=== PATIENT | female | born 1965 | race Caucasian/White ===

== ENCOUNTER → 2020-12-01 09:30 | Outpatient (BNVA) | payer MEDICARE, SELFPAY | PROVIDERS: PCP Internal Medicine; Visit Provider Hospitalist | DX: J45.50 Severe persistent asthma, uncomplicated (principal); R91.8 Other nonspecific abnormal finding of lung field; G47.33 Obstructive sleep apnea (adult) (pediatric); Z99.89 Dependence on other enabling machines and devices | CPT/HCPCS: 99212 ==

== ENCOUNTER → 2021-01-19 09:16 | Outpatient (BNVA) | payer MEDICARE, SELFPAY | PROVIDERS: PCP Internal Medicine; Visit Provider Hospitalist | DX: J30.9 Allergic rhinitis, unspecified (principal); R91.8 Other nonspecific abnormal finding of lung field; G47.33 Obstructive sleep apnea (adult) (pediatric); Z99.89 Dependence on other enabling machines and devices; J45.51 Severe persistent asthma with (acute) exacerbation | CPT/HCPCS: 99212 ==

== ENCOUNTER 2021-01-26 10:49 | Outpatient (REF) | payer MEDICARE, SELFPAY ==
--- NOTE | ~2021-01-26 | CT_ITS ---
EXAMINATION: CT CHEST WITHOUT CONTRAST CLINICAL INFORMATION: Follow-up pulmonary nodules COMPARISON: Previous chest CT scans most recent June 2020 TECHNIQUE: Multidetector volumetric CT imaging of the chest was done. Axial MIP volume rendering provided. Sagittal and coronal reformatted images were obtained. This CT examination was performed using dose optimization techniques as appropriate, variously including the following: *Automated exposure control *Adjustment of mA and/or kV according to patient size (this includes techniques or standardized protocols for targeted exams where dose is matched to indication/reason for exam; i.e. extremities or head) *Use of iterative reconstruction technique DLP: 472 mGy-cm FINDINGS: DRILLER HAND: Unremarkable LUNGS: There are innumerable noncalcified bilateral pulmonary nodules, right greater than left. Largest pulmonary nodules measure 4 mm in the peripheral or subpleural right lower lobe adjacent to the fissure axial image 298 series 6 and at the right lung apex axial image 42 series 6 and the left upper lobe axial image 212 series 6. There are a few calcified pulmonary nodules. Pulmonary nodules are stable from June 2020 exam. No new nodules are seen. MEDIASTINUM: There is a small pericardial effusion that is stable. The mediastinum is otherwise normal. PLEURA: There is no pleural effusion. No pleural mass or thickening. AXILLA: No lymphadenopathy. UPPER ABDOMEN: There are postoperative changes from upper midline ventral hernia repair. OSSEOUS STRUCTURES: There are mild degenerative changes of the spine. CT/CT chest wo con IMPRESSION: Innumerable stable small pulmonary nodules, the majority of which are noncalcified. Stable small pericardial effusion.
== END 2021-01-26 10:50 | disposition home or self-care (01) ==
LOC: HO.CT 10:49
PROVIDERS: PCP Internal Medicine; Visit Provider Hospitalist
DX: R91.8 Other nonspecific abnormal finding of lung field (principal)
CPT/HCPCS: 71250

== ENCOUNTER → 2021-03-05 11:13 | Outpatient (BNVA) | payer MEDICARE, SELFPAY | PROVIDERS: PCP Internal Medicine; Visit Provider Hospitalist | DX: J45.51 Severe persistent asthma with (acute) exacerbation (principal); J30.9 Allergic rhinitis, unspecified; G47.33 Obstructive sleep apnea (adult) (pediatric); Z99.89 Dependence on other enabling machines and devices; R91.8 Other nonspecific abnormal finding of lung field | CPT/HCPCS: 99212 ==

== ENCOUNTER → 2021-04-28 14:08 | Outpatient (BNVA) | payer MEDICARE, SELFPAY | PROVIDERS: PCP Internal Medicine; Visit Provider Hospitalist | DX: G47.33 Obstructive sleep apnea (adult) (pediatric) (principal); J45.51 Severe persistent asthma with (acute) exacerbation; R91.8 Other nonspecific abnormal finding of lung field; J30.9 Allergic rhinitis, unspecified; J44.9 Chronic obstructive pulmonary disease, unspecified; Z99.89 Dependence on other enabling machines and devices; Z79.899 Other long term (current) drug therapy | CPT/HCPCS: 96372; 99212; J2930 ==

== ENCOUNTER → 2021-07-06 11:00 | Outpatient (BNVA) | payer MEDICARE, SELFPAY | PROVIDERS: PCP Internal Medicine; Visit Provider Hospitalist | DX: J44.9 Chronic obstructive pulmonary disease, unspecified (principal); G47.33 Obstructive sleep apnea (adult) (pediatric); J45.51 Severe persistent asthma with (acute) exacerbation; J30.9 Allergic rhinitis, unspecified; R91.8 Other nonspecific abnormal finding of lung field; Z99.89 Dependence on other enabling machines and devices | CPT/HCPCS: 99212 ==

== ENCOUNTER → 2021-10-05 09:59 | Outpatient (BNVA) | payer MEDICARE, SELFPAY | PROVIDERS: PCP Internal Medicine; Visit Provider Hospitalist | DX: J45.51 Severe persistent asthma with (acute) exacerbation (principal); J30.9 Allergic rhinitis, unspecified; J44.9 Chronic obstructive pulmonary disease, unspecified; G47.33 Obstructive sleep apnea (adult) (pediatric); R91.8 Other nonspecific abnormal finding of lung field; Z99.89 Dependence on other enabling machines and devices | CPT/HCPCS: 99212 ==

== ENCOUNTER 2022-01-01 13:22 | Outpatient (REF) | payer MEDICARE, SELFPAY ==
--- NOTE | ~2022-01-01 | CT_ITS ---
EXAMINATION: CT CHEST WITHOUT CONTRAST CLINICAL INFORMATION: Abnormal lung finding. COMPARISON: CT chest 01/26/2021. TECHNIQUE: Multidetector volumetric CT imaging of the chest was done. Axial MIP volume rendering provided. Sagittal and coronal reformatted images were obtained. This CT examination was performed using dose optimization techniques as appropriate, variously including the following: Automated exposure control. Adjustment of mA and/or kV according to patient size (this includes techniques or standardized protocols for targeted exams where dose is matched to indication/reason for exam; i.e. extremities or head). Use of iterative reconstruction technique. DLP: 247 mGy-cm FINDINGS: HOSPITAL LIAISON: Well expanded lungs. LUNGS: The lungs are well expanded without any acute pneumonic process. There are numerous noncalcified pulmonary nodules. A 4 mm right lung apex nodule image 96/7, a 4 mm nodule right lower lobe adjacent to the major fissure axial image 344/7, numerous 1-2 mm nodules scattered throughout the bilateral upper lobes, lower lobes, right middle lobe and lingular segments. The size of these nodules are similar to previous study. MEDIASTINUM: The thyroid lobes are symmetrical and normal. The central trachea and bronchi are widely patent. Heart size and the great vessels are normal caliber. Trace pericardial effusion seen. No abnormal size mediastinal or hilar lymph nodes seen. PLEURA: There is no pleural effusion. No pleural mass or thickening. AXILLA: No lymphadenopathy. UPPER ABDOMEN: The visualized liver, spleen, pancreas and bilateral adrenal glands are unremarkable. There are no radiopaque gallstones. OSSEOUS STRUCTURES: No lytic or sclerotic process seen. There is mild ventral spondylosis. CT/CT chest wo con IMPRESSION: Numerous diffuse bilateral pulmonary nodules, largest measuring 4 mm are stable. There are no new nodules or any substantial increase in the size of the existent nodules from previous study. No abnormal mediastinal or axillary lymphadenopathy. Fleischner guidelines were followed.
== END 2022-01-01 13:23 | disposition home or self-care (01) ==
LOC: HO.CT 13:22
PROVIDERS: PCP Internal Medicine; Visit Provider Hospitalist
DX: R91.8 Other nonspecific abnormal finding of lung field (principal)
CPT/HCPCS: 71250

== ENCOUNTER → 2022-01-27 10:22 | Outpatient (BNVA) | payer MEDICARE, SELFPAY | PROVIDERS: PCP Internal Medicine; Visit Provider Hospitalist | DX: J45.50 Severe persistent asthma, uncomplicated (principal); J44.9 Chronic obstructive pulmonary disease, unspecified; J30.9 Allergic rhinitis, unspecified; G47.33 Obstructive sleep apnea (adult) (pediatric); R91.8 Other nonspecific abnormal finding of lung field; Z88.2 Allergy status to sulfonamides; Z99.89 Dependence on other enabling machines and devices | CPT/HCPCS: 99212 ==

== ENCOUNTER → 2022-07-23 13:00 | Outpatient (BNVA) | payer MEDICARE, SELFPAY | PROVIDERS: PCP Internal Medicine; Visit Provider Hospitalist | DX: J45.51 Severe persistent asthma with (acute) exacerbation (principal); G47.33 Obstructive sleep apnea (adult) (pediatric); R91.8 Other nonspecific abnormal finding of lung field; J30.9 Allergic rhinitis, unspecified; Z79.899 Other long term (current) drug therapy; Z99.89 Dependence on other enabling machines and devices | CPT/HCPCS: 99212 ==

== ENCOUNTER → 2022-10-01 09:43 | Outpatient (BNVA) | payer MEDICARE, SELFPAY | PROVIDERS: PCP Internal Medicine; Visit Provider Hospitalist | DX: J45.51 Severe persistent asthma with (acute) exacerbation (principal); G47.33 Obstructive sleep apnea (adult) (pediatric); R05.9 Cough, unspecified; R91.8 Other nonspecific abnormal finding of lung field; J30.9 Allergic rhinitis, unspecified; Z99.89 Dependence on other enabling machines and devices | CPT/HCPCS: 96372; 99212; J2930 ==

== ENCOUNTER 2022-11-02 14:27 | Outpatient (REF) | payer MEDICARE, SELFPAY ==
--- NOTE | ~2022-11-02 | XR_ITS ---
EXAMINATION: XR CHEST CLINICAL INFORMATION: Chronic obstructive pulmonary disease. COMPARISON: CT 01/01/2022 TECHNIQUE: 2 views of the chest were obtained. FINDINGS: The lungs are well expanded. There is no focal consolidation, edema, or effusion. No pneumothorax. The cardiomediastinal silhouette is within normal limits. No acute osseous abnormality. Prior ventral abdominal wall hernia repair. XR/XR chest 2V IMPRESSION: Clear lungs.
[2022-11-02 15:47] LABS: MANUAL DIFF FLAG NO
[2022-11-02 16:38] LABS: Basophils Percent Auto 0.6 % (0-2); Eosinophils Absolute Auto 0.3 X10*3/uL (0.0-0.4); Eosinophils Percent Auto 5.3 % (0-4); Hematocrit 43.3 % (37.0-47.0); Hemoglobin 14.1 g/dl (12.0-16.0); Imm Gran Abs Auto 0.03 X10*3/uL (0.00-0.03); Imm Gran Pct Auto 0.5 % (0.0-0.4); Lymphocytes Absolute Auto 1.2 X10*3/uL (1.2-4.9); Lymphocytes Percent Auto 18.4 % (20-40); Mean Corpuscular HGB Conc 32.6 g/dl (31.0-35.0); Mean Corpuscular Hemoglobin 29.4 pg (27.0-33.0); Mean Corpuscular Volume 90.4 fL (80.0-98.0); Mean Platelet Volume 9.6 fL (9.4-12.3); Monocytes Absolute Auto 0.8 X10*3/uL (0.1-1.2); Monocytes Percent Auto 12.3 % (2-11); Neutrophils Absolute Auto 3.9 x10*3/uL (2.0-8.3); Neutrophils Percent Auto 62.9 % (45-73); Platelet Count 259 X10*3/uL (160-400); Red Blood Count 4.79 X10*6/uL (4.20-5.50); Red Cell Distribution Width 13.2 % (11.0-16.0); White Blood Count 6.3 X10*3/uL (4.8-10.8)
[2022-11-02 17:05] LABS: Anion Gap 12 (12-20); Blood Urea Nitrogen 14 mg/dL (9-16); Calcium 8.9 mg/dL (8.4-10.2); Carbon Dioxide 22 mmol/L (22-29); Chloride 109 mmol/L (96-108); Estimated Glomerular Filt Rate 57; Glucose Random 101 mg/dL (60-115); Sodium 139 mmol/L (135-145)
[2022-11-02 17:30] LABS: Erythrocyte Sedimentation Rate 18 MM/HR (0-20)
[2022-11-03 14:28] LABS: Immunoglobulin E 37 kU/L (<OR=114)
[2022-11-05 22:49] LABS: IgA 170 mg/dL (47-310); IgG 515 mg/dL (600-1640); IgM 38 mg/dL (50-300)
== END 2022-11-02 14:28 | disposition home or self-care (01) ==
LOC: HO.LAB 14:27
PROVIDERS: PCP Internal Medicine; Visit Provider Hospitalist
DX: R06.00 Dyspnea, unspecified (principal); J45.50 Severe persistent asthma, uncomplicated; J30.9 Allergic rhinitis, unspecified; R91.8 Other nonspecific abnormal finding of lung field; G47.33 Obstructive sleep apnea (adult) (pediatric); Z99.89 Dependence on other enabling machines and devices; Z79.899 Other long term (current) drug therapy
CPT/HCPCS: 36415; 71046; 80048; 82784; 82785; 85025; 85652; 96372; 99212; J2930

== ENCOUNTER 2022-11-19 10:30 | Outpatient (REF) | payer MEDICARE, SELFPAY ==
--- NOTE | ~2022-11-19 | CT_ITS ---
EXAMINATION: CT CHEST WITHOUT CONTRAST CLINICAL INFORMATION: Abnormal lung findings. COMPARISON: CT chest 01/01/2022 and 01/26/2021. TECHNIQUE: Multidetector volumetric CT imaging of the chest was done. Axial MIP volume rendering provided. Sagittal and coronal reformatted images were obtained. This CT examination was performed using dose optimization techniques as appropriate, variously including the following: *Automated exposure control *Adjustment of mA and/or kV according to patient size (this includes techniques or standardized protocols for targeted exams where dose is matched to indication/reason for exam; i.e. extremities or head) *Use of iterative reconstruction technique DLP: 256 mGy-cm. FINDINGS: [employer]: Unremarkable. LUNGS: The lungs are expanded without acute pneumonic process. There are bilateral extensive 1-2 mm nodules seen throughout both upper lobes, lower lobes. The largest pulmonary nodule measures 3 mm right upper lobe axial image 169/5, 4 mm nodule left upper lobe axial image 280/5, 4 mm nodule left upper lobe axial image 250/5. MEDIASTINUM: The thyroid lobes are symmetric and normal. The central trachea and the bronchi are widely patent. Heart size and the great vessels are normal caliber. No abnormal-sized mediastinal or hilar lymph nodes seen. There is no pericardial effusion seen. CORONARY ARTERY CALCIFICATION: None visualized on this study. PLEURA: There is no pleural effusion. No pleural mass or thickening. AXILLA: Small shotty lymph nodes seen in bilateral axilla. UPPER ABDOMEN: Visualized liver, spleen, pancreas and bilateral adrenal glands are unremarkable. OSSEOUS STRUCTURES: No aggressive lytic or sclerotic process seen. CT/CT chest wo IV con IMPRESSION: Multiple bilateral pulmonary nodules with the largest nodule measuring 4 mm bilaterally. There are unchanged to the previous 2 CT exams. No abnormal mediastinal or axillary lymphadenopathy seen. Fleischner guidelines were followed.
== END 2022-11-19 10:31 | disposition home or self-care (01) ==
LOC: HO.CT 10:30
PROVIDERS: PCP Internal Medicine; Visit Provider Hospitalist
DX: R91.8 Other nonspecific abnormal finding of lung field (principal)
CPT/HCPCS: 71250

== ENCOUNTER → 2023-01-20 12:54 | Outpatient (BNVA) | payer MEDICARE, SELFPAY | PROVIDERS: PCP Internal Medicine; Visit Provider Hospitalist | DX: J45.51 Severe persistent asthma with (acute) exacerbation (principal); J45.50 Severe persistent asthma, uncomplicated; R91.8 Other nonspecific abnormal finding of lung field; J30.9 Allergic rhinitis, unspecified; J33.9 Nasal polyp, unspecified; G47.33 Obstructive sleep apnea (adult) (pediatric); Z99.89 Dependence on other enabling machines and devices; Z79.52 Long term (current) use of systemic steroids; Z79.899 Other long term (current) drug therapy | CPT/HCPCS: 99212 ==

== ENCOUNTER → 2023-04-19 11:05 | Outpatient (BNVA) | payer MEDICARE, SELFPAY | PROVIDERS: PCP Internal Medicine; Visit Provider Hospitalist | DX: J45.51 Severe persistent asthma with (acute) exacerbation (principal); R91.8 Other nonspecific abnormal finding of lung field; J30.9 Allergic rhinitis, unspecified; G47.33 Obstructive sleep apnea (adult) (pediatric); J33.9 Nasal polyp, unspecified; L30.9 Dermatitis, unspecified; Z79.899 Other long term (current) drug therapy; Z99.89 Dependence on other enabling machines and devices | CPT/HCPCS: 99212 ==

== ENCOUNTER 2023-06-09 08:26 | Outpatient (AMB) | payer MEDICARE, SELFPAY ==
--- NOTE | 2023-06-09 08:28 | A.OFFVIS_ITS ---
Intake Vital Signs 06/09/23 08:29 Height 5 ft 5 in Weight 253 lb 2 oz BMI 42.1 BP 132/84 Blood Pressure Location Rt brachial Position Sitting Pulse 61 Pulse Source Pulse Oximeter Pulse Oximetry (%) 97 Oxygen Delivery Method Room Air Intake Visit Reasons: ear pain, CT results ?trigeminal neuralgia-conf Intake Note: Pt presents as a NPV for ear pain. Cattle Brander Required: No Allergies Iodinated Contrast Media Allergy (Severe, Verified 06/15/23 10:29) Unknown environmental allergies Allergy (Unknown, Verified 06/15/23 10:29) Unknown Sulfa Drugs Allergy (Severe, Uncoded 06/15/23 10:29) Hives Medication List - Last Reconciled 06/09/23 by ITA Pulliam albuterol sulfate 90 mcg/actuation 2 puffs PO Q6H PRN amiloride 5 mg PO DAILY azelastine 2 sprays intranasal BID azithromycin 250 mg PO 3XW 28 days benzonatate 200 mg PO BID PRN cetirizine (Zyrtec) 10 mg PO DAILY PRN codeine-guaifenesin 10-100 mg/5 mL 10 mL PO Q6H PRN 10 days epinephrine IM flu vacc [id number] 6mos up(PF) mL IM fluoxetine 20 mg PO DAILY edzyxolsfmx-wgycsyqus-refalogu 200-62.5-25 mcg (Trelegy Ellipta) 1 inh inhalation DAILY 90 days ipratropium bromide 2 sprays intranasal TID PRN ipratropium-albuterol 0.5 mg-3 mg(2.5 mg base)/3 mL 3 mL inhalation QID 30 days levalbuterol tartrate 45 mcg/actuation 2 puffs PO Q4H PRN magnesium oxide 500 mg PO DIRECTED montelukast 10 mg PO BEDTIME pantoprazole 40 mg PO DAILY potassium chloride ER 10 mEq PO DAILY tezepelumab-ekko (Tezspire) 210 mg (1.91 mL) subcut Q4W 12 months HPI HPI Comments History of Present Illness Details 57-yr-old female presents for new pt evaluation of left ear pain. Pt reports PMH significant for: asthma-COPD overlap syndrome, chronic allergic rhinitis, pulmonary nodules, SIERRA, hypokalemia, tricupsid regurgitation, tracheobronchomalacia, GERD. Pt reports about 10 yrs ago she felt that she was having recurrent left ear infections. She saw ENT, who did not identify a cause at the time. She did not have head imaging at that time. Since, then she has been prone to intermittent left ear fullness. She has had a few interval of courses of ABT for URI/sinus type infections. Then about 4-5 months ago, she started having a constant left era pressure a/w left stabbing/shooting ear pain and left cervical chain swollen lymph nodes. The pain is usually brief- can be up to seconds of a searing pain. May have up to 4 attacks per day. Now, she notes that she has not been having the shooting pains as frequently but when that is occurring she feels an odd sensation in yue legs- like a bandaid being pulled off. When she is having the ear pain, it is harder for her to sleep on her preferred left side- the left leg will will restless and tingling- and this subsides some with rolling into her right side. There have been some episodes where when the ear pain was worse, she would feel a prickly sensation above the left eyebrow and left lower occipital margin. She endorses left TMJ, which is more bothersome when her ear is more bothersome. She has chronic TMJ- so has had some discomfort eating for a long time. Endorses bruxism- wears a mouth guard at night. She can be dizzy and off-balance- trying to work on her balance. Feels not seeing as clearly as she would like to- especially at night. She is having more difficulty with word retrieval. Has a remote h/o migraine- last was > 20 yrs. Denies any facial redness/swelling, facial weakness/droop, dysphagia, throat pain. Notes that she is currently on prophylactic azithromycin by Dr Farmer- this has not seemed to help the left ear symptoms. COUNTS INCLUDE 234 BEDS AT THE [facility] Medical History Asthma-COPD overlap syndrome Chronic allergic rhinitis Eczema Nasal polyposis SIERRA on CPAP Pulmonary nodules Severe persistent asthma Surgical History Hx of cataract surgery S/P hernia surgery Family History (Updated 06/09/23 @ 08:40 by Coco Gonzales CMA) Father Lung cancer Diabetes Heart disease Mother Emphysema of lung Hypertension Bladder cancer TIA (transient ischemic attack) Social History Alcohol intake: current Alcohol intake frequency: a few times a month Patient Tobacco Use Status: Never used Tobacco Review of Systems Const Details: See scanned review of s/s. Physical Exam Vital Signs: Last Vital Signs Pulse 61 06/09/23 08:29 BP 132/84 06/09/23 08:29 Pulse Ox 97 06/09/23 08:29 Oxygen Delivery Method Room Air 06/09/23 08:29 BMI result Body Mass Index 42.1 Const Orientation/consciousness: patient oriented x3 HEENT Head: Yes normocephalic Resp Effort & Inspection: normal respiratory effort and able to speak in complete sentences Back/Spine/Pelvis Other: Bilateral posterior cervical tightness. Neuro General: patient oriented x3 Cranial nerves: Yes CN's II-XII intact bilaterally Cognition (Neuro): normal cognition Gait exam (Neuro): Normal gait present Motor exam (neuro): 5/5 motor strength present throughout Deep tendon reflexes (DTR's): Right triceps reflex intensity grade: 2+, Left triceps reflex intensity grade: 2+, Rt Biceps (C5, C6): 2+, Left biceps reflex intensity grade: 2+, Right brachioradialis reflex intensity grade: 2+, Left brachioradialis reflex intensity grade: 2+, Right patellar reflex intensity grade: 2+ and Left patellar reflex intensity grade: 2+ Coordination: [id number] test normal Pupils: Normal pupillary reactivity/response: bilateral Psych Appearance: grossly normal Mental Status: mental status grossly normal Speech and movement: Normal speech and movement present Affect: normal affect Attitude: cooperative Thought process: Normal thought process present Assessment & Plan Assessment & Plan (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 intracranial hypertension, TN process. Trial Topiramate 25-50mg qhs. Future considerations- muscle relaxant Case discussed w/ Dr Norma bautista/gera in 3 months or sooner prn Orders: Orders MR head/brain wo/w con 06/10/23 Q01.9 - Encephalocele, unspecified, H92.02 - Otalgia, left ear, R51.9 - Headache, unspecified Medications: New topiramate 25 - 50 mg (1 - 2 x 25 mg) PO BEDTIME 60 tabs 3RF 30 days Coding Level of Care Code New Pt Level 4 (56959) Diagnoses Cephalocele Q01.9 Left ear pain H92.02 Left facial pain R51.9
[2023-06-09 08:29] VITALS: BP 132/84; PULSE 61; O2SAT 97; BMI 42.1
== END 2023-06-09 09:56 | disposition home or self-care (01) ==
LOC: HO.HSMS 08:26
PROVIDERS: PCP Internal Medicine; Visit Provider Nurse Practitioner Family
DX: Q01.9 Encephalocele, unspecified (principal); H92.02 Otalgia, left ear; R51.9 Headache, unspecified
CPT/HCPCS: 99204

== ENCOUNTER → 2023-06-09 08:26 | Outpatient (BNVA) | payer MEDICARE, SELFPAY | PROVIDERS: PCP Internal Medicine; Visit Provider Nurse Practitioner Family | DX: H92.02 Otalgia, left ear (principal); R51.9 Headache, unspecified; Q01.9 Encephalocele, unspecified | CPT/HCPCS: 99202 ==

== ENCOUNTER 2023-06-15 10:15 | Outpatient (AMB) | payer MEDICARE, MEDICAID, SELFPAY ==
[2023-06-15 10:25] VITALS: BP 102/70; PULSE 71; O2SAT 97; BMI 41.4
--- NOTE | 2023-06-15 10:25 | A.OFFVIS_ITS ---
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 Her asthma is still an issue still having daytime symptoms. However, she has not required prednisone which is reassuring. She is still using rescue inhaler. She still getting Xolair twice a month. She still having bronchospasms on a regular basis but the fact that she had thermal plasty decreases her significant bronchospasms therefore not needing to be on steroids but still needing frequent bronchodilation. She tried doing some work outside of the home however, her symptoms quickly came back Kristy is concerning that she may not be able to keep a full-time job or to work regularly still with having symptoms. Optimistic that as she is healing from her asthma that hopefully in the fall she we were able to reassess and may be she can go back to [employer] work outside of the home. She continues a very aggressive respiratory regimen. She continues with allergy therapy. The CPAP therapy continues to be affecting beneficial. She does use a CPAP for more than 4 hours a night. 07/24/20 the patient is here for pulmonary follow-up visit. Overall she is doing well. She is concerned about her you issue with her liver. She was diagnosed with non alcoholic steatohepatitis. Underwent a CT scan of the abdomen demonstrating multiple pulmonary nodules. Therefore she underwent a dedicated CT scan of the chest. I personally reviewed the CT scan with the patient. She did have significant my was a findings consistent with her air trapping and significant asthma. In addition to that she has numerous pulmonary nodules some of that are calcified and some that are not calcified. Some that well circumscribed and some that are hazy in appearance. Largest nodule in the right lower lobe measuring 7 mm in size. I reassured her that I believe this is more inflammatory but we have to do our due diligence. The patient based on the size of the pulmonary nodules should get a CT scan in 6 months from her last 1. In regards of her asthma therapy appears to be stable at this time. The CPAP therapy she is tolerating every night. She does uses CPAP for more than 4 hours a night. The therapy continues to be effective and beneficial. 12/01/2020 the patient is here for pulmonary follow-up visit. Overall she is doing well. She continues to have nasal congestion with postnasal drip. Moderate severity. This is caused her to have increased cough. But, for an ast hma standpoint she feels well. She has been able to go outside and walk and exercise without any significant shortness of breath. She has continued her Xolair injections regularly with her program checker. She continues her respiratory medication which is good. She has known pulmonary nodules. She did have a scheduled CT scan for December but will push stat out to for January to try to minimize exposure to the COVID-19 infections. If is still an issue then we can always postpone it further. Still, the pulmonary nodules need to be followed to make sure that they do not grow. 01/19/2021 patient is here for pulmonary follow-up visit. The patient has been coughing more. Moderate severity. It is dry hacky cough. She got after getting the 1st size her vaccine. She is not sure if it was from the vaccine itself or if she was from the cold waiting for the vaccine. She has not been using her rescue inhaler and does not have any nebulized solution to use at this time. Since she was vaccinated with trying to prevent her from going on prednisone. Therefore she is going to start using her DuoNeb 4 times a day and also using cough syrup her at this point she does not any antibiotics. My suspicion is that the symptoms are in the a side effect after the vaccine. If the patient needs to start prednisone she is to start prednisone mid week this week. She needs to finish off with a 5 day course of prednisone prior to her next dose. Otherwise patient is without any other concerns. She will call if any other issues arise.. 03/05/2021 the patient is here for pulmonary follow-up visit. She is doing a lot better. She continues use her respiratory therapy. Denies any wheezing or coughing. He has not had to use her rescue inhaler more than twice a week. She is excited about the possibility of going back to work at least part-time. She understands side her asthma has been initial in the past. Currently she continues on the allergy therapy with both allergy shots and Xolair. Overall she is doing a lot better and is hopeful that she could go back to the work force. She continues uses CPAP. The CPAP therapy continues to be affecting beneficial. She does use for more than 4 hours a night. 04/28/2021 the patient is here for sick visit. Apparently she started opening up her windows and was significantly exposed to the environmental allergens. She has significant eczema. She did follow-up program checker and did the prednisone for that. Now her breathing has gotten worse. She did start some prednisone at home initially 20 mg but then had to increase it to 40 mg because she was no better. She has been using her nebulizer every 4 hours. She is also using her cough is medication because significant cough which is persistent. She denies any fevers or chills. She was vaccinated for COVID-19. Any symptoms that are consistent with that. This is more typical of her allergies. In the meantime she does continue with the Xolair. She did tried and failed Fasenra and also Dupixent. The patient does have significant obstructive airway disease requiring prednisone. At this point she will be a good candidate for Daliresp. Start her of 250 mcg in order for her to tolerate the medication. 07/06/2021 the patient is here for a pulmonary follow-up visit. Since our last spoke patient has been doing a lot better. She completed the pred nisone and the antibiotics. She is back to her maintenance therapy and also continues to receive her Xolair. She is excited that she has reverted to Xolair at home soon. In the meantime she continues to try to volunteer to school. It is hard for her to provide a consistent schedule to school due to her ongoing symptoms. Her respiratory symptoms do worsen by using a mask. In the meantime she continues use her CPAP. The CPAP therapy continues to be affecting beneficial. She does use it more than 4 hours a night. Also to note the patient did not start the Daliresp due to the fact that had a cough high co-pay. Does not appear to need any alternative therapies at this time. She will continue with current respiratory regimen. 10/05/2021 the patient is here for a pulmonary follow-up visit. At this point she is doing okay. She did have significant issues with her cough and her chest tightness. She did have an episode of syncope that was as a result of a significant coughing spell. She was evaluated at [facility]. Per report her chest x-ray was okay and she had a telemetry that was okay. She was subsequently discharged home. The a doxycycline did help specially with her sinuses. However now the getting a little more congested again. Other she continue the course for little bit longer. I do think is a good idea specially with the sinus being hard to treat the along the treatment with antibiotics will be useful. She continues with Xolair. She is doing at home now. She does have an EpiPen home. She continues uses CPAP. CPAP therapy continues to be affecting beneficial. Her last CT scan of the chest back January 2021 demonstrating multiple pulmonary nodules had not changed when compared to her previous CT June 2020 some point she will require a repeat CT scan few years. 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 It was causing significant worsening her respiratory status and multiple requirements about Prednisone. At this point Prednisone has become very hard for her tolerate. She had worsening symptoms significant weight gain being on prednisone. Ultimately likely had something to do with her coughing spell that resulted in syncope. Therefore will try to minimize the use prednisone and is not using alternative. 01/27/2022 the patient is here for a pulmonary follow-up visit. She is complaining of increasing dyspnea especially with exertion. Hijd-sp-ekzxsepe severity. Mostly due to worsening abdominal pain and distention. This is been very uncomfortable for her. She recently started a new free diet which improved her symptoms. She did undergo endoscopy in the past and had biopsies done without any evidence of any celiac disease apparently. In the meantime she continues on the current respiratory therapy and continues with the Xolair. She has been doing well without any significant wheezing or significant coughing. She did undergo a CT scan of the chest that was personally by me. She has numerous pulmonary nodules bilaterally. They appear to be in a bronchovascular distribution. They have not changed from her previous CT scan which is reassuring and is likely some degree inflammatory process. Therefore, ad ditional blood work will be requested. Based on his stability she will need a CT scan to year from now. 07/23/2022 the patient is here for a pulmonary follow-up visit. Overall she is doing relatively well. She does continue to have persistent postnasal drip with upper airway cough syndrome. Her cough tends to be nonproductive. the patient continues to have some times when she has some chest tightness and wheezing. She does use her rescue inhaler few times a week. The patient continues on Xolair. We did talk about considering Dupixent when she follows up with her program checker. She continues use her respiratory therapy with good effect currently on Wixela. she also continues use her CPAP every night. CPAP therapy continues to be affecting beneficial. She does use it for more than 4 hours a night. At this point will optimize her therapy for her persistent rhinitis and upper airway cough syndrome. 10/01/2022 the patient is here for pulmonary follow-up visit. She was feeling better from a asthma exacerbation. However, she did wake up with increased coughing chest tightness. She has been using 1 her nebulizer every 4 hours. Only with partial resolution of the symptoms. She did complete the antibiotics. She continues with all her respiratory medications with good adherence. Based on the significant wheezing chest tightness will give her Solu-Medrol shot today. I am hopeful that after the Solu-Medrol she does not need any additional prednisone. 01/20/2023 the patient is here for a pulmonary follow-up visit. She continues to struggle with her asthma. She had a tough bout during the late fall and early winter. After that she has not been able to get back to her baseline. She continues to have significant coughing episodes and chest tig htness and shortness of breath. Moderate severity. She has been using her respiratory therapy as prescribed. She also has continued the Xolair. At this point the patient is not responding well to the Xolair. We did have her undergo blood work including a CBC with differential demonstrating significant eosinophilia in addition to that her IgE level was within normal limits. As likely because the Xolair has been helping with that component. However, is also noted that her IgG and IgM levels are significantly low. This could be due to immunosuppression due to her chronic prednisone use. Explained to her that we disease immunodeficiency she is likely to get more infections and more duration therefore, hopefully we can keep her off the prednisone in order to repeat the levels and hopefully see improvement. In the meantime she has not been responding well to the Xolair. She quit required multiple courses of steroids including Solu-Medrol intramuscularly. Therefore, I do want her to stop the Xolair and change to different biologic. The patient already completed immunotherapy with allergy immunology. In addition to that will try to optimize her respiratory therapy by switching her over to Trelegy. I am hopeful that this will provide also some relief. The patient is also willing to go back on Daliresp at a smaller dose to see if slowly she can not tolerated. The patient did have a positive effect to her previous thermoplasty about 4-5 years ago. However, now we seem to see did weaning affects the thermoplastic. In addition to this the patient continues use her CPAP. She is struggling. Her AHI is 3. She feels the pressures are too high. She was diagnosed with nasal polyposis and this is likely making more difficult with a nasal mask. I did have a fullface mask, respirator on X IntercastingWear fullface mask available and did provide her with a mask to see if she can tolerate it better. the patient continues to be very symptomatic and difficult at this point to even complete her activities of daily living due to her ongoing asthma. The patient also had a CT scan of the chest that was personally by me demonstrating evidence of air trapping with mosaic pattern. This is consistent with her small airways disease in her asthma. Her pulmonary nodules are stable. 04/19/2023 the patient is here for a pulmonary follow-up visit. She has been complaining of worsening cough with chest congestion for the last 3 weeks. She has been using her respiratory therapy with partial improvement. Lately she has been feeling a little bit better. She also started the new biologic therapy, tezspire. Seems to be tolerating it at this time. Is too early to say if is going to be effective for her. The patient continues with a cough. Has been more productive. Moderate severity. The mucus was initially yellowish in color now is clearing up. It was definitely more sticking consistency and difficult to clear. I will provide her with a flutter valve in order for her to work on chest physical therapy. She can also use her nebulizer prior to the flutter valve to help with mucus clearance. She understands this would be a way to provide chest physical therapy. In the meantime will start her on macrolide therapy to treat her for chronic bronchitis. 06/15/2023 the patient is here for sick visit. Her asthma seems flare of for the last week. She started developing increased chest tightness and cough. Moderate to severe. She has been using her nebulizer about 4 times a day. She has been using all her respiratory therapy. Prior to that appeared that the biologic therapy was partially helpful. Now is been hard to breathe. Her cough is persistent and she does have very limited air movement. The patient will receive Solu-Medrol today. She will need to go back on prednisone. The patient has pretty advanced and severe asthma. It did not flaring up more often. She has been on maximum respiratory therapy and still very limited from her airway capacity. Is very hard for her to perform activities of daily living and very hard for her to be exposed to the elements specially with the he in the humidity and the fire smoke at this time. She does have a spirometry pulmonary function study ordered for next week. Will probably have to postpone that in view of her ongoing symptoms. [facility] Medical History Asthma-COPD overlap syndrome Chronic allergic rhinitis Eczema Nasal polyposis SIERRA on CPAP Pulmonary nodules Severe persistent asthma Surgical History Hx of cataract surgery S/P hernia surgery Family History (Updated 06/09/23 @ 08:40 by Coco Gonzales CMA) Father Lung cancer Diabetes Heart disease Mother Emphysema of lung Hypertension Bladder cancer TIA (transient ischemic attack) Social History Alcohol intake: current Alcohol intake frequency: a few times a month Patient Tobacco Use Status: Never used Tobacco Review of Systems Const Reports difficulty sleeping, Reports fatigue, Reports headache(s) and Denies night sweats ENT Denies change in voice, Reports headache(s), Denies lip swelling, Denies mouth pain, Reports nasal congestion, Reports nasal discharge, Reports nasal obstruction, Reports post nasal drip and Denies tongue swelling Card Denies chest pain, Reports dyspnea and Reports dyspnea on exertion Resp Reports chest congestion, Reports cough, Reports dyspnea, Reports dyspnea on ex ertion and Reports wheezing GI Denies abdominal pain and Reports bloating Musc Denies no additional complaints Neuro Denies Neuro-related abnormal movements and Reports headache(s) Psych Denies no additional complaints Endo Reports fatigue Niko/Lymph Denies easy bleeding and Denies lymphadenopathy Aller/Immun Denies lip swelling, Denies tongue swelling and Reports wheezing Physical Exam Vital Signs: Last Vital Signs Pulse 71 06/15/23 10:25 BP 102/70 06/15/23 10:25 Pulse Ox 97 06/15/23 10:25 Oxygen Delivery Method Room Air 06/15/23 10:25 BMI result Body Mass Index 41.4 Const General: alert Neck Neck: Yes normal visual inspection, Yes full ROM and Yes no lymphadenopathy Chest Chest palpation & inspection: normal inspection of the chest Resp Effort & Inspection: Actively coughing Auscultation: wheezes and diminished lung sounds Cardio Rate: regular rate Rhythm: regular rhythm Heart sounds: S1 normal heart sound present and S2 normal heart sound present GI Palpation (GI): Soft to palpation, not firm and nontender Auscultation: normal bowel sounds Skin General skin exam: rashes and/or lesions noted Office Meds methylprednisolone sod suc(PF) Performing Provider: Antoine Farmer MD Administered by: Coco Che LPN on 06/15/23 10:58 Dose Route Admin Location Lot Number Expiration Date NDC Compactor Driver 125 mg IM [id number] 08/27/25 5176-5961-06 [employer] PHARM Assessment & Plan Assessment & Plan (1) Severe persistent asthma: Comment: Status post bronchial thermoplasty Code(s): J45.50 - Severe persistent asthma, uncomplicated Qualifiers: Asthma complication type: with acute exacerbation Qualified Code(s): J45.51 - Severe persistent asthma with (acute) exacerbation (2) Pulmonary nodules: Code(s): R91.8 - Other nonspecific abnormal finding of lung field (3) Chronic allergic rhinitis: Code(s): J30.9 - Allergic rhinitis, unspecified (4) SIERRA on CPAP: Code(s): G47.33 - Obstructive sleep apnea (adult) (pediatric); Z99.89 - Dependence on other enabling machines and devices (5) Nasal polyposis: Code(s): J33.9 - Nasal polyp, unspecified (6) Eczema: Code(s): L30.9 - Dermatitis, unspecified Plan Solumedrol 125mg IM x 1, then Prednisone taper start Doxycycline continue Tezspire. continue pseudophed as needed stop Azithromycin MWF atrovent nasal spray as needed continue Trelegy 200 continue singulair nasal rinsing prior to CPAP CPAP, provided respironics Dreamwear fullface mask F/U 1-2 months with PFTs Orders: Orders AMB Methylprednisolone Injection Today J44.9 - Chronic obstructive pulmonary disease, unspecified Medications: New doxycycline monohydrate 100 mg PO BID 14 days 28 tabs 0RF prednisone PO daily; Take 6 tabs daily x 3 days, then 5 tabs x 3 days, then 4 tabs x 3 days, then 3 tabs x 3 days, then 2 tabs daily x 3 days, then 1 tab x 3 days to complete. 18 days 63 tabs 0RF Coding Level of Care Code Est Pt Level 4 (24366) Diagnoses Severe persistent asthma J45.51 Asthma complication type: with acute exacerbation Pulmonary nodules R91.8 Chronic allergic rhinitis J30.9 SIERRA on CPAP G47.33; Z99.89 Nasal polyposis J33.9 Eczema L30.9 Time Spent (min) 19
== END 2023-06-15 10:58 | disposition home or self-care (01) ==
PROVIDERS: PCP Internal Medicine; Visit Provider Hospitalist
DX: J45.51 Severe persistent asthma with (acute) exacerbation (principal); R91.8 Other nonspecific abnormal finding of lung field; J30.9 Allergic rhinitis, unspecified; G47.33 Obstructive sleep apnea (adult) (pediatric); Z99.89 Dependence on other enabling machines and devices; J33.9 Nasal polyp, unspecified; L30.9 Dermatitis, unspecified
CPT/HCPCS: 99214

== ENCOUNTER → 2023-06-15 10:15 | Outpatient (BNVA) | payer MEDICARE, SELFPAY | PROVIDERS: PCP Internal Medicine; Visit Provider Hospitalist | DX: J45.51 Severe persistent asthma with (acute) exacerbation (principal); R91.8 Other nonspecific abnormal finding of lung field; J30.9 Allergic rhinitis, unspecified; J33.9 Nasal polyp, unspecified; G47.33 Obstructive sleep apnea (adult) (pediatric); L30.9 Dermatitis, unspecified; Z99.89 Dependence on other enabling machines and devices | CPT/HCPCS: 96372; 99212; J2930 ==

== ENCOUNTER 2023-07-04 11:34 | Outpatient (REF) | payer MEDICARE, MEDICAID, SELFPAY ==
--- NOTE | 2023-07-04 12:36 | PFT_ITS ---
FLOWS: 1. FEV1 75% of predicted at 2.00 L. 2. FVC 82% of predicted at 2.83 L. 3. FEV1 to FVC ratio of 0.71. 4. No bronchodilator response. LUNG VOLUMES: 1. Total lung capacity 97% of predicted at 5.07 L. 2. Residual volume 100% of predicted at 2.06 L. 3. Slow vital capacity 95% of predicted at 3.01 L. 4. Expiratory reserve volume 22% of predicted at 0.21 L. 5. Diffusion capacity is normal. IMPRESSION: No obstructive or restrictive ventilatory defect. No bronchodilator response. Decreased expiratory reserve volume suggests extrathoracic restriction likely secondary to abdominal obesity. Morgan Reyes MD AP/MODL / [id number]
== END 2023-07-04 11:35 | disposition home or self-care (01) ==
LOC: HO.RESP 11:34
PROVIDERS: PCP Internal Medicine; Visit Provider Hospitalist
DX: J44.9 Chronic obstructive pulmonary disease, unspecified (principal)
CPT/HCPCS: 94010; 94727; 94729

== ENCOUNTER → 2023-07-04 12:36 | Outpatient (BNV) | payer MEDICARE, MEDICAID, SELFPAY | PROVIDERS: PCP Internal Medicine; Visit Provider Internal Medicine Pulmonary Disease | DX: J45.909 Unspecified asthma, uncomplicated (principal); G47.33 Obstructive sleep apnea (adult) (pediatric); R91.8 Other nonspecific abnormal finding of lung field | CPT/HCPCS: 94060; 94727; 94729 ==

== ENCOUNTER 2023-07-26 11:02 | Outpatient (AMB) | payer MEDICARE, SELFPAY ==
[2023-07-26 11:11] VITALS: PULSE 75; O2SAT 94; BMI 41.6
--- NOTE | 2023-07-26 11:11 | MHC.OFFVIS ---
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 Her asthma is still an issue still having daytime symptoms. However, she has not required prednisone which is reassuring. She is still using rescue inhaler. She still getting Xolair twice a month. She still having bronchospasms on a regular basis but the fact that she had thermal plasty decreases her significant bronchospasms therefore not needing to be on steroids but still needing frequent bronchodilation. She tried doing some work outside of the home however, her symptoms quickly came back Kristy is concerning that she may not be able to keep a full-time job or to work regularly still with having symptoms. Optimistic that as she is healing from her asthma that hopefully in the fall she we were able to reassess and may be she can go back to [employer] work outside of the home. She continues a very aggressive respiratory regimen. She continues with allergy therapy. The CPAP therapy continues to be affecting beneficial. She does use a CPAP for more than 4 hours a night. 07/24/20 the patient is here for pulmonary follow-up visit. Overall she is doing well. She is concerned about her you issue with her liver. She was diagnosed with non alcoholic steatohepatitis. Underwent a CT scan of the abdomen demonstrating multiple pulmonary nodules. Therefore she underwent a dedicated CT scan of the chest. I personally reviewed the CT scan with the patient. She did have significant my was a findings consistent with her air trapping and significant asthma. In addition to that she has numerous pulmonary nodules some of that are calcified and some that are not calcified. Some that well circumscribed and some that are hazy in appearance. Largest nodule in the right lower lobe measuring 7 mm in size. I reassured her that I believe this is more inflammatory but we have to do our due diligence. The patient based on the size of the pulmonary nodules should get a CT scan in 6 months from her last 1. In regards of her asthma therapy appears to be stable at this time. The CPAP therapy she is tolerating every night. She does uses CPAP for more than 4 hours a night. The therapy continues to be effective and beneficial. 12/01/2020 the patient is here for pulmonary follow-up visit. Overall she is doing well. She continues to have nasal congestion with postnasal drip. Moderate severity. This is caused her to have increased cough. But, for an asthma standpoint she feels well. She has been able to go outside and walk and exercise without any significant shortness of breath. 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 She continues her respiratory medication which is good. She has known pulmonary nodules. She did have a scheduled CT scan for December but will push stat out to for January to try to minimize exposure to the COVID-19 infections. If is still an issue then we can always postpone it further. Still, the pulmonary nodules need to be followed to make sure that they do not grow. 01/19/2021 patient is here for pulmonary follow-up visit. The patient has been coughing more. Moderate severity. It is dry hacky cough. She got after getting the 1st size her vaccine. She is not sure if it was from the vaccine itself or if she was from the cold waiting for the vaccine. She has not been using her rescue inhaler and does not have any nebulized solution to use at this time. Since she was vaccinated with trying to prevent her from going on prednisone. Therefore she is going to start using her DuoNeb 4 times a day and also using cough syrup her at this point she does not any antibiotics. My suspicion is that the symptoms are in the a side effect after the vaccine. If the patient needs to start prednisone she is to start prednisone mid week this week. She needs to finish off with a 5 day course of prednisone prior to her next dose. Otherwise patient is without any other concerns. She will call if any other issues arise.. 03/05/2021 the patient is here for pulmonary follow-up visit. She is doing a lot better. She continues use her respiratory therapy. Denies any wheezing or coughing. He has not had to use her rescue inhaler more than twice a week. She is excited about the possibility of going back to work at least part-time. She understands side her asthma has been initial in the past. Currently she continues on the allergy therapy with both allergy shots and Xolair. Overall she is doing a lot better and is hopeful that she could go back to the work force. She continues uses CPAP. The CPAP therapy continues to be affecting beneficial. She does use for more than 4 hours a night. 04/28/2021 the patient is here for sick visit. Apparently she started opening up her windows and was significantly exposed to the environmental allergens. She has significant eczema. She did follow-up clinical laboratory aides teacher and did the prednisone for that. Now her breathing has gotten worse. She did start some prednisone at home initially 20 mg but then had to increase it to 40 mg because she was no better. She has been using her nebulizer every 4 hours. She is also using her cough is medication because significant cough which is persistent. She denies any fevers or chills. She was vaccinated for COVID-19. Any symptoms that are consistent with that. This is more typical of her allergies. In the meantime she does continue with the Xolair. She did tried and failed Fasenra and also Dupixent. The patient does have significant obstructive airway disease requiring prednisone. At this point she will be a good candidate for Daliresp. Start her of 250 mcg in order for her to tolerate the medication. 07/06/2021 the patient is here for a pulmonary follow-up visit. Since our last spoke patient has been doing a lot better. She completed the prednisone and the antibiotics. She is back to her maintenance therapy and also continues to receive her Xolair. She is excited that she has reverted to Xolair at home soon. In the meantime she continues to try to volunteer to school. It is hard for her to provide a consistent schedule to school due to her ongoing symptoms. Her respiratory symptoms do worsen by using a mask. In the meantime she continues use her CPAP. The CPAP therapy continues to be affecting beneficial. She does use it more than 4 hours a night. Also to note the patient did not start the Daliresp due to the fact that had a cough high co-pay. Does not appear to need any alternative therapies at this time. She will continue with current respiratory regimen. 10/05/2021 the patient is here for a pulmonary follow-up visit. At this point she is doing okay. She did have significant issues with her cough and her chest tightness. She did have an episode of syncope that was as a result of a significant coughing spell. She was evaluated at [facility]. Per report her chest x-ray was okay and she had a telemetry that was okay. She was subsequently discharged home. The a doxycycline did help specially with her sinuses. However now the getting a little more congested again. Other she continue the course for little bit longer. I do think is a good idea specially with the sinus being hard to treat the along the treatment with antibiotics will be useful. She continues with Xolair. She is doing at home now. She does have an EpiPen home. She continues uses CPAP. CPAP therapy continues to be affecting beneficial. Her last CT scan of the chest back January 2021 demonstrating multiple pulmonary nodules had not changed when compared to her previous CT June 2020 some point she will require a repeat CT scan few years. 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 It was causing significant worsening her respiratory status and multiple requirements about Prednisone. At this point Prednisone has become very hard for her tolerate. She had worsening symptoms significant weight gain being on prednisone. Ultimately likely had something to do with her coughing spell that resulted in syncope. Therefore will try to minimize the use prednisone and is not using alternative. 01/27/2022 the patient is here for a pulmonary follow-up visit. She is complaining of increasing dyspnea especially with exertion. [id number] severity. Mostly due to worsening abdominal pain and distention. This is been very uncomfortable for her. She recently started a new free diet which improved her symptoms. She did undergo endoscopy in the past and had biopsies done without any evidence of any celiac disease apparently. In the meantime she continues on the current respiratory therapy and continues with the Xolair. She has been doing well without any significant wheezing or significant coughing. She did undergo a CT scan of the chest that was personally by me. She has numerous pulmonary nodules bilaterally. They appear to be in a bronchovascular distribution. They have not changed from her previous CT scan which is reassuring and is likely some degree inflammatory process. Therefore, additional blood work will be requested. Based on his stability she will need a CT scan to year from now. 07/23/2022 the patient is here for a pulmonary follow-up visit. Overall she is doing relatively well. She does continue to have persistent postnasal drip with upper airway cough syndrome. Her cough tends to be nonproductive. the patient continues to have some times when she has some chest tightness and wheezing. She does use her rescue inhaler few times a week. The patient continues on Xolair. We did talk about considering Dupixent when she follows up with her clinical laboratory aides teacher. She continues use her respiratory therapy with good effect currently on Wixela. she also continues use her CPAP every night. CPAP therapy continues to be affecting beneficial. She does use it for more than 4 hours a night. At this point will optimize her therapy for her persistent rhinitis and upper airway cough syndrome. 10/01/2022 the patient is here for pulmonary follow-up visit. She was feeling better from a asthma exacerbation. However, she did wake up with increased coughing chest tightness. She has been using 1 her nebulizer every 4 hours. Only with partial resolution of the symptoms. She did complete the antibiotics. She continues with all her respiratory medications with good adherence. Based on the significant wheezing chest tightness will give her Solu-Medrol shot today. I am hopeful that after the Solu-Medrol she does not need any additional prednisone. 01/20/2023 the patient is here for a pulmonary follow-up visit. She continues to struggle with her asthma. She had a tough bout during the late fall and early winter. After that she has not been able to get back to her baseline. She continues to have significant coughing episodes and chest tightness and shortness of breath. Moderate severity. She has been using her respiratory therapy as prescribed. She also has continued the Xolair. At this point the patient is not responding well to the Xolair. We did have her undergo blood work including a CBC with differential demonstrating significant eosinophilia in addition to that her IgE level was within normal limits. As likely because the Xolair has been helping with that component. However, is also noted that her IgG and IgM levels are significantly low. This could be due to immunosuppression due to her chronic prednisone use. Explained to her that we disease immunodeficiency she is likely to get more infections and more duration therefore, hopefully we can keep her off the prednisone in order to repeat the levels and hopefully see improvement. In the meantime she has not been responding well to the Xolair. She quit required multiple courses of steroids including Solu-Medrol intramuscularly. Therefore, I do want her to stop the Xolair and change to different biologic. The patient already completed immunotherapy with allergy immunology. In addition to that will try to optimize her respiratory therapy by switching her over to Trelegy. I am hopeful that this will provide also some relief. The patient is also willing to go back on Daliresp at a smaller dose to see if slowly she can not tolerated. The patient did have a positive effect to her previous thermoplasty about 4-5 years ago. However, now we seem to see did weaning affects the thermoplastic. In addition to this the patient continues use her CPAP. She is struggling. Her AHI is 3. She feels the pressures are too high. She was diagnosed with nasal polyposis and this is likely making more difficult with a nasal mask. I did have a fullface mask, respirator on X EnforaWear fullface mask available and did provide her with a mask to see if she can tolerate it better. the patient continues to be very symptomatic and difficult at this point to even complete her activities of daily living due to her ongoing asthma. The patient also had a CT scan of the chest that was personally by me demonstrating evidence of air trapping with mosaic pattern. This is consistent with her small airways disease in her asthma. Her pulmonary nodules are stable. 04/19/2023 the patient is here for a pulmonary follow-up visit. She has been complaining of worsening cough with chest congestion for the last 3 weeks. She has been using her respiratory therapy with partial improvement. Lately she has been feeling a little bit better. She also started the new biologic therapy, tezspire. Seems to be tolerating it at this time. Is too early to say if is going to be effective for her. The patient continues with a cough. Has been more productive. Moderate severity. The mucus was initially yellowish in color now is clearing up. It was definitely more sticking consistency and difficult to clear. I will provide her with a flutter valve in order for her to work on chest physical therapy. She can also use her nebulizer prior to the flutter valve to help with mucus clearance. She understands this would be a way to provide chest physical therapy. In the meantime will start her on macrolide therapy to treat her for chronic bronchitis. 06/15/2023 the patient is here for sick visit. Her asthma seems flare of for the last week. She started developing increased chest tightness and cough. Moderate to severe. She has been using her nebulizer about 4 times a day. She has been using all her respiratory therapy. Prior to that appeared that the biologic therapy was partially helpful. Now is been hard to breathe. Her cough is persistent and she does have very limited air movement. The patient will receive Solu-Medrol today. She will need to go back on prednisone. The patient has pretty advanced and severe asthma. It did not flaring up more often. She has been on maximum respiratory therapy and still very limited from her airway capacity. Is very hard for her to perform activities of daily living and very hard for her to be exposed to the elements specially with the he in the humidity and the fire smoke at this time. She does have a spirometry pulmonary function study ordered for next week. Will probably have to postpone that in view of her ongoing symptoms. 07/26/2023 the patient is here for pulmonary follow-up visit. The patient is very well known to me. She does have severe persistent asthma. This point the asthma has been uncontrolled. She did respond initially well to the broncho thermal plasty. However, after a few years the benefits subsided. She now has symptoms on a daily basis with significant cough and shortness of breath. Moderate severity. She does use her rescue inhaler on a daily basis because of an uncontrolled symptoms. She did have pulmonary function studies demonstrating an FEV1 to FVC of 71% which is low for her Age and consistent with an obstructive physiology. She also has significant small airways disease consistent with her severe disease. Her PFTs are consistent with uncontrolled asthma. The patient has been on biologic therapy. However she has not responded completely. She has also been on maximum respiratory therapy only with partial improvement. At this point will have her stop the Trelegy inhaler and will start her on nebulized therapy to see if this is effective for her. In the meantime will also request blood work to see if she will be a candidate for different biologic to see if we can help her respiratory status. [facility] Medical History Asthma-COPD overlap syndrome Chronic allergic rhinitis Eczema Nasal polyposis SIERRA on CPAP Pulmonary nodules Severe persistent asthma Surgical History Hx of cataract surgery S/P hernia surgery Family History (Updated 06/09/23 @ 08:40 by Coco Gonzales CMA) Father Lung cancer Diabetes Heart disease Mother Emphysema of lung Hypertension Bladder cancer TIA (transient ischemic attack) Social History Alcohol intake: current Alcohol intake frequency: a few times a month Patient Tobacco Use Status: Never used Tobacco Review of Systems Const Reports difficulty sleeping, Reports fatigue, Reports headache(s) and Denies night sweats ENT Denies change in voice, Reports headache(s), Denies lip swelling, Denies mouth pain, Reports nasal congestion, Reports nasal discharge, Reports nasal obstruction, Reports post nasal drip and Denies tongue swelling Card Denies chest pain, Reports dyspnea and Reports dyspnea on exertion Resp Reports chest congestion, Reports cough, Reports dyspnea, Reports dyspnea on exertion and Reports wheezing GI Denies abdominal pain and Reports bloating Musc Denies no additional complaints Neuro Denies Neuro-related abnormal movements and Reports headache(s) Psych Denies no additional complaints Endo Reports fatigue Niko/Lymph Denies easy bleeding and Denies lymphadenopathy Aller/Immun Denies lip swelling, Denies tongue swelling and Reports wheezing Physical Exam Vital Signs: Last Vital Signs Pulse 75 07/26/23 11:11 Pulse Ox 94 07/26/23 11:11 Oxygen Delivery Method Room Air 07/26/23 11:11 BMI result Body Mass Index 41.6 Const General: alert Neck Neck: Yes normal visual inspection, Yes full ROM and Yes no lymphadenopathy Chest Chest palpation & inspection: normal inspection of the chest Resp Effort & Inspection: Actively coughing Quality: actively coughing Auscultation: wheezes and diminished lung sounds Cardio Rate: regular rate Rhythm: regular rhythm Heart sounds: S1 normal heart sound present and S2 normal heart sound present GI Palpation (GI): Soft to palpation, not firm and nontender Auscultation: normal bowel sounds Skin General skin exam: rashes and/or lesions noted Results Reviewed Results Reviewed: PFT 2023-moderate FEV1 reduction, severe small airways disease consistent with severe asthma Assessment & Plan Assessment & Plan (1) Severe persistent asthma: Comment: Status post bronchial thermoplasty. Continues to have uncrotrolled asthma, not responsive to an aggressive medical management. Daily asthma symptoms make it very difficult for her to perform her activities of daily living. Had been in disability due to her asthma. After the thermoplasty she was feeling better, but, unfortunately, the positive effects of the thermoplasty was worn off. Code(s): J45.50 - Severe persistent asthma, uncomplicated Qualifiers: Asthma complication type: with acute exacerbation Qualified Code(s): J45.51 - Severe persistent asthma with (acute) exacerbation (2) Pulmonary nodules: Code(s): R91.8 - Other nonspecific abnormal finding of lung field (3) Chronic allergic rhinitis: Code(s): J30.9 - Allergic rhinitis, unspecified (4) SIERRA on CPAP: Code(s): G47.33 - Obstructive sleep apnea (adult) (pediatric); Z99.89 - Dependence on other enabling machines and devices (5) Nasal polyposis: Code(s): J33.9 - Nasal polyp, unspecified (6) Eczema: Code(s): L30.9 - Dermatitis, unspecified Plan continue Tezspire for now, Tried and failed Xolair. Consider Dupixent if no better. Will request bloodwork continue pseudophed as needed stop Trelegy 200 start budesonide BID start Brovana BID start Spiriva continue singulair nasal rinsing prior to CPAP CPAP, provided respironics Dreamwear fullface mask F/U 2 months Orders: Orders Complete Blood Count Auto Diff Today G47.33 - Obstructive sleep apnea (adult) (pediatric), J30.9 - Allergic rhinitis, unspecified, J33.9 - Nasal polyp, unspecified, J45.50 - Severe persistent asthma, uncomplicated, R91.8 - Other nonspecific abnormal finding of lung field, Z99.89 - Dependence on other enabling machines and devices Erythrocyte Sedimentation Rate Today G47.33 - Obstructive sleep apnea (adult) (pediatric), J30.9 - Allergic rhinitis, unspecified, J33.9 - Nasal polyp, unspecified, J45.50 - Severe persistent asthma, uncomplicated, R91.8 - Other nonspecific abnormal finding of lung field, Z99.89 - Dependence on other enabling machines and devices Immunoglobulin E Today G47.33 - Obstructive sleep apnea (adult) (pediatric), J30.9 - Allergic rhinitis, unspecified, J33.9 - Nasal polyp, unspecified, J45.50 - Severe persistent asthma, uncomplicated, R91.8 - Other nonspecific abnormal finding of lung field, Z99.89 - Dependence on other enabling machines and devices Immunoglobulins,IgG IgA IgM Today G47.33 - Obstructive sleep apnea (adult) (pediatric), J30.9 - Allergic rhinitis, unspecified, J33.9 - Nasal polyp, unspecified, J45.50 - Severe persistent asthma, uncomplicated, R91.8 - Other nonspecific abnormal finding of lung field, Z99.89 - Dependence on other enabling machines and devices Medications: New budesonide 0.5 mg (2 mL) inhalation BID 30 days 120 mL 11RF J44.9 - Chronic obstructive pulmonary disease, unspecified arformoterol (Brovana) 2 mL inhalation Q12H 30 days 120 mL 11RF J44.9 - Chronic obstructive pulmonary disease, unspecified tiotropium bromide 2.5 mcg/actuation (Spiriva Respimat) 2 puffs inhalation DAILY 30 days 1 ea 11RF Discontinued [id number] 200-62.5-25 mcg (Trelegy Ellipta) Discontinued Reason: Doctor's Order 1 inh inhalation DAILY 90 days 3 ea 2RF Coding Level of Care Code Est Pt Level 4 (08108) Diagnoses Severe persistent asthma J45.51 Asthma complication type: with acute exacerbation Pulmonary nodules R91.8 Chronic allergic rhinitis J30.9 SIERRA on CPAP G47.33; Z99.89 Nasal polyposis J33.9 Eczema L30.9 Time Spent (min) 20
== END 2023-07-26 11:32 | disposition home or self-care (01) ==
PROVIDERS: PCP Internal Medicine; Visit Provider Hospitalist
DX: J45.51 Severe persistent asthma with (acute) exacerbation (principal); R91.8 Other nonspecific abnormal finding of lung field; J30.9 Allergic rhinitis, unspecified; G47.33 Obstructive sleep apnea (adult) (pediatric); Z99.89 Dependence on other enabling machines and devices; J33.9 Nasal polyp, unspecified; L30.9 Dermatitis, unspecified
CPT/HCPCS: 99214

== ENCOUNTER → 2023-07-26 11:02 | Outpatient (BNVA) | payer MEDICARE, SELFPAY | PROVIDERS: PCP Internal Medicine; Visit Provider Hospitalist | DX: J45.51 Severe persistent asthma with (acute) exacerbation (principal); R91.8 Other nonspecific abnormal finding of lung field; J30.9 Allergic rhinitis, unspecified; G47.33 Obstructive sleep apnea (adult) (pediatric); J33.9 Nasal polyp, unspecified; L30.9 Dermatitis, unspecified; Z79.899 Other long term (current) drug therapy; Z99.89 Dependence on other enabling machines and devices | CPT/HCPCS: 99212 ==

== ENCOUNTER → 2023-08-18 11:26 | Outpatient (BNVA) | payer MEDICARE, SELFPAY | PROVIDERS: PCP Internal Medicine; Visit Provider Physician Assistant ==

== ENCOUNTER 2023-08-24 08:06 | Outpatient (AMB) | payer MEDICARE, SELFPAY ==
--- NOTE | 2023-08-24 12:26 | A.OFFVIS_ITS ---
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 Allergies Iodinated Contrast Media Allergy (Severe, Verified 08/24/23 12:26) Unknown environmental allergies Allergy (Unknown, Verified 08/24/23 12:26) Unknown Sulfa Drugs Allergy (Severe, Uncoded 08/24/23 12:26) Hives Medication List - Last Reconciled 08/24/23 by Oleg Jones MD albuterol sulfate 90 mcg/actuation 2 puffs PO Q6H PRN amiloride 5 mg PO DAILY arformoterol (Brovana) 2 mL inhalation Q12H 30 days azelastine 2 sprays intranasal BID baclofen 10 mg PO BEDTIME 30 days benzonatate 200 mg PO BID PRN budesonide 0.5 mg (2 mL) inhalation BID 30 days cetirizine (Zyrtec) 10 mg PO DAILY PRN codeine-guaifenesin 10-100 mg/5 mL 10 mL PO Q6H PRN 10 days CPAP (CPAP Machine/Device) As directed epinephrine IM PRN fluoxetine 20 mg PO DAILY ipratropium bromide 2 sprays intranasal TID PRN ipratropium-albuterol 0.5 mg-3 mg(2.5 mg base)/3 mL 3 mL inhalation QID 30 days levalbuterol tartrate 45 mcg/actuation 2 puffs PO Q4H PRN magnesium oxide 500 mg PO DIRECTED montelukast 10 mg PO BEDTIME nebulizers As directed pantoprazole 40 mg PO DAILY potassium chloride ER 10 mEq PO DAILY tezepelumab-ekko (Tezspire) 210 mg (1.91 mL) subcut Q4W 12 months tiotropium bromide 2.5 mcg/actuation (Spiriva Respimat) 2 puffs inhalation DAILY 30 days 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 HPI Details Start time: 12.13pm, End time: 1.13pm ?I spent 50 minutes speaking with the patient on the phone plus an additional 10 minutes reviewing and updating records for a total of 60 minutes HPI Comments History of Present Illness Details Previous weight loss efforts: Weight Watchers, calorie counting Wakes up: 10am, sleeps: 2am Breakfast: 11am (peanut butter toast, eggs on toast) Lunch: 2pm (ham and cheese sandwich and chocolate Dinner: 9pm (Chicken with potatoes) and ice cream (a lot) Snacks: 12pm (ice cream or chocolate), 5-6pm (ice cream), 12am (cereal, chips, crackers) Exercise: none Fluids: Coffee/tea: none, soda: diet Pepsi a lot, juice: none, ETOH: rarely PFSH Medical History (Updated 08/24/23 @ 12:38 by Oleg Jones MD) Depression Trigeminal neuralgia Hypertension GERD (gastroesophageal reflux disease) Morbid obesity Eczema Nasal polyposis Asthma-COPD overlap syndrome Chronic allergic rhinitis Pulmonary nodules SIERRA on CPAP Severe persistent asthma Surgical History (Updated 08/24/23 @ 12:38 by Oleg Jones MD) Status post repair of paraesophageal diaphragmatic hernia Hx of cataract surgery Family History (Updated 06/09/23 @ 08:40 by Coco Gonzales [facility]) Father Lung cancer Diabetes Heart disease Mother Emphysema of lung Hypertension Bladder cancer TIA (transient ischemic attack) Social History Alcohol intake: current Alcohol intake frequency: a few times a month Patient Tobacco Use Status: Never used Tobacco Assessment & Plan Assessment & Plan (1) Morbid obesity: Code(s): E66.01 - Morbid (severe) obesity due to excess calories Plan: 1.? Plan for lap sleeve gastrectomy. If diaphragmatic or ventral hernias are present at time of surgery, these will be repaired laparoscopically as well. Risks and complications were discussed in detail including possible conversion to an open procedure, anastomotic leak, bleeding requiring transfusion, small bowel obstruction, , DVT and pulmonary embolism, cardiac, or pulmonary complications, as skilled nursing complications such as anastomotic ulcer, insufficient weight loss and vitamin deficiencies. I emphasized the importance of close follow-up, adherence to instructions and good communication. 2. Nutritional counseling. Start with 2 vegan CELEBRATE protein shakes (buy at hospital's gift shop) shakes (HALF scoop EACH in 8oz low fat unsweetened almond milk each) at 11am-1pm and 2pm-4pm, 1 CELEBRATE protein bar (buy at [facility]'s gift shop) at 5pm-7pm, dinner at 7pm (10 forks of protein and 10 forks of salad/vegetables) AND one more protein bar after dinner at 9pm-11pm. If hungry you may have another HALF Celebrate bar at 12am-1am. Meal to include lean meat (beef, fish, pork, turkey, chicken), or azeri yogurt, or egg whites, or beans with a salad with olive oil and fruits (berries, pears, apples, kiwi). Avoid salt, breads, potatoes, rice, pasta, desserts. 3. Each shake would be drunk slowly, like coffee in a period of 2 hours. 4. Cut each bar in 4 pieces and eat each piece in 30min ?to make each bar last 2 hours. 5. I emphasized the importance of measuring accurately the food portion and measure it when serving the food in plate 6. The meal portions include 10 full-size forks of meat and 10 full-size forks of salad. You always eat the meat portion but you can replace up to 5 forks for salad/vegetables with rice, potatoes or pasta, or a fruit ?if you like. The less you do it the better weight loss will be. 7. One full-size fork is what it can be scooped on the fork without falling aside and not what can be bit with the fork. Use regular forks like those you find in a typical restaurant. 8.? Please send me weight measurements as soon as possible and then once a week. Always include your diet and exercise plan. Alternatively come weekly at the office for weight checks and send me the measurements. 9. Alternatively purchase a stationary bike, elliptical or treadmill at home that can track calories. Let me know if you do so I can give you an exercise plan. Goal is to burn 2000 calories per week on exercise, which means either 300 calories daily, or 400 calories 5 days per week, or 500 calories 4 days per week, or 650 calories 3 days per week. 10.?Goal is to lose at least 1.5-2lbs per week 11. Goal to lose 10% of your weight before surgery, which is about 25lbs. Ultimate weight goal: 225lbs before surgery 12. Please follow the diet plan exactly without any change. If you don't like something about the plan or you feel hungry you need to communicate with me so I can help you revise the plan. You should not change the plan yourself. (2) SIERRA on CPAP: Code(s): G47.33 - Obstructive sleep apnea (adult) (pediatric); Z99.89 - Dependence on other enabling machines and devices (3) Severe persistent asthma: Comment: Status post bronchial thermoplasty. Continues to have uncrotrolled asthma, not responsive to an aggressive medical management. Daily asthma symptoms make it very difficult for her to perform her activities of daily living. Had been in disability due to her asthma. After the thermoplasty she was feeling better, but, unfortunately, the positive effects of the thermoplasty was worn off. Code(s): J45.50 - Severe persistent asthma, uncomplicated Qualifiers: Asthma complication type: with acute exacerbation Qualified Code(s): J45.51 - Severe persistent asthma with (acute) exacerbation (4) GERD (gastroesophageal reflux disease): Code(s): K21.9 - Gastro-esophageal reflux disease without esophagitis (5) Hypertension: Code(s): I10 - Essential (primary) hypertension Orders: Orders Comprehensive Met. Panel Today E66.01 - Morbid (severe) obesity due to excess calories, G47.33 - Obstructive sleep apnea (adult) (pediatric), I10 - Essential (primary) hypertension, J45.50 - Severe persistent asthma, uncomplicated, K21.9 - Gastro-esophageal reflux disease without esophagitis, Z99.89 - Dependence on other enabling machines and devices Vitamin A Today E66.01 - Morbid (severe) obesity due to excess calories, G47.33 - Obstructive sleep apnea (adult) (pediatric), I10 - Essential (primary) hypertension, J45.50 - Severe persistent asthma, uncomplicated, K21.9 - Gastro- esophageal reflux disease without esophagitis, Z99.89 - Dependence on other enabling machines and devices Ferritin Today E66.01 - Morbid (severe) obesity due to excess calories, G47.33 - Obstructive sleep apnea (adult) (pediatric), I10 - Essential (primary) hypertension, J45.50 - Severe persistent asthma, uncomplicated, K21.9 - Gastro- esophageal reflux disease without esophagitis, Z99.89 - Dependence on other enabling machines and devices Vitamin D 25-OH Total Today E66.01 - Morbid (severe) obesity due to excess calories, G47.33 - Obstructive sleep apnea (adult) (pediatric), I10 - Essential (primary) hypertension, J45.50 - Severe persistent asthma, uncomplicated, K21.9 - Gastro-esophageal reflux disease without esophagitis, Z99.89 - Dependence on other enabling machines and devices Hemoglobin A1c Today E66.01 - Morbid (severe) obesity due to excess calories, G47.33 - Obstructive sleep apnea (adult) (pediatric), I10 - Essential (primary) hypertension, J45.50 - Severe persistent asthma, uncomplicated, K21.9 - Gastro- esophageal reflux disease without esophagitis, Z99.89 - Dependence on other enabling machines and devices ECG 12 lead EKG Today E66.01 - Morbid (severe) obesity due to excess calories, G47.33 - Obstructive sleep apnea (adult) (pediatric), I10 - Essential (primary) hypertension, J45.50 - Severe persistent asthma, uncomplicated, K21.9 - Gastro- esophageal reflux disease without esophagitis, Z99.89 - Dependence on other enabling machines and devices FL upper GI w air Today E66.01 - Morbid (severe) obesity due to excess calories, G47.33 - Obstructive sleep apnea (adult) (pediatric), I10 - Essential (primary) hypertension, J45.50 - Severe persistent asthma, uncomplicated, K21.9 - Gastro- esophageal reflux disease without esophagitis, Z99.89 - Dependence on other enabling machines and devices Insulin Today E66.01 - Morbid (severe) obesity due to excess calories, G47.33 - Obstructive sleep apnea (adult) (pediatric), I10 - Essential (primary) hypertension, J45.50 - Severe persistent asthma, uncomplicated, K21.9 - Gastro- esophageal reflux disease without esophagitis, Z99.89 - Dependence on other enabling machines and devices Lipid Panel Today E66.01 - Morbid (severe) obesity due to excess calories, G47.33 - Obstructive sleep apnea (adult) (pediatric), I10 - Essential (primary) hypertension, J45.50 - Severe persistent asthma, uncomplicated, K21.9 - Gastro- esophageal reflux disease without esophagitis, Z99.89 - Dependence on other enabling machines and devices IRON PROFILE Today E66.01 - Morbid (severe) obesity due to excess calories, G47.33 - Obstructive sleep apnea (adult) (pediatric), I10 - Essential (primary) hypertension, J45.50 - Severe persistent asthma, uncomplicated, K21.9 - Gastro- esophageal reflux disease without esophagitis, Z99.89 - Dependence on other enabling machines and devices Complete Blood Count Auto Diff Today E66.01 - Morbid (severe) obesity due to excess calories, G47.33 - Obstructive sleep apnea (adult) (pediatric), I10 - Essential (primary) hypertension, J45.50 - Severe persistent asthma, uncomplicated, K21.9 - Gastro-esophageal reflux disease without esophagitis, Z99.89 - Dependence on other enabling machines and devices Vitamin B12 and Folate Today E66.01 - Morbid (severe) obesity due to excess calories, G47.33 - Obstructive sleep apnea (adult) (pediatric), I10 - Essential (primary) hypertension, J45.50 - Severe persistent asthma, uncomplicated, K21.9 - Gastro-esophageal reflux disease without esophagitis, Z99.89 - Dependence on other enabling machines and devices Zinc Today E66.01 - Morbid (severe) obesity due to excess calories, G47.33 - Obstructive sleep apnea (adult) (pediatric), I10 - Essential (primary) hypertension, J45.50 - Severe persistent asthma, uncomplicated, K21.9 - Gastro- esophageal reflux disease without esophagitis, Z99.89 - Dependence on other enabling machines and devices Vitamin B1 Today E66.01 - Morbid (severe) obesity due to excess calories, G47.33 - Obstructive sleep apnea (adult) (pediatric), I10 - Essential (primary) hypertension, J45.50 - Severe persistent asthma, uncomplicated, K21.9 - Gastro- esophageal reflux disease without esophagitis, Z99.89 - Dependence on other enabling machines and devices C Reactive Protein Today E66.01 - Morbid (severe) obesity due to excess calories, G47.33 - Obstructive sleep apnea (adult) (pediatric), I10 - Essential (primary) hypertension, J45.50 - Severe persistent asthma, uncomplicated, K21.9 - Gastro-esophageal reflux disease without esophagitis, Z99.89 - Dependence on other enabling machines and devices PTHI Today E66.01 - Morbid (severe) obesity due to excess calories, G47.33 - Obstructive sleep apnea (adult) (pediatric), I10 - Essential (primary) hypertension, J45.50 - Severe persistent asthma, uncomplicated, K21.9 - Gastro- esophageal reflux disease without esophagitis, Z99.89 - Dependence on other enabling machines and devices TSH reflex Free T4 Today E66.01 - Morbid (severe) obesity due to excess calories, G47.33 - Obstructive sleep apnea (adult) (pediatric), I10 - Essential (primary) hypertension, J45.50 - Severe persistent asthma, uncomplicated, K21.9 - Gastro-esophageal reflux disease without esophagitis, Z99.89 - Dependence on other enabling machines and devices H Pylori Breath Test Today E66.01 - Morbid (severe) obesity due to excess calories, G47.33 - Obstructive sleep apnea (adult) (pediatric), I10 - Essential (primary) hypertension, J45.50 - Severe persistent asthma, uncomplicated, K21.9 - Gastro-esophageal reflux disease without esophagitis, Z99.89 - Dependence on other enabling machines and devices US abdomen comp w elastography Today E66.01 - Morbid (severe) obesity due to excess calories, G47.33 - Obstructive sleep apnea (adult) (pediatric), I10 - Essential (primary) hypertension, J45.50 - Severe persistent asthma, uncomplicated, K21.9 - Gastro-esophageal reflux disease without esophagitis, Z99.89 - Dependence on other enabling machines and devices XR chest 2V Today E66.01 - Morbid (severe) obesity due to excess calories, G47.33 - Obstructive sleep apnea (adult) (pediatric), I10 - Essential (primary) hypertension, J45.50 - Severe persistent asthma, uncomplicated, K21.9 - Gastro- esophageal reflux disease without esophagitis, Z99.89 - Dependence on other enabling machines and devices Referrals Nutrition/Dietitian Referral E66.01 - Morbid (severe) obesity due to excess calories, G47.33 - Obstructive sleep apnea (adult) (pediatric), I10 - Essential (primary) hypertension, J45.50 - Severe persistent asthma, uncomplicated, K21.9 - Gastro-esophageal reflux disease without esophagitis, Z99.89 - Dependence on other enabling machines and devices Behavioral Health Referral E66.01 - Morbid (severe) obesity due to excess calories, G47.33 - Obstructive sleep apnea (adult) (pediatric), I10 - Essential (primary) hypertension, J45.50 - Severe persistent asthma, uncomplicated, K21.9 - Gastro-esophageal reflux disease without esophagitis, Z99.89 - Dependence on other enabling machines and devices Telehealth Telehealth Location of provider rendering services: practice address Location of patient: address on file Patient Identification confirmed using: Name, : Yes Telehealth method: voice only Patient verbally consented to treatment: Yes Patient verbally consented to billing insurance company: Yes Patient informed of any privacy concerns related to visit: Yes Minutes spent on Phone/Video with Pt.: 60 Coding Level of Care Code Tele New Pt Level 5 (69236) Diagnoses Morbid obesity E66.01 SIERRA on CPAP G47.33; Z99.89 Severe persistent asthma with acute exacerbation J45.51 Asthma complication type: with acute exacerbation GERD (gastroesophageal reflux disease) K21.9 Hypertension I10 Time Spent (min) 60
[2023-08-24 12:45] VITALS: BMI 44.3
== END 2023-08-24 13:14 | disposition home or self-care (01) ==
LOC: HO.HBS 08:06
PROVIDERS: PCP Internal Medicine; Visit Provider Surgery
DX: E66.01 Morbid (severe) obesity due to excess calories (principal); Z68.41 Body mass index [BMI] 40.0-44.9, adult; G47.33 Obstructive sleep apnea (adult) (pediatric); Z99.89 Dependence on other enabling machines and devices
CPT/HCPCS: 99443

== ENCOUNTER → 2023-08-24 08:06 | Outpatient (BNVA) | payer MEDICARE, SELFPAY | PROVIDERS: PCP Internal Medicine; Visit Provider Surgery ==

== ENCOUNTER → 2023-08-25 09:28 | Day surgery (SDC) | payer MEDICARE, MEDICAID, SELFPAY ==
--- NOTE | ~2023-08-25 | FL_ITS ---
EXAMINATION: XR LUMBAR PUNCTURE CLINICAL INFORMATION: CSF evaluation COMPARISON: None TECHNIQUE: Under fluoroscopic guidance to the patient in a prone position the skin was prepped and draped over the lower lumbosacral spine. 1% Xylocaine was used for local anesthetic. A 21-gauge Chiba needle was placed at the level of the L3-L4 disc space. Opening pressure was 9 cm. Clear CSF was collected and sent for analysis. FL/FL guided lumbar puncture LP IMPRESSION: Lumbar puncture under fluoroscopic guidance
[2023-08-25 09:43] VITALS: BMI 42.9
[2023-08-25 10:18] LABS: MANUAL DIFF FLAG NO
[2023-08-25 10:21] LABS: Basophils Absolute Auto 0.1 X10*3/uL (0.0-0.2); Basophils Percent Auto 0.9 % (0-2); Eosinophils Absolute Auto 0.2 X10*3/uL (0.0-0.4); Eosinophils Percent Auto 2.3 % (0-4); Hemoglobin 14.3 g/dl (12.0-16.0); Imm Gran Abs Auto 0.03 X10*3/uL (0.00-0.03); Imm Gran Pct Auto 0.5 % (0.0-0.4); Lymphocytes Absolute Auto 1.8 X10*3/uL (1.2-4.9); Lymphocytes Percent Auto 27.1 % (20-40); Mean Corpuscular HGB Conc 33.3 g/dl (31.0-35.0); Mean Corpuscular Hemoglobin 30.1 pg (27.0-33.0); Mean Corpuscular Volume 90.5 fL (80.0-98.0); Monocytes Absolute Auto 0.7 X10*3/uL (0.1-1.2); Monocytes Percent Auto 11.2 % (2-11); Neutrophils Absolute Auto 3.8 x10*3/uL (2.0-8.3); Platelet Count 288 X10*3/uL (160-400); Red Blood Count 4.75 X10*6/uL (4.20-5.50); Red Cell Distribution Width 12.6 % (11.0-16.0); White Blood Count 6.6 X10*3/uL (4.8-10.8)
[2023-08-25 10:27] LABS: INTERNATIONAL NORM RATIO 0.8 (0.9-1.1); Prothrombin Time 10.2 SEC (11.1-13.3)
[2023-08-25 10:30] LABS: Partial Thromboplastin Time 31.9 SEC (26.0-36.4)
[2023-08-25 12:35] VITALS: BP 121/57; PULSE 60; RESP 18; TEMP 36.8; O2SAT 97
[2023-08-25 13:05] VITALS: BP 117/52; PULSE 58; RESP 18; O2SAT 98
[2023-08-25 13:35] VITALS: BP 126/53; PULSE 55; RESP 18; O2SAT 98
[2023-08-25 13:48] LABS: Glucose CSF 63 mg/dL
[2023-08-25 14:14] LABS: Appearance CSF CLEAR; CSF Monos 33 %; CSF Tube # 4; Color CSF COLORLESS; Lymphocytes CSF 67 %; Red Blood Cell CSF 1 MM*3; White Blood Cell CSF 1 MM*3
[2023-08-25 14:15] LABS: CSF Monos 32 %; CSF Tube # 1; Color CSF COLORLESS; Lymphocytes CSF 68 %; Red Blood Cell CSF 1 MM*3; White Blood Cell CSF 6 MM*3
[2023-08-25 14:24] VITALS: BP 147/69; PULSE 62; RESP 18; TEMP 36.8; O2SAT 98
[2023-08-25 14:39] LABS: Cryptococcus neoformans/gattii Not Detected (Not Detect.); Enterovirus Not Detected (Not Detect.); Escherichia coli K1 Not Detected (Not Detect.); Haemophilus influenzae Not Detected (Not Detect.); Herpes simplex virus 1 Not Detected (Not Detect.); Herpes simplex virus 2 Not Detected (Not Detect.); Human herpesvirus 6 Not Detected (Not Detect.); Human parechovirus Not Detected (Not Detect.); Listeria monocytogenes Not Detected (Not Detect.); Neisseria meningitidis Not Detected (Not Detect.); Streptococcus agalactiae Not Detected (Not Detect.); Streptococcus pneumoniae Not Detected (Not Detect.); Varicella zoster virus Not Detected (Not Detect.)
[2023-08-25 15:01] LABS: CSF Appearance Clear, Colorless; CSF Tube # 2
[2023-08-27 14:33] LABS: Lyme (B. burgdorferi) PCR NOT DETECTED (NOT DETECTED)
[2023-08-29 01:17] LABS: Albumin, CSF 9.1 mg/dL (8.0-42.0); IgG 597 mg/dL (600-1640); IgG Synthesis Rate -2.4 mg/24 h (-9.9-3.3); IgG, CSF 0.6 mg/dL (0.8-7.7)
== END | disposition home or self-care (01) ==
PROVIDERS: Radiology Diagnostic Radiology; Radiology Vascular & Interventional Radiology; PCP Internal Medicine; Visit Provider Nurse Practitioner Family
PROC: 009U3ZZ Drainage of Spinal Canal, Percutaneous Approach (ICD-10-PCS; CPT 62270; principal; 2023-08-25 11:00)
DX: Q01.9 Encephalocele, unspecified (principal); H92.02 Otalgia, left ear; R51.9 Headache, unspecified; Z79.51 Long term (current) use of inhaled steroids; Z79.899 Other long term (current) drug therapy; Z88.2 Allergy status to sulfonamides; Z91.040 Latex allergy status; E66.01 Morbid (severe) obesity due to excess calories; Z68.41 Body mass index [BMI] 40.0-44.9, adult
CPT/HCPCS: 36415; 62328; 82042; 82945; 84157; 85025; 85610; 85730; 87015; 87070; 87205; 87476; 87483; 89051

== ENCOUNTER → 2023-08-25 10:11 | Outpatient (BNV) | payer MEDICARE, SELFPAY | PROVIDERS: PCP Internal Medicine; Visit Provider Radiology Vascular & Interventional Radiology | DX: R51.9 Headache, unspecified (principal) | CPT/HCPCS: 62328 ==

== ENCOUNTER 2023-09-06 11:51 | Outpatient (REF) | payer MEDICARE, MEDICAID, SELFPAY ==
--- NOTE | ~2023-09-06 | XR_ITS ---
EXAMINATION: XR CHEST CLINICAL INFORMATION: Morbid obesity. COMPARISON: Chest x-ray from November 02, [address] from November 19, 2022 are not currently available for technical reasons. Chest CT dated January 01, 2022. TECHNIQUE: 2 views of the chest were obtained. FINDINGS: No significant abnormality is noted involving the heart, lungs, mediastinum, bony thorax or soft tissues. Findings suggesting anterior abdominal wall surgical mesh. XR/XR chest 2V IMPRESSION: No acute finding.
[2023-09-08 09:39] LABS: Calcium (PTHI) 9.3 mg/dL (8.6-10.4); PTHI 64 pg/mL (16-77)
[2023-09-09 14:18] LABS: Zinc 64 mcg/dL (60-130)
[2023-09-09 19:48] LABS: Vitamin A 35 mcg/dL (38-98)
[2023-09-11 12:03] LABS: Vitamin B1 <6 nmol/L (8-30)
== END 2023-09-06 11:52 | disposition home or self-care (01) ==
LOC: HO.LAB 11:51
PROVIDERS: PCP Internal Medicine; Visit Provider Surgery
DX: E66.01 Morbid (severe) obesity due to excess calories (principal); K21.9 Gastro-esophageal reflux disease without esophagitis; I10 Essential (primary) hypertension; J45.50 Severe persistent asthma, uncomplicated; G47.33 Obstructive sleep apnea (adult) (pediatric); Z99.89 Dependence on other enabling machines and devices
CPT/HCPCS: 36415; 71046; 80053; 80061; 82306; 82607; 82728; 82746; 83036; 83525; 83540; 83970; 84425; 84443; 84590; 84630; 85025; 86140; 93005

== ENCOUNTER 2023-09-16 09:58 | Outpatient (AMB) | payer MEDICARE, SELFPAY ==
--- NOTE | 2023-09-16 10:08 | A.OFFVIS_ITS ---
Intake Vital Signs 09/16/23 10:10 Height 5 ft 5 in Weight 248 lb 6 oz BMI 41.3 BP 132/78 Blood Pressure Location Lt brachial Position Sitting Respiration 16 Pulse 77 Pulse Source Pulse Oximeter Pulse Oximetry (%) 96 Oxygen Delivery Method Room Air Intake Visit Reasons: 3m follow up ear pain/trigeminal neuralgia-LVM Intake Note: Pt presents to office for her 3 month follow up for trigeminal neuralgia. She states she has been stable. Symptoms are the same. Allergies environmental allergies Allergy (Unknown, Verified 09/16/23 10:10) Unknown Sulfa Drugs Allergy (Severe, Uncoded 09/16/23 10:10) Hives Medication List - Last Reconciled 09/16/23 by ITA Pulliam albuterol sulfate 90 mcg/actuation 2 puffs PO Q6H PRN amiloride 5 mg PO DAILY arformoterol (Brovana) 2 mL inhalation Q12H 30 days azelastine 2 sprays intranasal BID baclofen 10 mg PO BEDTIME 30 days benzonatate 200 mg PO BID PRN 30 days budesonide 0.5 mg (2 mL) inhalation BID 30 days cetirizine (Zyrtec) 10 mg PO DAILY PRN cholecalciferol (vitamin D3) 125 mcg PO DAILY codeine-guaifenesin 10-100 mg/5 mL 10 mL PO Q6H PRN 10 days CPAP (CPAP Machine/Device) As directed cyanocobalamin (vitamin B-12) 500 mcg PO DAILY 90 days epinephrine IM PRN fluoxetine 20 mg PO DAILY folic acid 400 mcg PO DAILY 90 days ipratropium bromide 2 sprays intranasal TID PRN ipratropium-albuterol 0.5 mg-3 mg(2.5 mg base)/3 mL 3 mL inhalation QID 30 days levalbuterol tartrate 45 mcg/actuation 2 puffs PO Q4H PRN magnesium oxide 500 mg PO DIRECTED montelukast 10 mg PO BEDTIME nebulizers As directed pantoprazole 40 mg PO DAILY potassium chloride ER 10 mEq PO DAILY tezepelumab-ekko (Tezspire) 210 mg (1.91 mL) subcut Q4W 12 months tiotropium bromide 2.5 mcg/actuation (Spiriva Respimat) 2 puffs inhalation DAILY 30 days HPI HPI Comments History of Present Illness Details 58-yr-old female presents for f/u visit. Pt denies any significant interval medical changes. LP- in prone position- OP 9 cmH2O. CSF- studies- WNL. She has been having more low grade headaches, which started prior to the LP. Headaches a/w photophobia, phonophobia, susie ear fullness. She is using her mouth guard nightly. She is having some type of headache most days. Sometimes if the headache is stronger may go back to sleep and that is helpful. Using Tylenol prn- sometimes it works but overtimes not- but the headache ebbs and flows. Topiramate was ineffective- and stopped prior to the LP. Pt was then started on Baclofen, helping some. She is noticing more fragmented sleep- not sleeping as long as before- waking up after 6.5 hrs. [place] stake daytime naps, but always had. She is compliant w/ her CPAP. Her Resmed nino shows usual AHI < 5/hr. Last Resulted Lab Tests 08/25/23 08/25/23 08/25/23 12:23 12:23 13:25 Fld Lyme DNA (PCR) CSF Tube Number 4 CSF Volume 2.0 CSF Appearance CLEAR CSF Color COLORLESS CSF WBC 1 CSF RBC 1 CSF Lymphocytes 67 CSF Monocytes % 33 CSF Appearance (b) Clear, Colorless CSF Glucose 63 CSF Total Protein 19.0 CSF Albumin 9.1 CSF IgG Index 0.44 CSF IgG Synthesis Rate -2.4 CSF/Serum IgG Inde x 0.6 L CSF C.neoform/gat PCR Not Detected CSF CMV DNA (PCR) Not Detected CSF Enterovirus (P CR) Not Detected CSF E. coli K1 (PC R) Not Detected CSF H. influenzae (PCR) Not Detected CSF HSV I (PCR) Not Detected CSF HSV II (PCR) Not Detected CSF HHV 6 (PCR) Not Detected CSF L.monocytogene s PCR Not Detected CSF N. meningitidi s PCR Not Detected CSF Parechovirus ( PCR) Not Detected CSF S. agalactiae (PCR) Not Detected CSF S. pneumoniae (PCR) Not Detected CSF VZV (PCR) Not Detected PFSH Medical History (Updated 09/16/23 @ 11:14 by ITA Pulliam) Depression Trigeminal neuralgia Hypertension GERD (gastroesophageal reflux disease) Morbid obesity Eczema Nasal polyposis Asthma-COPD overlap syndrome Chronic allergic rhinitis Pulmonary nodules SIERRA on CPAP Severe persistent asthma Surgical History Status post repair of paraesophageal diaphragmatic hernia Hx of cataract surgery Family History Father Lung cancer Diabetes Heart disease Mother Emphysema of lung Hypertension Bladder cancer TIA (transient ischemic attack) Social History Alcohol intake: current Alcohol intake frequency: a few times a month Patient Tobacco Use Status: Never used Tobacco Review of Systems Const All systems reviewed & are unremarkable except as noted in HPI and below Physical Exam Vital Signs: Last Vital Signs Pulse 77 09/16/23 10:10 Resp 16 09/16/23 10:10 BP 132/78 09/16/23 10:10 Pulse Ox 96 09/16/23 10:10 Oxygen Delivery Method Room Air 09/16/23 10:10 BMI result Body Mass Index 41.3 Const General: cooperative and no acute distress Orientation/consciousness: patient oriented x3 HEENT Head: Yes normocephalic Resp Effort & Inspection: normal respiratory effort and able to speak in complete sentences Neuro General: patient oriented x3, gait normal and CN's II-XI intact bilaterally Cognition (Neuro): normal cognition Motor exam (neuro): 5/5 motor strength present throughout Psych Appearance: grossly normal Mental Status: mental status grossly normal Speech and movement: Normal speech and movement present Affect: normal affect Attitude: cooperative Thought process: Normal thought process present Thought content: Normal thought content present Insight: Good insight present (Psych) Judgement: Good judgement present (Psych) Assessment & Plan Assessment & Plan (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 LP w/ normal OP (9cmH2O in prone position) w/ normal routine CSF studies. Code(s): Q01.9 - Encephalocele, unspecified (2) Migraine without aura: Code(s): G43.009 - Migraine without aura, not intractable, without status migrainosus (3) Trigeminal neuralgia: Code(s): G50.0 - Trigeminal neuralgia Plan Reviewed LP results- normal OP and CSF studies. No indications for IIH at this time. Consider f/u brain/head MRI in 1-2 yrs to monitor cephaloceles. Continue Baclofen 10mg qhs. Trial Ubrogepant (Ubrelvy) 100mg tab, 1/2 - 1 tab (50-100mg) at onset of migr roxann headache, may repeat in 2 hours. Max of 2 tabs (200mg) per 24 hours. May adjunct with OTC Tylenol 650mg q 4 hours, Ibuprofen 600mg q 6 hours, or Naproxen 440mg q 12 hrs prn. Trial using saline rinse routinely. Pt has some mild wax accumulation- may try OTC debrox and rinse- for ear fullness. Continue CPAP. Migraine headache tx contraindications- Triptans d/t cardiac dz- LVH, HTN Previous headache tx: Topiramete- ineffective. Future considerations, Tegretol trial, CGRP MaB trial, head MRA. f/u in 3-4 months or sooner prn. Medications: New ubrogepant (Ubrelvy) take at onset of migraine, may repeat in 2hrs (may take w/ Ibuprofen) 50 - 100 mg (0.5 - 1 x 100 mg) PO ONCE PRN 16 tabs 3RF migraine headache 30 days Coding Level of Care Code Est Pt Level 4 (57940) Diagnoses Cephalocele Q01.9 Migraine without aura G43.009 Trigeminal neuralgia G50.0
[2023-09-16 10:10] VITALS: BP 132/78; PULSE 77; RESP 16; O2SAT 96; BMI 41.3
== END 2023-09-16 10:58 | disposition home or self-care (01) ==
PROVIDERS: PCP Internal Medicine; Visit Provider Nurse Practitioner Family
DX: Q01.9 Encephalocele, unspecified (principal); G43.009 Migraine without aura, not intractable, without status migrainosus; G50.0 Trigeminal neuralgia
CPT/HCPCS: 99214

== ENCOUNTER → 2023-09-16 09:58 | Outpatient (BNVA) | payer MEDICARE, SELFPAY | PROVIDERS: PCP Internal Medicine; Visit Provider Nurse Practitioner Family | DX: G50.0 Trigeminal neuralgia (principal); G43.009 Migraine without aura, not intractable, without status migrainosus; Q01.8 Encephalocele of other sites | CPT/HCPCS: 99212 ==

== ENCOUNTER 2023-09-20 11:00 | Outpatient (AMB) | payer MEDICARE, SELFPAY ==
--- NOTE | 2023-09-20 11:07 | A.OFFVIS_ITS ---
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 Her asthma is still an issue still having daytime symptoms. However, she has not required prednisone which is reassuring. She is still using rescue inhaler. She still getting Xolair twice a month. She still having bronchospasms on a regular basis but the fact that she had thermal plasty decreases her significant bronchospasms therefore not needing to be on steroids but still needing frequent bronchodilation. She tried doing some work outside of the home however, her symptoms quickly came back Kristy is concerning that she may not be able to keep a full-time job or to work regularly still with having symptoms. Optimistic that as she is healing from her asthma that hopefully in the fall she we were able to reassess and may be she can go back to [employer] work outside of the home. She continues a very aggressive respiratory regimen. She continues with allergy therapy. The CPAP therapy continues to be affecting beneficial. She does use a CPAP for more than 4 hours a night. 07/24/20 the patient is here for pulmonary follow-up visit. Overall she is doing well. She is concerned about her you issue with her liver. She was diagnosed with non alcoholic steatohepatitis. Underwent a CT scan of the abdomen demonstrating multiple pulmonary nodules. Therefore she underwent a dedicated CT scan of the chest. I personally reviewed the CT scan with the patient. She did have significant my was a findings consistent with her air trapping and significant asthma. In addition to that she has numerous pulmonary nodules some of that are calcified and some that are not calcified. Some that well circumscribed and some that are hazy in appearance. Largest nodule in the right lower lobe measuring 7 mm in size. I reassured her that I believe this is more inflammatory but we have to do our due diligence. The patient based on the size of the pulmonary nodules should get a CT scan in 6 months from her last 1. In regards of her asthma therapy appears to be stable at this time. The CPAP therapy she is tolerating every night. She does uses CPAP for more than 4 hours a night. The therapy continues to be effective and beneficial. 12/01/2020 the patient is here for pulmonary follow-up visit. Overall she is doing well. She continues to have nasal congestion with postnasal drip. Moderate severity. This is caused her to have increased cough. But, for an asthma standpoint she feels well. She has been able to go outside and walk and exercise without any significant shortness of breath. She has continued her Xolair injections regularly with her software solutions architect. She continues her respiratory medication which is good. She has known pulmonary nodules. She did have a scheduled CT scan for December but will push stat out to for January to try to minimize exposure to the COVID-19 infections. If is still an issue then we can always postpone it further. Still, the pulmonary nodules need to be followed to make sure that they do not grow. 01/19/2021 patient is here for pulmonary follow-up visit. The patient has been coughing more. Moderate severity. It is dry hacky cough. She got after getting the 1st size her vaccine. She is not sure if it was from the vaccine itself or if she was from the cold waiting for the vaccine. She has not been using her rescue inhaler and does not have any nebulized solution to use at this time. Since she was vaccinated with trying to prevent her from going on prednisone. Therefore she is going to start using her DuoNeb 4 times a day and also using cough syrup her at this point she does not any antibiotics. My suspicion is that the symptoms are in the a side effect after the vaccine. If the patient needs to start prednisone she is to start prednisone mid week this week. She needs to finish off with a 5 day course of prednisone prior to her next dose. Otherwise patient is without any other concerns. She will call if any other issues arise.. 03/05/2021 the patient is here for pulmonary follow-up visit. She is doing a lot better. She continues use her respiratory therapy. Denies any wheezing or coughing. He has not had to use her rescue inhaler more than twice a week. She is excited about the possibility of going back to work at least part-time. She understands side her asthma has been initial in the past. Currently she continues on the allergy therapy with both allergy shots and Xolair. Overall she is doing a lot better and is hopeful that she could go back to the work force. She continues uses CPAP. The CPAP therapy continues to be affecting beneficial. She does use for more than 4 hours a night. 04/28/2021 the patient is here for sick visit. Apparently she started opening up her windows and was significantly exposed to the environmental allergens. She has significant eczema. She did follow-up software solutions architect and did the prednisone for that. Now her breathing has gotten worse. She did start some prednisone at home initially 20 mg but then had to increase it to 40 mg because she was no better. She has been using her nebulizer every 4 hours. She is also using her cough is medication because significant cough which is persistent. She denies any fevers or chills. She was vaccinated for COVID-19. Any symptoms that are consistent with that. This is more typical of her allergies. In the meantime she does continue with the Xolair. She did tried and failed Fasenra and also Dupixent. The patient does have significant obstructive airway disease requiring prednisone. At this point she will be a good candidate for Daliresp. Start her of 250 mcg in order for her to tolerate the medication. 07/06/2021 the patient is here for a pulmonary follow-up visit. Since our last spoke patient has been doing a lot better. She completed the prednisone and the antibiotics. She is back to her maintenance therapy and also continues to receive her Xolair. She is excited that she has reverted to Xolair at home soon. In the meantime she continues to try to volunteer to school. It is hard for her to provide a consistent schedule to school due to her ongoing symptoms. Her respiratory symptoms do worsen by using a mask. In the meantime she continues use her CPAP. The CPAP therapy continues to be affecting beneficial. She does use it more than 4 hours a night. Also to note the patient did not start the Daliresp due to the fact that had a cough high co-pay. Does not appear to need any alternative therapies at this time. She will continue with current respiratory regimen. 10/05/2021 the patient is here for a pulmonary follow-up visit. At this point she is doing okay. She did have significant issues with her cough and her chest tightness. She did have an episode of syncope that was as a result of a significant coughing spell. She was evaluated at [facility]. Per report her chest x-ray was okay and she had a telemetry that was okay. She was subsequently discharged home. The a doxycycline did help specially with her sinuses. However now the getting a little more congested again. Other she continue the course for little bit longer. I do think is a good idea specially with the sinus being hard to treat the along the treatment with antibiotics will be useful. She continues with Xolair. She is doing at home now. She does have an EpiPen home. She continues uses CPAP. CPAP therapy continues to be affecting beneficial. Her last CT scan of the chest back January 2021 demonstrating multiple pulmonary nodules had not changed when compared to her previous CT June 2020 some point she will require a repeat CT scan few years. 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 It was causing significant worsening her respiratory status and multiple requirements about Prednisone. At this point Prednisone has become very hard for her tolerate. She had worsening symptoms significant weight gain being on prednisone. Ultimately likely had something to do with her coughing spell that resulted in syncope. Therefore will try to minimize the use prednisone and is not using alternative. 01/27/2022 the patient is here for a pulmonary follow-up visit. She is complaining of increasing dyspnea especially with exertion. [id number] severity. Mostly due to worsening abdominal pain and distention. This is been very uncomfortable for her. She recently started a new free diet which improved her symptoms. She did undergo endoscopy in the past and had biopsies done without any evidence of any celiac disease apparently. In the meantime she continues on the current respiratory therapy and continues with the Xolair. She has been doing well without any significant wheezing or significant coughing. She did undergo a CT scan of the chest that was personally by me. She has numerous pulmonary nodules bilaterally. They appear to be in a bronchovascular distribution. They have not changed from her previous CT scan which is reassuring and is likely some degree inflammatory process. Therefore, additional blood work will be requested. Based on his stability she will need a CT scan to year from now. 07/23/2022 the patient is here for a pulmonary follow-up visit. Overall she is doing relatively well. She does continue to have persistent postnasal drip with upper airway cough syndrome. Her cough tends to be nonproductive. the patient continues to have some times when she has some chest tightness and wheezing. She does use her rescue inhaler few times a week. The patient continues on Xolair. We did talk about considering Dupixent when she follows up with her software solutions architect. She continues use her respiratory therapy with good effect currently on Wixela. she also continues use her CPAP every night. CPAP therapy continues to be affecting beneficial. She does use it for more than 4 hours a night. At this point will optimize her therapy for her persistent rhinitis and upper airway cough syndrome. 10/01/2022 the patient is here for pulmonary follow-up visit. She was feeling better from a asthma exacerbation. However, she did wake up with increased coughing chest tightness. She has been using 1 her nebulizer every 4 hours. Only with partial resolution of the symptoms. She did complete the antibiotics. She continues with all her respiratory medications with good adherence. Based on the significant wheezing chest tightness will give her Solu-Medrol shot today. I am hopeful that after the Solu-Medrol she does not need any additional prednisone. 01/20/2023 the patient is here for a pulmonary follow-up visit. She continues to struggle with her asthma. She had a tough bout during the late fall and early winter. After that she has not been able to get back to her baseline. She continues to have significant coughing episodes and chest tightness and shortness of breath. Moderate severity. She has been using her respiratory therapy as prescribed. She also has continued the Xolair. At this point the patient is not responding well to the Xolair. We did have her undergo blood work including a CBC with differential demonstrating significant eosinophilia in addition to that her IgE level was within normal limits. As likely because the Xolair has been helping with that component. However, is also noted that her IgG and IgM levels are significantly low. This could be due to immunosuppression due to her chronic prednisone use. Explained to her that we disease immunodeficiency she is likely to get more infections and more duration therefore, hopefully we can keep her off the prednisone in order to repeat the levels and hopefully see improvement. In the meantime she has not been responding well to the Xolair. She quit required multiple courses of steroids including Solu-Medrol intramuscularly. Therefore, I do want her to stop the Xolair and change to different biologic. The patient already completed immunotherapy with allergy immunology. In addition to that will try to optimize her respiratory therapy by switching her over to Trelegy. I am hopeful that this will provide also some relief. The patient is also willing to go back on Daliresp at a smaller dose to see if slowly she can not tolerated. The patient did have a positive effect to her previous thermoplasty about 4-5 years ago. However, now we seem to see did weaning affects the thermoplastic. In addition to this the patient continues use her CPAP. She is struggling. Her AHI is 3. She feels the pressures are too high. She was diagnosed with nasal polyposis and this is likely making more difficult with a nasal mask. I did have a f ullface mask, respirator on X DreamWear fullface mask available and did provide her with a mask to see if she can tolerate it better. the patient continues to be very symptomatic and difficult at this point to even complete her activities of daily living due to her ongoing asthma. The patient also had a CT scan of the chest that was personally by me demonstrating evidence of air trapping with mosaic pattern. This is consistent with her small airways disease in her asthma. Her pulmonary nodules are stable. 04/19/2023 the patient is here for a pulmonary follow-up visit. She has been complaining of worsening cough with chest congestion for the last 3 weeks. She has been using her respiratory therapy with partial improvement. Lately she has been feeling a little bit better. She also started the new biologic therapy, tezspire. Seems to be tolerating it at this time. Is too early to say if is going to be effective for her. The patient continues with a cough. Has been more productive. Moderate severity. The mucus was initially yellowish in color now is clearing up. It was definitely more sticking consistency and difficult to clear. I will provide her with a flutter valve in order for her to work on chest physical therapy. She can also use her nebulizer prior to the flutter valve to help with mucus clearance. She understands this would be a way to provide chest physical therapy. In the meantime will start her on macrolide therapy to treat her for chronic bronchitis. 06/15/2023 the patient is here for sick visit. Her asthma seems flare of for the last week. She started developing increased chest tightness and cough. Moderate to severe. She has been using her nebulizer about 4 times a day. She has been using all her respiratory therapy. Prior to that appeared that the biologic therapy was partially helpful. Now is been hard to breathe. Her cough is persistent and she does have very limited air movement. The patient will receive Solu-Medrol today. She will need to go back on prednisone. The patient has pretty advanced and severe asthma. It did not flaring up more often. She has been on maximum respiratory therapy and still very limited from her airway capacity. Is very hard for her to perform activities of daily living and very hard for her to be exposed to the elements specially with the he in the humidity and the fire smoke at this time. She does have a spirometry pulmonary function study ordered for next week. Will probably have to postpone that in view of her ongoing symptoms. 07/26/2023 the patient is here for pulmonary follow-up visit. The patient is very well known to me. She does have severe persistent asthma. This point the asthma has been uncontrolled. She did respond initially well to the broncho thermal plasty. However, after a few years the benefits subsided. She now has symptoms on a daily basis with significant cough and shortness of breath. Moderate severity. She does use her rescue inhaler on a daily basis because of an uncontrolled symptoms. She did have pulmonary function studies demonstrating an FEV1 to FVC of 71% which is low for her Age and consistent with an obstructive physiology. She also has significant small airways disease consistent with her severe disease. Her PFTs are consistent with uncontrolled asthma. The patient has been on biologic therapy. However she has not responded completely. She has also been on maximum respiratory therapy only with partial improvement. At this point will have her stop the Trelegy inhaler and will start her on nebulized therapy to see if this is effective for her. In the meantime will also request blood work to see if she will be a candidate for different biologic to see if we can help her respiratory status. 09/20/2023 the patient is here for a pulmonary follow-up visit. The patient has been responding a little better to her current respiratory regimen. We switched over to nebulized therapy with Brovana and budesonide she is also using Spiriva. She continues on the biologic therapy, Tezspire. In addition to that she was started on muscle relaxants, baclofen which she feels like is also helping her breathing as well. She is currently working with weight loss. She is doing calorie counting and then she did participate briefly with the weight management program here. The patient continues to have ongoing daily symptoms. She does have cough variant asthma and is constantly coughing. Her cough is nonproductive in nature but it does affect her quality of life. She does have limitations with her activities daily living due to her shortness of breath symptoms. The patient also has been using her CPAP. She has been using a nasal pillow mask. The CPAP therapy continues to be affecting beneficial and she has been getting supplies to her DME company, [employer]. She has been having issues because they had been not always sending her her supplies. I did reach out to the [employer] company to see they can call her in order to resolve any ongoing issues. Based on her ongoing respiratory symptoms, I am recommending her to start pulmonary rehab. [facility] Medical History (Updated 09/20/23 @ 21:27 by Antoine Farmer MD) Depression Trigeminal neuralgia Hypertension GERD (gastroesophageal reflux disease) Morbid obesity Eczema Nasal polyposis Asthma-COPD overlap syndrome Chronic allergic rhinitis Pulmonary nodules SIERRA on CPAP Severe persistent asthma Surgical History Status post repair of paraesophageal diaphragmatic hernia Hx of cataract surgery Family History Father Lung cancer Diabetes Heart disease Mother Emphysema of lung Hypertension Bladder cancer TIA (transient ischemic attack) Social History Alcohol intake: current Alcohol intake frequency: a few times a month Patient Tobacco Use Status: Never used Tobacco Review of Systems Const Reports difficulty sleeping, Reports fatigue, Reports headache(s) and Denies night sweats ENT Denies change in voice, Reports headache(s), Denies lip swelling, Denies mouth pain, Reports nasal congestion, Reports nasal discharge, Reports nasal obstruction, Reports post nasal drip and Denies tongue swelling Card Denies chest pain, Reports dyspnea and Reports dyspnea on exertion Resp Reports chest congestion, Reports cough, Reports dyspnea, Reports dyspnea on exertion and Reports wheezing GI Denies abdominal pain and Reports bloating Musc Denies no additional complaints Neuro Denies Neuro-related abnormal movements and Reports headache(s) Psych Denies no additional complaints Endo Reports fatigue Niko/Lymph Denies easy bleeding and Denies lymphadenopathy Aller/Immun Denies lip swelling, Denies tongue swelling and Reports wheezing Physical Exam Vital Signs: Last Vital Signs Pulse 65 09/20/23 11:08 Pulse Ox 94 09/20/23 11:08 Oxygen Delivery Method Room Air 09/20/23 11:08 BMI result Body Mass Index 40.6 Const General: alert Neck Neck: Yes normal visual inspection, Yes full ROM and Yes no lymphadenopathy Chest Chest palpation & inspection: normal inspection of the chest Resp Effort & Inspection: Actively coughing Quality: actively coughing Auscultation: no wheezes and diminished lung sounds Cardio Rate: regular rate Rhythm: regular rhythm Heart sounds: S1 normal heart sound present and S2 normal heart sound present GI Palpation (GI): Soft to palpation, not firm and nontender Auscultation: normal bowel sounds Skin General skin exam: rashes and/or lesions noted Assessment & Plan Assessment & Plan (1) Severe persistent asthma: Comment: Status post bronchial thermoplasty. Continues to have uncrotrolled asthma, not responsive to an aggressive medical management. Daily asthma symptoms make it very difficult for her to perform her activities of daily living. Had been in disability due to her asthma. After the thermoplasty she was feeling better, but, unfortunately, after several years the positive effects of the thermoplasty waned. Code(s): J45.50 - Severe persistent asthma, uncomplicated Qualifiers: Asthma complication type: with acute exacerbation Qualified Code(s): J45.51 - Severe persistent asthma with (acute) exacerbation (2) Pulmonary nodules: Code(s): R91.8 - Other nonspecific abnormal finding of lung field (3) Chronic allergic rhinitis: Code(s): J30.9 - Allergic rhinitis, unspecified (4) SIERRA on CPAP: Code(s): G47.33 - Obstructive sleep apnea (adult) (pediatric); Z99.89 - Dependence on other enabling machines and devices (5) Nasal polyposis: Code(s): J33.9 - Nasal polyp, unspecified (6) Eczema: Code(s): L30.9 - Dermatitis, unspecified Qualifiers: Eczema type: flexural Qualified Code(s): L20.82 - Flexural eczema Plan continue Tezspire q4 weeks continue pseudophed as needed continue budesonide BID continue Brovana BID continue Spiriva continue singulair nasal rinsing prior to CPAP CPAP, nasal pillows start Pulmonary rehab F/U 4-6 months Orders: Orders Pulmonary Rehab Today J45.50 - Severe persistent asthma, uncomplicated Coding Level of Care Code Est Pt Level 4 (83978) Diagnoses Severe persistent asthma with acute exacerbation J45.51 Asthma complication type: with acute exacerbation Pulmonary nodules R91.8 Chronic allergic rhinitis J30.9 SIERRA on CPAP G47.33; Z99.89 Nasal polyposis J33.9 Flexural eczema L20.82 Eczema type: flexural Time Spent (min) 17
[2023-09-20 11:08] VITALS: PULSE 65; O2SAT 94; BMI 40.6
== END 2023-09-20 11:46 | disposition home or self-care (01) ==
PROVIDERS: PCP Internal Medicine; Visit Provider Hospitalist
DX: J45.51 Severe persistent asthma with (acute) exacerbation (principal); R91.8 Other nonspecific abnormal finding of lung field; J30.9 Allergic rhinitis, unspecified; G47.33 Obstructive sleep apnea (adult) (pediatric); Z99.89 Dependence on other enabling machines and devices; J33.9 Nasal polyp, unspecified; L20.82 Flexural eczema
CPT/HCPCS: 99214

== ENCOUNTER → 2023-09-20 11:00 | Outpatient (BNVA) | payer MEDICARE, SELFPAY | PROVIDERS: PCP Internal Medicine; Visit Provider Hospitalist | DX: J45.51 Severe persistent asthma with (acute) exacerbation (principal); R91.8 Other nonspecific abnormal finding of lung field; J30.9 Allergic rhinitis, unspecified; G47.33 Obstructive sleep apnea (adult) (pediatric); J33.9 Nasal polyp, unspecified; Z99.89 Dependence on other enabling machines and devices; L20.82 Flexural eczema | CPT/HCPCS: 99212 ==

== ENCOUNTER 2023-10-11 10:48 | Outpatient (AMB) | payer MEDICARE, MEDICAID, SELFPAY ==
--- NOTE | 2023-10-11 10:51 | MHC.OFFVIS ---
Intake Vital Signs 10/11/23 10:53 Height 5 ft 5 in Weight 241 lb BMI 40.1 BP 136/78 Blood Pressure Location Rt brachial Position Sitting Pulse 76 Pulse Source Pulse Oximeter Pulse Oximetry (%) 97 Oxygen Delivery Method Room Air Intake Visit Reasons: sick visit- cough, wheeze Director Software Development Required: No Glassware Selector: Glassware Selector offered & declined Accompanied by: Self / Same As Patient Allergies environmental allergies Allergy (Unknown, Verified 10/11/23 10:56) Unknown Sulfa Drugs Allergy (Severe, Uncoded 10/11/23 10:56) Hives Medication List - Last Reconciled 10/11/23 by Joyce Davila, WALDEMAR albuterol sulfate 90 mcg/actuation 2 puffs PO Q6H PRN amiloride 5 mg PO DAILY arformoterol (Brovana) 2 mL inhalation Q12H 30 days azelastine 2 sprays intranasal BID baclofen 10 mg PO BEDTIME 30 days benzonatate 200 mg PO BID PRN 30 days budesonide 0.5 mg (2 mL) inhalation BID 30 days cetirizine (Zyrtec) 10 mg PO DAILY PRN cholecalciferol (vitamin D3) 125 mcg PO DAILY codeine-guaifenesin 10-100 mg/5 mL 10 mL PO Q6H PRN 10 days CPAP (CPAP Machine/Device) As directed epinephrine IM PRN fluoxetine 20 mg PO DAILY ipratropium bromide 2 sprays intranasal TID PRN ipratropium-albuterol 0.5 mg-3 mg(2.5 mg base)/3 mL 3 mL inhalation QID 30 days levalbuterol tartrate 45 mcg/actuation 2 puffs PO Q4H PRN magnesium oxide 500 mg PO DIRECTED montelukast 10 mg PO BEDTIME nebulizers As directed pantoprazole 40 mg PO DAILY potassium chloride ER 10 mEq PO DAILY tezepelumab-ekko (Tezspire) 210 mg (1.91 mL) subcut Q4W 12 months tiotropium bromide 2.5 mcg/actuation (Spiriva Respimat) 2 puffs inhalation DAILY 30 days ubrogepant (Ubrelvy) 50 - 100 mg (0.5 - 1 x 100 mg) PO ONCE PRN 30 days HPI sick visit- cough, wheeze HPI Details Kelly is a pleasant 58 year old female, never smoker, with underlying asthma COPD overlap s/p bronchial thermoplasty, SIERRA on CPAP therapy, pulmonary nodules, GERD and chronic allergic rhinitis. At baseline is moderately controlled on Tezspire and Spiriva along with nebulized Brovana, Budesonide and Duoneb. Today she presents for an acute visit. She reports that symptoms started last tuesday and progressively worsened Tuesday with significant wheeze, chest tightness, productive cough with clear sputum and dyspnea. She has been using her duoneb q 4 hours since Tuesday with partial relief. She also reports intermittent chills and body aches. She denies any fevers or sick contacts. [facility] Medical History (Updated 09/20/23 @ 21:27 by Antoine Farmer MD) Depression Trigeminal neuralgia Hypertension GERD (gastroesophageal reflux disease) Morbid obesity Eczema Nasal polyposis Asthma-COPD overlap syndrome Chronic allergic rhinitis Pulmonary nodules SIERRA on CPAP Severe persistent asthma Surgical History Status post repair of paraesophageal diaphragmatic hernia Hx of cataract surgery Family History Father Lung cancer Diabetes Heart disease Mother Emphysema of lung Hypertension Bladder cancer TIA (transient ischemic attack) Social History Alcohol intake: current Alcohol intake frequency: a few times a month Patient Tobacco Use Status: Never used Tobacco Review of Systems Const Denies excessive sweating, Denies fever(s), Denies headache(s) and Denies night sweats Eyes Denies dry eyes, Denies irritation and Denies itchy eyes ENT Reports Normal hearing present, Denies headache(s), Denies nasal congestion, Denies nasal discharge, Denies post nasal drip and Denies sore throat Card Denies chest pain, Denies chest pain at rest, Denies chest pain with activity, Denies claudication, Denies leg edema, Denies orthopnea and Denies paroxysmal nocturnal dyspnea Resp Denies excessive phlegm production, Denies pain on inspiration, Denies pain with cough and Denies stridor Musc Reports myalgias Neuro Reports Normal hearing present and Denies headache(s) Endo Denies excessive sweating Niko/Lymph Denies lymphadenopathy Aller/Immun Denies itchy eyes and Denies seasonal rhinorrhea Physical Exam Vital Signs: Last Vital Signs Pulse 76 10/11/23 10:53 BP 136/78 10/11/23 10:53 Pulse Ox 97 10/11/23 10:53 Oxygen Delivery Method Room Air 10/11/23 10:53 BMI result Body Mass Index 40.1 Const General: cooperative, no acute distress, well developed and alert Nutritional Appearance: obese Orientation/consciousness: patient oriented x3 Limitations: no limitations HEENT Head: Yes normal to inspection, Yes normocephalic and Yes atraumatic Ears: hearing grossly normal bilaterally and external ears normal Eyes General: appearance normal, both eyes and all related structures Eyelids: Yes eyelids normal Sclerae: sclerae normal EOM: EOMs intact bilaterally Neck Neck: Yes normal visual inspection and Yes no lymphadenopathy Lymphatic: no lymphadenopathy noted Chest Chest palpation & inspection: normal inspection of the chest Resp Other: diminished lung sounds, dry cough intermittently throughout visit Effort & Inspection: normal respiratory effort, able to speak in complete sentences, no audible wheezes, no stridor, not tachypneic, no tripod positioning and no use of accessory muscles Cardio Jugular venous distension: no JVD Rate: regular rate Rhythm: regular rhythm Skin Other: warm, dry General skin exam: no rashes or lesions noted Neuro General: patient oriented x3 Cranial nerves: Yes Normal hearing present Cognition (Neuro): normal cognition Gait exam (Neuro): Normal gait present Extrem General: Yes normal to inspection, Yes capillary refill normal, Yes no clubbing, cyanosis or edema and Yes no pedal edema Psych Appearance: grossly normal and well kempt Speech and movement: Normal speech and movement present and Clear speech present Affect: normal affect Attitude: cooperative Thought process: Normal thought process present Thought content: Normal thought content present Insight: Good insight present (Psych) Judgement: Good judgement present (Psych) Assessment & Plan Assessment & Plan (1) Asthma-COPD overlap syndrome: Code(s): J44.9 - Chronic obstructive pulmonary disease, unspecified Plan Will treat bronchitic symptoms with azithromycin as well as prednisone due to diminished lung sounds and post exhalation cough despite frequent use of nebulizer. Patient aware if symptoms do not improve to call office and if worsen to seek emergent care. Will follow up for regularly scheduled appointment with Dr. Farmer or sooner if needed. All questions were answered and patient is in agreement of plan. Medications: Refilled prednisone PO daily; Take 6 tabs daily x 3 days, then 5 tabs x 3 days, then 4 tabs x 3 days, then 3 tabs x 3 days, then 2 tabs daily x 3 days, then 1 tab x 3 days to complete. 18 days 63 tabs 0RF azithromycin take 500 mg today (day 1), then 250 mg for 4 days (days 2-5) PO 6 tabs 0RF Coding Level of Care Code Est Pt Level 3 (91075) Diagnoses Asthma-COPD overlap syndrome J44.9
[2023-10-11 10:53] VITALS: BP 136/78; PULSE 76; O2SAT 97; BMI 40.1
== END 2023-10-11 11:12 | disposition home or self-care (01) ==
PROVIDERS: PCP Internal Medicine; Visit Provider Nurse Practitioner Family
DX: J44.9 Chronic obstructive pulmonary disease, unspecified (principal)
CPT/HCPCS: 99213

== ENCOUNTER → 2023-10-11 10:48 | Outpatient (BNVA) | payer MEDICARE, MEDICAID, SELFPAY | PROVIDERS: PCP Internal Medicine; Visit Provider Nurse Practitioner Family | DX: J44.9 Chronic obstructive pulmonary disease, unspecified (principal) | CPT/HCPCS: 99212 ==

== ENCOUNTER 2024-01-03 08:30 | Outpatient (RCR) | payer MEDICARE, MEDICAID, SELFPAY | END 2024-01-30 10:13 | disposition home or self-care (01) | LOC: HO.PR 08:30 | PROVIDERS: PCP Internal Medicine; Visit Provider Hospitalist | DX: J45.50 Severe persistent asthma, uncomplicated (principal) | CPT/HCPCS: 94625; 94761; 99215 ==

== ENCOUNTER 2024-01-17 10:58 | Outpatient (AMB) | payer MEDICARE, MEDICAID, SELFPAY ==
--- NOTE | 2024-01-17 11:04 | MHC.OFFVIS ---
Intake Vital Signs 01/17/24 11:06 Height 5 ft 5 in Weight 239 lb 8 oz BMI 39.9 BP 130/78 Blood Pressure Location Rt brachial Position Sitting Pulse 74 Pulse Source Pulse Oximeter Pulse Oximetry (%) 98 Oxygen Delivery Method Room Air Intake Visit Reasons: 4 mnts f/u for ear pain/trigeminal neuralgia-Conf Intake Note: Patient presents for 4 month follow up. I'm getting fewer headaches Allergies Sulfa (Sulfonamide Antibiotics) Allergy (Severe, Verified 01/17/24 11:07) Hives environmental allergies Allergy (Unknown, Verified 01/17/24 11:07) Unknown Medication List - Last Reconciled 01/17/24 by ITA Pulliam albuterol sulfate 90 mcg/actuation 2 puffs PO Q6H PRN amiloride 5 mg PO DAILY arformoterol (Brovana) 2 mL inhalation Q12H 30 days azelastine 2 sprays intranasal BID azithromycin take 500 mg today (day 1), then 250 mg for 4 days (days 2-5) PO baclofen 10 mg PO BEDTIME 30 days benzonatate 200 mg PO BID PRN 30 days budesonide 0.5 mg (2 mL) inhalation BID 30 days cetirizine (Zyrtec) 10 mg PO DAILY PRN cholecalciferol (vitamin D3) 125 mcg PO DAILY codeine-guaifenesin 10-100 mg/5 mL 10 mL PO Q6H PRN 10 days CPAP (CPAP Machine/Device) As directed epinephrine IM PRN fluoxetine 20 mg PO DAILY ipratropium bromide 2 sprays intranasal TID PRN ipratropium-albuterol 0.5 mg-3 mg(2.5 mg base)/3 mL 3 mL inhalation QID 30 days levalbuterol tartrate 45 mcg/actuation 2 puffs PO Q4H PRN magnesium oxide 500 mg PO DIRECTED montelukast 10 mg PO BEDTIME nebulizers As directed pantoprazole 40 mg PO DAILY potassium chloride ER 10 mEq PO DAILY prednisone PO daily; Take 6 tabs daily x 3 days, then 5 tabs x 3 days, then 4 tabs x 3 days, then 3 tabs x 3 days, then 2 tabs daily x 3 days, then 1 tab x 3 days to complete. 18 days tezepelumab-ekko (Tezspire) 210 mg (1.91 mL) subcut Q4W 12 months tiotropium bromide 2.5 mcg/actuation (Spiriva Respimat) 2 puffs inhalation DAILY 30 days ubrogepant (Ubrelvy) 50 - 100 mg (0.5 - 1 x 100 mg) PO ONCE PRN 30 days HPI HPI Comments History of Present Illness Details 58-yr-old female presents for f/u visit. Pt denies any significant interval medical changes. Having Migraine 2-3 x's per month. May have some mild left ear region sensation when laying down, but once up and moving she does not notice it. Baclofen 5mg is helpful. OTC Ibuprofen has been effective. Not needing to use the Ubrelvy as much. She is compliant w/ CPAP. 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 Baseline headache characteristics: #1- Left era pressure a/w left stabbing/shooting ear pain and left cervical chain swollen lymph nodes. The pain is usually brief- can be up to seconds of a searing pain. #2- Low grade headaches a/w photophobia, phonophobia, susie ear fullness. [facility] Medical History (Updated 09/20/23 @ 21:27 by Antoine Farmer MD) Depression Trigeminal neuralgia Hypertension GERD (gastroesophageal reflux disease) Morbid obesity Eczema Nasal polyposis Asthma-COPD overlap syndrome Chronic allergic rhinitis Pulmonary nodules SIERRA on CPAP Severe persistent asthma Surgical History Status post repair of paraesophageal diaphragmatic hernia Hx of cataract surgery Family History Father Lung cancer Diabetes Heart disease Mother Emphysema of lung Hypertension Bladder cancer TIA (transient ischemic attack) Social History Alcohol intake: current Alcohol intake frequency: a few times a month Patient Tobacco Use Status: Never used Tobacco Physical Exam Vital Signs: Last Vital Signs Pulse 74 01/17/24 11:06 BP 130/78 01/17/24 11:06 Pulse Ox 98 01/17/24 11:06 Oxygen Delivery Method Room Air 01/17/24 11:06 BMI result Body Mass Index 39.9 Const General: cooperative and no acute distress Orientation/consciousness: patient oriented x3 Resp Effort & Inspection: normal respiratory effort and able to speak in complete sentences Neuro General: patient oriented x3 Cranial nerves: Yes CN's II-XII intact bilaterally Cognition (Neuro): normal cognition Psych Appearance: grossly normal Mental Status: mental status grossly normal Speech and movement: Normal speech and movement present Affect: normal affect Attitude: cooperative Assessment & Plan Assessment & Plan (1) Migraine without aura: Code(s): G43.009 - Migraine without aura, not intractable, without status migrainosus (2) Trigeminal neuralgia: Code(s): G50.0 - Trigeminal neuralgia (3) SIERRA on CPAP: Code(s): G47.33 - Obstructive sleep apnea (adult) (pediatric); Z99.89 - Dependence on other enabling machines and devices Plan Migraine and left ear headaches improving. Consider f/u brain/head MRI in 1-2 yrs to monitor cephaloceles. Continue Baclofen 10mg qhs. Continue Ubrogepant (Ubrelvy) 100mg tab, 1/2 - 1 tab (50-100mg) at onset of migraine headache, may repeat in 2 hours. Max of 2 tabs (200mg) per 24 hours. May adjunct with OTC Tylenol 650mg q 4 hours, Ibuprofen 600mg q 6 hours, or Naproxen 440mg q 12 hrs prn. Saline rinse prn. Continue CPAP. Migraine headache tx contraindications- Triptans d/t cardiac dz- LVH, HTN Previous headache tx: Topiramete- ineffective. Future considerations, Tegretol trial, CGRP MaB trial, head MRA. f/u in 6 months or sooner prn. Medications: Refilled baclofen 10 mg PO BEDTIME 30 tabs 1RF 30 days Coding Level of Care Code Est Pt Level 4 (54897) Diagnoses Migraine without aura G43.009 Trigeminal neuralgia G50.0 SIERRA on CPAP G47.33; Z99.89
[2024-01-17 11:06] VITALS: BP 130/78; PULSE 74; O2SAT 98; BMI 39.9
== END 2024-01-17 12:01 | disposition home or self-care (01) ==
PROVIDERS: PCP Internal Medicine; Visit Provider Nurse Practitioner Family
DX: G43.009 Migraine without aura, not intractable, without status migrainosus (principal); G50.0 Trigeminal neuralgia; G47.33 Obstructive sleep apnea (adult) (pediatric); Z99.89 Dependence on other enabling machines and devices
CPT/HCPCS: 99214

== ENCOUNTER → 2024-01-17 11:03 | Outpatient (BNVA) | payer MEDICARE, MEDICAID, SELFPAY | PROVIDERS: PCP Internal Medicine; Visit Provider Nurse Practitioner Family | DX: G43.009 Migraine without aura, not intractable, without status migrainosus (principal); G50.0 Trigeminal neuralgia; G47.33 Obstructive sleep apnea (adult) (pediatric); Z99.89 Dependence on other enabling machines and devices | CPT/HCPCS: 99212 ==

== ENCOUNTER 2024-02-14 11:03 | Outpatient (AMB) | payer MEDICARE, MEDICAID, SELFPAY ==
--- NOTE | 2024-02-14 11:21 | A.OFFVIS_ITS ---
Intake Vital Signs 02/14/24 11:22 Height 5 ft 5 in Weight 229 lb BMI 38.1 Pulse 65 Pulse Source Pulse Oximeter Pulse Oximetry (%) 97 Oxygen Delivery Method Room Air Intake Visit Reasons: asthma Resident Doctor Required: No Allergies Sulfa (Sulfonamide Antibiotics) Allergy (Severe, Verified 02/14/24 11:23) Hives environmental allergies Allergy (Unknown, Verified 02/14/24 11:23) Unknown HPI HPI Comments History of Present Illness Details The patient is a 58-year-old woman with severe persistent asthma in addition to obstructive sleep apnea on CPAP. Her asthma is still an issue still having daytime symptoms. However, she has not required prednisone which is reassuring. She is still using rescue inhaler. She still getting Xolair twice a month. She still having bronchospasms on a regular basis but the fact that she had thermal plasty decreases her significant bronchospasms therefore not needing to be on steroids but still needing frequent bronchodilation. She tried doing some work outside of the home however, her symptoms quickly came back Kristy is concerning that she may not be able to keep a full-time job or to work regularly still with having symptoms. Optimistic that as she is healing from her asthma that hopefully in the fall she we were able to reassess and may be she can go back to [employer] work outside of the home. She continues a very aggressive respiratory regimen. She continues with allergy therapy. The CPAP therapy continues to be affective and beneficial. 04/19/2023 the patient is here for a pulmonary follow-up visit. She has been complaining of worsening cough with chest congestion for the last 3 weeks. She has been using her respiratory therapy with partial improvement. Lately she has been feeling a little bit better. She also started the new biologic therapy, tezspire. Seems to be tolerating it at this time. Is too early to say if is going to be effective for her. The patient continues with a cough. Has been more productive. Moderate severity. The mucus was initially yellowish in color now is clearing up. It was definitely more sticking consistency and difficult to clear. I will provide her with a flutter valve in order for her to work on chest physical therapy. She can also use her nebulizer prior to the flutter valve to help with mucus clearance. She understands this would be a way to provide chest physical therapy. In the meantime will start her on macrolide therapy to treat her for chronic bronchitis. 06/15/2023 the patient is here for sick visit. Her asthma seems flare of for the last week. She started developing increased chest tightness and cough. Moderate to severe. She has been using her nebulizer about 4 times a day. She has been using all her respiratory therapy. Prior to that appeared that the biologic therapy was partially helpful. Now is been hard to breathe. Her cough is persistent and she does have very limited air movement. The patient will receive Solu-Medrol today. She will need to go back on prednisone. The patient has pretty advanced and severe asthma. It did not flaring up more often. She has been on maximum respiratory therapy and still very limited from her airway capacity. Is very hard for her to perform activities of daily living and very hard for her to be exposed to the elements specially with the he in the humidity and the fire smoke at this time. She does have a spirometry pulmonary function study ordered for next week. Will probably have to postpone that in view of her ongoing symptoms. 07/26/2023 the patient is here for pulmonary follow-up visit. The patient is very well known to me. She does have severe persistent asthma. This point the asthma has been uncontrolled. She did respond initially well to the broncho thermal plasty. However, after a few years the benefits subsided. She now has symptoms on a daily basis with significant cough and shortness of breath. Moderate severity. She does use her rescue inhaler on a daily basis because of an uncontrolled symptoms. She did have pulmonary function studies demonstrating an FEV1 to FVC of 71% which is low for her Age and consistent with an obstructive physiology. She also has significant small airways disease consistent with her severe disease. Her PFTs are consistent with uncontrolled asthma. The patient has been on biologic therapy. However she has not responded completely. She has also been on maximum respiratory therapy only with partial improvement. At this point will have her stop the Trelegy inhaler and will start her on nebulized therapy to see if this is effective for her. In the meantime will also request blood work to see if she will be a candidate for different biologic to see if we can help her respiratory status. 09/20/2023 the patient is here for a pulmonary follow-up visit. The patient has been responding a little better to her current respiratory regimen. We switched over to nebulized therapy with Brovana and budesonide she is also using Spiriva. She continues on the biologic therapy, Tezspire. In addition to that she was started on muscle relaxants, baclofen which she feels like is also helping her breathing as well. She is currently working with weight loss. She is doing calorie counting and then she did participate briefly with the weight management program here. The patient continues to have ongoing daily symptoms. She does have cough variant asthma and is constantly coughing. Her cough is nonproductive in nature but it does affect her quality of life. She does have limitations with her activities daily living due to her shortness of breath symptoms. The patient also has been using her CPAP. She has been using a nasal pillow mask. The CPAP therapy continues to be affecting beneficial and she has been getting supplies to her [employer] company, [address]. She has been having issues because they had been not always sending her her supplies. I did reach out to the [employer] company to see they can call her in order to resolve any ongoing issues. Based on her ongoing respiratory symptoms, I am recommending her to start pulmonary rehab. 02/14/2024 the patient is here for a pulmonary follow-up visit. Seems to be doing a little better on the current aggressive respiratory regimen. Continues with the nebulized therapy twice a day in addition to the Spiriva. She has been tolerating the Tezspire Biologic therapy. In addition to that she is working closely with GI regarding reflux disease. She did increase her Protonix to twice a day and seems to have a little bit better response as far as the cough is concerned. The patient continues to try to exercise. She still is limited because of her asthma symptoms and cough variant asthma. But she is trying. She did complete pulmonary rehabilitation she is doing her own. She is up-to-date with all other vaccines except for her shingles vaccine. The patient follow-up in 6 months. [facility] Medical History (Updated 09/20/23 @ 21:27 by Antoine Farmer MD) Depression Trigeminal neuralgia Hypertension GERD (gastroesophageal reflux disease) Morbid obesity Eczema Nasal polyposis Asthma-COPD overlap syndrome Chronic allergic rhinitis Pulmonary nodules SIERRA on CPAP Severe persistent asthma Surgical History Status post repair of paraesophageal diaphragmatic hernia Hx of cataract surgery Family History Father Lung cancer Diabetes Heart disease Mother Emphysema of lung Hypertension Bladder cancer TIA (transient ischemic attack) Social History Alcohol intake: current Alcohol intake frequency: a few times a month Patient Tobacco Use Status: Never used Tobacco Review of Systems Const Reports difficulty sleeping, Reports fatigue, Denies headache(s) and Denies night sweats ENT Denies change in voice, Denies headache(s), Denies lip swelling, Denies mouth pain, Reports nasal congestion, Reports nasal discharge, Reports nasal obstruction, Reports post nasal drip and Denies tongue swelling Card Denies chest pain, Denies dyspnea and Reports dyspnea on exertion Resp Denies chest congestion, Reports cough, Denies dyspnea, Reports dyspnea on exertion and Reports wheezing GI Denies abdominal pain and Reports bloating Musc Denies no additional complaints Neuro Denies Neuro-related abnormal movements and Denies headache(s) Psych Denies no additional complaints Endo Reports fatigue Niko/Lymph Denies easy bleeding and Denies lymphadenopathy Aller/Immun Denies lip swelling, Denies tongue swelling and Reports wheezing Physical Exam Vital Signs: Last Vital Signs Pulse 65 02/14/24 11:22 Pulse Ox 97 02/14/24 11:22 Oxygen Delivery Method Room Air 02/14/24 11:22 BMI result Body Mass Index 38.1 Const General: alert Neck Neck: Yes normal visual inspection, Yes full ROM and Yes no lymphadenopathy Chest Chest palpation & inspection: normal inspection of the chest Resp Effort & Inspection: Actively coughing Quality: actively coughing Auscultation: no wheezes and diminished lung sounds Cardio Rate: regular rate Rhythm: regular rhythm Heart sounds: S1 normal heart sound present and S2 normal heart sound present GI Palpation (GI): Soft to palpation, not firm and nontender Auscultation: normal bowel sounds Skin General skin exam: rashes and/or lesions noted Assessment & Plan Assessment & Plan (1) Severe persistent asthma: Comment: Status post bronchial thermoplasty. Continues to have uncrotrolled asthma, not responsive to an aggressive medical management. Daily asthma symptoms make it very difficult for her to perform her activities of daily living. Had been in disability due to her asthma. After the thermoplasty she was feeling better, but, unfortunately, after several years the positive effects of the thermoplasty waned. Code(s): J45.50 - Severe persistent asthma, uncomplicated Qualifiers: Asthma complication type: with acute exacerbation Qualified Code(s): J45.51 - Severe persistent asthma with (acute) exacerbation (2) Pulmonary nodules: Code(s): R91.8 - Other nonspecific abnormal finding of lung field (3) Chronic allergic rhinitis: Code(s): J30.9 - Allergic rhinitis, unspecified (4) SIERRA on CPAP: Code(s): G47.33 - Obstructive sleep apnea (adult) (pediatric); Z99.89 - Dependence on other enabling machines and devices (5) Nasal polyposis: Code(s): J33.9 - Nasal polyp, unspecified (6) Eczema: Code(s): L30.9 - Dermatitis, unspecified Qualifiers: Eczema type: flexural Qualified Code(s): L20.82 - Flexural eczema Plan continue Tezspire q4 weeks continue pseudophed as needed continue budesonide BID continue Brovana BID continue Spiriva continue singulair nasal rinsing prior to CPAP CPAP, nasal pillows completed Pulmonary rehab, continue exercise regimen F/U 4-6 months Coding Level of Care Code Est Pt Level 4 (43389) Diagnoses Severe persistent asthma with acute exacerbation J45.51 Asthma complication type: with acute exacerbation Pulmonary nodules R91.8 Chronic allergic rhinitis J30.9 SIERRA on CPAP G47.33; Z99.89 Nasal polyposis J33.9 Flexural eczema L20.82 Eczema type: flexural Time Spent (min) 17
[2024-02-14 11:22] VITALS: PULSE 65; O2SAT 97; BMI 38.1
== END 2024-02-14 11:40 | disposition home or self-care (01) ==
PROVIDERS: PCP Internal Medicine; Visit Provider Hospitalist
DX: J45.51 Severe persistent asthma with (acute) exacerbation (principal); R91.8 Other nonspecific abnormal finding of lung field; J30.9 Allergic rhinitis, unspecified; G47.33 Obstructive sleep apnea (adult) (pediatric); Z99.89 Dependence on other enabling machines and devices; J33.9 Nasal polyp, unspecified; L20.82 Flexural eczema
CPT/HCPCS: 99214

== ENCOUNTER → 2024-02-14 11:03 | Outpatient (BNVA) | payer MEDICARE, MEDICAID, SELFPAY | PROVIDERS: PCP Internal Medicine; Visit Provider Hospitalist | DX: J45.51 Severe persistent asthma with (acute) exacerbation (principal); J44.9 Chronic obstructive pulmonary disease, unspecified; J33.9 Nasal polyp, unspecified; J30.9 Allergic rhinitis, unspecified; R91.8 Other nonspecific abnormal finding of lung field; G47.33 Obstructive sleep apnea (adult) (pediatric); K21.9 Gastro-esophageal reflux disease without esophagitis; L20.82 Flexural eczema; Z99.89 Dependence on other enabling machines and devices | CPT/HCPCS: 99212 ==

== ENCOUNTER 2024-05-25 11:00 | Outpatient (AMB) | payer MEDICARE, MEDICAID, SELFPAY ==
[2024-05-25 11:07] VITALS: PULSE 71; O2SAT 95; BMI 36.9
--- NOTE | 2024-05-25 11:07 | A.OFFVIS_ITS ---
Vital Signs 05/25/24 11:07 Height 5 ft 5 in Weight 222 lb BMI 36.9 Pulse 71 Pulse Source Pulse Oximeter Pulse Oximetry (%) 95 Oxygen Delivery Method Room Air Intake Visit Reasons: asthma exacerbation [employer] Inspector Required: No Allergies Sulfa (Sulfonamide Antibiotics) Allergy (Severe, Verified 05/25/24 11:08) Hives environmental allergies Allergy (Unknown, Verified 05/25/24 11:08) Unknown HPI Comments Details: The patient is a 58-year-old woman with severe persistent asthma in addition to obstructive sleep apnea on CPAP. Her asthma is still an issue still having daytime symptoms. However, she has not required prednisone which is reassuring. She is still using rescue inhaler. She still getting Xolair twice a month. She still having bronchospasms on a regular basis but the fact that she had thermal plasty decreases her significant bronchospasms therefore not needing to be on steroids but still needing frequent bronchodilation. She tried doing some work outside of the home however, her symptoms quickly came back Kristy is concerning that she may not be able to keep a full-time job or to work regularly still with having symptoms. Optimistic that as she is healing from her asthma that hopefully in the fall she we were able to reassess and may be she can go back to [employer] work outside of the home. She continues a very aggressive respiratory regimen. She continues with allergy therapy. The CPAP therapy continues to be affective and beneficial. 04/19/2023 the patient is here for a pulmonary follow-up visit. She has been complaining of worsening cough with chest congestion for the last 3 weeks. She has been using her respiratory therapy with partial improvement. Lately she has been feeling a little bit better. She also started the new biologic therapy, tezspire. Seems to be tolerating it at this time. Is too early to say if is going to be effective for her. The patient continues with a cough. Has been more productive. Moderate severity. The mucus was initially yellowish in color now is clearing up. It was definitely more sticking consistency and difficult to clear. I will provide her with a flutter valve in order for her to work on chest physical therapy. She can also use her nebulizer prior to the flutter valve to help with mucus clearance. She understands this would be a way to provide chest physical therapy. In the meantime will start her on macrolide therapy to treat her for chronic bronchitis. 06/15/2023 the patient is here for sick visit. Her asthma seems flare of for the last week. She started developing increased chest tightness and cough. Moderate to severe. She has been using her nebulizer about 4 times a day. She has been using all her respiratory therapy. Prior to that appeared that the biologic therapy was partially helpful. Now is been hard to breathe. Her cough is persistent and she does have very limited air movement. The patient will receive Solu-Medrol today. She will need to go back on prednisone. The patient has pretty advanced and severe asthma. It did not flaring up more often. She has been on maximum respiratory therapy and still very limited from her airway capacity. Is very hard for her to perform activities of daily living and very hard for her to be exposed to the elements specially with the he in the humidity and the fire smoke at this time. She does have a spirometry pulmonary function study ordered for next week. Will probably have to postpone that in view of her ongoing symptoms. 07/26/2023 the patient is here for pulmonary follow-up visit. The patient is very well known to me. She does have severe persistent asthma. This point the asthma has been uncontrolled. She did respond initially well to the broncho thermal plasty. However, after a few years the benefits subsided. She now has symptoms on a daily basis with significant cough and shortness of breath. Moderate severity. She does use her rescue inhaler on a daily basis because of an uncontrolled symptoms. She did have pulmonary function studies demonstrating an FEV1 to FVC of 71% which is low for her Age and consistent with an obstructive physiology. She also has significant small airways disease consistent with her severe disease. Her PFTs are consistent with uncontrolled asthma. The patient has been on biologic therapy. However she has not responded completely. She has also been on maximum respiratory therapy only with partial improvement. At this point will have her stop the Trelegy inhaler and will start her on nebulized therapy to see if this is effective for her. In the meantime will also request blood work to see if she will be a candidate for different biologic to see if we can help her respiratory status. 09/20/2023 the patient is here for a pulmonary follow-up visit. The patient has been responding a little better to her current respiratory regimen. We switched over to nebulized therapy with Brovana and budesonide she is also using Spiriva. She continues on the biologic therapy, Tezspire. In addition to that she was started on muscle relaxants, baclofen which she feels like is also helping her breathing as well. She is currently working with weight loss. She is doing calorie counting and then she did participate briefly with the weight management program here. The patient continues to have ongoing daily symptoms. She does have cough variant asthma and is constantly coughing. Her cough is nonproductive in nature but it does affect her quality of life. She does have limitations with her activities daily living due to her shortness of breath symptoms. The patient also has been using her CPAP. She has been using a nasal pillow mask. The CPAP therapy continues to be affecting beneficial and she has been getting supplies to her [employer] company, [employer]. She has been having issues because they had been not always sending her her supplies. I did reach out to the [employer] company to see they can call her in order to resolve any ongoing issues. Based on her ongoing respiratory symptoms, I am recommending her to start pulmonary rehab. 02/14/2024 the patient is here for a pulmonary follow-up visit. Seems to be doing a little better on the current aggressive respiratory regimen. Continues with the nebulized therapy twice a day in addition to the Spiriva. She has been tolerating the Tezspire Biologic therapy. In addition to that she is working closely with GI regarding reflux disease. She did increase her Protonix to twice a day and seems to have a little bit better response as far as the cough is concerned. The patient continues to try to exercise. She still is limited because of her asthma symptoms and cough variant asthma. But she is trying. She did complete pulmonary rehabilitation she is doing her own. She is up-to-date with all other vaccines except for her shingles vaccine. The patient follow-up in 6 months. 05/25/2024 the patient is here for sick visit. She has been under the weather now for a couple weeks. She started developing increasing chest tightness and cough. Denies any sick contacts. Although she is noticed more chest congestion. She has been able to expectorate some phlegm. He has yellowish in color. As far as her respiratory medications in biologic therapy they have been working very well for her. She has been tolerating the test far without any adverse reactions that she can tell. She continues on nebulized therapy. At today's visit she is having significant coughing although more congested than usual. She has diminished breath sounds bilaterally. Unlikely with the coughing asthma she has significant bronchospasms that typically present in this fashion. Will go ahead and provide her with antibiotics to treat her for the bronchitis and also prednisone to treat her for the significant bronchospasms. The patient also will need some cough medication. If the patient is no better she will call for an earlier assessment otherwise we just treat her empirically. [facility], [facility] Medical History (Updated 09/20/23 @ 21:27 by Antoine Farmer MD) Depression Trigeminal neuralgia Hypertension GERD (gastroesophageal reflux disease) Morbid obesity Eczema Nasal polyposis Asthma-COPD overlap syndrome Chronic allergic rhinitis Pulmonary nodules SIERRA on CPAP Severe persistent asthma Surgical History Status post repair of paraesophageal diaphragmatic hernia Hx of cataract surgery Family History Father Lung cancer Diabetes Heart disease Mother Emphysema of lung Hypertension Bladder cancer TIA (transient ischemic attack) Social History Alcohol intake: current Alcohol intake frequency: a few times a month Patient Tobacco Use Status: Never used Tobacco Review of Systems Const Reports difficulty sleeping, Reports fatigue, Denies headache(s) and Denies night sweats ENT Denies change in voice, Denies headache(s), Denies lip swelling, Denies mouth pain, Reports nasal congestion, Reports nasal discharge, Reports nasal obstruction, Reports post nasal drip and Denies tongue swelling Card Denies chest pain, Denies dyspnea and Reports dyspnea on exertion Resp Reports chest congestion, Reports cough, Denies dyspnea, Reports dyspnea on ex ertion and Reports wheezing GI Denies abdominal pain and Reports bloating Musc Denies no additional complaints Neuro Denies Neuro-related abnormal movements and Denies headache(s) Psych Denies no additional complaints Endo Reports fatigue Niko/Lymph Denies easy bleeding and Denies lymphadenopathy Aller/Immun Denies lip swelling, Denies tongue swelling and Reports wheezing Physical Exam Vital Signs: Last Vital Signs Pulse 71 05/25/24 11:07 Pulse Ox 95 05/25/24 11:07 Oxygen Delivery Method Room Air 06/28/24 11:07 BMI result Body Mass Index 36.9 Const General: alert Neck Neck: Yes normal visual inspection, Yes full ROM and Yes no lymphadenopathy Chest Chest palpation & inspection: normal inspection of the chest Resp Effort & Inspection: Actively coughing Quality: actively coughing Auscultation: wheezes and diminished lung sounds Cardio Rate: regular rate Rhythm: regular rhythm Heart sounds: S1 normal heart sound present and S2 normal heart sound present GI Palpation (GI): Soft to palpation, not firm and nontender Auscultation: normal bowel sounds Skin General skin exam: rashes and/or lesions noted Assessment & Plan Assessment & Plan (1) Severe persistent asthma: Comment: Status post bronchial thermoplasty. Continues to have uncrotrolled asthma, not responsive to an aggressive medical management. Daily asthma symptoms make it very difficult for her to perform her activities of daily living. Had been in disability due to her asthma. After the thermoplasty she was feeling better, but, unfortunately, after several years the positive effects of the thermoplasty waned. Code(s): J45.50 - Severe persistent asthma, uncomplicated Category: Medical Qualifiers: Asthma complication type: with acute exacerbation Qualified Code(s): J45.51 - Severe persistent asthma with (acute) exacerbation (2) Pulmonary nodules: Code(s): R91.8 - Other nonspecific abnormal finding of lung field Category: Medical (3) Chronic allergic rhinitis: Code(s): J30.9 - Allergic rhinitis, unspecified Category: Medical (4) SIERRA on CPAP: Code(s): G47.33 - Obstructive sleep apnea (adult) (pediatric); Z99.89 - Dependence on other enabling machines and devices Category: Medical (5) Nasal polyposis: Code(s): J33.9 - Nasal polyp, unspecified Category: Medical (6) Eczema: Code(s): L30.9 - Dermatitis, unspecified Category: Medical Qualifiers: Eczema type: flexural Qualified Code(s): L20.82 - Flexural eczema Plan start Doxycycline start prednisone taper cough medicine continue Tezspire q4 weeks continue pseudophed as needed continue budesonide BID continue Brovana BID continue Spiriva continue singulair nasal rinsing prior to CPAP CPAP, nasal pillows completed Pulmonary rehab, continue exercise regimen F/U 4-6 months Medications: New prednisone PO daily; Take 6 tabs daily x 3 days, then 5 tabs x 3 days, then 4 tabs x 3 days, then 3 tabs x 3 days, then 2 tabs daily x 3 days, then 1 tab x 3 days to complete. 63 tabs 0RF 18 days codeine-guaifenesin 10-100 mg/5 mL 10 mL PO Q6H PRN 300 mL 0RF cough 10 days doxycycline hyclate 100 mg PO BID 20 caps 0RF 10 days Coding Level of Care Code Est Pt Level 4 (41816) Diagnoses Severe persistent asthma with acute exacerbation J45.51 Asthma complication type: with acute exacerbation Pulmonary nodules R91.8 Chronic allergic rhinitis J30.9 SIERRA on CPAP G47.33; Z99.89 Nasal polyposis J33.9 Flexural eczema L20.82 Eczema type: flexural Time Spent (min) 16
== END 2024-05-28 08:02 | disposition home or self-care (01) ==
PROVIDERS: PCP Internal Medicine; Visit Provider Hospitalist
DX: J45.51 Severe persistent asthma with (acute) exacerbation (principal); R91.8 Other nonspecific abnormal finding of lung field; J30.9 Allergic rhinitis, unspecified; G47.33 Obstructive sleep apnea (adult) (pediatric); Z99.89 Dependence on other enabling machines and devices; J33.9 Nasal polyp, unspecified; L20.82 Flexural eczema
CPT/HCPCS: 99214

== ENCOUNTER → 2024-05-25 11:00 | Outpatient (BNVA) | payer MEDICARE, MEDICAID, SELFPAY | PROVIDERS: PCP Internal Medicine; Visit Provider Hospitalist | DX: J45.51 Severe persistent asthma with (acute) exacerbation (principal); G47.33 Obstructive sleep apnea (adult) (pediatric); J30.9 Allergic rhinitis, unspecified; R91.8 Other nonspecific abnormal finding of lung field; J33.9 Nasal polyp, unspecified; L20.82 Flexural eczema; Z99.89 Dependence on other enabling machines and devices | CPT/HCPCS: 99212 ==

== ENCOUNTER 2024-06-21 07:57 | Outpatient (AMB) | payer MEDICARE, MEDICAID, SELFPAY ==
--- NOTE | 2024-06-21 07:58 | A.OFFVIS_ITS ---
Vital Signs 06/21/24 08:04 Weight 226 lb BP 122/82 Blood Pressure Location Rt brachial Position Sitting Pulse 62 Pulse Source Pulse Oximeter Pulse Oximetry (%) 97 Intake Visit Reasons: 6m follow up ear pain/trigeminal neuralgia Intake Note: Patient presents for 6 month follow up ear pain. patient stated she'a been pretty bad headaches everyday,nausea and light headedness an still having ear pain Allergies Sulfa (Sulfonamide Antibiotics) Allergy (Severe, Verified 06/21/24 08:05) Hives environmental allergies Allergy (Unknown, Verified 06/21/24 08:05) Unknown Medication List - Last Reconciled 06/21/24 by Gena Lopez, [employer] albuterol sulfate 90 mcg/actuation 2 puffs PO Q6H PRN amiloride 5 mg PO DAILY arformoterol (Brovana) 2 mL inhalation Q12H 30 days azelastine 2 sprays intranasal BID baclofen 10 mg PO BEDTIME 30 days benzonatate 200 mg PO BID PRN 30 days budesonide 0.5 mg (2 mL) inhalation BID 30 days cetirizine (Zyrtec) 10 mg PO DAILY PRN cholecalciferol (vitamin D3) 125 mcg PO DAILY codeine-guaifenesin 10-100 mg/5 mL 10 mL PO Q6H PRN 10 days codeine-guaifenesin 10-100 mg/5 mL 10 mL PO Q6H PRN 10 days CPAP (CPAP Machine/Device) As directed doxycycline hyclate 100 mg PO BID 10 days epinephrine IM PRN fluoxetine 20 mg PO DAILY ipratropium bromide 2 sprays intranasal TID PRN ipratropium-albuterol 0.5 mg-3 mg(2.5 mg base)/3 mL 3 mL inhalation QID 30 days levalbuterol tartrate 45 mcg/actuation 2 puffs PO Q4H PRN magnesium oxide 500 mg PO DIRECTED montelukast 10 mg PO BEDTIME nebulizers As directed pantoprazole 40 mg PO BID potassium chloride ER 10 mEq PO DAILY prednisone PO daily; Take 6 tabs daily x 3 days, then 5 tabs x 3 days, then 4 tabs x 3 days, then 3 tabs x 3 days, then 2 tabs daily x 3 days, then 1 tab x 3 days to complete. 18 days tezepelumab-ekko (Tezspire) 210 mg (1.91 mL) subcut Q4W 12 months tiotropium bromide 2.5 mcg/actuation (Spiriva Respimat) 2 puffs inhalation DAILY 30 days ubrogepant (Ubrelvy) 50 - 100 mg (0.5 - 1 x 100 mg) PO ONCE PRN 30 days HPI Comments Details: 58-yr-old female presents for f/u visit. Pt denies any significant interval medical changes. Pt reports she was doing ok, but in the last 3 weeks she has been having increased headaches, neck pain, nausea, lightheadedness. She denies any triggers. But has been having brief periods of hot flashes- never had these while going through menopause 8 yrs ago. She had labs done through her PCP at [place]. Takes > gallon of fluid per day- does take Mag, potassium supplement. She is trying to avoid eating as much processed foods. States has been told her sodium has been low in the past. Has been noticing tingling in her feet. She had been trying to treat with Tylenol or Aspirin or Advil at 1st sign, was worried about overusing the Ubrelvy. Ubrelvy is helpful when she takes it. Baclofen is still helpful Baseline headache characteristics: #1- Left ear pressure a/w left stabbing/shooting ear pain and left cervical chain swollen lymph nodes. The pain is usually brief- can be up to seconds of a searing pain. #2- Low grade headaches a/w photophobia, phonophobia, susie ear fullness. [facility] Medical History (Updated 09/20/23 @ 21:27 by Antoine Farmer MD) Depression Trigeminal neuralgia Hypertension GERD (gastroesophageal reflux disease) Morbid obesity Eczema Nasal polyposis Asthma-COPD overlap syndrome Chronic allergic rhinitis Pulmonary nodules SIERRA on CPAP Severe persistent asthma Surgical History Status post repair of paraesophageal diaphragmatic hernia Hx of cataract surgery Family History Father Lung cancer Diabetes Heart disease Mother Emphysema of lung Hypertension Bladder cancer TIA (transient ischemic attack) Social History Alcohol intake: current Alcohol intake frequency: a few times a month Patient Tobacco Use Status: Never used Tobacco Physical Exam Vital Signs: Last Vital Signs Pulse 62 06/21/24 08:04 BP 122/82 06/21/24 08:04 Pulse Ox 97 06/21/24 08:04 Const General: cooperative and no acute distress Orientation/consciousness: patient oriented x3 Resp Effort & Inspection: normal respiratory effort and able to speak in complete sentences Neuro Other: Photophobic. Applying blue-light FL-41 light filtering glasses. 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 LP w/ normal OP (9cmH2O in prone position) w/ normal routine CSF studies. Code(s): Q01.9 - Encephalocele, unspecified Category: Medical (3) Trigeminal neuralgia: Code(s): G50.0 - Trigeminal neuralgia Category: Medical Plan Pt has had more recent increased migraine w/ photophobia and phonophobia. Will request labs from PCP- ? pt is over-hydrated. Try adding electrolyte supplement- such as 1 liquid IV serving per day. Monitor tingling, hot flashes. Consider f/u brain/head MRI in 1-2 yrs to monitor cephaloceles. Continue Baclofen 10mg qhs. Advised to use Ubrlevy at 1st sign of migraine. Try light sensitivity glasses and noise reduction ear plugs- information shaered on theraspecs and loop ear plugs.. Continue Ubrogepant (Ubrelvy) 100mg tab, 1/2 - 1 tab (50-100mg) at onset of migraine headache, may repeat in 2 hours. Max of 2 tabs (200mg) per 24 hours. May adjunct with OTC Tylenol 650mg q 4 hours, Ibuprofen 600mg q 6 hours, or Naproxen 440mg q 12 hrs prn. Saline rinse prn. Continue CPAP. Migraine headache tx contraindications- Triptans d/t cardiac dz- LVH, HTN Previous headache tx: Topiramate- ineffective. Future considerations, Tegretol trial, CGRP MaB trial, head MRA. f/u in 6 months or sooner prn. Medications: Refilled baclofen 10 mg PO BEDTIME 30 days 30 tabs 6RF ubrogepant (Ubrelvy) take at onset of migraine, may repeat in 2hrs (may take w/ Ibuprofen) 50 - 100 mg (0.5 - 1 x 100 mg) PO ONCE 30 days PRN 16 tabs 6RF migraine headache Discontinued prednisone Discontinued Reason: Patient Completed Course PO daily; Take 6 tabs daily x 3 days, then 5 tabs x 3 days, then 4 tabs x 3 days, then 3 tabs x 3 days, then 2 tabs daily x 3 days, then 1 tab x 3 days to complete. 18 days 63 tabs 0RF doxycycline hyclate Discontinued Reason: Patient Completed Course 100 mg PO BID 10 days 20 caps 0RF Coding Level of Care Code Est Pt Level 4 (89266) Diagnoses Migraine without aura G43.009 Cephalocele Q01.9 Trigeminal neuralgia G50.0
[2024-06-21 08:04] VITALS: BP 122/82; PULSE 62; O2SAT 97
== END 2024-06-21 08:51 | disposition home or self-care (01) ==
PROVIDERS: PCP Internal Medicine; Visit Provider Nurse Practitioner Family
DX: G43.009 Migraine without aura, not intractable, without status migrainosus (principal); Q01.9 Encephalocele, unspecified; G50.0 Trigeminal neuralgia
CPT/HCPCS: 99214

== ENCOUNTER → 2024-06-21 07:57 | Outpatient (BNVA) | payer MEDICARE, MEDICAID, SELFPAY | PROVIDERS: PCP Internal Medicine; Visit Provider Nurse Practitioner Family | DX: G50.0 Trigeminal neuralgia (principal); G43.009 Migraine without aura, not intractable, without status migrainosus; Q01.9 Encephalocele, unspecified | CPT/HCPCS: 99212 ==

== ENCOUNTER 2024-08-17 09:33 | Outpatient (AMB) | payer MEDICARE, MEDICAID, SELFPAY ==
--- NOTE | 2024-08-17 09:44 | A.OFFVIS_ITS ---
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 Her asthma is still an issue still having daytime symptoms. However, she has not required prednisone which is reassuring. She is still using rescue inhaler. She still getting Xolair twice a month. She still having bronchospasms on a regular basis but the fact that she had thermal plasty decreases her significant bronchospasms therefore not needing to be on steroids but still needing frequent bronchodilation. She tried doing some work outside of the home however, her symptoms quickly came back Kristy is concerning that she may not be able to keep a full-time job or to work regularly still with having symptoms. Optimistic that as she is healing from her asthma that hopefully in the fall she we were able to reassess and may be she can go back to [employer] work outside of the home. She continues a very aggressive respiratory regimen. She continues with allergy therapy. The CPAP therapy continues to be affective and beneficial. 02/14/2024 the patient is here for a pulmonary follow-up visit. Seems to be doing a little better on the current aggressive respiratory regimen. Continues with the nebulized therapy twice a day in addition to the Spiriva. She has been tolerating the Tezspire Biologic therapy. In addition to that she is working closely with GI regarding reflux disease. She did increase her Protonix to twice a day and seems to have a little bit better response as far as the cough is concerned. The patient continues to try to exercise. She still is limited because of her asthma symptoms and cough variant asthma. But she is trying. She did complete pulmonary rehabilitation she is doing her own. She is up-to-date with all other vaccines except for her shingles vaccine. The patient follow-up in 6 months. 05/25/2024 the patient is here for sick visit. She has been under the weather now for a couple weeks. She started developing increasing chest tightness and cough. Denies any sick contacts. Although she is noticed more chest congestion. She has been able to expectorate some phlegm. He has yellowish in color. As far as her respiratory medications in biologic therapy they have been working very well for her. She has been tolerating the test far without any adverse reactions that she can tell. She continues on nebulized therapy. At today's visit she is having significant coughing although more congested than usual. She has diminished breath sounds bilaterally. Unlikely with the coughing asthma she has significant bronchospasms that typically present in this fashion. Will go ahead and provide her with antibiotics to treat her for the bronchitis and also prednisone to treat her for the significant bronchospasms. The patient also will need some cough medication. If the patient is no better she will call for an earlier assessment otherwise we just treat her empirically. 08/17/2024 the patient is here for a pulmonary follow-up visit. Overall she is doing better. The patient has asthma is under control this time. She did have a bout of a viral syndrome. Her symptoms not better although left with some sinusitis. She does have some sinus pressure some congestion and some drainage. It is colored yellowish in color. [id number] severity. She is going to continue to monitor. If it worsens she can always start Augmentin. the patient should continue with Sudafed. I also sent a prescription for his 1st generation antihistamine that will also help with the cough. She is still in the nebulized therapy. She also continues on the biologic therapy, test prior. This has been affecting beneficial. When she returns will talk about considering switching over to inhalers. However, this point the nebulized therapy is very effective for her. In addition to that she is using her CPAP. CPAP therapy has been affecting beneficial. She does use a nasal pillow mask. We did talk about different options including the P 30 I. at this point she is using the P 10 she will continue to use it at this time the patient follow-up in 6 months. If she develops any worsening symptoms prior to that she will call for an earlier assessment. [facility] Medical History (Updated 09/20/23 @ 21:27 by Antoine Farmer MD) Depression Trigeminal neuralgia Hypertension GERD (gastroesophageal reflux disease) Morbid obesity Eczema Nasal polyposis Asthma-COPD overlap syndrome Chronic allergic rhinitis Pulmonary nodules SIERRA on CPAP Severe persistent asthma Surgical History Status post repair of paraesophageal diaphragmatic hernia Hx of cataract surgery Family History Father Lung cancer Diabetes Heart disease Mother Emphysema of lung Hypertension Bladder cancer TIA (transient ischemic attack) Social History Alcohol intake: current Alcohol intake frequency: a few times a month Patient Tobacco Use Status: Never used Tobacco Review of Systems Const Reports difficulty sleeping, Reports fatigue, Denies headache(s) and Denies night sweats ENT Denies change in voice, Denies headache(s), Denies lip swelling, Denies mouth pain, Reports nasal congestion, Reports nasal discharge, Reports nasal obstruction, Reports post nasal drip, Reports sinus pain, Reports sinus pressure and Denies tongue swelling Card Denies chest pain, Denies dyspnea and Reports dyspnea on exertion Resp Reports chest congestion, Reports cough, Denies dyspnea, Reports dyspnea on exertion and Reports wheezing GI Denies abdominal pain and Reports bloating Musc Denies no additional complaints Neuro Denies Neuro-related abnormal movements and Denies headache(s) Psych Denies no additional complaints Endo Reports fatigue Niko/Lymph Denies easy bleeding and Denies lymphadenopathy Aller/Immun Denies lip swelling, Denies tongue swelling and Reports wheezing Physical Exam Vital Signs: Last Vital Signs Pulse 62 08/17/24 09:48 BP 118/70 08/17/24 09:48 Pulse Ox 97 08/17/24 09:48 Oxygen Delivery Method Room Air 08/17/24 09:48 BMI result Body Mass Index 37.8 Const General: alert Neck Neck: Yes normal visual inspection, Yes full ROM and Yes no lymphadenopathy Chest Chest palpation & inspection: normal inspection of the chest Resp Auscultation: no wheezes and diminished lung sounds Cardio Rate: regular rate Rhythm: regular rhythm Heart sounds: S1 normal heart sound present and S2 normal heart sound present GI Palpation (GI): Soft to palpation, not firm and nontender Auscultation: normal bowel sounds Skin General skin exam: rashes and/or lesions noted Assessment & Plan Assessment & Plan (1) Severe persistent asthma: Comment: Status post bronchial thermoplasty. Continues to have uncrotrolled asthma, not responsive to an aggressive medical management. Daily asthma symptoms make it very difficult for her to perform her activities of daily living. Had been in disability due to her asthma. After the thermoplasty she was feeling better, but, unfortunately, after several years the positive effects of the thermoplasty waned. Code(s): J45.50 - Severe persistent asthma, uncomplicated Category: Medical Qualifiers: Asthma complication type: with acute exacerbation Qualified Code(s): J45.51 - Severe persistent asthma with (acute) exacerbation (2) Pulmonary nodules: Code(s): R91.8 - Other nonspecific abnormal finding of lung field Category: Medical (3) Chronic allergic rhinitis: Code(s): J30.9 - Allergic rhinitis, unspecified Category: Medical (4) SIERRA on CPAP: Code(s): G47.33 - Obstructive sleep apnea (adult) (pediatric); Z99.89 - Dependence on other enabling machines and devices Category: Medical (5) Nasal polyposis: Code(s): J33.9 - Nasal polyp, unspecified Category: Medical (6) Eczema: Code(s): L30.9 - Dermatitis, unspecified Category: Medical Qualifiers: Eczema type: flexural Qualified Code(s): L20.82 - Flexural eczema Plan continue Tezspire q4 weeks continue pseudophed as needed start chlorpheniramine as needed for cough start Augmentin for sinusits if no better in 24-48 hours continue budesonide BID continue Brovana BID continue Spiriva continue singulair nasal rinsing prior to CPAP CPAP, nasal pillows completed Pulmonary rehab, continue exercise regimen F/U 4-6 months Medications: New chlorpheniramine maleate 4 mg PO Q6H PRN 60 tabs 6RF itching 30 days amoxicillin-pot clavulanate 875-125 mg 1 tab PO BID 20 tabs 0RF 10 days Coding Level of Care Code Est Pt Level 4 (72137) Complex EM visit Add On G2211 Diagnoses Severe persistent asthma with acute exacerbation J45.51 Asthma complication type: with acute exacerbation Pulmonary nodules R91.8 Chronic allergic rhinitis J30.9 SIERRA on CPAP G47.33; Z99.89 Nasal polyposis J33.9 Flexural eczema L20.82 Eczema type: flexural Time Spent (min) 16
[2024-08-17 09:48] VITALS: BP 118/70; PULSE 62; O2SAT 97; BMI 37.8
== END 2024-08-17 10:12 | disposition home or self-care (01) ==
PROVIDERS: PCP Internal Medicine; Visit Provider Hospitalist
DX: J45.51 Severe persistent asthma with (acute) exacerbation (principal); R91.8 Other nonspecific abnormal finding of lung field; J30.9 Allergic rhinitis, unspecified; G47.33 Obstructive sleep apnea (adult) (pediatric); Z99.89 Dependence on other enabling machines and devices; J33.9 Nasal polyp, unspecified; L20.82 Flexural eczema
CPT/HCPCS: 99214; G2211

== ENCOUNTER → 2024-08-17 09:33 | Outpatient (BNVA) | payer MEDICARE, MEDICAID, SELFPAY | PROVIDERS: PCP Internal Medicine; Visit Provider Hospitalist | DX: J45.51 Severe persistent asthma with (acute) exacerbation (principal); R91.8 Other nonspecific abnormal finding of lung field; J30.9 Allergic rhinitis, unspecified; J33.9 Nasal polyp, unspecified; L20.82 Flexural eczema; G47.33 Obstructive sleep apnea (adult) (pediatric); Z99.89 Dependence on other enabling machines and devices | CPT/HCPCS: 99212 ==

== ENCOUNTER 2024-11-06 13:27 | Outpatient (AMB) | payer MEDICARE, MEDICAID, SELFPAY ==
[2024-11-06 13:28] VITALS: BP 128/64; PULSE 78; O2SAT 95
--- NOTE | 2024-11-06 13:28 | A.OFFVIS_ITS ---
Vital Signs 11/06/24 13:28 Weight 235 lb 14.314 oz BP 128/64 Blood Pressure Location Lt brachial Position Sitting Pulse 78 Pulse Source Pulse Oximeter Pulse Oximetry (%) 95 Oxygen Delivery Method Room Air Intake Visit Reasons: productive cough, shortness of breath Allergies Sulfa (Sulfonamide Antibiotics) Allergy (Severe, Verified 11/06/24 13:33) Hives environmental allergies Allergy (Unknown, Verified 11/06/24 13:33) Unknown Medication List - Last Reconciled 11/06/24 by Coco Che LPN albuterol sulfate 90 mcg/actuation 2 puffs PO Q6H PRN amiloride 5 mg PO DAILY amoxicillin-pot clavulanate 875-125 mg 1 tab PO BID 10 days arformoterol 2 mL inhalation Q12H azithromycin 500 mg PO DAILY 5 days baclofen 10 mg PO BEDTIME 30 days benzonatate 200 mg PO BID PRN 30 days budesonide 0.5 mg (2 mL) PO BID cetirizine (Zyrtec) 10 mg PO DAILY PRN chlorpheniramine maleate 4 mg PO Q6H PRN 30 days codeine-guaifenesin 10-100 mg/5 mL 10 mL PO Q6H PRN 10 days CPAP (CPAP Machine/Device) As directed epinephrine IM PRN fluoxetine 20 mg PO DAILY ipratropium bromide 2 sprays intranasal TID PRN ipratropium-albuterol 0.5 mg-3 mg(2.5 mg base)/3 mL 3 mL inhalation QID 30 days levalbuterol tartrate 45 mcg/actuation 2 puffs PO Q4H PRN magnesium oxide 500 mg PO DIRECTED montelukast 10 mg PO BEDTIME nebulizers As directed pantoprazole 40 mg PO BID potassium chloride ER 10 mEq PO DAILY prednisone PO daily; Take 6 tabs daily x 3 days, then 5 tabs x 3 days, then 4 tabs x 3 days, then 3 tabs x 3 days, then 2 tabs daily x 3 days, then 1 tab x 3 days to complete. 18 days tezepelumab-ekko (Tezspire) 210 mg (1.91 mL) subcut Q4W 12 months tiotropium bromide 2.5 mcg/actuation (Spiriva Respimat) 2 puffs inhalation DAILY 30 days ubrogepant (Ubrelvy) 50 - 100 mg (0.5 - 1 x 100 mg) PO ONCE PRN 30 days HPI Comments Details: The patient is a 59-year-old woman with severe persistent asthma in addition to obstructive sleep apnea on CPAP. Her asthma is still an issue still having daytime symptoms. However, she has not required prednisone which is reassuring. She is still using rescue inhaler. She still getting Xolair twice a month. She still having bronchospasms on a regular basis but the fact that she had thermal plasty decreases her significant bronchospasms therefore not needing to be on s teroids but still needing frequent bronchodilation. She tried doing some work outside of the home however, her symptoms quickly came back Kristy is concerning that she may not be able to keep a full-time job or to work regularly still with having symptoms. Optimistic that as she is healing from her asthma that hopefully in the fall she we were able to reassess and may be she can go back to [employer] work outside of the home. She continues a very aggressive respiratory regimen. She continues with allergy therapy. The CPAP therapy continues to be affective and beneficial. 02/14/2024 the patient is here for a pulmonary follow-up visit. Seems to be doing a little better on the current aggressive respiratory regimen. Continues with the nebulized therapy twice a day in addition to the Spiriva. She has been tolerating the Tezspire Biologic therapy. In addition to that she is working closely with GI regarding reflux disease. She did increase her Protonix to twice a day and seems to have a little bit better response as far as the cough is concerned. The patient continues to try to exercise. She still is limited because of her asthma symptoms and cough variant asthma. But she is trying. She did complete pulmonary rehabilitation she is doing her own. She is up-to-date with all other vaccines except for her shingles vaccine. The patient follow-up in 6 months. 05/25/2024 the patient is here for sick visit. She has been under the weather now for a couple weeks. She started developing increasing chest tightness and cough. Denies any sick contacts. Although she is noticed more chest congestion. She has been able to expectorate some phlegm. He has yellowish in color. As far as her respiratory medications in biologic therapy they have been working very well for her. She has been tolerating the test far without any adverse reactions that she can tell. She continues on nebulized therapy. At today's visit she is having significant coughing although more congested than usual. She has diminished breath sounds bilaterally. Unlikely with the coughing asthma she has significant bronchospasms that typically present in this fashion. Will go ahead and provide her with antibiotics to treat her for the bronchitis and also prednisone to treat her for the significant bronchospasms. The patient also will need some cough medication. If the patient is no better she will call for an earlier assessment otherwise we just treat her empirically. 08/17/2024 the patient is here for a pulmonary follow-up visit. Overall she is doing better. The patient has asthma is under control this time. She did have a bout of a viral syndrome. Her symptoms not better although left with some sinusitis. She does have some sinus pressure some congestion and some drainage. It is colored yellowish in color. [id number] severity. She is going to continue to monitor. If it worsens she can always start Augmentin. the patient should continue with Sudafed. I also sent a prescription for his 1st generation antihistamine that will also help with the cough. She is still in the nebulized therapy. She also continues on the biologic therapy, test prior. This has been affecting beneficial. When she returns will talk about considering switching over to inhalers. However, this point the nebulized therapy is very effective for her. In addition to that she is using her CPAP. CPAP therapy has been affecting beneficial. She does use a nasal pillow mask. We did talk about different options including the P 30 I. at this point she is using the P 10 she will continue to use it at this time the patient follow-up in 6 months. If she develops any worsening symptoms prior to that she will call for an earlier assessment. 11/06/2024 the patient is here for sick visit. She does. She had called the office we have Center a azithromycin in addition to prednisone. Overall she did feel better initially. But now for the last few days she has been having worsening cough chest tightness and breathing issues. Moderate severity. She has a hard time sleeping because of the coughing and shortness of breath. She has been using codeine cough syrup in addition to Tessalon Perles with some partial improvement. She has been able to wean down the prednisone down to 20 mg daily but she is starting to cough more. On exam she is coughing and she does have bronchospastic cough. She does have diminished breath sounds. Will go ahead and give her Solu-Medrol today to see if we can open things up a little bit further and hopes that she can stay on the 20 mg prednisone. She is going to washings waiting watch for any worsening respiratory symptoms including chest congestion sinusitis symptoms. That case she can always start doxycycline. She continues use her CPAP. She can also uses CPAP during the day as needed in case her breathing becomes labored. The patient should continue using the CPAP at nighttime. The therapy has been affecting beneficial. She does use it for more than 4 hours a night. Will go ahead and continue with the current respiratory regimen she will continue using the nebulizers 3 to 4 times a day and she is going to start using the Acapella valve to remove any mucus clearance. She is also using Mucinex. She can use that to help her expectorate and try to open up the small airways. [facility] Medical History (Updated 09/20/23 @ 21:27 by Antoine Farmer MD) Depression Trigeminal neuralgia Hypertension GERD (gastroesophageal reflux disease) Morbid obesity Eczema Nasal polyposis Asthma-COPD overlap syndrome Chronic allergic rhinitis Pulmonary nodules SIERRA on CPAP Severe persistent asthma Surgical History Status post repair of paraesophageal diaphragmatic hernia Hx of cataract surgery Family History Father Lung cancer Diabetes Heart disease Mother Emphysema of lung Hypertension Bladder cancer TIA (transient ischemic attack) Social History Alcohol intake: current Alcohol intake frequency: a few times a month Patient Tobacco Use Status: Never used Tobacco Review of Systems Const Reports difficulty sleeping, Reports fatigue, Reports headache(s) and Denies night sweats ENT Denies change in voice, Reports headache(s), Denies lip swelling, Denies mouth pain, Reports nasal congestion, Reports nasal discharge, Reports nasal obstruction, Reports post nasal drip, Reports sinus pain, Reports sinus pressure and Denies tongue swelling Card Denies chest pain, Denies dyspnea and Reports dyspnea on exertion Resp Reports cough, Denies dyspnea, Reports dyspnea on exertion and Reports wheezing GI Denies abdominal pain and Reports bloating Musc Denies no additional complaints Neuro Denies Neuro-related abnormal movements and Reports headache(s) Psych Denies no additional complaints Endo Reports fatigue Niko/Lymph Denies easy bleeding and Denies lymphadenopathy Aller/Immun Denies lip swelling, Denies tongue swelling and Reports wheezing Physical Exam Vital Signs: Last Vital Signs Pulse 78 11/06/24 13:28 BP 128/64 11/06/24 13:28 Pulse Ox 95 11/06/24 13:28 Oxygen Delivery Method Room Air 11/06/24 13:28 Const General: alert Neck Neck: Yes normal visual inspection, Yes full ROM and Yes no lymphadenopathy Chest Chest palpation & inspection: normal inspection of the chest Resp Effort & Inspection: Actively coughing Quality: actively coughing Auscultation: wheezes and diminished lung sounds Cardio Rate: regular rate Rhythm: regular rhythm Heart sounds: S1 normal heart sound present and S2 normal heart sound present GI Palpation (GI): Soft to palpation, not firm and nontender Auscultation: normal bowel sounds Skin General skin exam: rashes and/or lesions noted Office Meds methylprednisolone sod suc(PF) 125 mg/2 mL solution for injection Performing Provider: Antoine Farmer MD Performing Location: [facility] Administered by: Coco Che LPN on 11/06/24 13:54 Dose Route Admin Location Dispensed Lot Number Expiration Date [facility] Technology Integration Specialist 125 mg IM 2 ea [id number] 11/27/26 0367-0911-80 [employer] Comments: total dose given 125mg/2ml Assessment & Plan Assessment & Plan (1) Severe persistent asthma: Comment: Status post bronchial thermoplasty. Continues to have uncrotrolled asthma, not responsive to an aggressive medical management. Daily asthma symptoms make it very difficult for her to perform her activities of daily living. Had been in disability due to her asthma. After the thermoplasty she was feeling better, but, unfortunately, after several years the positive effects of the thermoplasty waned. Code(s): J45.50 - Severe persistent asthma, uncomplicated Category: Medical Qualifiers: Asthma complication type: with acute exacerbation Qualified Code(s): J45.51 - Severe persistent asthma with (acute) exacerbation (2) Pulmonary nodules: Code(s): R91.8 - Other nonspecific abnormal finding of lung field Category: Medical (3) Chronic allergic rhinitis: Code(s): J30.9 - Allergic rhinitis, unspecified Category: Medical (4) SIERRA on CPAP: Code(s): G47.33 - Obstructive sleep apnea (adult) (pediatric); Z99.89 - Dependence on other enabling machines and devices Category: Medical (5) Nasal polyposis: Code(s): J33.9 - Nasal polyp, unspecified Category: Medical (6) Eczema: Code(s): L30.9 - Dermatitis, unspecified Category: Medical Qualifiers: Eczema type: flexural Qualified Code(s): L20.82 - Flexural eczema Plan solumedrol 125mg IM x 1, then slow prednisone taper start Doxycycline continue Tezspire q4 weeks continue pseudophed as needed chlorpheniramine as needed for cough continue budesonide BID continue Brovana BID continue Spiriva continue singulair nasal rinsing prior to CPAP CPAP, nasal pillows F/U 2-3 months Orders: Orders AMB Methylprednisolone Sod Succ Injection Today J45.51 - Severe persistent asthma with (acute) exacerbation Medications: New doxycycline monohydrate 100 mg PO BID 28 tabs 0RF 14 days Coding Level of Care Code Est Pt Level 4 (40094) Complex EM visit Add On G2211 Diagnoses Severe persistent asthma with acute exacerbation J45.51 Asthma complication type: with acute exacerbation Pulmonary nodules R91.8 Chronic allergic rhinitis J30.9 SIERRA on CPAP G47.33; Z99.89 Nasal polyposis J33.9 Flexural eczema L20.82 Eczema type: flexural Time Spent (min) 17
--- OUTSIDE RECORDS SUMMARY | 2024-11-07 21:40 | XMS_ITS | Continuity of Care Document ---
Author Organization [facility] Address [address] [facility] [address] [place] [address] Insurance Providers Payer Plan Claims Address Claims Phone Policy Number Group Number Relation Employer Guarantor Name Guarantor Guarantor Address Guarantor Phone DUKE AMARALRE [employer]KE [employer]OY [place] [employer] [address] [facility] [address], [place] [address] [id number] Self Kelly Gaona [address] [place] [id number] [facility] [place] [address] tel:[phone] Self Kelly Gaona [address] [place] [id number] [facility], [address], [place] [address] tel:[phone] [id number] [phone] Marc Gaona [address] [place] [id number] Problems Condition ICD9 code ICD10 code SNOMED code Start Date End Date S tatus Encounter for screening for other metabolic disorders Z13.228 Results Test Value / Unit Interpretation Reference Ran Comp. Metabolic Panel (14)[[id number]]?Collected: 09/27/2024 04:20 PM?Specimen Received: 09/27/2024 05:00 AM?Source: [facility] Glucose [550877] 94 mg/dL 70-99 mg/dL BUN [294528] 18 mg/dL 8-27 mg/dL Creatinine [063393] 0.97 mg/dL 0.57-1.0 0 mg/dL eGFR [804131] 66 mL/min/1.73 >59 mL/min/1 .73 BUN/Creatinine Ratio [643128] 19 12-28 Sodium [666173] 142 mmol/L 134-144 mmol /L Potassium [417651] 4.3 mmol/L 3.5-5.2 m mol/L Chloride [669717] 105 mmol/L 96-106 mmo l/L Carbon Dioxide, Total [549353] 16 mmol/L L 20-29 mmol/L Calcium [009929] 9.9 mg/dL 8.7-10.3 mg /dL Protein, Total [057654] 6.4 g/dL 6.0- 8.5 g/dL Albumin [330199] 4.4 g/dL 3.9-4.9 g/d L Globulin, Total [299431] 2.0 g/dL 1.5 -4.5 g/dL Bilirubin, Total [583275] 0.4 mg/dL 0. 0-1.2 mg/dL Alkaline Phosphatase [856770] 79 IU/L 44-121 IU/L AST (SGOT) [219650] 24 IU/L 0-40 IU/ L ALT (SGPT) [914429] 14 IU/L 0-32 IU/ L Lipid Panel[[id number]]?Collected: 09/27/2024 04:20 PM?Specimen Received: 09/27/2024 05:00 AM?Source: [facility] Cholesterol, Total [497022] 249 mg/dL H 100-199 mg/dL Triglycerides [752976] 56 mg/dL 0-149 mg/dL HDL Cholesterol [601778] 94 mg/dL >39 mg/dL VLDL Cholesterol Timi [502830] 9 mg/dL 5-40 mg/dL LDL Chol Calc ([facility]) [058386] 146 mg/dL H 0-99 mg/dL Hemoglobin A1c[572635]?Collected: 09/27/2024 04:20 PM?Specimen Received: 09/27/2024 05:00 AM?Source: [facility] Hemoglobin A1c [401395] 5.5 % 4.8- 5.6 % . Prediabetes: 5.7 - 6.4 Kaylin betes: >6.4 Glycemic control for adults with diabetes: 7.0 Allergies, adverse reactions, alerts No known allergies and adverse reactions Medications No administered medications reported Vital Signs No vital signs reported Social History No smoking Hx information available
== END 2024-11-06 13:49 | disposition home or self-care (01) ==
PROVIDERS: PCP Internal Medicine; Visit Provider Hospitalist
DX: J45.51 Severe persistent asthma with (acute) exacerbation (principal); R91.8 Other nonspecific abnormal finding of lung field; J30.9 Allergic rhinitis, unspecified; G47.33 Obstructive sleep apnea (adult) (pediatric); Z99.89 Dependence on other enabling machines and devices; J33.9 Nasal polyp, unspecified; L20.82 Flexural eczema
CPT/HCPCS: 99214; G2211

== ENCOUNTER → 2024-11-06 13:27 | Outpatient (BNVA) | payer MEDICARE, MEDICAID, SELFPAY | PROVIDERS: PCP Internal Medicine; Visit Provider Hospitalist | DX: J45.51 Severe persistent asthma with (acute) exacerbation (principal); G47.33 Obstructive sleep apnea (adult) (pediatric); R91.8 Other nonspecific abnormal finding of lung field; J33.9 Nasal polyp, unspecified; J30.9 Allergic rhinitis, unspecified; L20.82 Flexural eczema; Z99.89 Dependence on other enabling machines and devices | CPT/HCPCS: 96372; 99212; J2919 ==

== ENCOUNTER 2025-01-09 09:25 | Outpatient (REF) | payer MEDICARE, MEDICAID, SELFPAY ==
--- OUTSIDE RECORDS SUMMARY | 2025-01-09 12:24 | XMS_ITS | Clinical Summary ---
Author Organization [address] Address [address] [place] [phone] Phone Care Team Providers Care Smooth And Burr Worker Composites Name Role Phone Mau Quispe DO Primary Care Provider [phone] Medical History Medical History Date Comments Depression 10/11/2017 DX:Depression Eczema 12/21/2017 DX:Eczema Morbid obesity with BMI of 4 5.0-49.9, adult ([facility]) 09/06/2017 DX:Morbid obesity with BMI o f 45.0-49.9, adult ([facility]) Ventral hernia 01/19/2018 DX:Ventral herni a [...] LAB HEMETOLOGY METHOD 11/29/2024 11:20 AM EST [facility] RBC 4.60 3.80 - 4.80 M/mcL LAB HEMETOLOGY METHOD 11/29/2024 11:20 AM EST [facility] Hemoglobin 13.8 11.5 - 16.0 g/dL LAB HEMETOLOGY METHOD 11/29/2024 11:20 AM [facility] Hematocrit 42.4 35.0 - 47.0 % LAB HEMETOLOGY METHOD 11/29/2024 11:20 AM [facility] MCV 92.6 79.0 - 98.0 FL LAB HEMETOLOGY METHOD 11/29/2024 11:20 AM [facility] MCH 30.1 27.0 - 32.0 pcg LAB HEMETOLOGY METHOD 11/29/2024 11:20 AM [facility] MCHC 32.5 32.0 - 37.0 g/dL LAB HEMETOLOGY METHOD 11/29/2024 11:20 AM [facility] RDW 12.7 11.0 - 15.0 % LAB HEMETOLOGY METHOD 11/29/2024 11:20 AM [facility] Platelets 304 130 - 400 K/mcL LAB HEMETOLOGY METHOD 11/29/2024 11:20 AM [facility] MPV 9.7 7.0 - 11.0 FL LAB HEMETOLOGY METHOD 11/29/2024 11:20 AM [facility] NRBC 0.0 <1.0 % LAB HEMETOLOGY METHOD 11/29/2024 11:20 AM [facility] NRBC Absolute 0.00 <0.10 K/mcL LAB HEMETOLOGY METHOD 11/29/2024 11:20 AM [facility] Neutrophils Relative 54.9 % LAB HEMETOLOGY METHOD 11/29/2024 11:20 AM [facility] Lymphocytes Relative 31.5 % LAB HEMETOLOGY METHOD 11/29/2024 11:20 AM [facility] Monocytes Relative 11.2 % LAB HEMETOLOGY METHOD 11/29/2024 11:20 AM [facility] Eosinophils Relative 1.3 % LAB HEMETOLOGY METHOD 11/29/2024 11:20 AM [facility] Basophils Relative 0.9 % LAB HEMETOLOGY METHOD 11/29/2024 11:20 AM EST [facility] Immature Granulocytes Relative 0.2 % LAB HEMETOLOGY METHOD 11/29/2024 11:20 AM [facility] Neutrophils Absolute 2.46 1.50 - 7.00 K/mcL LAB HEMETOLOGY METHOD 11/29/2024 11:20 AM EST [facility] Lymphocytes Absolute 1.41 1.00 - 5.00 K/mcL LAB HEMETOLOGY METHOD 11/29/2024 11:20 AM EST [facility] Monocytes Absolute 0.50 0.20 - 1.00 K/mcL LAB HEMETOLOGY METHOD 11/29/2024 11:20 AM [facility] Eosinophils Absolute 0.06 0.00 - 0.50 K/mcL LAB HEMETOLOGY METHOD 11/29/2024 11:20 AM EST [facility] Basophils Absolute 0.04 0.00 - 0.20 K/mcL LAB HEMETOLOGY METHOD 11/29/2024 11:20 AM EST [facility] Immature Granulocytes Absolute 0.01 0.00 - 0.03 K/mcL LAB HEMETOLOGY METHOD 11/29/2024 11:20 AM [facility] Blood Venous blood specimen / Unknown Venipuncture / Unknown 11/29/2024 10:26 AM EST 11/29/2024 10:26 AM EST us [facility] LAB BLOOD ORDERABLES Final Resul t [facility] [address] [place] [address], * Methylmalonic acid, serum (11/29/2024 10:26 AM EST) Methylmalonic Acid 0.24 <0.40 umol/L 12/04/2024 7:36 AM EST [facility] Comment: If applicable, any drug confirmation testing reported here was developed and the performance characteristics determined by [facility]. This confirmation testing has not been cleared or approved by the FDA. The laboratory is regulated under CLIA as qualified to perform high-complexity testing. This test is used for patient testing purposes. It should not be regarded as investigational or for research. Test performed at [facility], [address] , [place], [place] ??[address] ? [phone] Madelaine Lacey MD, PhD - Venetian Blind Cleaner Blood Venous blood specimen / Unknown Venipuncture / Unknown 11/29/2024 10:26 AM EST 11/29/2024 10:26 AM EST [facility] BLOOD ORDERABLES Final Resul t Performing Organization Address City/[facility]/ZIP Co de Phone Number [facility] [address] [place] [address] * (ABNORMAL) Vitamin D 25 hydroxy (11/29/2024 10:26 AM EST) Vit D, 25-Hydroxy 20.5(L) 30.0 - 80.0 ng/mL LAB CHEMISTRY METHOD 11/29/2024 12:30 PM EST [facility] Blood Venous blood specimen / Unknown Venipuncture / Unknown 11/29/2024 10:26 AM EST 11/29/2024 10:26 AM EST [facility] BLOOD ORDERABLES Final Resul t [facility] [address] [place] [address], * Thyroid stimulating hormone (11/29/2024 10:26 AM EST) TSH 2.81 0.40 - 4.00 mcIU/mL LAB CHEMISTRY METHOD 11/29/2024 12:30 PM EST [facility] Blood Venous blood specimen / Unknown Venipuncture / Unknown 11/29/2024 10:26 AM EST 11/29/2024 10:26 AM EST [facility] BLOOD ORDERABLES Final Resul t Performing Organization Address [facility]/ZIP Co de Phone Number [facility] [address] [place] [address], [place] [phone] * (ABNORMAL) Homocysteine, total (11/29/2024 10:26 AM EST) [facility] Homocysteine 11.2(H) 3.2 - 10.7 mcmol/L LAB CHEMISTRY METHOD 11/29/2024 12:42 PM EST [facility] Blood Venous blood specimen / Unknown Venipuncture / Unknown 11/29/2024 10:26 AM EST 11/29/2024 10:26 AM EST [facility] LAB BLOOD ORDERABLES Final Resul t Performing Organization Address [facility]/ZIP Co de Phone Number [facility] [address] [place] [address], [place] [phone] * Folate (11/29/2024 10:26 AM EST) [facility] Folate 14.3 2.8 - 17.0 ng/ml LAB CHEMISTRY METHOD 11/29/2024 12:42 PM EST [facility] Blood Venous blood specimen / Unknown Venipuncture / Unknown 11/29/2024 10:26 AM EST 11/29/2024 10:26 AM EST [facility] LAB BLOOD ORDERABLES Final Resul t Performing Organization Address City/[facility]/ZIP Co de Phone Number [facility] [address] [place] [address], [place] [phone] * Vitamin B12 (11/29/2024 10:26 AM EST) [facility] Vitamin B-12 480 250 - 900 pcg/mL LAB CHEMISTRY METHOD 11/29/2024 12:42 PM [facility] Blood Venous blood specimen / Unknown Venipuncture / Unknown 11/29/2024 10:26 AM EST 11/29/2024 10:26 AM EST us [facility] BLOOD ORDERABLES Final Resul t [facility] [address] [place] [address], [place] [phone] * Basic metabolic panel (11/29/2024 10:26 AM EST) [facility] Sodium 137 133 - 145 mmol/L LAB CHEMISTRY METHOD 11/29/2024 12:20 PM [facility] Potassium 3.8 3.5 - 5.5 mmol/L LAB CHEMISTRY METHOD 11/29/2024 12:20 PM [facility] Chloride 106 96 - 110 mmol/L LAB CHEMISTRY METHOD 11/29/2024 12:20 PM [facility] CO2 26 21 - 32 mmol/L LAB CHEMISTRY METHOD 11/29/2024 12:20 PM [facility] Anion Gap 5 3 - 11 LAB CHEMISTRY METHOD 11/29/2024 12:20 PM [facility] Glucose 85 70 - 100 mg/dL LAB CHEMISTRY METHOD 11/29/2024 12:20 PM [facility] BUN 14 5 - 25 mg/dL LAB CHEMISTRY METHOD 11/29/2024 12:20 PM [facility] Creatinine 1.01 0.50 - 1.10 mg/dL LAB CHEMISTRY METHOD 11/29/2024 12:20 PM [facility] eGFR 63 >=60 mL/min/1. 73m2 LAB CHEMISTRY METHOD 11/29/2024 12:20 PM [facility] Comment:Calculation based on the??Chronic Kidney Disease Epidemiology Collaboration (CKD-EPI) equation refit??without adjustment for race. BUN/Creatinine Ratio 13.9 LAB CHEMISTRY METHOD 11/29/2024 12:20 PM EST [facility] Calcium 9.3 8.5 - 10.5 mg/dL LAB CHEMISTRY METHOD 11/29/2024 12:20 PM EST [facility] Blood Venous blood specimen / Unknown Venipuncture / Unknown 11/29/2024 10:26 AM EST 11/29/2024 10:26 AM EST us [facility] LAB BLOOD ORDERABLES Final Resul t [facility] [address] [place] [address], [place] [phone] from Last 3 Months Advance Directives Documents on File Type Date Recorded Patient Ship/Rec/Doc Control Expl anation Health Care Decision (hx) 09/27/2016 AD HIGHTOWER DIRECTIVE Health Care Decision (hx) 09/27/2016 AD HIGHTOWER DIRECTIVE Health Care Decision (hx) 09/27/2016 AD HIGHTOWER DIRECTIVE Care Teams Smooth And Burr Worker Composites Relationship Specialty Start Date End Date Mau Quispe DO [address] [place] [phone] PCP - General Internal Medicine 11/08/17
--- OUTSIDE RECORDS SUMMARY | 2025-01-09 12:24 | XMS_ITS | Clinical Summary ---
Author Organization [address] [address] Care Team Providers Care Fixed Income Portfolio Manager Name Role Phone Mau Quispe DO Primary Care Provider [phone] Social History Tobacco Use Types Packs/Day Years [...] GENERIC COMMERCIAL GENERIC COMMERCIAL GENERIC Care Teams Fixed Income Portfolio Manager Relationship Specialty Start Date End Date Mau Quispe DO [address] [place] [phone] PCP - General Internal Medicine 02/15/17
--- OUTSIDE RECORDS SUMMARY | 2025-01-09 12:24 | XMS_ITS | Clinical Summary ---
Author Organization [facility] Address [address] [facility] [address] [place] [address] Phone Care Team Providers Care Stenciling Machine Tender Name Role Phone Mau Quispe DO Primary Care Provider Allergies Active Allergy Reactions Criticality Noted Date [...] Syncope 03/09/2022 Overview (04/06/2022): ER visit to [facility] on 09/24/21 Tricuspid valve regurgitation 03/09/2022 Severe persistent allergic asthma 04/04/2018 Overview (04/05/2022): Added automatically from request for surgery [id number] Ventral hernia 01/19/2018 Eczema 12/21/2017 Depressive disorder 10/11/2017 Body mass index 40+ - severely obese 09/06/2017 Anxiety 08/02/2017 Asthmatic bronchitis 07/04/2017 Overview (04/05/2022): Added automatically from request for surgery [id number] Gastro-esophageal reflux disease without esophag itis 02/28/2017 Multiple nodules of lung 02/28/2017 Overview (04/05/2022): Followed outside of the [facility] critical access [facility] from [phone] Obstructive sleep apnea syndrome 02/28/2017 Overview (04/05/2022): CPAP Seasonal allergic rhinitis 02/28/2017 Encounters Date Type Department Care Team Description 12/05/2024 Documentation Only [facility] [address] [phone] Emmie Marquez MA 12/05/2024 Refill [facility] [address] [phone] Emmie Marquez MA Hypokalemia; Hypertension from Last [...] Office Visit [facility] [address] [phone] Krystyna Warren ARNP [address] [phone] Health Maintenance Due Date Last Done Comments [...] 9.3 8.7 - 10.7 mg/dL eGFR Non-Afr Congolese 63 Vitamin D, 1,25-Dihydroxy 20.5 pg/mL 11/29/2024 [facility] Provider LAB BLOOD ORDERABLES Teressa l Result from Last 3 Months Insurance [facility] Member Subscriber Plan / Payer (Ef fective 2023-Present) Name:Kelly Ganoa Relation to Subscriber:Self Name:Kelly Gaona Payer ID:Not on file Type:Not on file Address: [address] [phone] MEDICAID [place] [facility] Member Subscriber Plan / Payer (Ef fective 2023-Present) Name:Kelly Gaona Relation to Subscriber:Self Name:Kelly Gaona Payer ID:Not on file Type:Not on file Address: [address] [phone] MED[place]ID [place] Care Teams Stenciling Machine Tender Relationship Specialty Start Date End Date Mau Quispe DO [address] [place] [address] PCP - General Internal Medicine 02/24/22
--- OUTSIDE RECORDS SUMMARY | 2025-01-09 12:24 | XMS_ITS | Encounter Summary ---
Author Organization [facility] Address [address] [place] [phone] Care Team Providers Care Mandarin Speaking Nanny Name Role Phone Mau Quispe DO Primary Care Provider [phone] Reason for Referral * Consultation (Routine) - Closed Specialty Diagnoses / Procedures Referred By Carlos cabrera Referred To Contact Pulmonary Disease Diagnoses SOB (shortness of breath) Wheezing Cough Persistent asthma Acute severe exacerbation of asthma Referral, Self [facility] [address] [place] [address], 2nd floor [facility], [address] [place] [address] Phone: tel: fax: Referral ID Status Reason Start Date Expiration Date Visits Re quested Visits Authorized [id number] Closed 02/22/2017 02/22/2018 1 1 Encounter Details Date Type Department Care Team (Latest Contact Info) Description 02/22/2017 Transcribed Orders Referral Link Providers [address] [place] [address] Referral, Self SOB (shortness of breath) (Primary [...] asthma documented in this encounter Care Teams Mandarin Speaking Nanny Relationship Specialty Start Date End Date Mau Quispe DO [address] [place] [phone] PCP - General Internal Medicine 02/15/17 documented as of this encounter
[2025-01-09 17:42] LABS: MANUAL DIFF FLAG NO
[2025-01-09 18:09] LABS: Basophils Absolute Auto 0.1 X10*3/uL (0.0-0.2); Basophils Percent Auto 0.8 % (0-2); Eosinophils Absolute Auto 0.1 X10*3/uL (0.0-0.4); Eosinophils Percent Auto 1.8 % (0-4); Hematocrit 44.1 % (37.0-47.0); Hemoglobin 14.3 g/dl (12.0-16.0); Imm Gran Abs Auto 0.02 X10*3/uL (0.00-0.03); Imm Gran Pct Auto 0.3 % (0.0-0.4); Lymphocytes Absolute Auto 1.3 X10*3/uL (1.2-4.9); Lymphocytes Percent Auto 21.6 % (20-40); Mean Corpuscular HGB Conc 32.4 g/dl (31.0-35.0); Mean Corpuscular Hemoglobin 29.7 pg (27.0-33.0); Mean Corpuscular Volume 91.5 fL (80.0-98.0); Mean Platelet Volume 10.4 fL (9.4-12.3); Monocytes Absolute Auto 0.6 X10*3/uL (0.1-1.2); Monocytes Percent Auto 10.2 % (2-11); Neutrophils Percent Auto 65.3 % (45-73); Platelet Count 303 X10*3/uL (160-400); Red Blood Count 4.82 X10*6/uL (4.20-5.50); Red Cell Distribution Width 12.7 % (11.0-16.0); White Blood Count 6.2 X10*3/uL (4.8-10.8)
[2025-01-09 18:19] LABS: Alanine Aminotransferase 20 U/L (0-31); Albumin Level 4.3 g/dL (3.5-5.0); Alkaline Phosphatase 71 U/L (39-117); Anion Gap 11 (12-20); Aspartate Amino Transferase 26 U/L (5-31); Bilirubin Total 0.5 mg/dL (0.0-1.0); Blood Urea Nitrogen 17 mg/dL (9-16); Calcium 9.6 mg/dL (8.4-10.2); Carbon Dioxide 25 mmol/L (22-29); Chloride 107 mmol/L (96-108); Estimated Glomerular Filt Rate > 60; Glucose Random 81 mg/dL (60-115); Iron 142 mcg/dL (30-160); Percent Iron Saturation 41 % (15-50); Phosphorus 3.1 mg/dL (2.7-4.5); Potassium 3.7 mmol/L (3.3-5.1); Sodium 139 mmol/L (135-145); Total Iron Binding Capacity 347 mcg/dL (228-428); Total Protein 7.4 g/dL (6.5-8.0); Unsaturated Iron Binding 205 ug/dL
[2025-01-09 18:32] LABS: Erythrocyte Sedimentation Rate 10 MM/HR (0-20)
[2025-01-09 18:33] LABS: Vitamin B12 573 pg/mL (200-900)
[2025-01-09 18:36] LABS: TSH reflex Free T4 3.11 uIU/mL (0.32-4.0)
[2025-01-10 06:01] LABS: Estimated Average Glucose 103 mg/dL; Hemoglobin A1C 120.3128 umol/L; Hemoglobin A1c % 5.2 % (<6.0); Total Hemoglobin (HGBA1C) 3662.7167 umol/L
[2025-01-10 09:04] LABS: CRP High Sensitivity 4.1 mg/L
[2025-01-10 10:19] LABS: Lyme Abs Screen <0.90 index
[2025-01-12 11:43] LABS: Methylmalonic Acid 144 nmol/L (69-390)
[2025-01-12 18:58] LABS: Vitamin A 55 mcg/dL (38-98)
[2025-01-13 17:33] LABS: Vitamin D 25-OH, D2 <4 ng/mL; Vitamin D 25-OH, D3 24 ng/mL; Vitamin D 25-OH, Total 24 ng/mL (30-100)
[2025-01-14 17:19] LABS: Nicotinamide <20 ng/mL (see note); Vit B3 - Nicotinic Acid <20 ng/mL (see note)
[2025-01-15 17:34] LABS: Vitamin B2 (Riboflavin) 20.9 nmol/L (6.2-39.0)
[2025-01-16 09:14] LABS: Vitamin B1 20 nmol/L (8-30)
[2025-01-16 15:13] LABS: Vitamin B6 22.9 ng/mL (2.1-21.7)
== END 2025-01-09 09:26 | disposition home or self-care (01) ==
LOC: HO.HKASLDS 09:25
PROVIDERS: PCP Internal Medicine; Visit Provider Nurse Practitioner Family
DX: E50.9 Vitamin A deficiency, unspecified (principal); E53.8 Deficiency of other specified B group vitamins; I10 Essential (primary) hypertension; R25.2 Cramp and spasm; R25.3 Fasciculation; E78.5 Hyperlipidemia, unspecified; R20.2 Paresthesia of skin; G43.009 Migraine without aura, not intractable, without status migrainosus; Q01.9 Encephalocele, unspecified; G50.0 Trigeminal neuralgia; Z13.1 Encounter for screening for diabetes mellitus
CPT/HCPCS: 36415; 80053; 82306; 82550; 82607; 83036; 83540; 83735; 83921; 84100; 84207; 84252; 84425; 84443; 84590; 84591; 85025; 85652; 86141; 86617; 86618; 99212

== ENCOUNTER 2025-01-09 09:25 | Outpatient (AMB) | payer MEDICARE, MEDICAID, SELFPAY ==
--- NOTE | 2025-01-09 09:29 | MHC.OFFVIS ---
Vital Signs 01/09/25 09:38 Height 5 ft 5 in Weight 239 lb BMI 39.8 BP 150/110 H Blood Pressure Location Lt brachial Position Sitting Pulse 69 Pulse Source Pulse Oximeter Pulse Oximetry (%) 99 Oxygen Delivery Method Room Air Intake Visit Reasons: Follow Up Human Resources Compliance Manager Required: No Accompanied by: Self / Same As Patient Allergies Sulfa (Sulfonamide Antibiotics) Allergy (Severe, Verified 01/09/25 09:34) Hives environmental allergies Allergy (Unknown, Verified 01/09/25 09:34) Unknown HPI Comments Details: 59-yr-old female presents for f/u visit for follow-up of migraine, intracranial cephalocel. 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 In the last 6 months, she has started having phantom pings of pain almost always in her legs, but can be in any part of her body- the other day was in her belly button. This always occurs at rest. The pinging pain starts in the evening when on the couch, but changes some when she lies down, but then also has BLE restlessness in her legs. Laying on her left side induces left side of leg numbness. Has had nocturnal leg cramps- but better since starting K+ leg cramps. Also having increased BLE cramps/achiness at rest and with activity/walking, and muscle twitching- over the last 2 weeks. Denies swelling or skin color changes. Increased caffeine seems to exacerbate it, but she is likely to be sitting while drinking diet coke. She has been feeling a bit more lightheaded. She drinks 2 cans of diet coke a day, but can drink up to 2 liters per day. In addition to a 1/2 galloon of water per day. She has started seeing nephrology- Krystyna Warren at [address] Pt reports her headaches/milder migraines are ok- last month had 11 headache days. These are often triggered by sleeping wrong or neck tightness. Usually Tylenol helps. Having 2 more severe migraine days per month- responsive to Ubrelvy. Baclofen is still helpful Baseline headache characteristics: #1- Left ear pressure a/w left stabbing/shooting ear pain and left cervical chain swollen lymph nodes. The pain is usually brief- can be up to seconds of a searing pain. #2- Low grade headaches a/w photophobia, phonophobia, susie ear fullness. [facility] Medical History (Updated 01/09/25 @ 10:31 by ITA Pulliam) Depression Trigeminal neuralgia Hypertension GERD (gastroesophageal reflux disease) Morbid obesity Eczema Nasal polyposis Asthma-COPD overlap syndrome Chronic allergic rhinitis Pulmonary nodules SIERRA on CPAP Severe persistent asthma Surgical History Status post repair of paraesophageal diaphragmatic hernia Hx of cataract surgery Family History Father Lung cancer Diabetes Heart disease Mother Emphysema of lung Hypertension Bladder cancer TIA (transient ischemic attack) Social History Alcohol intake: current Alcohol intake frequency: a few times a month Patient Tobacco Use Status: Never used Tobacco Physical Exam Vital Signs: Last Vital Signs Pulse 69 01/09/25 09:38 BP 150/110 H 01/09/25 09:38 Pulse Ox 99 01/09/25 09:38 Oxygen Delivery Method Room Air 01/09/25 09:38 BMI result Body Mass Index 39.8 Const General: cooperative and no acute distress Orientation/consciousness: patient oriented x3 Resp Effort & Inspection: normal respiratory effort and able to speak in complete sentences Neuro Other: Bilateral lower extremity light touch sensation intact DTRs 3-throughout, symmetric General: patient oriented x3 Cranial nerves: Yes CN's II-XII intact bilaterally Cognition (Neuro): normal cognition Motor exam (neuro): 5/5 motor strength present throughout Psych Appearance: grossly normal Mental Status: mental status grossly normal Speech and movement: Normal speech and movement present Affect: normal affect Attitude: cooperative Assessment & Plan Assessment & Plan (1) Muscle cramps: Code(s): R25.2 - Cramp and spasm Category: Medical (2) Fasciculations of muscle: Code(s): R25.3 - Fasciculation Category: Medical (3) Migraine without aura: Code(s): G43.009 - Migraine without aura, not intractable, without status migrainosus Category: Medical (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 LP w/ normal OP (9cmH2O in prone position) w/ normal routine CSF studies. Code(s): Q01.9 - Encephalocele, unspecified Category: Medical (5) Trigeminal neuralgia: Code(s): G50.0 - Trigeminal neuralgia Category: Medical Plan For worsening bilateral lower extremity paresthesia, restlessness, muscle cramps and muscle fasciculations without weakness: Check labs for common etiologies. Patient would benefit from decreasing her consumption of diet Coke, as excess intake of sodas can cause electrolyte disturbances. For SIERRA: Continue CPAP and p.r.n. saline rinses For migraine and known intracranial cephalocele: Consider f/u brain/head MRI in 1-2 yrs to monitor cephaloceles. Continue Baclofen 10mg qhs. While on azithromycin, reduce Ubrelvy dose to 50 mg at onset of migraine, may repeat in 2 hours with max of 100 mg per day. Then resume Ubrogepant (Ubrelvy) 100mg tab, 1/2 - 1 tab (50-100mg) at onset of migraine headache, may repeat in 2 hours. Max of 2 tabs (200mg) per 24 hours. May adjunct with OTC Tylenol 650mg q 4 hours, Ibuprofen 600mg q 6 hours, or Naproxen 440mg q 12 hrs prn. Migraine headache tx contraindications- Triptans d/t cardiac dz- LVH, HTN Previous headache tx: Topiramate- ineffective. Future considerations, Tegretol trial, CGRP MaB trial, head MRA. Will follow-up upon review of above and patient to follow-up in clinic in 6 months or sooner prn. Orders: Orders Vitamin D 25-OH (D2 and D3) Today E50.9 - Vitamin A deficiency, unspecified, E53.8 - Deficiency of other specified B group vitamins, E55.9 - Vitamin D deficiency, unspecified, E78.5 - Hyperlipidemia, unspecified, I10 - Essential (primary) hypertension, R20.2 - Paresthesia of skin, R25.2 - Cramp and spasm, R25.3 - Fasciculation Vitamin B12 Today E50.9 - Vitamin A deficiency, unspecified, E53.8 - Deficiency of other specified B group vitamins, E55.9 - Vitamin D deficiency, unspecified, E78.5 - Hyperlipidemia, unspecified, I10 - Essential (primary) hypertension, R20.2 - Paresthesia of skin, R25.2 - Cramp and spasm, R25.3 - Fasciculation Vitamin B3 (Niacin) Today E50.9 - Vitamin A deficiency, unspecified, E53.8 - Deficiency of other specified B group vitamins, E55.9 - Vitamin D deficiency, unspecified, E78.5 - Hyperlipidemia, unspecified, I10 - Essential (primary) hypertension, R20.2 - Paresthesia of skin, R25.2 - Cramp and spasm, R25.3 - Fasciculation Vitamin B6 Today E50.9 - Vitamin A deficiency, unspecified, E53.8 - Deficiency of other specified B group vitamins, E55.9 - Vitamin D deficiency, unspecified, E78.5 - Hyperlipidemia, unspecified, I10 - Essential (primary) hypertension, R20.2 - Paresthesia of skin, R25.2 - Cramp and spasm, R25.3 - Fasciculation Vitamin C Today E50.9 - Vitamin A deficiency, unspecified, E53.8 - Deficiency of other specified B group vitamins, E55.9 - Vitamin D deficiency, unspecified, E78.5 - Hyperlipidemia, unspecified, I10 - Essential (primary) hypertension, R20.2 - Paresthesia of skin, R25.2 - Cramp and spasm, R25.3 - Fasciculation Vitamin K1 Today E50.9 - Vitamin A deficiency, unspecified, E53.8 - Deficiency of other specified B group vitamins, E55.9 - Vitamin D deficiency, unspecified, E78.5 - Hyperlipidemia, unspecified, I10 - Essential (primary) hypertension, R20.2 - Paresthesia of skin, R25.2 - Cramp and spasm, R25.3 - Fasciculation Zinc Today E50.9 - Vitamin A deficiency, unspecified, E53.8 - Deficiency of other specified B group vitamins, E55.9 - Vitamin D deficiency, unspecified, E78.5 - Hyperlipidemia, unspecified, I10 - Essential (primary) hypertension, R20.2 - Paresthesia of skin, R25.2 - Cramp and spasm, R25.3 - Fasciculation Lyme IgG/IgM w/reflex to WB Today E50.9 - Vitamin A deficiency, unspecified, E53.8 - Deficiency of other specified B group vitamins, E55.9 - Vitamin D deficiency, unspecified, E78.5 - Hyperlipidemia, unspecified, I10 - Essential (primary) hypertension, R20.2 - Paresthesia of skin, R25.2 - Cramp and spasm, R25.3 - Fasciculation TSH reflex Free T4 Today E50.9 - Vitamin A deficiency, unspecified, E53.8 - Deficiency of other specified B group vitamins, E55.9 - Vitamin D deficiency, unspecified, E78.5 - Hyperlipidemia, unspecified, I10 - Essential (primary) hypertension, R20.2 - Paresthesia of skin, R25.2 - Cramp and spasm, R25.3 - Fasciculation Methylmalonic Acid Today E50.9 - Vitamin A deficiency, unspecified, E53.8 - Deficiency of other specified B group vitamins, E55.9 - Vitamin D deficiency, unspecified, E78.5 - Hyperlipidemia, unspecified, I10 - Essential (primary) hypertension, R20.2 - Paresthesia of skin, R25.2 - Cramp and spasm, R25.3 - Fasciculation Erythrocyte Sedimentation Rate Today E50.9 - Vitamin A deficiency, unspecified, E53.8 - Deficiency of other specified B group vitamins, E55.9 - Vitamin D deficiency, unspecified, E78.5 - Hyperlipidemia, unspecified, I10 - Essential (primary) hypertension, R20.2 - Paresthesia of skin, R25.2 - Cramp and spasm, R25.3 - Fasciculation Hemoglobin A1c Today E50.9 - Vitamin A deficiency, unspecified, E53.8 - Deficiency of other specified B group vitamins, E55.9 - Vitamin D deficiency, unspecified, E78.5 - Hyperlipidemia, unspecified, I10 - Essential (primary) hypertension, R20.2 - Paresthesia of skin, R25.2 - Cramp and spasm, R25.3 - Fasciculation Vitamin B1 Today E50.9 - Vitamin A deficiency, unspecified, E53.8 - Deficiency of other specified B group vitamins, E55.9 - Vitamin D deficiency, unspecified, E78.5 - Hyperlipidemia, unspecified, I10 - Essential (primary) hypertension, R20.2 - Paresthesia of skin, R25.2 - Cramp and spasm, R25.3 - Fasciculation Vitamin B2 (Riboflavin) Today E50.9 - Vitamin A deficiency, unspecified, E53.8 - Deficiency of other specified B group vitamins, E55.9 - Vitamin D deficiency, unspecified, E78.5 - Hyperlipidemia, unspecified, I10 - Essential (primary) hypertension, R20.2 - Paresthesia of skin, R25.2 - Cramp and spasm, R25.3 - Fasciculation Vitamin B5 (Pantothenic Acid) Today E50.9 - Vitamin A deficiency, unspecified, E53.8 - Deficiency of other specified B group vitamins, E55.9 - Vitamin D deficiency, unspecified, E78.5 - Hyperlipidemia, unspecified, I10 - Essential (primary) hypertension, R20.2 - Paresthesia of skin, R25.2 - Cramp and spasm, R25.3 - Fasciculation Vitamin A Today E50.9 - Vitamin A deficiency, unspecified, E53.8 - Deficiency of other specified B group vitamins, E55.9 - Vitamin D deficiency, unspecified, E78.5 - Hyperlipidemia, unspecified, I10 - Essential (primary) hypertension, R20.2 - Paresthesia of skin, R25.2 - Cramp and spasm, R25.3 - Fasciculation Vitamin E Today E50.9 - Vitamin A deficiency, unspecified, E53.8 - Deficiency of other specified B group vitamins, E55.9 - Vitamin D deficiency, unspecified, E78.5 - Hyperlipidemia, unspecified, I10 - Essential (primary) hypertension, R20.2 - Paresthesia of skin, R25.2 - Cramp and spasm, R25.3 - Fasciculation Magnesium Today E50.9 - Vitamin A deficiency, unspecified, E53.8 - Deficiency of other specified B group vitamins, E55.9 - Vitamin D deficiency, unspecified, E78.5 - Hyperlipidemia, unspecified, I10 - Essential (primary) hypertension, R20.2 - Paresthesia of skin, R25.2 - Cramp and spasm, R25.3 - Fasciculation Homocysteine Today E50.9 - Vitamin A deficiency, unspecified, E53.8 - Deficiency of other specified B group vitamins, E55.9 - Vitamin D deficiency, unspecified, E78.5 - Hyperlipidemia, unspecified, I10 - Essential (primary) hypertension, R20.2 - Paresthesia of skin, R25.2 - Cramp and spasm, R25.3 - Fasciculation Comprehensive Met. Panel Today E50.9 - Vitamin A deficiency, unspecified, E53.8 - Deficiency of other specified B group vitamins, E55.9 - Vitamin D deficiency, unspecified, E78.5 - Hyperlipidemia, unspecified, I10 - Essential (primary) hypertension, R20.2 - Paresthesia of skin, R25.2 - Cramp and spasm, R25.3 - Fasciculation Complete Blood Count Auto Diff Today E50.9 - Vitamin A deficiency, unspecified, E53.8 - Deficiency of other specified B group vitamins, E55.9 - Vitamin D deficiency, unspecified, E78.5 - Hyperlipidemia, unspecified, I10 - Essential (primary) hypertension, R20.2 - Paresthesia of skin, R25.2 - Cramp and spasm, R25.3 - Fasciculation Creatine Kinase Total Today E50.9 - Vitamin A deficiency, unspecified, E53.8 - Deficiency of other specified B group vitamins, E55.9 - Vitamin D deficiency, unspecified, E78.5 - Hyperlipidemia, unspecified, I10 - Essential (primary) hypertension, R20.2 - Paresthesia of skin, R25.2 - Cramp and spasm, R25.3 - Fasciculation CRP High Sensitivity Today E50.9 - Vitamin A deficiency, unspecified, E53.8 - Deficiency of other specified B group vitamins, E55.9 - Vitamin D deficiency, unspecified, E78.5 - Hyperlipidemia, unspecified, I10 - Essential (primary) hypertension, R20.2 - Paresthesia of skin, R25.2 - Cramp and spasm, R25.3 - Fasciculation Ferritin Today E50.9 - Vitamin A deficiency, unspecified, E53.8 - Deficiency of other specified B group vitamins, E55.9 - Vitamin D deficiency, unspecified, E78.5 - Hyperlipidemia, unspecified, I10 - Essential (primary) hypertension, R20.2 - Paresthesia of skin, R25.2 - Cramp and spasm, R25.3 - Fasciculation IRON PROFILE Today E50.9 - Vitamin A deficiency, unspecified, E53.8 - Deficiency of other specified B group vitamins, E55.9 - Vitamin D deficiency, unspecified, E78.5 - Hyperlipidemia, unspecified, I10 - Essential (primary) hypertension, R20.2 - Paresthesia of skin, R25.2 - Cramp and spasm, R25.3 - Fasciculation Phosphorus Today E50.9 - Vitamin A deficiency, unspecified, E53.8 - Deficiency of other specified B group vitamins, E55.9 - Vitamin D deficiency, unspecified, E78.5 - Hyperlipidemia, unspecified, I10 - Essential (primary) hypertension, R20.2 - Paresthesia of skin, R25.2 - Cramp and spasm, R25.3 - Fasciculation Lipid Panel with Reflex Today E50.9 - Vitamin A deficiency, unspecified, E53.8 - Deficiency of other specified B group vitamins, E55.9 - Vitamin D deficiency, unspecified, E78.5 - Hyperlipidemia, unspecified, I10 - Essential (primary) hypertension, R20.2 - Paresthesia of skin, R25.2 - Cramp and spasm, R25.3 - Fasciculation Coding Level of Care Code Est Pt Level 4 (81796) Complex EM visit Add On G2211 Diagnoses Muscle cramps R25.2 Fasciculations of muscle R25.3 Migraine without aura G43.009 Cephalocele Q01.9 Trigeminal neuralgia G50.0
[2025-01-09 09:38] VITALS: BP 150/110; PULSE 69; O2SAT 99; BMI 39.8
--- OUTSIDE RECORDS SUMMARY | 2025-01-09 10:37 | XMS_ITS | Clinical Summary ---
Author Organization [address] [address] Care Team Providers Care Drug Regulatory Affairs Specialist Name Role Phone Mau Quispe DO Primary Care Provider [phone] Social History Tobacco Use Types Packs/Day Years Used Date Smoking Tobacco: Never Assessed Comments Unknown Sex and Gender Information Value Date Recorded Sex Assigned at Not on file Legal Sex Female 3:46 PM EDT Gender Identity Not on file Sexual Orientation Not on file Plan of Treatment Health Maintenance Due Date Last Done Comments HIV screening 1976 Hepatitis C screening 1981 Tetanus adult (Td q 10,TDAP once) 1983 Cervical cancer screening 1984 Breast cancer screening 2003 Lipid disorder screening 2003 Colon cancer screening, Colonoscopy 2008 Diabetes screening 2008 Shingles vaccine (Shingrix) (1 of 2 - Shingrix (RZV) 2 Dose Standard Series) 2013 Influenza vaccine 06/28/2024 Covid-19 vaccine series ( - season) 2024 RSV Discussion (1 - 1-dose 7 5+ series) 2038 Meningococcal Vaccine Aged Out No isabela janie eligible based on patient's age to complete this topic Pneumococcal Vaccine Aged Out No long er eligible based on patient's age to complete this topic Insurance [employer] Care Teams Drug Regulatory Affairs Specialist Relationship Specialty Start Date End Date Mau Quispe DO [address] [place] [id number] PCP - General Internal Medicine 02/15/17
--- OUTSIDE RECORDS SUMMARY | 2025-01-09 10:37 | XMS_ITS | Clinical Summary ---
Author Organization [facility] Address [address] [facility] [address] [place] [address] Phone Care Team Providers Care Continuous Pickling Line Pickler Helper Name Role Phone Mau Quispe DO Primary Care Provider [phone] Allergies Active Allergy Reactions Criticality Noted Date Comments Sulfa Antibiotics 04/10/2014 Medications albuterol HFA (PROVENTIL HFA;VENTOLIN HFA) 108 (90 Base) MCG/ACT inhaler 8 Active cetirizine (ZyrTEC) 10 MG tablet Take 10 mg by mouth 1 (one) time each day Active clobetasol (TEMOVATE) 0.05 % ointment SIMONE AA ON LEGS BID FOR ONE TO TWO WEEK PERIODS 7 Active FLUoxetine (PROzac) 10 MG capsule Take 10 mg by mouth 1 (one) time each day Active guaiFENesin-cod eine (ROBITUSSIN-AC) 100-10 MG/5ML liquid Take 5 mL by mouth Active montelukast (SINGULAIR) 10 MG tablet Take 1 tablet by mouth at bed time 8 Active azelastine (ASTELIN) 0.1 % nasal spray Administer 1 spray into each nostril 2 (two) times a day Use in each nostril as directed Active HYDROcodone-chl orpheniramine polistirex (TUSSIONEX PENNKINETIC) 10-8 MG/5ML ER suspension TAKE 5 ML BY MOUTH EVERY 12 HOURS NEEDED FOR COLD SYMPTOMS 2 Active pantoprazole (PROTONIX) 40 MG EC tablet Take 40 mg by mouth in the morning and 40 mg in the evening. Do not crush, chew, or split.. Active Magnesium 400 MG tablet Take 500 mg by mouth in the morning. Active potassium chloride 10 MEQ CR tablet Take 1 tablet (10 mEq total) by mouth 1 (one) time each day Do not crush, chew, or split. 30 tablet 11 4 08/08/20 25 Active aMILoride (MIDAMOR) 5 MG tabletIndicatio ns:Hypokalemia, Hypertension Take 1 tablet (5 mg total) by mouth 1 (one) time each day 90 tablet 3 5 12/05/19 26 Active Active Problems Problem Noted Date Diagnosed Date Gitelman syndrome 01/19/2023 Hypokalemia 01/19/2023 Irritable bowel syndrome 05/24/2022 Steatosis of liver 05/24/2022 Lightheadedness 03/09/2022 Palpitations 03/09/2022 Overview (04/06/2022): Last Assessment & Plan: Patient with an episode of tachycardia in December. At the time there does not appear to be any specific triggers. Patient's not had any subsequent episodes. 48-hour monitor with no arrhythmias identified. Explained to the patient that its been almost 2 months since she had an episode and if the frequency of the episodes are that infrequent it to be difficult for us to determine what the rhythm was. We should perform a echocardiogram to allow the possibility of cardiomyopathy which could lead to a life-threatening rhythm problem. There is no evidence of preexcitation or QT prolongation on her EKG. There is no family history of sudden cardiac . At this point I do not think prolonged monitoring is warranted without symptoms and she did have symptoms with the episode. So of asked her to call us if she develops the symptoms again and then we can start monitoring again. We will do an echocardiogram to rule out the possibility of cardiomyopathy. It is quite interesting that the patient is hypokalemic and she has been hypokalemic for years to be stating back to 2019. This may be either a respiratory or metabolic acidosis problem. She is being scheduled to see nephrology. Hopefully they can come up with a plan to allow her to replete her potassium on a chronic basis. I doubt that she has a renal tubular issue but that is also a possibility she is not diabetic and her last albumin level was normal Supraventricular tachycardia 03/09/2022 Syncope 03/09/2022 Overview (04/06/2022): ER [facility] to [facility] on 09/24/21 Tricuspid valve regurgitation 03/09/2022 Severe persistent allergic asthma 04/04/2018 Overview (04/05/2022): Added automatically from request for surgery [id number] Ventral hernia 01/19/2018 Eczema 12/21/2017 Depressive disorder 10/11/2017 Body mass index 40+ - severely obese 09/06/2017 Anxiety 08/02/2017 Asthmatic bronchitis 07/04/2017 Overview (04/05/2022): Added automatically from request for surgery [id number] Gastro-esophageal reflux disease without esophag itis 02/28/2017 Multiple nodules of lung 02/28/2017 Overview (04/05/2022): Followed outside of the [facility] from [id number] Obstructive sleep apnea syndrome 02/28/2017 Overview (04/05/2022): CPAP Seasonal allergic rhinitis 02/28/2017 Encounters Date Type Department Care Team Description 12/05/2024 Documentation Only [facility] [address] [phone] Emmie Marquez MA 12/05/2024 Refill [facility] [address] [phone] Emmie Marquez [place] Hypokalemia; Hypertension from Last 3 Months Immunizations Name Administration Dates Next Due Pneumococcal Polysaccharide 09/18/2014 Family History Medical History Relation Comments Cancer Father Diabetes Father Heart disease Father Hypertension Mother Relation Status Comments Father Mother Social History Tobacco Use Types Packs/Day Years Used Date Smoking Tobacco: Never Smokeless Tobacco: Never Tobacco Cessation:Counseling Given: Not Answered Alcohol Use Standard Drinks/Week Comments Yes 0 (1 standard drink = 0.6 oz pur e alcohol) Comments Unknown Sex and Gender Information Value Date Recorded Sex Assigned at Not on file Legal Sex Female 1:30 PM EDT Gender Identity Not on file Sexual Orientation Not on file Last Filed Vital Signs Vital Sign Reading Time Taken Comments Blood Pressure 115/70 01/25/2024 3:03 PM EST Pulse 64 01/25/2024 3:03 PM EST Temperature - - Respiratory Rate - - Oxygen Saturation 97% 01/19/2023 2:34 PM EST Inhaled Oxygen Concentration - - Weight 109 kg (240 lb) 01/25/2024 3:03 PM EST Height 165.1 cm (5' 5 ) 07/27/2022 1:01 PM EDT Body Mass Index 39.94 07/27/2022 1:01 PM EDT Plan of Treatment Upcoming Encounters Date Type Department Care Team (Late st Contact Info) Description 01/28/2025 9:00 AM EST Office [facility] [address] [phone] Krystyna Warren ARNP [address] [phone] Health Maintenance Due Date Last Done Comments Breast Cancer Screening 1965 Colorectal Cancer Screening: Annual FOBT 2012 Colorectal Cancer Screening: Sigmoidoscopy 2012 Pneumococcal Vaccine: Pediatrics (0 to 5 Years) and At-Risk Patients (6 to 64 Years) (2 of 2 - PCV) 09/18/2015 09/18/2014 Influenza Vaccine (#1) 2024 3, 11/25/2022, 10/17/2016 Colorectal Cancer Screening: Colonoscopy 05/06/2032 05/06/2022 Hepatitis B Vaccine Aged Out No longe r eligible based on patient's age to complete this topic Procedures Procedure Name Priority Date/Time Associated Diagnosis Comments EXT RESULT ENTRY Routine 11/29/2024 from Last 3 Months Results * (ABNORMAL) EXT RESULT ENTRY (11/29/2024) Hemoglobin 13.8(A) 12.0 - 16.0 Hematocrit 42.4(A) 36.0 - 46.0 Platelets 304(A) 150 - 399 10*3/UL Sodium 137 137 - 147 Potassium 3.8 3.4 - 5.5 Carbon Dioxide 26 mmol/L BUN 14 4 - 21 mg/dL Creatinine 1.01 0.50 - 1.10 mg/dL Calcium 9.3 8.7 - 10.7 mg/dL eGFR Non-Afr [place] 63 Vitamin D, 1,25-Dihydroxy 20.5 pg/mL 11/29/2024 [facility] Provider LAB BLOOD ORDERABLES Teressa l Result from Last [address] [facility] Member Subscriber Plan / Payer (Ef fective 2023-Present) Name:Kelly Gaona Relation to Subscriber:Self Name:Kelly Gaona Payer ID:Not on file Type:Not on file Address: [address] [phone] [place] [facility] Member Subscriber Plan / Payer (Ef fective 2023-Present) Name:Kelly Gaona Relation to Subscriber:Self Name:Kelly Gaona Payer ID:Not on file Type:Not on file Address: [address] [phone] MEDICAID [place] Care Teams Continuous Pickling Line Pickler Helper Relationship Specialty Start Date End Date Mau Quispe DO [address] [place] [address] PCP - General Internal Medicine 02/24/22
--- OUTSIDE RECORDS SUMMARY | 2025-01-09 10:37 | XMS_ITS | Clinical Summary ---
Author Organization [address] Address [address] [place] [phone] Phone Care Team Providers Care Pulmonary Specialist Name Role Phone Mau Quispe DO Primary Care Provider [phone] Medical History Medical History Date Comments Depression 10/11/2017 DX:Depression Eczema 12/21/2017 DX:Eczema Morbid obesity with BMI of 4 5.0-49.9, adult ([facility]) 09/06/2017 DX:Morbid obesity with BMI o f 45.0-49.9, adult ([facility]) Ventral hernia 01/19/2018 DX:Ventral herni a Obstructive sleep apnea syndrome 09/26/2017 DX:Obstructive sleep apnea syndrome; COMMENT: CPAP Gastroesophageal reflux disease 09/06/2017 DX:Gastroesophageal reflux disease Asthma 09/26/2017 DX:Asthma Anxiety 08/02/2017 DX:Anxiety Allergic rhinitis 09/26/2017 DX:Allergic rh initis Multiple lung nodules DX:Multipl e lung nodules SIERRA on CPAP DX:SIERRA on CPAP Obesity DX:Obesity Tracheobronchomalacia DX:Tracheo bronchomalacia Social History Tobacco Use Types Packs/Day Years Used Date Smoking Tobacco: Never Smokeless Tobacco: Never Alcohol Use Standard Drinks/Week Comments Not Currently 0 (1 standard drink = 0.6 oz pur e alcohol) Comments Unknown Sex and Gender Information Value Date Recorded Sex Assigned at Not on file Legal Sex Female 5:56 PM EST Gender Identity Not on file Sexual Orientation Not on file Obstetrics History Last Filed Vital Signs Vital Sign Reading Time Taken Comments Blood Pressure 142/90 04/14/2022 11:16 AM EDT Si tting L Arm Pulse 68 03/11/2022 9:15 AM EDT Temperature - - Respiratory Rate - - Oxygen Saturation - - Inhaled Oxygen Concentration - - Weight 108 kg (239 lb) 04/14/2022 11:16 AM EDT Height 165.1 cm (5' 5 ) 04/14/2022 11:16 AM EDT Body Mass Index 39.77 04/14/2022 11:16 AM EDT Plan of Treatment Health Maintenance Due Date Last Done Comments Breast Cancer Screening 1965 DTaP,Tdap,and Td Vaccines (1 - Tdap) 1982 Pneumococcal Vaccine: 50+ Years (1 of 2 - PCV) 1982 Pneumococcal Vaccine: Pediatrics (0 to 5 Years) and At-Risk Patients (6 to 64 Years) (1 of 2 - PCV) 1982 Cervical Cancer Screening: Pap Smear 1984 Cholesterol Screening (Lipid Panel) 10/30/2022 Colorectal Cancer Screening: Colonoscopy 10/30/2022 Depression Screening 10/30/2022 HIV Screening 10/30/2022 Hepatitis C Screening 10/30/2022 Social Influencers of Health Screening 10/30/2022 RSV Immunization Patients 60+ Years Old (1 - Risk 60-74 years 1-dose series) 2023 Zoster Vaccines Completed 05/10/2024, 01/27, 10/22/2018 Influenza Vaccine Completed 08/23/2024, , 11/30/2022, Additional history exists COVID-19 Vaccine Completed 10/10/2024, 01/2023, 11/16/2022, Additional history exists HIB Vaccines Aged Out No longer eligi ble based on patient's age to complete this topic HPV Vaccines Aged Out No longer eligi ble based on patient's age to complete this topic Hepatitis A Vaccines Aged Out No long er eligible based on patient's age to complete this topic Hepatitis B Vaccines Aged Out No long er eligible based on patient's age to complete this topic IPV Vaccines Aged Out No longer eligi ble based on patient's age to complete this topic MMR Vaccines Aged Out No longer eligi ble based on patient's age to complete this topic Meningococcal ACWY Vaccine Aged Out N o longer eligible based on patient's age to complete this topic Meningococcal B Vacine Aged Out No lo nger eligible based on patient's age to complete this topic RSV Immunization Patients Under 20 months Aged Out No longer eligible based on patient's age to complete this topic Varicella Vaccines Aged Out No longer eligible based on patient's age to complete this topic Procedures Procedure Name Priority Date/Time Associated Diagnosis Comments CBC WITH AUTO DIFFERENTIAL Routine 11/29/2024 10:26 AM EST Forgetfulness MCI (mild cognitive impairment) VITAMIN D 25 HYDROXY Routine 11/29/2024 10:26 AM EST Forgetfulness MCI (mild cognitive impairment) HOMOCYSTEINE, SERUM Routine 11/29/2024 1 0:26 AM EST Forgetfulness MCI (mild cognitive impairment) METHYLMALONIC ACID, SERUM Routine 11/29/2024 10:26 AM EST Forgetfulness MCI (mild cognitive impairment) FOLATE Routine 11/29/2024 10:26 AM EST Forgetfulness MCI (mild cognitive impairment) VITAMIN B12 Routine 11/29/2024 10:26 AM EST Forgetfulness MCI (mild cognitive impairment) CBC AND DIFFERENTIAL Routine 11/29/2024 10:26 AM EST Forgetfulness MCI (mild cognitive impairment) THYROID STIMULATING HORMONE Routine 11/29/2024 10:26 AM EST Forgetfulness MCI (mild cognitive impairment) BASIC METABOLIC PANEL Routine 11/29/2024 10:26 AM EST Forgetfulness MCI (mild cognitive impairment) from Last 3 Months Results * (ABNORMAL) CBC auto differential (11/29/2024 10:26 AM EST) WBC 4.5(L) 4.8 - 10.8 K/mcL LAB HEMETOLOGY METHOD 11/29/2024 11:20 AM EST [facility] RBC 4.60 3.80 - 4.80 M/mcL LAB HEMETOLOGY METHOD 11/29/2024 11:20 AM EST [facility] Hemoglobin 13.8 11.5 - 16.0 g/dL LAB HEMETOLOGY METHOD 11/29/2024 11:20 AM [facility] Hematocrit 42.4 35.0 - 47.0 % LAB HEMETOLOGY METHOD 11/29/2024 11:20 AM [facility] MCV 92.6 79.0 - 98.0 FL LAB HEMETOLOGY METHOD 11/29/2024 11:20 AM [facility] MCH 30.1 27.0 - 32.0 pcg LAB HEMETOLOGY METHOD 11/29/2024 11:20 AM [facility] MCHC 32.5 32.0 - 37.0 g/dL LAB HEMETOLOGY METHOD 11/29/2024 11:20 AM [facility] RDW 12.7 11.0 - 15.0 % LAB HEMETOLOGY METHOD 11/29/2024 11:20 AM [facility] Platelets 304 130 - 400 K/mcL LAB HEMETOLOGY METHOD 11/29/2024 11:20 AM [facility] MPV 9.7 7.0 - 11.0 FL LAB HEMETOLOGY METHOD 11/29/2024 11:20 AM [facility] NRBC 0.0 <1.0 % LAB HEMETOLOGY METHOD 11/29/2024 11:20 AM [facility] NRBC Absolute 0.00 <0.10 K/mcL LAB HEMETOLOGY METHOD 11/29/2024 11:20 AM [facility] Neutrophils Relative 54.9 % LAB HEMETOLOGY METHOD 11/29/2024 11:20 AM [facility] Lymphocytes Relative 31.5 % LAB HEMETOLOGY METHOD 11/29/2024 11:20 AM [facility] Monocytes Relative 11.2 % LAB HEMETOLOGY METHOD 11/29/2024 11:20 AM [facility] Eosinophils Relative 1.3 % LAB HEMETOLOGY METHOD 11/29/2024 11:20 AM [facility] Basophils Relative 0.9 % LAB HEMETOLOGY METHOD 11/29/2024 11:20 AM EST [facility] Immature Granulocytes Relative 0.2 % LAB HEMETOLOGY METHOD 11/29/2024 11:20 AM [facility] Neutrophils Absolute 2.46 1.50 - 7.00 K/mcL LAB HEMETOLOGY METHOD 11/29/2024 11:20 AM EST [facility] Lymphocytes Absolute 1.41 1.00 - 5.00 K/mcL LAB HEMETOLOGY METHOD 11/29/2024 11:20 AM EST [facility] Monocytes Absolute 0.50 0.20 - 1.00 K/mcL LAB HEMETOLOGY METHOD 11/29/2024 11:20 AM [facility] Eosinophils Absolute 0.06 0.00 - 0.50 K/mcL LAB HEMETOLOGY METHOD 11/29/2024 11:20 AM EST [facility] Basophils Absolute 0.04 0.00 - 0.20 K/mcL LAB HEMETOLOGY METHOD 11/29/2024 11:20 AM EST [facility] Immature Granulocytes Absolute 0.01 0.00 - 0.03 K/mcL LAB HEMETOLOGY METHOD 11/29/2024 11:20 AM [facility] Blood Venous blood specimen / Unknown Venipuncture / Unknown 11/29/2024 10:26 AM EST 11/29/2024 10:26 AM EST us Lonnie Bird LAB BLOOD ORDERABLES Final Resul t [facility] [address] [place] [address], * Methylmalonic acid, serum (11/29/2024 10:26 AM EST) Methylmalonic Acid 0.24 <0.40 umol/L 12/04/2024 7:36 AM EST [facility] Comment: If applicable, any drug confirmation testing reported here was developed and the performance characteristics determined by [facility]. This confirmation testing has not been cleared or approved by the FDA. The laboratory is regulated under CLIA as qualified to perform high-complexity testing. This test is used for patient testing purposes. It should not be regarded as investigational or for research. Test performed at [facility], [address] , [place], [place] ??[address] ? [phone] Madelaine Lacey MD, PhD - Boilermaker Fitter Blood Venous blood specimen / Unknown Venipuncture / Unknown 11/29/2024 10:26 AM EST 11/29/2024 10:26 AM EST [facility] BLOOD ORDERABLES Final Resul t Performing Organization Address City/[facility]/ZIP Co de Phone Number [facility] [address] [place] [address] * (ABNORMAL) Vitamin D 25 hydroxy (11/29/2024 10:26 AM EST) Vit D, 25-Hydroxy 20.5(L) 30.0 - 80.0 ng/mL LAB CHEMISTRY METHOD 11/29/2024 12:30 PM EST [facility] Blood Venous blood specimen / Unknown Venipuncture / Unknown 11/29/2024 10:26 AM EST 11/29/2024 10:26 AM EST [facility] BLOOD ORDERABLES Final Resul t [facility] [address] [place] [address], * Thyroid stimulating hormone (11/29/2024 10:26 AM EST) TSH 2.81 0.40 - 4.00 mcIU/mL LAB CHEMISTRY METHOD 11/29/2024 12:30 PM EST [facility] Blood Venous blood specimen / Unknown Venipuncture / Unknown 11/29/2024 10:26 AM EST 11/29/2024 10:26 AM EST [facility] BLOOD ORDERABLES Final Resul t Performing Organization Address [facility]/ZIP Co de Phone Number [facility] [address] [place] [address], [place] [phone] * (ABNORMAL) Homocysteine, total (11/29/2024 10:26 AM EST) [facility] Homocysteine 11.2(H) 3.2 - 10.7 mcmol/L LAB CHEMISTRY METHOD 11/29/2024 12:42 PM EST [facility] Blood Venous blood specimen / Unknown Venipuncture / Unknown 11/29/2024 10:26 AM EST 11/29/2024 10:26 AM EST [facility] BLOOD ORDERABLES Final Resul t Performing Organization Address [facility]/ZIP Co de Phone Number [facility] [address] [place] [address], [place] [phone] * Folate (11/29/2024 10:26 AM EST) [facility] Folate 14.3 2.8 - 17.0 ng/ml LAB CHEMISTRY METHOD 11/29/2024 12:42 PM EST [facility] Blood Venous blood specimen / Unknown Venipuncture / Unknown 11/29/2024 10:26 AM EST 11/29/2024 10:26 AM EST [facility] LAB BLOOD ORDERABLES Final Resul t Performing Organization Address City/[facility]/ZIP Co de Phone Number [facility] [address] [place] [address], [place] [phone] * Vitamin B12 (11/29/2024 10:26 AM EST) [facility] Vitamin B-12 480 250 - 900 pcg/mL LAB CHEMISTRY METHOD 11/29/2024 12:42 PM [facility] Blood Venous blood specimen / Unknown Venipuncture / Unknown 11/29/2024 10:26 AM EST 11/29/2024 10:26 AM EST us Lonnie [facility]on LAB BLOOD ORDERABLES Final Resul t [facility] [address] [place] [address], [place] [phone] * Basic metabolic panel (11/29/2024 10:26 AM EST) [facility] Sodium 137 133 - 145 mmol/L LAB CHEMISTRY METHOD 11/29/2024 12:20 PM [facility] Potassium 3.8 3.5 - 5.5 mmol/L LAB CHEMISTRY METHOD 11/29/2024 12:20 PM [facility] Chloride 106 96 - 110 mmol/L LAB CHEMISTRY METHOD 11/29/2024 12:20 PM [facility] CO2 26 21 - 32 mmol/L LAB CHEMISTRY METHOD 11/29/2024 12:20 PM [facility] Anion Gap 5 3 - 11 LAB CHEMISTRY METHOD 11/29/2024 12:20 PM [facility] Glucose 85 70 - 100 mg/dL LAB CHEMISTRY METHOD 11/29/2024 12:20 PM [facility] BUN 14 5 - 25 mg/dL LAB CHEMISTRY METHOD 11/29/2024 12:20 PM [facility] Creatinine 1.01 0.50 - 1.10 mg/dL LAB CHEMISTRY METHOD 11/29/2024 12:20 PM [facility] eGFR 63 >=60 mL/min/1. 73m2 LAB CHEMISTRY METHOD 11/29/2024 12:20 PM [facility] Comment:Calculation based on the??Chronic Kidney Disease Epidemiology Collaboration (CKD-EPI) equation refit??without adjustment for race. BUN/Creatinine Ratio 13.9 LAB CHEMISTRY METHOD 11/29/2024 12:20 PM EST [facility] Calcium 9.3 8.5 - 10.5 mg/dL LAB CHEMISTRY METHOD 11/29/2024 12:20 PM EST [facility] Blood Venous blood specimen / Unknown Venipuncture / Unknown 11/29/2024 10:26 AM EST 11/29/2024 10:26 AM EST us Lonnie Bird LAB BLOOD ORDERABLES Final Resul t [facility] [address] [place] [address], [place] [phone] from Last 3 Months Advance Directives Documents on File Type Date Recorded Patient Credit Analyst Expl anation Health Care Decision (hx) 09/27/2016 AD HIGHTOWER DIRECTIVE Health Care Decision (hx) 09/27/2016 AD HIGHTOWER DIRECTIVE Health Care Decision (hx) 09/27/2016 AD HIGHTOWER DIRECTIVE Care Teams Pulmonary Specialist Relationship Specialty Start Date End Date Mau Quispe DO [address] [place] [phone] PCP - General Internal Medicine 11/08/17
--- OUTSIDE RECORDS SUMMARY | 2025-01-09 10:37 | XMS_ITS | Encounter Summary ---
Author Organization [facility] Address [address] [place] [phone] Care Team Providers Care Breaker Table Worker Name Role Phone Mau Quispe DO Primary Care Provider [phone] Reason for Referral * Consultation (Routine) - Closed Specialty Diagnoses / Procedures Referred By Carlos cabrera Referred To Contact Pulmonary Disease Diagnoses SOB (shortness of breath) Wheezing Cough Persistent asthma Acute severe exacerbation of asthma Referral, Self [facility] [address] [place] [address], 2nd floor [facility], [address] [place] [address] Phone: tel: fax: Referral ID Status Reason Start Date Expiration Date Visits Re quested Visits Authorized [id number] Closed 02/22/2017 02/22/2018 1 1 Encounter Details Date Type Department Care Team (Latest Contact Info) Description 02/22/2017 Transcribed Orders Referral Link Providers [address] [place] [address] Referral, Self SOB (shortness of breath) (Primary Dx); Wheezing; Cough; Persistent asthma; Acute severe exacerbation of asthma Social History Tobacco Use Types Packs/Day Years Used Date Smoking Tobacco: Never Assessed Comments Unknown Sex and Gender Information Value Date Recorded Sex Assigned at Not on file Legal Sex Female 3:46 PM EDT Gender Identity Not on file Sexual Orientation Not on file documented as of this encounter Plan of Treatment Scheduled Referrals Name Type Priority Associated Diagnoses Orde r Schedule Ambulatory referral to Pulmonology Outpatient Referral Routine SOB (shortness of breath) Wheezing Cough Persistent asthma Acute severe exacerbation of asthma Ordered: 02/22/2017 documented as of this encounter Visit Diagnoses Diagnosis SOB (shortness of breath)- Primary Shortness of breath Wheezing Cough Persistent asthma Unspecified asthma Acute severe exacerbation of asthma documented in this encounter Care Teams Breaker Table Worker Relationship Specialty Start Date End Date Mau Quispe DO [address] [place] [phone] PCP - General Internal Medicine 02/15/17 documented as of this encounter
--- OUTSIDE RECORDS SUMMARY | 2025-01-09 10:38 | XMS_ITS | Continuity of Care Document ---
Author Organization [facility] Address [address] [facility] [address] [place] [address] Insurance Providers Payer Plan Claims Address Claims Phone Policy Number Group Number Relation Employer Guarantor Name Guarantor Guarantor Address Guarantor Phone [place]KE [place] [employer] [facility] [address] [address] [id number] Self Kelly Gaona [address] [place] [id number] [facility] SENIOR [place] [address] tel:[phone] Self Kelly Ganoa [address] [place] [id number] [facility], [address], [place] [address] tel:[phone] [id number] Marc Gaona [address] [place] [id number] Problems Unknown Problems Results Test Value / Unit Interpretation Reference Ran Comp. Metabolic Panel (14)[2 [id number]]?Collected: 09/27/2024 04:20 PM?Specimen Received: 09/27/2024 05:00 AM?Source: [facility] Glucose [584930] 94 mg/dL 70-99 mg/dL BUN [266616] 18 mg/dL 8-27 mg/dL Creatinine [249631] 0.97 mg/dL 0.57-1.0 0 mg/dL eGFR [549392] 66 mL/min/1.73 >59 mL/min/1 .73 BUN/Creatinine Ratio [550701] 19 12-28 Sodium [111085] 142 mmol/L 134-144 mmol /L Potassium [007303] 4.3 mmol/L 3.5-5.2 m mol/L Chloride [050524] 105 mmol/L 96-106 mmo l/L Carbon Dioxide, Total [084433] 16 mmol/L L 20-29 mmol/L Calcium [021404] 9.9 mg/dL 8.7-10.3 mg /dL Protein, Total [191332] 6.4 g/dL 6.0- 8.5 g/dL Albumin [834211] 4.4 g/dL 3.9-4.9 g/d L Globulin, Total [831981] 2.0 g/dL 1.5 -4.5 g/dL Bilirubin, Total [241042] 0.4 mg/dL 0. 0-1.2 mg/dL Alkaline Phosphatase [899780] 79 IU/L 44-121 IU/L AST (SGOT) [968715] 24 IU/L 0-40 IU/ L ALT (SGPT) [835110] 14 IU/L 0-32 IU/ L Lipid Panel[351252]?Collected: 09/27/2024 04:20 PM?Specimen Received: 09/27/2024 05:00 AM?Source: [facility] Cholesterol, Total [090455] 249 mg/dL H 100-199 mg/dL Triglycerides [422870] 56 mg/dL 0-149 mg/dL HDL Cholesterol [467843] 94 mg/dL >39 mg/dL VLDL Cholesterol Timi [329390] 9 mg/dL 5-40 mg/dL LDL Chol Calc (NIH) [294448] 146 mg/dL H 0-99 mg/dL Hemoglobin A1c[173429]?Collected: 09/27/2024 04:20 PM?Specimen Received: 09/27/2024 05:00 AM?Source: [facility] Hemoglobin A1c [672161] 5.5 % 4.8- 5.6 % . Prediabetes: 5.7 - 6.4 Kaylin betes: >6.4 Glycemic control for adults with diabetes: 7.0 Allergies, adverse reactions, alerts No known allergies and adverse reactions Medications No administered medications reported Vital Signs No vital signs reported Social History No smoking Hx information available
== END 2025-01-09 11:06 | disposition home or self-care (01) ==
PROVIDERS: PCP Internal Medicine; Visit Provider Nurse Practitioner Family
DX: R25.2 Cramp and spasm (principal); R25.3 Fasciculation; G43.009 Migraine without aura, not intractable, without status migrainosus; Q01.9 Encephalocele, unspecified; G50.0 Trigeminal neuralgia
CPT/HCPCS: 99214; G2211

== ENCOUNTER 2025-01-10 09:29 | Outpatient (REF) | payer MEDICARE, MEDICAID, SELFPAY ==
--- OUTSIDE RECORDS SUMMARY | 2025-01-10 09:59 | XMS_ITS | Clinical Summary ---
Author Organization [address] [address] Care Team Providers Care Mainspring Strip Inspector Name Role Phone Mau Quispe DO Primary Care Provider [phone] Social History Tobacco Use Types Packs/Day Years [...] GENERIC COMMERCIAL GENERIC COMMERCIAL GENERIC Care Teams Mainspring Strip Inspector Relationship Specialty Start Date End Date Mau Quispe DO [address] [place] [phone] PCP - General Internal Medicine 02/15/17
--- OUTSIDE RECORDS SUMMARY | 2025-01-10 09:59 | XMS_ITS | Encounter Summary ---
Author Organization [facility] Address [address] [place] [phone] Care Team Providers Care Tax Specialist Name Role Phone Mau Quispe DO Primary Care Provider [phone] Reason for Referral * Consultation (Routine) - Closed Specialty Diagnoses / Procedures Referred By Carlos cabrera Referred To Contact Pulmonary Disease Diagnoses SOB (shortness of breath) Wheezing Cough Persistent asthma Acute severe exacerbation of asthma Referral, Self [facility] [address] [place] [address], 2nd floor [facility], [address] [place] [address] Phone: tel: fax: Referral ID Status Reason Start Date Expiration Date Visits Re quested Visits Authorized [id number] Closed 02/22/2017 02/22/2018 1 1 Encounter Details Date Type Department Care Team (Latest Contact Info) Description 02/22/2017 Transcribed Orders Referral Link Providers [address] [place] [address] Referral, Self SOB (shortness of breath) (Primary [...] asthma documented in this encounter Care Teams Tax Specialist Relationship Specialty Start Date End Date Mau Quispe DO [address] [place] [phone] PCP - General Internal Medicine 02/15/17 documented as of this encounter
--- OUTSIDE RECORDS SUMMARY | 2025-01-10 09:59 | XMS_ITS | Encounter Summary ---
Author Organization [facility] Address [address] [place] [address] Care Team Providers Care Swatch Checker Name Role Phone Mau Quispe DO Primary Care Provider [phone] Encounter Details Date Type Department Care Team (Latest Contact Info) Description 01/09/2025 3:32 PM EST - 01/09/2025 11:59 PM EST Hospital Encounter [facility] Xray [address] [place] [address] Foot pain, right Discharge Disposition: Home or Self Care Social History Tobacco Use Types Packs/Day Years [...] on file documented as of this encounter Discharge Disposition Disposition Code Departure Means Destination Home or Self Care documented in this encounter Plan of Treatment Not on file documented as of this encounter Procedures Procedure Name Priority Date/Time Associated Diagnosis Comments XR FOOT 3+ VIEWS RIGHT Routine 01/09/2025 3:42 PM EST Foot pain, right documented in this encounter Results * XR Foot 3+ Views Right (01/09/2025 3:42 PM EST) Anatomical Region Laterality Modality Lower Extremities, Foot Right Radiogra phic Imaging 01/10/2025 8:39 AM EST Impressions 01/10/2025 8:40 AM EST Normal examination. Code 12164 CT Teleradiology -------- FINAL REPORT -------- Dictated By: Naldo Martin Dictated Date: 01/10/2025 08:39 ET Assigned Physician: Naldo Martin Reviewed and Electronically Signed By: Naldo Martin Signed Date: 01/10/2025 08:40 ET Workstation ID: [id number] Transcribed By: Self Edit Transcribed Date: 01/10/2025 08:39 ET Narrative 01/10/2025 8:40 AM EST HISTORY: The patient is a 59-year-old female with right foot pain. ??For 2 weeks, nontraumatic. FINDINGS: AP, lateral, and oblique views of the right foot are obtained. ??The study demonstrates no fracture, dislocation, arthritic change, or other bony abnormality. ??No soft tissue abnormality is seen. Procedure Note Naldo Martin MD - 01/10/2025 HISTORY: The patient is a 59-year-old female with right foot pain. For 2weeks, nontraumatic. FINDINGS: AP, lateral, and oblique views of the right foot are obtained.The study demonstrates no fracture, dislocation, arthritic change, orother bony abnormality. No soft tissue abnormality is seen. IMPRESSION: Normal examination. Code 00490 CT Teleradiology -------- FINAL REPORT -------- Dictated By: Naldo Martin Dictated Date: 01/10/2025 08:39 ET Assigned Physician: Naldo Martin Reviewed and Electronically Signed By: Naldo Martin Signed Date: 01/10/2025 08:40 ET Workstation ID: [id number] Transcribed By: Self Edit Transcribed Date: 01/10/2025 08:39 ET Mau Quispe DO IMG XR PROCEDURES Final Resul t documented in this encounter Visit Diagnoses Diagnosis Foot pain, right Pain in soft tissues of limb documented in this encounter Care Teams Swatch Checker Relationship Specialty Start Date End Date Mau Quispe DO [address] [place] [phone] PCP - General Internal Medicine 11/08/17 documented as of this encounter
--- OUTSIDE RECORDS SUMMARY | 2025-01-10 09:59 | XMS_ITS | Clinical Summary ---
Author Organization [facility] Address [address] [place] [phone] Phone Care Team Providers Care Admin Asst Name Role Phone Mau Quispe DO Primary Care Provider [phone] Encounters Date Type Department Care Team Description 01/09/2025 3:32 PM EST - 01/09/2025 11:59 PM EST Hospital Encounter [facility] Xray [address] [place] [phone] Foot pain, right Discharge Disposition: Home or Self Care 01/09/2025 2:54 PM EST - 01/09/2025 11:59 PM EST Hospital Encounter [facility] Ultrasound [address] [place] [phone] Pain Discharge Disposition: Home or Self Care from Last 3 Months Medical History Medical History Date Comments Depression 10/11/2017 DX:Depression Eczema 12/21/2017 DX:Eczema Morbid obesity with BMI of 4 5.0-49.9, adult ([facility]) 09/06/2017 DX:Morbid obesity with BMI o f 45.0-49.9, adult ([facility]) Ventral hernia 01/19/2018 DX:Ventral herni a Obstructive [...] DTaP,Tdap,and Td Vaccines (1 - Tdap) 1982 Hepatitis A Vaccines (1 of 2 - Risk 2-dose series) 1982 Cervical Cancer Screening: Pap Smear 1984 Pneumococcal Vaccine: 50+ Years (2 of 2 - PCV) 09/18/2015 09/18/2014 Pneumococcal Vaccine: Pediatrics (0 to 5 Years) and At-Risk Patients (6 to 64 Years) (2 of 2 - PCV) 09/18/2015 09/18/2014 Cholesterol Screening (Lipid Panel) 10/30/2022 Colorectal Cancer Screening: Colonoscopy 10/30/2022 Depression Screening 10/30/2022 HIV Screening 10/30/2022 Hepatitis C Screening 10/30/2022 Social Influencers of Health Screening 10/30/2022 Hepatitis B Vaccines (1 of 3 - Risk 3-dose series) 2023 RSV Immunization Patients 60+ Years Old (1 - Risk 60-74 years 1-dose series) 2023 Hypertension/CHF/CAD Annual BMP Blood Test 01/09/2026 01/09/2025, 11/29/2024, 03/24/2018 Zoster Vaccines Completed 05/10/2024, 01/27, 10/22/2018 Influenza [...] Comments XR FOOT 3+ VIEWS RIGHT Routine 3:42 PM EST Foot pain, right VAS US DUPLEX LOWER EXT VENOUS BILAT Routine 01/09/2025 3:34 PM EST Pain CBC WITH AUTO DIFFERENTIAL Routine 01/09/2025 1:39 PM EST Muscle pain HTN (hypertension) Asthma Obesity GERD (gastroesophageal reflux disease) IGT (impaired glucose tolerance) FOLATE Routine 01/09/2025 1:39 PM EST Muscle pain HTN (hypertension) Asthma Obesity GERD (gastroesophageal reflux disease) IGT (impaired glucose tolerance) VITAMIN B12 Routine 01/09/2025 1:39 PM EST Muscle pain HTN (hypertension) Asthma Obesity GERD (gastroesophageal reflux disease) IGT (impaired glucose tolerance) CREATINE KINASE Routine 01/09/2025 1:39 PM EST Muscle pain HTN (hypertension) Asthma Obesity GERD (gastroesophageal reflux disease) IGT (impaired glucose tolerance) HEMOGLOBIN A1C Routine 01/09/2025 1:39 PM EST Muscle pain HTN (hypertension) Asthma Obesity GERD (gastroesophageal reflux disease) IGT (impaired glucose tolerance) COMPREHENSIVE METABOLIC PANEL Routine 01/09/2025 1:39 PM EST Muscle pain HTN (hypertension) Asthma Obesity GERD (gastroesophageal reflux disease) IGT (impaired glucose tolerance) CBC AND DIFFERENTIAL Routine 01/09/2025 1:39 PM EST Muscle pain HTN (hypertension) Asthma Obesity GERD (gastroesophageal reflux disease) IGT (impaired glucose tolerance) THYROID STIMULATING HORMONE Routine 01/09/2025 1:39 PM EST Muscle pain HTN (hypertension) Asthma Obesity GERD (gastroesophageal reflux disease) IGT (impaired glucose tolerance) CBC WITH AUTO DIFFERENTIAL Routine 11/29/2024 10:26 [...] impairment) from Last 3 Months Results * XR Foot 3+ Views Right (01/09/2025 3:42 PM EST) Anatomical Region Laterality Modality Lower Extremities, Foot Right [facility] 01/10/2025 8:39 AM EST Impressions 01/10/2025 8:40 AM EST Normal examination. Code 54272 CT Teleradiology -------- FINAL REPORT -------- Dictated By: Naldo Martin Dictated Date: 01/10/2025 08:39 ET Assigned Physician: Naldo Martin Reviewed and Electronically Signed By: Naldo Martin Signed Date: 01/10/2025 08:40 ET Workstation ID: [id number] Transcribed By: Self Edit Transcribed Date: 01/10/2025 [...] abnormality is seen. IMPRESSION: Normal examination. Code 28497 CT Teleradiology -------- FINAL REPORT -------- Dictated By: Naldo Martin Dictated Date: 01/10/2025 08:39 ET Assigned Physician: Naldo Martin Reviewed and Electronically Signed By: Naldo Martin Signed Date: 01/10/2025 08:40 ET Workstation ID: [id number] Transcribed By: Self Edit Transcribed Date: 01/10/2025 08:39 ET us Mau Mercadante DO IMG XR PROCEDURES Final Resul t * Vascular US duplex lower extremity venous bilateral (01/09/2025 3:34 PM EST) Anatomical Region Laterality Modality Vascular, Abdomen Ultrasound 01/09/2025 3:39 PM EST Impressions 01/09/2025 3:50 PM EST NO RIGHT OR LEFT LOWER EXTREMITY DEEP VENOUS THROMBOSIS. -------- FINAL REPORT -------- Dictated By: Randy Phillips Dictated Date: 01/09/2025 15:39 ET Assigned Physician: Randy Phillips Reviewed and Electronically Signed By: Randy Phillips Signed Date: 01/09/2025 15:50 ET Workstation ID: [id number] Transcribed By: Self Edit Transcribed Date: 01/09/2025 15:39 ET Narrative 01/09/2025 3:50 PM EST PROCEDURE: VAS US DUPLEX LOWER EXT VENOUS BILAT INDICATION: ro dvt TECHNIQUE: 2-D and color Doppler imaging of the lower extremity venous vasculature with compression and augmentation maneuvers. COMPARISON: No priors available. FINDINGS: RIGHT: There is normal flow, compression, and augmentation from the common femoral through the popliteal vein. Visualized calf veins unremarkable. LEFT: There is normal flow, compression, and augmentation from the common femoral through the popliteal vein. Visualized calf veins unremarkable. Procedure Note Randy Phillips MD - 01/09/2025 PROCEDURE: VAS US DUPLEX LOWER EXT VENOUS BILAT INDICATION: ro dvt TECHNIQUE: 2-D and color Doppler imaging of the lower extremity venousvasculature with compression and augmentation maneuvers. COMPARISON: No priors available. FINDINGS: RIGHT: There is normal flow, compression, and augmentation from the commonfemoral through the popliteal vein. Visualized calf veins unremarkable. LEFT: There is normal flow, compression, and augmentation from the commonfemoral through the popliteal vein. Visualized calf veins unremarkable. IMPRESSION: NO RIGHT OR LEFT LOWER EXTREMITY DEEP VENOUS THROMBOSIS. -------- FINAL REPORT -------- Dictated By: Randy Phillips Dictated Date: 01/09/2025 15:39 ET Assigned Physician: Randy Phillips Reviewed and Electronically Signed By: Randy Phillips Signed Date: 01/09/2025 15:50 ET Workstation ID: [id number] Transcribed By: Self Edit Transcribed Date: 01/09/2025 15:39 ET us Mau Quispe DO CV VASCULAR PROCEDURES Final Result * CBC auto differential (01/09/2025 1:39 PM EST) Only the most recent of2 resultswithin the time period is included. WBC 7.4 4.8 - 10.8 K/mcL LAB HEMETOLOGY METHOD 01/09/2025 3:03 PM [facility] RBC 4.60 3.80 - 4.80 M/mcL LAB HEMETOLOGY METHOD 01/09/2025 3:03 PM [facility] Hemoglobin 13.9 11.5 - 16.0 g/dL LAB HEMETOLOGY METHOD 01/09/2025 3:03 PM [facility] Hematocrit 42.1 35.0 - 47.0 % LAB HEMETOLOGY METHOD 01/09/2025 3:03 PM [facility] MCV 90.9 79.0 - 98.0 FL LAB HEMETOLOGY METHOD 01/09/2025 3:03 PM [facility] MCH 30.0 27.0 - 32.0 pcg LAB HEMETOLOGY METHOD 01/09/2025 3:03 PM [facility] MCHC 33.0 32.0 - 37.0 g/dL LAB HEMETOLOGY METHOD 01/09/2025 3:03 PM [facility] RDW 12.7 11.0 - 15.0 % LAB HEMETOLOGY METHOD 01/09/2025 3:03 PM [facility] Platelets 321 130 - 400 K/mcL LAB HEMETOLOGY METHOD 01/09/2025 3:03 PM [facility] MPV 10.3 7.0 - 11.0 FL LAB HEMETOLOGY METHOD 01/09/2025 3:03 PM [facility] NRBC 0.0 <1.0 % LAB HEMETOLOGY METHOD 01/09/2025 3:03 PM [facility] NRBC Absolute 0.00 <0.10 K/mcL LAB HEMETOLOGY METHOD 01/09/2025 3:03 PM [facility] Neutrophils Relative 63.9 % LAB HEMETOLOGY METHOD 01/09/2025 3:03 PM [facility] Lymphocytes Relative 24.1 % LAB HEMETOLOGY METHOD 01/09/2025 3:03 PM [facility] Monocytes Relative 9.6 % LAB HEMETOLOGY METHOD 01/09/2025 3:03 PM [facility] Eosinophils Relative 1.4 % LAB HEMETOLOGY METHOD 01/09/2025 3:03 PM [facility] Basophils Relative 0.7 % LAB HEMETOLOGY METHOD 01/09/2025 3:03 PM [facility] Immature Granulocytes Relative 0.3 % LAB HEMETOLOGY METHOD 01/09/2025 3:03 PM [facility] Neutrophils Absolute 4.74 1.50 - 7.00 K/mcL LAB HEMETOLOGY METHOD 01/09/2025 3:03 PM [facility] Lymphocytes Absolute 1.78 1.00 - 5.00 K/mcL LAB HEMETOLOGY METHOD 01/09/2025 3:03 PM [facility] Monocytes Absolute 0.71 0.20 - 1.00 K/mcL LAB HEMETOLOGY METHOD 01/09/2025 3:03 PM [facility] Eosinophils Absolute 0.10 0.00 - 0.50 K/mcL LAB HEMETOLOGY METHOD 01/09/2025 3:03 PM [facility] Basophils Absolute 0.05 0.00 - 0.20 K/mcL LAB HEMETOLOGY METHOD 01/09/2025 3:03 PM [facility] Immature Granulocytes Absolute 0.02 0.00 - 0.03 K/mcL LAB HEMETOLOGY METHOD 01/09/2025 3:03 PM EST [facility] Blood Venous blood specimen / Unknown Venipuncture / Unknown 01/09/2025 1:39 PM EST 01/09/2025 1:39 PM EST [facility] LAB BLOOD ORDERABLES Final Resul t Performing Organization Address City/[facility] [address]/[facility] Co de Phone Number [facility] [address] [place] [address], [place] [phone] * Thyroid stimulating hormone (01/09/2025 1:39 PM EST) Only the most recent of2 resultswithin the time period is included. Pathologist [facility] TSH 3.75 0.40 - 4.00 mcIU/mL LAB CHEMISTRY METHOD 01/09/2025 3:49 PM EST [facility] Blood Venous blood specimen / Unknown Venipuncture / Unknown 01/09/2025 1:39 PM EST 01/09/2025 1:39 PM EST [facility] LAB BLOOD ORDERABLES Final Resul t Performing Organization Address [facility] [address]/[facility] de Phone Number [facility] [address] [place] [address], [place] [phone] * Hemoglobin A1c (01/09/2025 1:39 PM EST) Pathologist [facility] Hemoglobin A1C 5.3 <6.5 % LAB CHEMISTRY METHOD 01/09/2025 8:46 PM EST [facility] Mean Bld Glu Estim. 105 mg/dL LAB CHEMISTRY METHOD 01/09/2025 8:46 PM EST [facility] Blood Venous blood specimen / Unknown Venipuncture / Unknown 01/09/2025 1:39 PM EST 01/09/2025 1:39 PM EST [facility] LAB BLOOD ORDERABLES Final Resul t Performing Organization Address City/[facility] [address]/ZIP Co de Phone Number [facility] [address] [place] [address], [place] [phone] * Folate (01/09/2025 1:39 PM EST) Only the most recent of2 resultswithin the time period is included. Pathologist [facility] Folate 16.3 2.8 - 17.0 ng/ml LAB CHEMISTRY METHOD 01/09/2025 4:05 PM EST [facility] Blood Venous blood specimen / Unknown Venipuncture / Unknown 01/09/2025 1:39 PM EST 01/09/2025 1:39 PM EST [facility] LAB BLOOD ORDERABLES Final Resul t Performing Organization Address [facility] [address]/[facility] de Phone Number [facility] [address] [place] [address], * Vitamin B12 (01/09/2025 1:39 PM EST) Only the most recent of2 resultswithin the time period is included. Pathologist [facility] Vitamin B-12 631 250 - 900 pcg/mL LAB CHEMISTRY METHOD 01/09/2025 4:05 PM EST [facility] Blood Venous blood specimen / Unknown Venipuncture / Unknown 01/09/2025 1:39 PM EST 01/09/2025 1:39 PM EST [facility] LAB BLOOD ORDERABLES Final Resul t Performing Organization Address [facility] [address]/[facility] Co de Phone Number [facility] [address] [place] [address], [place] [phone] * Creatine kinase (01/09/2025 1:39 PM EST) [facility] Total CK 140 22 - 269 unit/L LAB CHEMISTRY METHOD 01/09/2025 3:41 PM EST [facility] Blood Venous blood specimen / Unknown Venipuncture / Unknown 01/09/2025 1:39 PM EST 01/09/2025 1:39 PM EST [facility] LAB BLOOD ORDERABLES Final Resul t [facility] [address] [place] [address], [place] [phone] * (ABNORMAL) Comprehensive metabolic panel (01/09/2025 1:39 PM EST) Sodium 137 133 - 145 mmol/L LAB CHEMISTRY METHOD 01/09/2025 3:48 PM [facility] Potassium 3.9 3.5 - 5.5 mmol/L LAB CHEMISTRY METHOD 01/09/2025 3:48 PM [facility] Chloride 105 96 - 110 mmol/L LAB CHEMISTRY METHOD 01/09/2025 3:48 PM [facility] CO2 27 21 - 32 mmol/L LAB CHEMISTRY METHOD 01/09/2025 3:48 PM [facility] Anion Gap 5 3 - 11 LAB CHEMISTRY METHOD 01/09/2025 3:48 PM [facility] Glucose 89 70 - 100 mg/dL LAB CHEMISTRY METHOD 01/09/2025 3:48 PM [facility] BUN 22 5 - 25 mg/dL LAB CHEMISTRY METHOD 01/09/2025 3:48 PM [facility] Creatinine 1.07 0.50 - 1.10 mg/dL LAB CHEMISTRY METHOD 01/09/2025 3:48 PM [facility] eGFR 59(L) >=60 mL/min/1. 73m2 LAB CHEMISTRY METHOD 01/09/2025 3:48 PM [facility] Comment:Calculation based on the??Chronic Kidney Disease Epidemiology Collaboration (CKD-EPI) equation refit??without adjustment for race. BUN/Creatinine Ratio 20.6 LAB CHEMISTRY METHOD 01/09/2025 3:48 PM [facility] Calcium 9.7 8.5 - 10.5 mg/dL LAB CHEMISTRY METHOD 01/09/2025 3:48 PM EST [facility] AST (SGOT) 15 10 - 42 unit/L LAB CHEMISTRY METHOD 01/09/2025 3:48 PM [facility] ALT (SGPT) 23 10 - 60 unit/L LAB CHEMISTRY METHOD 01/09/2025 3:48 PM EST [facility] Alkaline Phosphatase 81 42 - 121 unit/L LAB CHEMISTRY METHOD 01/09/2025 3:48 PM EST [facility] Total Protein 6.9 6.0 - 8.0 g/dL LAB CHEMISTRY METHOD 01/09/2025 3:48 PM [facility] Albumin 3.8 3.2 - 5.0 g/dL LAB CHEMISTRY METHOD 01/09/2025 3:48 PM EST [facility] Total Bilirubin 0.5 0.0 - 1.4 mg/dL LAB CHEMISTRY METHOD 01/09/2025 3:48 PM EST [facility] Blood Venous blood specimen / Unknown Venipuncture / Unknown 01/09/2025 1:39 PM EST 01/09/2025 1:39 PM EST [facility] LAB BLOOD ORDERABLES Final Resul t [facility] [address] [place] [address], * Methylmalonic acid, serum (11/29/2024 10:26 AM EST) Methylmalonic Acid 0.24 <0.40 umol/L 12/04/2024 7:36 AM EST [facility] Comment: If applicable, any drug confirmation testing reported here was developed and the performance characteristics determined by [facility]. This confirmation testing has not been cleared or approved by the FDA. The laboratory is regulated under CLIA as qualified to perform high-complexity testing. This test is used for patient testing purposes. It should not be regarded as investigational or for research. Test performed at [facility], [address], [place], [place] ??[address] ? [phone] Madelaine Lacey MD, PhD - Energy Scheduler Blood Venous blood specimen / Unknown Venipuncture / Unknown 11/29/2024 10:26 AM EST 11/29/2024 10:26 AM EST [facility] BLOOD ORDERABLES Final Resul t [facility] [address] [place] [address] * (ABNORMAL) Vitamin D 25 hydroxy (11/29/2024 10:26 AM EST) Vit D, 25-Hydroxy 20.5(L) 30.0 - 80.0 ng/mL LAB CHEMISTRY METHOD 11/29/2024 12:30 PM EST [facility] Blood Venous blood specimen / Unknown Venipuncture / Unknown 11/29/2024 10:26 AM EST 11/29/2024 10:26 AM EST [facility] BLOOD ORDERABLES Final Resul t Performing Organization Address City/[facility] [address]/ZIP Co de Phone Number [facility] [address] [place] [address], [place] [phone] * (ABNORMAL) Homocysteine, total (11/29/2024 10:26 AM EST) Homocysteine 11.2(H) 3.2 - 10.7 mcmol/L LAB CHEMISTRY METHOD 11/29/2024 12:42 PM EST [facility] Blood Venous blood specimen / Unknown Venipuncture / Unknown 11/29/2024 10:26 AM EST 11/29/2024 10:26 AM EST [facility] BLOOD ORDERABLES Final Resul t [facility] [address] [place] [address], * Basic metabolic panel (11/29/2024 10:26 AM EST) Sodium 137 133 - 145 mmol/L LAB CHEMISTRY METHOD 11/29/2024 12:20 PM [facility] Potassium 3.8 3.5 - 5.5 mmol/L LAB CHEMISTRY METHOD 11/29/2024 12:20 PM [facility] Chloride 106 96 - 110 mmol/L LAB CHEMISTRY METHOD 11/29/2024 12:20 PM [facility] CO2 26 21 - 32 mmol/L LAB CHEMISTRY METHOD 11/29/2024 12:20 PM [facility] Anion Gap 5 3 - 11 LAB CHEMISTRY METHOD 11/29/2024 12:20 PM [facility] Glucose 85 70 - 100 mg/dL LAB CHEMISTRY METHOD 11/29/2024 12:20 PM [facility] BUN 14 5 - 25 mg/dL LAB CHEMISTRY METHOD 11/29/2024 12:20 PM [facility] Creatinine 1.01 0.50 - 1.10 mg/dL LAB CHEMISTRY METHOD 11/29/2024 12:20 PM [facility] eGFR 63 >=60 mL/min/1. 73m2 LAB CHEMISTRY METHOD 11/29/2024 12:20 PM [facility] Comment:Calculation based on the??Chronic Kidney Disease Epidemiology Collaboration (CKD-EPI) equation refit??without adjustment for race. 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
--- OUTSIDE RECORDS SUMMARY | 2025-01-10 09:59 | XMS_ITS | Encounter Summary ---
Author Organization [facility] Address [address] [place] [address] Care Team Providers Care Liaison Officer Name Role Phone Mau Quispe DO Primary Care Provider [phone] Reason for Referral * Imaging (Routine) - Pending Review Specialty Diagnoses / Procedures Referred By Yashac t Referred To Contact Diagnoses Pain Procedures Vascular US duplex lower extremity venous bilateral Mau Quispe DO [address] [place] [address] Phone: tel: fax: [facility] Referral ID Status Reason Start Date Expiration Date V isits Requested Visits Authorized [id number] Pending Review 01/09/2025 01/09/2026 1 1 Reason for Visit * Imaging (Routine) - Pending Review Specialty Diagnoses / Procedures Referred By Yashac deborah Referred To Contact Diagnoses Pain Procedures Vascular US duplex lower extremity venous bilateral Mau Quispe DO [address] [place] [address] Phone: tel: fax: [facility] Referral ID Status Reason Start Date Expiration Date V isits Requested Visits Authorized [id number] Pending Review 01/09/2025 01/09/2026 1 1 Encounter Details Date Type Department Care Team (Latest Contact Info) Description 01/09/2025 2:54 PM EST - 01/09/2025 11:59 PM EST Hospital Encounter [facility] Ultrasound [address] [place] [address] Pain Discharge Disposition: Home or Self Care Social [...] Procedure Name Priority Date/Time Associated Diagnosis Comments VAS US DUPLEX LOWER EXT VENOUS BILAT Routine 01/09/2025 3:34 PM EST Pain documented in this encounter Results * Vascular US duplex lower extremity venous [...] Signed Date: 01/09/2025 15:50 ET Workstation ID: [id number] Transcribed By: Self Edit Transcribed Date: 01/09/2025 [...] Signed Date: 01/09/2025 15:50 ET Workstation ID: [id number] Transcribed By: Self Edit Transcribed Date: 01/09/2025 15:39 ET Mau Quispe DO CV VASCULAR PROCEDURES Final Result documented in this encounter Visit Diagnoses Diagnosis Pain Generalized pain documented in this encounter Care Teams Liaison Officer Relationship Specialty Start Date End Date Mau Quispe DO [address] [place] [phone] PCP - General Internal Medicine 11/08/17 documented as of this encounter
--- OUTSIDE RECORDS SUMMARY | 2025-01-10 09:59 | XMS_ITS | Clinical Summary ---
Author Organization [facility] Address [address] [facility] [address] [place] [address] Phone Care Team Providers Care D[employer] Installer Name Role Phone Mau Quispe DO Primary Care Provider [phone] Allergies Active Allergy Reactions Criticality Noted Date [...] Syncope 03/09/2022 Overview (04/06/2022): ER visit to [facility] on 09/24/21 Tricuspid valve regurgitation 03/09/2022 Severe persistent allergic asthma 04/04/2018 Overview (04/05/2022): Added automatically from request for surgery [id number] Ventral hernia 01/19/2018 Eczema 12/21/2017 Depressive disorder 10/11/2017 Body mass index 40+ - severely obese 09/06/2017 Anxiety 08/02/2017 Asthmatic bronchitis 07/04/2017 Overview (04/05/2022): Added automatically from request for surgery [id number] Gastro-esophageal reflux disease without esophag itis 02/28/2017 Multiple nodules of lung 02/28/2017 Overview (04/05/2022): Followed [facility] from [phone] Obstructive sleep apnea syndrome 02/28/2017 Overview (04/05/2022): CPAP Seasonal allergic rhinitis 02/28/2017 Encounters Date Type Department Care Team Description 12/05/2024 Documentation Only [facility] [address] [phone] Emmie Marquez [place] 12/05/2024 Refill [facility] [address] [phone] Emmie Marquez [place] Hypokalemia; Hypertension from Last [...] Office Visit [facility] [address] [phone] Krystyna Warren ARNP [address] [phone] Health Maintenance Due Date Last Done Comments [...] 9.3 8.7 - 10.7 mg/dL eGFR Non-Afr [place]ian 63 Vitamin D, 1,25-Dihydroxy 20.5 pg/mL 11/29/2024 [facility] Provider LAB BLOOD ORDERABLES Teressa l Result from Last 3 Months Insurance [facility] Member Subscriber Plan / Payer (Ef fective 2023-Present) Name:Kelly Gaona Relation to Subscriber:Self Name:Kelly Gaona Payer ID:Not on file Type:Not on file Address: [address] [phone] MEDICAID [place] [facility] Member Subscriber Plan / Payer (Ef fective 2023-Present) Name:Kelly Gaona Relation to Subscriber:Self Name:Kelly Gaona Payer ID:Not on file Type:Not on file Address: [address] [phone] MED[place]ID [place] Care Teams Dish Network Installer Relationship Specialty Start Date End Date Mau Quispe DO [address] [place] [address] PCP - General Internal Medicine 02/24/22
[2025-01-10 14:24] LABS: Cholesterol 249 mg/dL (<200); HDL Cholesterol 89 mg/dL (>40); LDL Cholesterol Calculated 150 mg/dL (<100); Triglycerides 53 mg/dL (<150)
[2025-01-10 14:37] LABS: Ferritin 40 ng/mL (10-250)
[2025-01-10 15:05] LABS: Reflex LDLD? No
[2025-01-11 17:57] LABS: Homocysteine 9.8 umol/L (<10.4)
[2025-01-14 00:34] LABS: Zinc 63 mcg/dL (60-130)
[2025-01-15 00:04] LABS: Alpha-Tocopherol 20.2 mg/L (5.7-19.9); Beta-Gamma Tocopherol <1.0 mg/L (<=4.3)
[2025-01-17 06:14] LABS: Vitamin B5 (Pantothenic Acid) 142 ng/mL (<275)
[2025-01-17 06:33] LABS: Vitamin K1 361 pg/mL (130-1500)
[2025-01-17 08:33] LABS: Vitamin C 1.1 mg/dL (0.3-2.7)
== END 2025-01-10 09:30 | disposition home or self-care (01) ==
LOC: HO.LAB 09:29
PROVIDERS: PCP Internal Medicine; Visit Provider Nurse Practitioner Family
DX: E53.8 Deficiency of other specified B group vitamins (principal); E55.9 Vitamin D deficiency, unspecified; I10 Essential (primary) hypertension; R25.2 Cramp and spasm; R25.3 Fasciculation; E50.9 Vitamin A deficiency, unspecified; E78.5 Hyperlipidemia, unspecified; R20.2 Paresthesia of skin
CPT/HCPCS: 36415; 80061; 82180; 82728; 83090; 84446; 84591; 84597; 84630

== ENCOUNTER 2025-02-18 10:08 | Outpatient (AMB) | payer MEDICARE, MEDICAID, SELFPAY ==
[2025-02-18 10:16] VITALS: BP 120/78; PULSE 60; O2SAT 97; BMI 40.4
--- NOTE | 2025-02-18 10:16 | MHC.OFFVIS ---
Vital Signs 02/18/25 10:16 Height 5 ft 5 in Weight 242 lb 8.136 oz BMI 40.4 BP 120/78 Blood Pressure Location Rt brachial Position Sitting Pulse 60 Pulse Source Pulse Oximeter Pulse Oximetry (%) 97 Oxygen Delivery Method Room Air Intake Visit Reasons: Asthma Allergies Sulfa (Sulfonamide Antibiotics) Allergy (Severe, Verified 02/18/25 10:19) Hives environmental allergies Allergy (Unknown, Verified 02/18/25 10:19) Unknown HPI Comments Details: The patient is a 59-year-old woman with severe persistent asthma in addition to obstructive sleep apnea on CPAP. Her asthma is still an issue still having daytime symptoms. However, she has not required prednisone which is reassuring. She is still using rescue inhaler. She still getting Xolair twice a month. She still having bronchospasms on a regular basis but the fact that she had thermal plasty decreases her significant bronchospasms therefore not needing to be on steroids but still needing frequent bronchodilation. She tried doing some work outside of the home however, her symptoms quickly came back Kristy is concerning that she may not be able to keep a full-time job or to work regularly still with having symptoms. Optimistic that as she is healing from her asthma that hopefully in the fall she we were able to reassess and may be she can go back to [employer] work outside of the home. She continues a very aggressive respiratory regimen. She continues with allergy therapy. The CPAP therapy continues to be affective and beneficial. 02/14/2024 the patient is here for a pulmonary follow-up visit. Seems to be doing a little better on the current aggressive respiratory regimen. Continues with the nebulized therapy twice a day in addition to the Spiriva. She has been tolerating the Tezspire Biologic therapy. In addition to that she is working closely with GI regarding reflux disease. She did increase her Protonix to twice a day and seems to have a little bit better response as far as the cough is concerned. The patient continues to try to exercise. She still is limited because of her asthma symptoms and cough variant asthma. But she is trying. She did complete pulmonary rehabilitation she is doing her own. She is up-to-date with all other vaccines except for her shingles vaccine. The patient follow-up in 6 months. 05/25/2024 the patient is here for sick visit. She has been under the weather now for a couple weeks. She started developing increasing chest tightness and cough. Denies any sick contacts. Although she is noticed more chest congestion. She has been able to expectorate some phlegm. He has yellowish in color. As far as her respiratory medications in biologic therapy they have been working very well for her. She has been tolerating the test far without any adverse reactions that she can tell. She continues on nebulized therapy. At today's visit she is having significant coughing although more congested than usual. She has diminished breath sounds bilaterally. Unlikely with the coughing asthma she has significant bronchospasms that typically present in this fashion. Will go ahead and provide her with antibiotics to treat her for the bronchitis and also prednisone to treat her for the significant bronchospasms. The patient also will need some cough medication. If the patient is no better she will call for an earlier assessment otherwise we just treat her empirically. 08/17/2024 the patient is here for a pulmonary follow-up visit. Overall she is doing better. The patient has asthma is under control this time. She did have a bout of a viral syndrome. Her symptoms not better although left with some sinusitis. She does have some sinus pressure some congestion and some drainage. It is colored yellowish in color. Ninf-lh-zjkauupp severity. She is going to continue to monitor. If it worsens she can always start Augmentin. the patient should continue with Sudafed. I also sent a prescription for his 1st generation antihistamine that will also help with the cough. She is still in the nebulized therapy. She also continues on the biologic therapy, test prior. This has been affecting beneficial. When she returns will talk about considering switching over to inhalers. However, this point the nebulized therapy is very effective for her. In addition to that she is using her CPAP. CPAP therapy has been affecting beneficial. She does use a nasal pillow mask. We did talk about different options including the P 30 I. at this point she is using the P 10 she will continue to use it at this time the patient follow-up in 6 months. If she develops any worsening symptoms prior to that she will call for an earlier assessment. 11/06/2024 the patient is here for sick visit. She does. She had called the office we have Center a azithromycin in addition to prednisone. Overall she did feel better initially. But now for the last few days she has been having worsening cough chest tightness and breathing issues. Moderate severity. She has a hard time sleeping because of the coughing and shortness of breath. She has been using codeine cough syrup in addition to Tessalon Perles with some partial improvement. She has been able to wean down the prednisone down to 20 mg daily but she is starting to cough more. On exam she is coughing and she does have bronchospastic cough. She does have diminished breath sounds. Will go ahead and give her Solu-Medrol today to see if we can open things up a little bit further and hopes that she can stay on the 20 mg prednisone. She is going to washings waiting watch for any worsening respiratory symptoms including chest congestion sinusitis symptoms. That case she can always start doxycycline. She continues use her CPAP. She can also uses CPAP during the day as needed in case her breathing becomes labored. The patient should continue using the CPAP at nighttime. The therapy has been affecting beneficial. She does use it for more than 4 hours a night. Will go ahead and continue with the current respiratory regimen she will continue using the nebulizers 3 to 4 times a day and she is going to start using the Acapella valve to remove any mucus clearance. She is also using Mucinex. She can use that to help her expectorate and try to open up the small airways. 02/18/2025 the patient is here for a pulmonary follow-up visit. Overall the patient has been doing fair. She started developing sinusitis and postnasal drip. She did have some Augmentin and she did started and she is feeling better. Respiratory mcnamara she seems to be stable. She denies any significant wheezing at this time. She still having dyspnea on exertion also has a chronic cough. Likely precipitated by her postnasal drip. The patient has been on the biologic therapy with good effect. She does not required any steroids at this time which is reassuring. Right now she would like to see if she can go back on her inhaler therapy. Will go ahead change her Brovana and budesonide to Trelegy. She will also have to stop her Spiriva. No recent imaging studies to review. As far as her CPAP, the CPAP therapy has been affecting beneficial. She does use a nasal pillows. Her AHI is 3.1. Will go ahead and adjust the pressure some increasing her ramp from 4-6 increasing her minimum pressure from 6-8. Closer to her therapeutic window of closer to 9. If the patient can not tolerate increasing the pressure she will call. Otherwise follow-up in 4-6 months. [facility] Medical History (Updated 01/09/25 @ 10:31 by ITA Pulliam) Depression Trigeminal neuralgia Hypertension GERD (gastroesophageal reflux disease) Morbid obesity Eczema Nasal polyposis Asthma-COPD overlap syndrome Chronic allergic rhinitis Pulmonary nodules SIERRA on CPAP Severe persistent asthma Surgical History Status post repair of paraesophageal diaphragmatic hernia Hx of cataract surgery Family History Father Lung cancer Diabetes Heart disease Mother Emphysema of lung Hypertension Bladder cancer TIA (transient ischemic attack) Social History Alcohol intake: current Alcohol intake frequency: a few times a month Patient Tobacco Use Status: Never used Tobacco Review of Systems Const Reports difficulty sleeping, Reports fatigue, Reports headache(s) and Denies night sweats ENT Denies change in voice, Reports headache(s), Denies lip swelling, Denies mouth pain, Reports nasal congestion, Reports nasal discharge, Reports nasal obstruction, Reports post nasal drip, Reports sinus pain, Reports sinus pressure and Denies tongue swelling Card Denies chest pain, Denies dyspnea and Reports dyspnea on exertion Resp Reports cough, Denies dyspnea, Reports dyspnea on exertion and Reports wheezing GI Denies abdominal pain and Reports bloating Musc Denies no additional complaints Neuro Denies Neuro-related abnormal movements and Reports headache(s) Psych Denies no additional complaints Endo Reports fatigue Niko/Lymph Denies easy bleeding and Denies lymphadenopathy Aller/Immun Denies lip swelling, Denies tongue swelling and Reports wheezing Physical Exam Vital Signs: Last Vital Signs Pulse 60 02/18/25 10:16 BP 120/78 02/18/25 10:16 Pulse Ox 97 02/18/25 10:16 Oxygen Delivery Method Room Air 02/18/25 10:16 BMI result Body Mass Index 40.4 Const General: alert Neck Neck: Yes normal visual inspection, Yes full ROM and Yes no lymphadenopathy Chest Chest palpation & inspection: normal inspection of the chest Resp Effort & Inspection: Actively coughing Quality: actively coughing Auscultation: no wheezes and diminished lung sounds Cardio Rate: regular rate Rhythm: regular rhythm Heart sounds: S1 normal heart sound present and S2 normal heart sound present GI Palpation (GI): Soft to palpation, not firm and nontender Auscultation: normal bowel sounds Skin General skin exam: rashes and/or lesions noted Assessment & Plan Assessment & Plan (1) Severe persistent asthma: Comment: Status post bronchial thermoplasty. Continues to have uncrotrolled asthma, not responsive to an aggressive medical management. Daily asthma symptoms make it very difficult for her to perform her activities of daily living. Had been in disability due to her asthma. After the thermoplasty she was feeling better, but, unfortunately, after several years the positive effects of the thermoplasty waned. Code(s): J45.50 - Severe persistent asthma, uncomplicated Category: Medical Qualifiers: Asthma complication type: with acute exacerbation Qualified Code(s): J45.51 - Severe persistent asthma with (acute) exacerbation (2) Pulmonary nodules: Code(s): R91.8 - Other nonspecific abnormal finding of lung field Category: Medical (3) Chronic allergic rhinitis: Code(s): J30.9 - Allergic rhinitis, unspecified Category: Medical (4) SIERRA on CPAP: Code(s): G47.33 - Obstructive sleep apnea (adult) (pediatric); Z99.89 - Dependence on other enabling machines and devices Category: Medical (5) Nasal polyposis: Code(s): J33.9 - Nasal polyp, unspecified Category: Medical (6) Eczema: Code(s): L30.9 - Dermatitis, unspecified Category: Medical Qualifiers: Eczema type: flexural Qualified Code(s): L20.82 - Flexural eczema Plan start Trelegy 200mcg daily continue Augmentin Consider Azithromycin MWF if still congested continue Tezspire q4 weeks continue pseudophed as needed chlorpheniramine as needed for cough budesonide BID stop Brovana BID continue Spiriva continue singulair nasal rinsing prior to CPAP CPAP, nasal pillows, adjusted 6-16 to 8-16 Needs to get Arexvy vaccine F/U 4-6 months Medications: New RSVPreF3 antigen-AS01E (PF) 120 mcg/0.5 mL (Arexvy (PF)) 0.5 mL IM ONCE 1 ea 0RF J45.51 - Severe persistent asthma with (acute) exacerbation [id number]-dnveqgjkq-xlwnydny 200-62.5-25 mcg (Trelegy Ellipta) 1 inh inhalation DAILY 60 ea 12RF 30 days Coding Level of Care Code Est Pt Level 4 (44132) Complex EM visit Add On G2211 Diagnoses Severe persistent asthma with acute exacerbation J45.51 Asthma complication type: with acute exacerbation Pulmonary nodules R91.8 Chronic allergic rhinitis J30.9 SIERRA on CPAP G47.33; Z99.89 Nasal polyposis J33.9 Flexural eczema L20.82 Eczema type: flexural Time Spent (min) 17
== END 2025-02-18 10:51 | disposition home or self-care (01) ==
LOC: HO.HPS 10:09
PROVIDERS: PCP Internal Medicine; Visit Provider Hospitalist
DX: J45.51 Severe persistent asthma with (acute) exacerbation (principal); R91.8 Other nonspecific abnormal finding of lung field; J30.9 Allergic rhinitis, unspecified; G47.33 Obstructive sleep apnea (adult) (pediatric); Z99.89 Dependence on other enabling machines and devices; J33.9 Nasal polyp, unspecified; L20.82 Flexural eczema
CPT/HCPCS: 99214; G2211

== ENCOUNTER → 2025-02-18 10:08 | Outpatient (BNVA) | payer MEDICARE, MEDICAID, SELFPAY | PROVIDERS: PCP Internal Medicine; Visit Provider Hospitalist | DX: J45.51 Severe persistent asthma with (acute) exacerbation (principal); J30.9 Allergic rhinitis, unspecified; J33.9 Nasal polyp, unspecified; G47.33 Obstructive sleep apnea (adult) (pediatric); R91.8 Other nonspecific abnormal finding of lung field; L20.82 Flexural eczema; Z99.89 Dependence on other enabling machines and devices | CPT/HCPCS: 99212 ==

== ENCOUNTER 2025-06-19 14:53 | Emergency (ER) | payer MEDICARE, MEDICAID, SELFPAY ==
--- NOTE | ~2025-06-19 | XR_ITS ---
EXAMINATION: XR WRIST, RIGHT CLINICAL INFORMATION: pain, injury COMPARISON: None available. TECHNIQUE: PA, lateral, and oblique views of the right wrist. FINDINGS: On the oblique view, there is oblique lucency at the base of the radial styloid extending to the distal radial articular surface and likely into the distal radioulnar joint. There is also vague lucency through the base of the ulnar styloid visible at the fovea. No other abnormalities are evident. XR/XR wrist RT min 3V IMPRESSION: Nondisplaced intra-articular fracture of the distal radius. Ulnar styloid fracture. Nondisplaced. Electronically signed by: Chad Johnson MD 06/19/2025 04:01 PM EDT
--- NOTE | ~2025-06-19 | XR_ITS ---
EXAMINATION: XR ELBOW, RIGHT CLINICAL INFORMATION: pain, injury COMPARISON: None available. TECHNIQUE: AP, lateral, and oblique views of the right elbow. FINDINGS: Minimally displaced fracture of the coronoid process of the ulna, with mild comminution. Joint effusion present. The radius is intact. The humerus is intact. Joint spaces are preserved. Alignment is normal. XR/XR elbow RT min 3V IMPRESSION: Mildly comminuted, minimally displaced fracture of the coronoid process of the ulna. Joint effusion present Electronically signed by: Dong Mann MD 06/19/2025 03:59 PM EDT
[2025-06-19 14:59] VITALS: BP 176/90; PULSE 53; O2SAT 96
--- NOTE | 2025-06-19 15:01 | ED_ITS ---
HPI - General Adult General Chief complaint: Extremity Injury, Upper Stated complaint: Fall, r arm/wrist injury, 07/07 pain Time Seen by Provider: 06/19/25 15:01 Source: patient and EMS Mode of arrival: EMS Limitations: no limitations History of Present Illness ED Provider: Paris Burns PA-C HPI narrative: Patient is a 59 year old assigned female at with a history of HTN, HLD, GERD, LVH, GERD, Eczema, and asthma-COPD overlap syndrome presenting to the emergency department today with right wrist and elbow pain after a fall. Patient states that she fell backwards off a window sill seat and landed on her outstretched right arm. Patient denies any head strike, dizziness, lightheadedness, abdominal pain, nausea, vomiting, fever, chills, blurry vision, double vision, loss of vision, chest pain, difficulty breathing, shortness of breath, back pain, night sweats, pain with urination, increased urinary frequency, increased urinary urgency, blood in her urine or stool, syncope or a near syncopal episode, bowel incontinence, bladder incontinence, or any other complaints at this time. Relieving factors: immobilization Exacerbating factors: movement Associated symptoms: denies other symptoms Treatments prior to arrival: none Related Data Home Medications ?Medication ?Instructions ?Recorded ?Confirmed cetirizine 10 mg tablet (Zyrtec) 10 mg PO DAILY PRN 11/06/24 fluoxetine 20 mg capsule 20 mg PO DAILY 12/01/2010/28 magnesium oxide 500 mg PO DIRECTED 11/06/24 potassium chloride 10 mEq 10 meq PO DAILY 07/23/2209/20 tablet,extended release amiloride 5 mg tablet 5 mg PO DAILY 10/01/2211/06 CPAP (CPAP Machine/Device) 07/26/23 11/06/24 epinephrine 0.3 mg/0.3 mL IM PRN 07/26/23 11/06/24 injection, auto-injector nebulizers 07/26/23 11/06/24 pantoprazole 40 mg tablet,delayed 40 mg PO BID 4 11/06/24 release Previous Rx's ?Medication ?Instructions ?Recorded albuterol sulfate 90 mcg/actuation 2 puff PO Q6H PRN f or wheezing #18 08/17/21 aerosol inhaler grams ipratropium bromide 42 mcg (0.06 2 spray intranasal TI D PRN allergy 07/23/22 %) nasal spray symptoms #15 mL montelukast 10 mg tablet 10 mg PO BEDTIME #30 tabs tezepelumab-ekko 210 mg/1.91 mL 210 mg (1.91 mL) subcu t Q4W 12 01/25/23 (110 mg/mL) subcutaneous syringe months #24.83 mL (Tezspire) ubrogepant 100 mg tablet (Ubrelvy) 50 - 100 mg (0.5 - 1 x 100 mg) PO 06/21/24 ONCE PRN migraine headache 30 days #16 tabs tiotropium bromide 2.5 2 puff inhalation DAILY 30 d ays #1 07/27/24 mcg/actuation mist for inhalation ea (Spiriva Respimat) chlorpheniramine maleate 4 mg 4 mg PO Q6H PRN itching 30 days 08/17/24 tablet #60 tabs levalbuterol tartrate 45 2 puff PO Q4H PRN for wheezi ng #15 10/15/24 mcg/actuation aerosol inhaler grams ipratropium 0.5 mg-albuterol 3 mg 3 ml inhalation QID 30 days #360 mL 10/22/24 (2.5 mg base)/3 mL nebulization soln benzonatate 200 mg capsule 200 mg PO BID PRN for cough 30 11/05/24 days #30 caps codeine 10 mg-guaifenesin 100 mg/5 10 ml PO Q6H PRN co ugh 10 days 11/05/24 mL oral liquid #300 mL cholecalciferol (vitamin D3) 1,250 1,250 mcg PO QWEEK 12 days #12 caps 01/14/25 mcg (50,000 unit) capsule [id number] antigen-AS01E 0.5 ml IM ONCE #1 ea 5 adjuvant(PF) 120 mcg/0.5 mL IM suspension, kit (Arexvy (PF)) arformoterol 15 mcg/2 mL solution 2 ml inhalation Q12H #120 mL 02/18/25 for nebulization budesonide 0.5 mg/2 mL suspension 0.5 mg (2 mL) PO BID #360 mL 02/18/25 for nebulization fluticasone fur. 200 mcg-umeclid 1 inh inhalation JOANA Y 30 days #60 02/18/25 62.5 mcg-vilant 25 mcg ea inhalat.powder (Trelegy Ellipta) baclofen 10 mg tablet 10 mg PO BEDTIME 30 days #30 tabs 04/24/25 Allergies Allergy/AdvReac Type Severity Reaction Status Date / Time Sulfa (Sulfonamide Allergy Severe Hives Verified 06/19/25 15:22 Antibiotics) environmental allergies Allergy Unknown Unknown Verified 06/19/25 15:22 Review of Systems Constitutional: Constitutional: Reports no additional constitutional complaints, Denies chills, Denies fever(s) and Denies night sweats Eyes: Eyes: Reports no additional eye complaints, Denies blurry vision, Denies change in vision, Denies diplopia, Denies eye discharge, Denies loss of vision and Denies eye pain ENT: Denies dizziness Cardiovascular: Cardiovascular: Reports no additional cardiovascular complaints, Denies chest pain, Denies lightheadedness, Denies Loss of Consciousness and Denies dyspnea Respiratory: Respiratory: Reports no additional respiratory complaints and De nies dyspnea Gastrointestinal: Gastrointestinal: Reports no additional gastrointestinal complaints, Denies abdominal pain, Denies melena, Denies hematochezia, Denies change in bowel habits and Denies change in stool character Genitourinary: Genitourinary: Denies hematuria, Denies urinary frequency, Denies dysuria, Denies urinary incontinence, Denies urinary hesitancy and Denies urinary urgency Musculoskeletal: Musculoskeletal: Reports no additional musculoskeletal complaints, Denies numbness and Denies tingling Comments: right elbow pain right wrist pain Neurologic: Denies dizziness, Denies loss of vision, Denies numbness and Denies tingling Psychiatric: Psychiatric: Reports no additional psychiatric complaints Endocrine: Endocrine: Reports no additional endocrine complaints Hematologic/Lymphatic: Hematologic/Lymphatic: Reports no additional hematologic/lymphatic complaints Allergic/Immunologic: Allergic/Immunologic: Reports no additional allergic/immunologic complaints PMFSH Past Medical History Attestation statement: The following information was validated with the patient. Source: old records reviewed and nursing notes reviewed Medical History Depression Trigeminal neuralgia Hypertension GERD (gastroesophageal reflux disease) Morbid obesity Eczema Nasal polyposis Asthma-COPD overlap syndrome Chronic allergic rhinitis Pulmonary nodules SIERRA on CPAP Severe persistent asthma Surgical History Status post repair of paraesophageal diaphragmatic hernia Hx of cataract surgery Family History Family History Father Lung cancer Diabetes Heart disease Mother Emphysema of lung Hypertension Bladder cancer TIA (transient ischemic attack) Social History Social History Alcohol intake: current Alcohol intake frequency: a few times a month Patient Tobacco Use Status: Never used Tobacco Smoked in Last 30 Days: No Use of substances other than those prescribed or required for medical reasons: No Advance Directives: No Advance Directives Information Provided: No Do you have a plan to hurt others: No Plan Patient : No Physical Exam ED Vital Signs: Vital Signs - 24 hr 06/19/25 15:20 06/19/25 15:34 06/19/25 17:16 Temperature 98.1 F 98.1 F 98.1 F Pulse Rate 52 52 52 Respiratory Rate 16 16 16 Blood Pressure 116/56 L 116/56 L 116/56 L Pulse Oximetry 95 95 95 Oxygen Delivery Method Room Air Room Air Room Air BMI result Body Mass Index 42.8 Const General: cooperative, no acute distress, alert and awake Nutritional Appearance: well nourished Orientation/consciousness: patient oriented x3 HENMT Head: Yes normal to inspection and Yes atraumatic Ears: hearing grossly normal bilaterally and external ears normal General nose exam: Normal external nose present, no nasal discharge noted and no epistaxis Face and sinus: Yes normal facial exam, No abrasion and No laceration Mouth: Normal oral and palatal mucosa present, no drooling and no muffled voice Eyes General: appearance normal, both eyes and all related structures Periorbital: periorbital findings normal Eyelids: Yes eyelids normal Conjunctivae: conjunctivae normal Pupils: Equal, round and reactive pupils present EOM: EOMs intact bilaterally Neck Neck: Yes normal visual inspection, Yes full ROM and Yes no lymphadenopathy Resp Effort & Inspection: normal respiratory effort and able to speak in complete sentences Neuro General: patient oriented x3, moves all extremities and CN's II-XI intact bilaterally Cranial nerves: Yes Equal, round and reactive pupils present Cognition (Neuro): normal cognition Extrem Other: Right wrist pain with ROM + palpation Right elbow pain with ROM + palpation General: Yes normal to inspection and Yes capillary refill normal Psych Appearance: grossly normal Mental Status: mental status grossly normal Affect: normal affect Attitude: cooperative Thought process: Normal thought process present Thought content: Normal thought content present Insight: Good insight present (Psych) Procedures Orthopedic Splinting/Casting Injury #1: Side: right Upper Extremity Injury Location: elbow and wrist Upper Extremity Immobilizer: sling/shoulder immobilizer and posterior splint Medical Decision Making Medical Decision Making MDM Narrative: Patient is a 59 year old, left handed, assigned female at with a history of HTN, HLD, GERD, LVH, GERD, Eczema, and asthma-COPD overlap syndrome presenting to the emergency department today with right wrist and elbow pain after a fall. Patient's physical exam was as noted in the physical exam portion of this note. Patient's left wrist and elbow x-ray showed a mildly comminuted minimally displaced fracture of the coronoid process of the ulna, nondisplaced intra-articular fracture of the distal radius, and right ulnar styloid fracture. I spoke with the orthopedic team who recommended posterior long arm splint and following up in the office. I explained my physical exam findings as well as all test results to the patient. I answered all questions asked by the patient . Patient's right upper extremity was placed in a posterior long arm with a slight modification of additional casting material to properly stabilize the radius, without incident. Patient's PMS was intact prior to and after splint placement. Patient's right upper extremity was placed in a sling for ease of ambulation, without incident. Patient's PMS was intact prior to and after sling placed. I stressed the importance of the patient taking her medication as directed (either prescribed or as the over the counter packaging recommends). I stressed the importance of the patient following up with her primary care provider and the orthopedic team. I stressed the importance of the patient returning to the emergency department immediately if her symptoms were to worsen or if she were to develop any dizziness, shortness of breath, difficulty breathing, chest pain, blurry vision, loss of vision, nausea, vomiting, abdominal pain, fever, chills, back pain, or any other complaints. Patient verbalized agreement and understanding with this treatment plan and discharge. Differential Diagnosis Differential Diagnoses: The differential diagnosis associated with the presentation includes Radius fracture Ulnar fracture Fall Admission/Observation Consideration of admission/observation: Escalation of care including admission/observation considered Patient would have been admitted to the hospital had her work up had any findings where hospital admission was appropriate and her clinical presentation warranted hospital admission. Consult Healthcare Provider Management of the patient was discussed with: Manager Endoscopy (spoke with the orthopedic team as noted in the MDM Rationale portion of this note. ) Independent Interpretation I performed an independent interpretation of an: Plain X-Ray Interpretation: My interpretation is in agreement with the radiologist's impression of these imaging studies. EXAMINATION: XR WRIST, RIGHT CLINICAL INFORMATION: pain, injury COMPARISON: None available. TECHNIQUE: PA, lateral, and oblique views of the right wrist. FINDINGS: On the oblique view, there is oblique lucency at the base of the radial styloid extending to the distal radial articular surface and likely into the distal radioulnar joint. There is also vague lucency through the base of the ulnar styloid visible at the fovea. No other abnormalities are evident. XR/XR wrist RT min 3V IMPRESSION: Nondisplaced intra-articular fracture of the distal radius. Ulnar styloid fracture. Nondisplaced. Electronically signed by: Chad Johnson MD 06/19/2025 04:01 PM EDT Dictated By: Chad Johnson MD Signed By: Electronically signed by Chad Johnson MD 06/19/25 1601 EXAMINATION: XR ELBOW, RIGHT CLINICAL INFORMATION: pain, injury COMPARISON: None available. TECHNIQUE: AP, lateral, and oblique views of the right elbow. FINDINGS: Minimally displaced fracture of the coronoid process of the ulna, with mild comminution. Joint effusion present. The radius is intact. The humerus is intact. Joint spaces are preserved. Alignment is normal. XR/XR elbow RT min 3V IMPRESSION: Mildly comminuted, minimally displaced fracture of the coronoid process of the ulna. Joint effusion present Electronically signed by: Dong Mann MD 06/19/2025 03:59 PM EDT Dictated By: Dong Mann MD Signed By: Electronically signed by Dong Mann MD 06/19/25 6268 Radiology Impression Discussion of test interpretation with radiology: I have reviewed the radiologist's reading. Independent Historian Clinical information obtained from an independent historian. History obtained from or confirmed by: EMS (EMS provided additional history and confirmed the history provided by the patient. ) Discharge Plan Discharge Clinical Impression: Radial fracture, Ulnar fracture, Abrasion Patient Disposition: Home, Self-Care Instructions: Arm Fracture in Adults (DC), Wrist Fracture in Adults (ED) Additional Instructions: Do NOT stick anything down your splint. Do NOT get your splint wet. Do NOT remove your splint. If you have any change in sensation, movement, or color of your right fingers - you may loosen the outer ROSARIO wraps. If you find yourself loosening the ROSARIO wraps to the point of seeing the white splint material underneath - STOP and proceed to your closest Emergency Department, immediately. Only wear your sling when ambulating. IF wearing the sling for an extended period of time: every 1 hour for approximately 10 minutes - remove the sling, keep your elbow and wrist stablized in the splint, and rotate your right shoulder joint to avoid freezing the right shoulder joint. Continue taking Augmentin for your sinusitis as you started yesterday. Follow up with your primary care provider and the orthopedic team. Return to the emergency department immediately if your symptoms worsen or if you develop any numbness, tingling, dizziness, shortness of breath, difficulty breathing, chest pain, blurry vision, loss of vision, nausea, vomiting, abdominal pain, fever, chills, back pain, or any other complaints. Please see the information below about our Patient Portal. If you are not yet enrolled in the [facility] Patient Portal, you will receive an enrollment email invitation following your visit to any [facility] setting. You may also self-enroll in the Patient Portal by visiting our website: [email or web address] The following information is required to access the Patient Portal: - Your [facility] Medical Record Number - Your personal home email address (must match what is in your electronic medical record, Registration staff can assist with this) - Name - Date of Capabilities of the Patient Portal: - Message some providers - View upcoming appointments - Access your health summary, medical history, and visit history - View current conditions and allergies - View procedure and lab results - View your medications, including guidelines, side effects, and precautions - Complete pre-appointment questionnaires requested by your provider - Ready summary reports of your office visits and procedures To access the Patient Portal Mobile Janet, follow these directions: - Search Gnammo in the Janet Store or Google Eqal[employer] Store - Download the Janet - Search for [facility] - Enter your login/password Prescriptions: No Action albuterol sulfate 90 mcg/actuation HFA aerosol inhaler 2 puff PO Q6H PRN (Reason: for wheezing) Qty: 18 0RF montelukast 10 mg tablet 10 mg PO BEDTIME Qty: 30 0RF Tezspire 210 mg/1.91 mL (110 mg/mL) syringe 210 mg subcut Q4W 360 Days Qty: 24.83 0RF Spiriva Respimat 2.5 mcg/actuation mist 2 puff inhalation DAILY 30 Days Qty: 1 11RF levalbuterol tartrate 45 mcg/actuation HFA aerosol inhaler 2 puff PO Q4H PRN (Reason: for wheezing) Qty: 15 0RF ipratropium-albuterol 0.5 mg-3 mg(2.5 mg base)/3 mL solution for nebulization 3 ml inhalation QID 30 Days Qty: 360 11RF codeine-guaifenesin 10-100 mg/5 mL liquid 10 ml PO Q6H PRN (Reason: cough) 10 Days Qty: 300 0RF benzonatate 200 mg capsule 200 mg PO BID PRN (Reason: for cough) 30 Days Qty: 30 11RF cholecalciferol (vitamin D3) 1,250 mcg (50,000 unit) capsule 1,250 mcg PO QWEEK 12 Days Qty: 12 0RF arformoterol 15 mcg/2 mL solution for nebulization 2 ml inhalation Q12H Qty: 120 0RF budesonide 0.5 mg/2 mL suspension for nebulization 0.5 mg PO BID Qty: 360 0RF baclofen 10 mg tablet 10 mg PO BEDTIME 30 Days Qty: 30 6RF fluoxetine 20 mg capsule 20 mg PO DAILY cetirizine [Zyrtec] 10 mg tablet 10 mg PO DAILY PRN epinephrine 0.3 mg/0.3 mL auto-injector IM PRN pantoprazole 40 mg tablet,delayed release (DR/EC) 40 mg PO BID magnesium oxide 500 mg tablet 500 mg PO DIRECTED potassium chloride 10 mEq tablet extended release 10 meq PO DAILY ipratropium bromide 42 mcg (0.06 %) spray,non-aerosol 2 spray intranasal TID PRN (Reason: allergy symptoms) Qty: 15 6RF Rx Instructions: administer into each nostril amiloride 5 mg tablet 5 mg PO DAILY Arexvy (PF) 120 mcg/0.5 mL suspension for reconstitution 0.5 ml IM ONCE Qty: 1 0RF Trelegy Ellipta 200-62.5-25 mcg blister with device 1 inh inhalation DAILY 30 Days Qty: 60 12RF (DME) nebulizers [facility] [place] Rx Instructions .Route Rx Instructions: As directed (DME) CPAP Machine/Device Device See Rx Instructions .Route Rx Instructions: As directed Ubrelvy 100 mg tablet 50 - 100 mg PO ONCE PRN (Reason: migraine headache) 30 Days Qty: 16 6RF Rx Instructions: take at onset of migraine, may repeat in 2hrs (may take w/ Ibuprofen) chlorpheniramine maleate 4 mg tablet 4 mg PO Q6H PRN (Reason: itching) 30 Days Qty: 60 6RF Referrals: [facility] [Provider Group] Referral Note: Call to establish and follow up with the orthopedic group. Mau Quispe DO, MD [Primary Care Provider, Internal Medicine] Interventions: ED Discharge Assessment Last Done: 06/19/25 17:16 Discharge Date/Time: 06/19/25 17:17 Print Language: New Zealander
[2025-06-19 15:20] VITALS: BP 116/56; PULSE 52; RESP 16; TEMP 36.7; O2SAT 95; BMI 42.8
[2025-06-19 15:34] VITALS: BP 116/56; PULSE 52; RESP 16; TEMP 36.7; O2SAT 95
--- OUTSIDE RECORDS SUMMARY | 2025-06-19 15:50 | XMS_ITS | Clinical Summary ---
Author Organization [address] [address] Care Team Providers Care Hr Associate Name Role Phone Mau Quispe DO Primary Care Provider [phone] Social History Tobacco Use Types Packs/Day Years [...] cancer screening, Colonoscopy 2008 Diabetes screening 2008 Pneumococcal Vaccine (50+ ye ars) (1 of 1 - PCV) 2013 Shingles vaccine (Shingrix) (1 of 2 - Shingrix (RZV) 2 Dose Standard Series) 2013 Covid-19 vaccine series ( - 2023- season) 2024 Influenza vaccine 07/29/2025 RSV Immunization (1 - 1-dose 75+ series) 2038 Meningococcal Vaccine Aged Out No isabela janie eligible based on patient's age to complete this topic Insurance 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
--- OUTSIDE RECORDS SUMMARY | 2025-06-19 15:50 | XMS_ITS | Clinical Summary ---
Author Organization [address] [facility] Address [address] [place] [phone] Phone Care Team Providers Care Erp Manager Name Role Phone Mau Quispe DO Primary Care Provider [phone] Medical History Medical History Date Comments Depression 10/11/2017 DX:Depression Eczema 12/21/2017 DX:Eczema Morbid obesity with BMI of 4 5.0-49.9, adult ([facility] V24, [facility] V28) 09/06/2017 DX:Morbid obesity with BMI of 45.0-49.9, adult ([facility]) Ventral hernia 01/19/2018 DX:Ventral herni a Obstructive [...] Last Done Comments Breast Cancer Screening 1965 Hepatitis A Vaccines (1 of 2 - Risk 2-dose series) 1982 Cervical Cancer Screening: Pap Smear 1984 Colorectal Cancer Screening: Colonoscopy 10/30/2022 HIV Screening 10/30/2022 Hepatitis C Screening 10/30/2022 Social Influencers of Health Screening 10/30/2022 Hepatitis B Vaccines (1 of 3 - Risk 3-dose series) 2023 Depression Screening 11/28/2024 Influenza Vaccine (#1) 2025 , 08/30/2023, 11/30/2022, Additional history exists Hypertension/CHF/CAD Annual BMP Blood Test 05/29/2026 05/29/2025, 01/22/2025, 01/09/2025, Additional history exists Cholesterol Screening (Lipid Panel) 05/29/2030 05/29/2025 DTaP,Tdap,and Td Vaccines (2 - Td or Tdap) 04/13/2035 04/13/2025 Zoster Vaccines Completed 05/10/2024, 01/27, 10/22/2018 COVID-19 Vaccine Completed 10/10/2024, 01/2023, 11/16/2022, Additional history exists MMR Vaccines Aged Out 02/08/2025 No longer eligi ble based on patient's age to complete this topic Pneumococcal Vaccine: 50+ Years Completed 04/13/2025, 09/18/2014 RSV Immunization Adult Patients Completed 04/13/2025 HIB Vaccines Aged Out No longer eligi [...] age to complete this topic Meningococcal B Vaccine Aged Out No l onger eligible based on patient's age to complete this topic RSV Immunization Patients Under 20 months Aged Out No longer eligible based on patient's age to complete this topic Varicella Vaccines Aged Out No longer eligible based on patient's age to complete this topic Procedures Procedure Name Priority Date/Time Associated Diagnosis Comments CBC WITH AUTO DIFFERENTIAL Routine 05/29/2025 10:35 AM EDT Routine physical examination HLD (hyperlipidemia) CKD (chronic kidney disease) GERD (gastroesophageal reflux disease) HTN (hypertension) HEMOGLOBIN A1C Routine 05/29/2025 10:35 AM EDT Routine physical examination HLD (hyperlipidemia) CKD (chronic kidney disease) GERD (gastroesophageal reflux disease) HTN (hypertension) COMPREHENSIVE METABOLIC PANEL Routine 05/29/2025 10:35 AM EDT Routine physical examination HLD (hyperlipidemia) CKD (chronic kidney disease) GERD (gastroesophageal reflux disease) HTN (hypertension) CBC AND DIFFERENTIAL Routine 05/29/2025 10:35 AM EDT Routine physical examination HLD (hyperlipidemia) CKD (chronic kidney disease) GERD (gastroesophageal reflux disease) HTN (hypertension) THYROID STIMULATING HORMONE Routine 05/29/2025 10:35 AM EDT Routine physical examination HLD (hyperlipidemia) CKD (chronic kidney disease) GERD (gastroesophageal reflux disease) HTN (hypertension) LIPID PANEL WITH REFLEX TO DIRECT LDL Routine 05/29/2025 10:35 AM EDT Routine physical examination HLD (hyperlipidemia) CKD (chronic kidney disease) GERD (gastroesophageal reflux disease) HTN (hypertension) from Last 3 Months Results * (ABNORMAL) Lipid panel with reflex to direct LDL (05/29/2025 10:35 AM EDT) Cholesterol 242(H) 0 - 200 mg/dL LAB CHEMISTRY METHOD 05/29/2025 12:08 PM EDT [facility] Triglycerides 67 0 - 150 mg/dL LAB CHEMISTRY METHOD 05/29/2025 12:08 PM EDT [facility] HDL 95 >=40 mg/dL LAB CHEMISTRY METHOD 05/29/2025 12:08 PM EDT [facility] LDL Calculated 134(H) 0 - 100 mg/dL LAB CHEMISTRY METHOD 05/29/2025 12:08 PM EDT [facility] VLDL Cholesterol Timi 13.4 mg/dL LAB CHEMISTRY METHOD 05/29/2025 12:08 PM EDT [facility] Non HDL Chol. (LDL+VLDL) 147(H) <145 mg/dL LAB CHEMISTRY METHOD 05/29/2025 12:08 PM EDT [facility] Chol/HDL Ratio 2.5 0.0 - 4.4 LAB CHEMISTRY METHOD 05/29/2025 12:08 PM [facility] Blood Venous blood specimen / Unknown Venipuncture / Unknown 05/29/2025 10:35 AM EDT 05/29/2025 10:35 AM EDT [facility] LAB BLOOD ORDERABLES Final Resul t [facility] [address] [place] [address], * CBC auto differential (05/29/2025 10:35 AM EDT) WBC 5.7 4.8 - 10.8 K/mcL LAB HEMETOLOGY METHOD 05/29/2025 11:17 AM EDT [facility] RBC 4.70 3.80 - 4.80 M/mcL LAB HEMETOLOGY METHOD 05/29/2025 11:17 AM EDT [facility] Hemoglobin 14.3 11.5 - 16.0 g/dL LAB HEMETOLOGY METHOD 05/29/2025 11:17 AM T [facility] Hematocrit 43.3 35.0 - 47.0 % LAB HEMETOLOGY METHOD 05/29/2025 11:17 AM [facility] MCV 91.9 79.0 - 98.0 FL LAB HEMETOLOGY METHOD 05/29/2025 11:17 AM [facility] MCH 30.4 27.0 - 32.0 pcg LAB HEMETOLOGY METHOD 05/29/2025 11:17 AM [facility] MCHC 33.0 32.0 - 37.0 g/dL LAB HEMETOLOGY METHOD 05/29/2025 11:17 AM [facility] RDW 12.6 11.0 - 15.0 % LAB HEMETOLOGY METHOD 05/29/2025 11:17 AM [facility] Platelets 290 130 - 400 K/mcL LAB HEMETOLOGY METHOD 05/29/2025 11:17 AM [facility] MPV 9.9 7.0 - 11.0 FL LAB HEMETOLOGY METHOD 05/29/2025 11:17 AM [facility] NRBC 0.0 <1.0 % LAB HEMETOLOGY METHOD 05/29/2025 11:17 AM [facility] NRBC Absolute 0.00 <0.10 K/mcL LAB HEMETOLOGY METHOD 05/29/2025 11:17 AM [facility] Neutrophils Relative 58.7 % LAB HEMETOLOGY METHOD 05/29/2025 11:17 AM [facility] Lymphocytes Relative 26.7 % LAB HEMETOLOGY METHOD 05/29/2025 11:17 AM [facility] Monocytes Relative 11.6 % LAB HEMETOLOGY METHOD 05/29/2025 11:17 AM [facility] Eosinophils Relative 1.9 % LAB HEMETOLOGY METHOD 05/29/2025 11:17 AM [facility] Basophils Relative 0.7 % LAB HEMETOLOGY METHOD 05/29/2025 11:17 AM EDT [facility] Immature Granulocytes Relative 0.4 % LAB HEMETOLOGY METHOD 05/29/2025 11:17 AM EDT [facility] Neutrophils Absolute 3.34 1.50 - 7.00 K/mcL LAB HEMETOLOGY METHOD 05/29/2025 11:17 AM EDT [facility] Lymphocytes Absolute 1.52 1.00 - 5.00 K/mcL LAB HEMETOLOGY METHOD 05/29/2025 11:17 AM EDT [facility] Monocytes Absolute 0.66 0.20 - 1.00 K/mcL LAB HEMETOLOGY METHOD 05/29/2025 11:17 AM EDT [facility] Eosinophils Absolute 0.11 0.00 - 0.50 K/mcL LAB HEMETOLOGY METHOD 05/29/2025 11:17 AM EDT [facility] Basophils Absolute 0.04 0.00 - 0.20 K/mcL LAB HEMETOLOGY METHOD 05/29/2025 11:17 AM EDT [facility] Immature Granulocytes Absolute 0.02 0.00 - 0.03 K/mcL LAB HEMETOLOGY METHOD 05/29/2025 11:17 AM T [facility] Blood Venous blood specimen / Unknown Venipuncture / Unknown 05/29/2025 10:35 AM EDT 05/29/2025 10:35 AM EDT [facility] LAB BLOOD ORDERABLES Final Resul t [facility] [address] [place] [address], * Thyroid stimulating hormone (05/29/2025 10:35 AM EDT) TSH 2.95 0.40 - 4.00 mcIU/mL LAB CHEMISTRY METHOD 05/29/2025 12:58 PM EDT [facility] Blood Venous blood specimen / Unknown Venipuncture / Unknown 05/29/2025 10:35 AM EDT 05/29/2025 10:35 AM EDT [facility] LAB BLOOD ORDERABLES Final Resul t Performing Organization Address [facility]/ZIP Co de Phone Number [facility] [address] [place] [address], [place] [phone] * Hemoglobin A1c (05/29/2025 10:35 AM EDT) Pathologist [facility] Hemoglobin A1C 5.4 <6.5 % LAB CHEMISTRY METHOD 05/29/2025 1:48 PM EDT [facility] Mean Bld Glu Estim. 108 mg/dL LAB CHEMISTRY METHOD 05/29/2025 1:48 PM EDT [facility] Blood Venous blood specimen / Unknown Venipuncture / Unknown 05/29/2025 10:35 AM EDT 05/29/2025 10:35 AM EDT [facility] BLOOD ORDERABLES Final Resul t Performing Organization Address [facility]/ZIP Co de Phone Number [facility] [address] [place] [address], [place] [phone] * (ABNORMAL) Comprehensive metabolic panel (05/29/2025 10:35 AM EDT) [facility] Sodium 142 133 - 145 mmol/L LAB CHEMISTRY METHOD 05/29/2025 12:08 PM EDT [facility] Potassium 4.0 3.5 - 5.5 mmol/L LAB CHEMISTRY METHOD 05/29/2025 12:08 PM EDT [facility] Chloride 109 96 - 110 mmol/L LAB CHEMISTRY METHOD 05/29/2025 12:08 PM EDT [facility] CO2 28 21 - 32 mmol/L LAB CHEMISTRY METHOD 05/29/2025 12:08 PM EDT [facility] Anion Gap 5 3 - 11 LAB CHEMISTRY METHOD 05/29/2025 12:08 PM [facility] Glucose 96 70 - 100 mg/dL LAB CHEMISTRY METHOD 05/29/2025 12:08 PM [facility] BUN 10 5 - 25 mg/dL LAB CHEMISTRY METHOD 05/29/2025 12:08 PM [facility] Creatinine 0.97 0.50 - 1.10 mg/dL LAB CHEMISTRY METHOD 05/29/2025 12:08 PM [facility] eGFR 67 >=60 mL/min/1. 73m2 LAB CHEMISTRY METHOD 05/29/2025 12:08 PM [facility] Comment:Calculation based on the Chronic Kidney Disease Epidemiology Collaboration (CKD-EPI) equation refit without adjustment for race. BUN/Creatinine Ratio 10.3 LAB CHEMISTRY METHOD 05/29/2025 12:08 PM [facility] Calcium 8.2(L) 8.5 - 10.5 mg/dL LAB CHEMISTRY METHOD 05/29/2025 12:08 PM [facility] AST (SGOT) 16 10 - 42 unit/L LAB CHEMISTRY METHOD 05/29/2025 12:08 [facility] ALT (SGPT) 23 10 - 60 unit/L LAB CHEMISTRY METHOD 05/29/2025 12:08 PM [facility] Alkaline Phosphatase 75 42 - 121 unit/L LAB CHEMISTRY METHOD 05/29/2025 12:08 PM [facility] Total Protein 6.3 6.0 - 8.0 g/dL LAB CHEMISTRY METHOD 05/29/2025 12:08 PM [facility] Albumin 3.5 3.2 - 5.0 g/dL LAB CHEMISTRY METHOD 05/29/2025 12:08 PM [facility] Total Bilirubin 0.4 0.0 - 1.4 mg/dL LAB CHEMISTRY METHOD 05/29/2025 12:08 PM EDT [facility] Blood Venous blood specimen / Unknown Venipuncture / Unknown 05/29/2025 10:35 AM EDT 05/29/2025 10:35 AM EDT [facility] LAB BLOOD ORDERABLES Final Resul t [facility] [address] [place] [address], from Last 3 Months Insurance 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
--- OUTSIDE RECORDS SUMMARY | 2025-06-19 15:50 | XMS_ITS | Continuity of Care Document ---
Author Organization [facility] Address [address] [facility] [address] [place] [address] Insurance Providers Payer Plan Claims Address Claims Phone Policy Number Group Number Relation Employer Guarantor Name Guarantor Guarantor Address Guarantor Phone [employer] [address] [facility] [address] [address] [id number] Self Kelly Gaona [address] [place] [id number] [facility] [place] [address] tel:[phone] Self Kelly Gaona [address] [place] [address] [facility], [address], [place] [address] tel:[phone] Self Kelly Gaona [address] [place] [id number] Problems Unknown Problems Results Test Result Date/Time Value / Unit Interp. Refere nce Range Comp. Metabolic Panel (14)[[id number]] Collected: 09/27/2024 04:20 PM Specimen Received: 09/27/2024 05:00 AM Source: [facility] Glucose [[id number]] 09/28/2024 12:16 PM 94 mg/dL 70-99 mg/dL BUN [[id number]] 09/28/2024 12:18 PM 18 mg/dL 8-2 7 mg/dL Creatinine [[id number]] 09/28/2024 12:16 PM 0.97 mg/dL 0.57-1.00 mg/dL eGFR [[id number]] 09/28/2024 12:16 PM 66 mL/min/1.73 >59 mL/min/1.73 BUN/Creatinine Ratio [[id number]] 09/28/2024 12:18 PM 19 12-28 Sodium [524432] 09/28/2024 12:18 PM 142 mmol/L 134-144 mmol/L Potassium [[id number]] 09/28/2024 12:18 PM 4.3 mmol/L 3.5-5.2 mmol/L Chloride [[id number]] 09/28/2024 12:18 PM 105 mmol/L 96-106 mmol/L Carbon Dioxide, Total [391470] 09/28/2024 05:53 PM 16 mmol/L L 20-29 mmol/L Calcium [187939] 09/28/2024 12:18 PM 9.9 mg/dL 8.7-10.3 mg/dL Protein, Total [833032] 09/28/2024 12:16 PM 6.4 g/dL 6.0-8.5 g/dL Albumin [811764] 09/28/2024 12:16 PM 4.4 g/dL 3.9-4.9 g/dL Globulin, Total [374617] 09/28/2024 12:16 PM 2.0 g/dL 1.5-4.5 g/dL Bilirubin, Total [612966] 09/28/2024 12:18 PM 0.4 mg/dL 0.0-1.2 mg/dL Alkaline Phosphatase [442066] 09/28/2024 12:18 PM 79 IU/L 44-121 IU/L AST (SGOT) [[id number]] 09/28/2024 12:16 PM 24 IU/L 0-40 IU/L ALT (SGPT) [724817] 09/28/2024 12:18 PM 14 IU/L 0-32 IU/L Lipid Panel[[id number]] Collected: 09/27/2024 04:20 PM Specimen Received: 09/27/2024 05:00 AM Source: [facility] Cholesterol, Total [[id number]] 09/28/2024 12:16 PM 249 mg/dL H 100-199 mg/d L Triglycerides [691113] 09/28/2024 04:30 PM 56 mg/dL 0-149 mg/dL HDL Cholesterol [695232] 09/28/2024 12:18 PM 94 mg/dL >39 mg/dL VLDL Cholesterol Timi [982759] 09/28/2024 04:30 PM 9 mg/dL 5-40 mg/dL LDL Chol Calc ([facility]) [[id number]] 09/28/2024 04:30 PM 146 mg/dL H 0-99 mg/dL Hemoglobin A1c[568557] Collected: 09/27/2024 04:20 PM Specimen Received: 09/27/2024 05:00 AM Source: [facility] Hemoglobin A1c [[id number]] 09/28/2024 06:55 AM 5.5 % 4.8-5.6 % . Prediabetes: 5.7 - 6.4 Kaylin betes: >6.4 Glycemic control for adults with diabetes: 7.0 Allergies, adverse reactions, alerts No known allergies and adverse reactions Medications No administered medications reported Vital Signs No vital signs reported Social History No smoking Hx information available
--- OUTSIDE RECORDS SUMMARY | 2025-06-19 15:50 | XMS_ITS | Continuity of Care Document ---
Author Organization [facility] Address [address] [facility] [address] [place] [address] Insurance Providers Payer Plan Claims Address Claims Phone Policy Number Group Number Relation Employer Guarantor Name Guarantor Guarantor Address Guarantor Phone [employer]AN[employer] REDD [address] [facility] [address] [address] [id number] Self Kelly Gaona [address] [place] [address] [facility] [place] [address] tel:[phone] Self Kelly Gaona [address] [place] [address] [facility], [address] [address] tel:[phone] Self Kelly Gaona [address] [place] [address] Problems Unknown Problems Results Test Result Date/Time Value / Unit Interp. Refere nce Range Comp. Metabolic Panel (14)[[id number]] Collected: 09/27/2024 04:20 PM Specimen Received: 09/27/2024 05:00 AM Source: [facility] Glucose [[id number]] 09/28/2024 12:16 PM 94 mg/dL 70-99 mg/dL BUN [[id number]] 09/28/2024 12:18 PM 18 mg/dL 8-2 7 mg/dL Creatinine [291583] 09/28/2024 12:16 PM 0.97 mg/dL 0.57-1.00 mg/dL eGFR [[id number]] 09/28/2024 12:16 PM 66 mL/min/1.73 >59 mL/min/1.73 BUN/Creatinine Ratio [[id number]] 09/28/2024 12:18 PM 19 12-28 Sodium [378925] 09/28/2024 12:18 PM 142 mmol/L 134-144 mmol/L Potassium [328607] 09/28/2024 12:18 PM 4.3 mmol/L 3.5-5.2 mmol/L Chloride [436772] 09/28/2024 12:18 PM 105 mmol/L 96-106 mmol/L Carbon Dioxide, Total [599520] 09/28/2024 05:53 PM 16 mmol/L L 20-29 mmol/L Calcium [700124] 09/28/2024 12:18 PM 9.9 mg/dL 8.7-10.3 mg/dL Protein, Total [[id number]] 09/28/2024 12:16 PM 6.4 g/dL 6.0-8.5 g/dL Albumin [039351] 09/28/2024 12:16 PM 4.4 g/dL 3.9-4.9 g/dL Globulin, Total [602320] 09/28/2024 12:16 PM 2.0 g/dL 1.5-4.5 g/dL Bilirubin, Total [623934] 09/28/2024 12:18 PM 0.4 mg/dL 0.0-1.2 mg/dL Alkaline Phosphatase [684122] 09/28/2024 12:18 PM 79 IU/L 44-121 IU/L AST (SGOT) [126507] 09/28/2024 12:16 PM 24 IU/L 0-40 IU/L ALT (SGPT) [029693] 09/28/2024 12:18 PM 14 IU/L 0-32 IU/L Lipid Panel[[id number]] Collected: 09/27/2024 04:20 PM Specimen Received: 09/27/2024 05:00 AM Source: [facility] Cholesterol, Total [[id number]] 09/28/2024 12:16 PM 249 mg/dL H 100-199 mg/d L Triglycerides [[id number]] 09/28/2024 04:30 PM 56 mg/dL 0-149 mg/dL HDL Cholesterol [[id number]] 09/28/2024 12:18 PM 94 mg/dL >39 mg/dL VLDL Cholesterol Timi [410512] 09/28/2024 04:30 PM 9 mg/dL 5-40 mg/dL LDL Chol Calc ([facility]) [650434] 09/28/2024 04:30 PM 146 mg/dL H 0-99 mg/dL Hemoglobin A1c[[id number]] Collected: 09/27/2024 04:20 PM Specimen Received: 09/27/2024 05:00 AM Source: [facility] Hemoglobin A1c [[id number]] 09/28/2024 06:55 AM 5.5 % 4.8-5.6 % . Prediabetes: 5.7 - 6.4 Kaylin betes: >6.4 Glycemic control for adults with diabetes: 7.0 Allergies, adverse reactions, alerts No known allergies and adverse reactions Medications No administered medications reported Vital Signs No vital signs reported Social History No smoking Hx information available
--- OUTSIDE RECORDS SUMMARY | 2025-06-19 15:50 | XMS_ITS | Clinical Summary ---
Author Organization [facility] Address [address] [place] [phone] Phone Care Team Providers Care Rack Loader Name Role Phone Mau Quispe DO Primary Care Provider [phone] Allergies Active Allergy Reactions Criticality Noted Date [...] mouth 1 (one) time each day Active montelukast (SINGULAIR) 10 MG tablet Take 1 tablet by mouth at bed time 8 Active azelastine (ASTELIN) 0.1 % nasal spray Administer 1 spray into each nostril 2 (two) times a day Use in each nostril as directed Active pantoprazole (PROTONIX) 40 MG EC tablet Take 40 mg by mouth in the morning and 40 mg in the evening. Do not crush, chew, or split.. Active potassium chloride 10 MEQ CR tablet Take 1 tablet (10 mEq total) by mouth 1 (one) time each day Do not crush, chew, or split. 30 tablet 11 09/11/202 4 09/11/20 25 Active aMILoride (MIDAMOR) 5 MG tabletIndicatio ns:Hypokalemia, Hypertension Take 1 tablet (5 mg total) by mouth 1 (one) time each day 90 tablet 3 5 12/05/19 26 Active arformoterol (BROVANA) 15 MCG/2ML nebulizer solution USE 2 ML VIA NEBULIZER EVERY 12 HOURS Active baclofen (LIORESAL) 10 MG tablet Take 10 mg by mouth at bed time 5 Active budesonide (PULMICORT) 0.5 MG/2ML nebulizer solution INHALE 2ML BY MOUTH VIA NEBULIZER TWICE DAILY 5 Active D3-50 1.25 MG (56047 UT) capsule Take 50,000 Units by mouth 1 (one) time per week 5 Active ipratropium-alb uterol (DUO-NEB) 0.5-2.5 mg/3 mL nebulizer solution USE 3 ML VIA NEBULIZER FOUR TIMES DAILY 4 Active Ubrelvy 100 MG tablet TAKE HALF TO 1 TABLET BY MOUTH NEEDED FOR MIGRAINE HEADACHE FOR 30 DAYS. TAKE AT ONSET OF MIGRAINE. MAY REPEAT IN 2 HOURS 5 Active Spiriva Respimat 2.5 MCG/ACT aerosol solution inhale 2 puffs by mouth daily Active Magnesium Oxide -Mg Supplement 500 MG tabletIndicatio ns:Hypomagnesem ia Take 1 tablet by mouth 1 (one) time each day 30 tablet 5 06/07/20 25 Active Problems Problem Noted Date Diagnosed Date Stage 3a chronic kidney disease 01/28/2025 Hypo-osmolality and hyponatremia 01/28/2025 Hypertension 01/28/2025 Hypomagnesemia 01/28/2025 Hyperaldosteronism, not otherwise specified 01/2025 Gitelman syndrome 01/19/2023 Hypokalemia 01/19/2023 Irritable bowel [...] Overview (04/06/2022): ER visit to [facility] on 09/24/21 Tricuspid valve regurgitation 03/09/2022 Severe persistent allergic asthma 04/04/2018 Overview (04/05/2022): Added automatically from request for surgery [id number] Ventral hernia 01/19/2018 Eczema 12/21/2017 Depressive disorder 10/11/2017 Body mass index 40+ - severely obese 09/06/2017 Anxiety 08/02/2017 Asthmatic bronchitis 07/04/2017 Overview (04/05/2022): Added automatically from request for surgery [id number] Gastro-esophageal reflux disease without esophag itis 02/28/2017 Multiple nodules of lung 02/28/2017 Overview (04/05/2022): Followed outside of the [facility] system stable from [id number] Obstructive sleep apnea syndrome 02/28/2017 Overview (04/05/2022): CPAP Seasonal allergic rhinitis 02/28/2017 Encounters Date Type Department Care Team Description 06/17/2025 Refill [facility] [address] [phone] Elkin Whitt 06/13/2025 Orders Only [facility] [address] [phone] Elkin Whitt Hypomagnesemia 05/08/2025 Orders Only [facility] [address] [phone] Krystyna Warren ARNP Hypomagnesemia (Primary Dx) 05/08/2025 Orders Only [facility] [place] [id number] [address] Krystyna Warren ARNP Hypomagnesemia (Primary Dx) 05/08/2025 Refill [facility] [address] [address] Krystyna Gray from Last 3 Months Immunizations Immunization Administration Dates Next Due Pneumococcal Polysaccharide 09/18/2014 [...] Sign Reading Time Taken Comments Blood Pressure 112/70 01/28/2025 9:16 AM EST Pulse 80 01/28/2025 9:16 AM EST Temperature - - Respiratory Rate - - Oxygen Saturation 99% 01/28/2025 9:16 AM EST Inhaled Oxygen Concentration - - Weight 115 kg (253 lb) 01/28/2025 9:16 AM EST Height 165.1 cm (5' 5 ) 07/27/2022 1:01 PM EDT Body Mass Index 42.1 07/27/2022 1:01 PM EDT Plan of Treatment Upcoming Encounters Date Type Department Care Team (Late st Contact Info) Description 01/28/2026 9:00 AM EST [facility] [address] [phone] Krystyna Warren ARNP [address] [phone] Health Maintenance Due Date Last Done Comments Breast Cancer Screening 1965 Colorectal Cancer Screening: Annual FOBT 2012 Colorectal Cancer Screening: Sigmoidoscopy 2012 Pneumococcal Vaccine: 50+ Years (2 of 2 - PCV) 09/18/2015 09/18/2014 Influenza Vaccine (#1) 2025 3, 11/25/2022, 10/17/2016 Colorectal Cancer Screening: Colonoscopy 05/06/2032 05/06/2022 Pneumococcal Vaccine: Peds ( 0 to 5 Years) and At-Risk Patients (6 to 49 Years) Discontinued 09/18/2014 Hepatitis B Vaccine Aged Out No longe r eligible based on patient's age to complete this [place] [address] Member Subscriber Plan / Payer (Ef fective 2023-Present) Name:Kelly Gaona Relation to Subscriber:Self Name:Kelly Gaona Payer ID:Not on file Type:Not on file Address: [address] [id number] Medicaid [place] [facility] Member Subscriber Plan / Payer (Ef fective 2023-Present) Name:VaughnkaiaTherona Relation to Subscriber:Self Name:Kelly Gaona Payer ID:Not on file Type:Not on file Address: [address] [phone] Medicaid [place] Care Teams Rack Loader Relationship Specialty Start Date End Date Mau Quispe DO [address] [place] [address] PCP - General Internal Medicine 02/24/22
[2025-06-19 17:16] VITALS: BP 116/56; PULSE 52; RESP 16; TEMP 36.7; O2SAT 95
== END 2025-06-19 17:17 | disposition home or self-care (01) ==
PROVIDERS: Emergency Provider Emergency Medicine; PCP Internal Medicine
DX: S52.041A Displaced fracture of coronoid process of right ulna, initial encounter for closed fracture (principal); S52.571A Other intraarticular fracture of lower end of right radius, initial encounter for closed fracture; M25.521 Pain in right elbow; M25.531 Pain in right wrist; J44.9 Chronic obstructive pulmonary disease, unspecified; X50.1XXA Overexertion from prolonged static or awkward postures, initial encounter; Y93.01 Activity, walking, marching and hiking; Y92.9 Unspecified place or not applicable; Y99.8 Other external cause status
CPT/HCPCS: 29125; 73080; 73110; 99284

== ENCOUNTER → 2025-06-19 15:24 | Outpatient (BNV) | payer MEDICARE, MEDICAID, SELFPAY | PROVIDERS: Emergency Provider Emergency Medicine; PCP Internal Medicine; Visit Provider Radiology Diagnostic Radiology | DX: S52.041A Displaced fracture of coronoid process of right ulna, initial encounter for closed fracture (principal); S52.571A Other intraarticular fracture of lower end of right radius, initial encounter for closed fracture | CPT/HCPCS: 73080; 73110 ==

== ENCOUNTER 2025-06-25 13:00 | Outpatient (REF) | payer MEDICARE, MEDICAID, SELFPAY ==
--- NOTE | ~2025-06-25 | XR_ITS ---
EXAMINATION: XR ELBOW 3 VIEWS RIGHT HISTORY: M25.521 - Pain in right elbow COMPARISON: Comparison is made with the prior examination dated 06/19/2025. FINDINGS: Three views of the right elbow are submitted. Osseous mineralization is normal. Again seen is a comminuted intra-articular fracture of the coronoid process of the ulna. The fracture lines remain visible. The joint spaces are preserved. There is a joint effusion with elevation of the anterior fat pad. XR/XR elbow RT min 3V IMPRESSION: Comminuted intra-articular fracture of the coronoid process of the ulna. Electronically signed by: Eric Howard MD 06/25/2025 02:12 PM EDT
--- NOTE | ~2025-06-25 | XR_ITS ---
EXAMINATION: XR WRIST 3 OR MORE VIEWS RIGHT HISTORY: M25.531 - Pain in right wrist COMPARISON: Comparison is made with the prior examination dated 06/16/2025. FINDINGS: Three views of the right wrist are submitted. Osseous mineralization is normal. Again seen is a nondisplaced fracture of the distal radius. The fracture line is less well visualized. The joint spaces are preserved. The soft tissues are unremarkable. XR/XR wrist RT min 3V IMPRESSION: Nondisplaced fracture of the distal radius. Electronically signed by: Eric Howard MD 06/25/2025 01:33 PM EDT
--- OUTSIDE RECORDS SUMMARY | 2025-06-25 13:46 | XMS_ITS | Clinical Summary ---
Author Organization [address] [address] Care Team Providers Care Nursing Home Director Name Role Phone Mau Quispe DO Primary Care Provider [phone] Social History Tobacco Use Types Packs/Day Years [...] GENERIC COMMERCIAL GENERIC COMMERCIAL GENERIC Care Teams Nursing Home Director Relationship Specialty Start Date End Date Mau Quispe DO [address] [place] [phone] PCP - General Internal Medicine 02/15/17
--- OUTSIDE RECORDS SUMMARY | 2025-06-25 13:46 | XMS_ITS | Clinical Summary ---
Author Organization [address] [facility] Address [address] [place] [phone] Phone Care Team Providers Care Banbury Operator Name Role Phone Mau Quispe DO Primary Care Provider [phone] Medical History Medical History Date Comments Depression 10/11/2017 DX:Depression Eczema 12/21/2017 DX:Eczema Morbid obesity with BMI of 4 5.0-49.9, adult ([facility] V24, [facility] V28) 09/06/2017 DX:Morbid obesity with BMI of 45.0-49.9, adult ([facility]) Ventral hernia 01/19/2018 DX:Ventral herni a Obstructive [...] LAB CHEMISTRY METHOD 05/29/2025 12:08 PM EDT [facility] Triglycerides 67 0 - 150 mg/dL LAB CHEMISTRY METHOD 05/29/2025 12:08 PM EDT [facility] HDL 95 >=40 mg/dL LAB CHEMISTRY METHOD 05/29/2025 12:08 PM EDT [facility] LDL Calculated 134(H) 0 - 100 mg/dL LAB CHEMISTRY METHOD 05/29/2025 12:08 PM EDT [facility] VLDL Cholesterol Timi 13.4 mg/dL LAB CHEMISTRY METHOD 05/29/2025 12:08 PM EDT [facility] Non HDL Chol. (LDL+VLDL) 147(H) <145 mg/dL LAB CHEMISTRY METHOD 05/29/2025 12:08 PM EDT [facility] Chol/HDL Ratio 2.5 0.0 - 4.4 LAB CHEMISTRY METHOD 05/29/2025 12:08 PM [facility] Blood Venous blood specimen / Unknown Venipuncture / Unknown 05/29/2025 10:35 AM EDT 05/29/2025 10:35 AM EDT [facility] LAB BLOOD ORDERABLES Final Resul t [facility] [address] [place] [address], * CBC auto differential (05/29/2025 10:35 AM EDT) WBC 5.7 4.8 - 10.8 K/mcL LAB HEMETOLOGY METHOD 05/29/2025 11:17 AM EDT [facility] RBC 4.70 3.80 - 4.80 M/mcL LAB HEMETOLOGY METHOD 05/29/2025 11:17 AM EDT [facility] Hemoglobin 14.3 11.5 - 16.0 g/dL LAB HEMETOLOGY METHOD 05/29/2025 11:17 AM T [facility] Hematocrit 43.3 35.0 - 47.0 % LAB HEMETOLOGY METHOD 05/29/2025 11:17 AM [facility] MCV 91.9 79.0 - 98.0 FL LAB HEMETOLOGY METHOD 05/29/2025 11:17 AM [facility] MCH 30.4 27.0 - 32.0 pcg LAB HEMETOLOGY METHOD 05/29/2025 11:17 AM [facility] MCHC 33.0 32.0 - 37.0 g/dL LAB HEMETOLOGY METHOD 05/29/2025 11:17 AM [facility] RDW 12.6 11.0 - 15.0 % LAB HEMETOLOGY METHOD 05/29/2025 11:17 AM [facility] Platelets 290 130 - 400 K/mcL LAB HEMETOLOGY METHOD 05/29/2025 11:17 AM [facility] MPV 9.9 7.0 - 11.0 FL LAB HEMETOLOGY METHOD 05/29/2025 11:17 AM [facility] NRBC 0.0 <1.0 % LAB HEMETOLOGY METHOD 05/29/2025 11:17 AM [facility] NRBC Absolute 0.00 <0.10 K/mcL LAB HEMETOLOGY METHOD 05/29/2025 11:17 AM [facility] Neutrophils Relative 58.7 % LAB HEMETOLOGY METHOD 05/29/2025 11:17 AM [facility] Lymphocytes Relative 26.7 % LAB HEMETOLOGY METHOD 05/29/2025 11:17 AM [facility] Monocytes Relative 11.6 % LAB HEMETOLOGY METHOD 05/29/2025 11:17 AM [facility] Eosinophils Relative 1.9 % LAB HEMETOLOGY METHOD 05/29/2025 11:17 AM [facility] Basophils Relative 0.7 % LAB HEMETOLOGY METHOD 05/29/2025 11:17 AM EDT [facility] Immature Granulocytes Relative 0.4 % LAB HEMETOLOGY METHOD 05/29/2025 11:17 AM EDT [facility] Neutrophils Absolute 3.34 1.50 - 7.00 K/mcL LAB HEMETOLOGY METHOD 05/29/2025 11:17 AM EDT [facility] Lymphocytes Absolute 1.52 1.00 - 5.00 K/mcL LAB HEMETOLOGY METHOD 05/29/2025 11:17 AM EDT [facility] Monocytes Absolute 0.66 0.20 - 1.00 K/mcL LAB HEMETOLOGY METHOD 05/29/2025 11:17 AM EDT [facility] Eosinophils Absolute 0.11 0.00 - 0.50 K/mcL LAB HEMETOLOGY METHOD 05/29/2025 11:17 AM EDT [facility] Basophils Absolute 0.04 0.00 - 0.20 K/mcL LAB HEMETOLOGY METHOD 05/29/2025 11:17 AM EDT [facility] Immature Granulocytes Absolute 0.02 0.00 - 0.03 K/mcL LAB HEMETOLOGY METHOD 05/29/2025 11:17 AM T [facility] Blood Venous blood specimen / Unknown Venipuncture / Unknown 05/29/2025 10:35 AM EDT 05/29/2025 10:35 AM EDT [facility] LAB BLOOD ORDERABLES Final Resul t [facility] [address] [place] [address], * Thyroid stimulating hormone (05/29/2025 10:35 AM EDT) TSH 2.95 0.40 - 4.00 mcIU/mL LAB CHEMISTRY METHOD 05/29/2025 12:58 PM EDT [facility] Blood Venous blood specimen / Unknown Venipuncture / Unknown 05/29/2025 10:35 AM EDT 05/29/2025 10:35 AM EDT [facility] LAB BLOOD ORDERABLES Final Resul t Performing Organization Address [facility]/ZIP Co de Phone Number [facility] [address] [place] [address], [place] [phone] * Hemoglobin A1c (05/29/2025 10:35 AM EDT) Pathologist [facility] Hemoglobin A1C 5.4 <6.5 % LAB CHEMISTRY METHOD 05/29/2025 1:48 PM EDT [facility] Mean Bld Glu Estim. 108 mg/dL LAB CHEMISTRY METHOD 05/29/2025 1:48 PM EDT [facility] Blood Venous blood specimen / Unknown Venipuncture / Unknown 05/29/2025 10:35 AM EDT 05/29/2025 10:35 AM EDT [facility] LAB BLOOD ORDERABLES Final Resul t Performing Organization Address [facility]/ZIP Co de Phone Number [facility] [address] [place] [address], [place] [phone] * (ABNORMAL) Comprehensive metabolic panel (05/29/2025 10:35 AM EDT) [facility] Sodium 142 133 - 145 mmol/L LAB CHEMISTRY METHOD 05/29/2025 12:08 PM EDT [facility] Potassium 4.0 3.5 - 5.5 mmol/L LAB CHEMISTRY METHOD 05/29/2025 12:08 PM EDT [facility] Chloride 109 96 - 110 mmol/L LAB CHEMISTRY METHOD 05/29/2025 12:08 PM EDT [facility] CO2 28 21 - 32 mmol/L LAB CHEMISTRY METHOD 05/29/2025 12:08 PM EDT [facility] Anion Gap 5 3 - 11 LAB CHEMISTRY METHOD 05/29/2025 12:08 PM [facility] Glucose 96 70 - 100 mg/dL LAB CHEMISTRY METHOD 05/29/2025 12:08 PM [facility] BUN 10 5 - 25 mg/dL LAB CHEMISTRY METHOD 05/29/2025 12:08 PM [facility] Creatinine 0.97 0.50 - 1.10 mg/dL LAB CHEMISTRY METHOD 05/29/2025 12:08 PM [facility] eGFR 67 >=60 mL/min/1. 73m2 LAB CHEMISTRY METHOD 05/29/2025 12:08 PM [facility] Comment:Calculation based on the Chronic Kidney Disease Epidemiology Collaboration (CKD-EPI) equation refit without adjustment for race. BUN/Creatinine Ratio 10.3 LAB CHEMISTRY METHOD 05/29/2025 12:08 PM [facility] Calcium 8.2(L) 8.5 - 10.5 mg/dL LAB CHEMISTRY METHOD 05/29/2025 12:08 PM [facility] AST (SGOT) 16 10 - 42 unit/L LAB CHEMISTRY METHOD 05/29/2025 12:08 [facility] ALT (SGPT) 23 10 - 60 unit/L LAB CHEMISTRY METHOD 05/29/2025 12:08 PM [facility] Alkaline Phosphatase 75 42 - 121 unit/L LAB CHEMISTRY METHOD 05/29/2025 12:08 PM [facility] Total Protein 6.3 6.0 - 8.0 g/dL LAB CHEMISTRY METHOD 05/29/2025 12:08 PM [facility] Albumin 3.5 3.2 - 5.0 g/dL LAB CHEMISTRY METHOD 05/29/2025 12:08 PM [facility] Total Bilirubin 0.4 0.0 - 1.4 mg/dL LAB CHEMISTRY METHOD 05/29/2025 12:08 PM EDT [facility] Blood Venous blood specimen / Unknown Venipuncture / Unknown 05/29/2025 10:35 AM EDT 05/29/2025 10:35 AM EDT [facility] LAB BLOOD ORDERABLES Final Resul t [facility] [address] [place] [address], from Last 3 Months Insurance [facility] Advance Directives Documents on File Type Date Recorded Patient Membership Secretary Expl anation Health Care Decision (hx) 09/27/2016 AD HIGHTOWER DIRECTIVE Health Care Decision (hx) 09/27/2016 AD HIGHTOWER DIRECTIVE Health Care Decision (hx) 09/27/2016 AD HIGHTOWER DIRECTIVE Care Teams Banbury Operator Relationship Specialty Start Date End Date Mau Quispe DO [address] [place] [phone] PCP - General Internal Medicine 11/08/17
--- OUTSIDE RECORDS SUMMARY | 2025-06-25 13:46 | XMS_ITS | Clinical Summary ---
Author Organization [facility] Address [address] [place] [phone] Phone Care Team Providers Care Ranch Helper Name Role Phone Mau Quispe DO Primary Care Provider [phone] Allergies Active Allergy Reactions Criticality Noted Date [...] chew, or split. 30 tablet 11 4 09/11/20 25 Active aMILoride (MIDAMOR) 5 [...] TWICE DAILY 5 Active D3-50 1.25 MG (97206 UT) capsule Take 50,000 Units by mouth [...] Syncope 03/09/2022 Overview (04/06/2022): ER visit to [facility] on 09/24/21 Tricuspid valve regurgitation 03/09/2022 Severe persistent allergic asthma 04/04/2018 Overview (04/05/2022): Added automatically from request for surgery [id number] Ventral hernia 01/19/2018 Eczema 12/21/2017 Depressive disorder 10/11/2017 Body mass index 40+ - severely obese 09/06/2017 Anxiety 08/02/2017 Asthmatic bronchitis 07/04/2017 Overview (04/05/2022): Added automatically from request for surgery [id number] Gastro-esophageal reflux disease without esophag itis 02/28/2017 Multiple nodules of lung 02/28/2017 Overview (04/05/2022): Followed outside of the [facility] system stable from [id number] Obstructive sleep apnea syndrome 02/28/2017 Overview (04/05/2022): CPAP Seasonal allergic rhinitis 02/28/2017 Encounters Date Type Department Care Team Description 06/17/2025 Refill [facility] [address] [phone] Elkin Whitt 06/13/2025 Orders Only [facility] [address] [phone] Elkin Whitt Hypomagnesemia 05/08/2025 Orders Only [facility] [address] [address] Krystyna Warren ARNP Hypomagnesemia (Primary Dx) 05/08/2025 Orders Only [facility] [place] [id number] [address] Krystyna Warren ARNP Hypomagnesemia (Primary Dx) 05/08/2025 Refill [facility] [address] [address] Krystyna Gray from Last 3 Months Immunizations [...] [facility] Visit [facility] [address] [phone] Krystyna Warren ARNP [address] [phone] Health Maintenance Due Date Last [...] patient's age to complete this topic [place] [address] Member Subscriber Plan / Payer (Ef fective 2023-Present) Name:Kelly Gaona Relation to Subscriber:Self Name:Kelly Gaona Payer ID:Not on file Type:Not on file Address: [address] [phone] Medicaid [place] [facility] Member Subscriber Plan / Payer (Ef fective 2023-Present) Name:VaughnkaiaTherona Relation to Subscriber:Self Name:Kelly Gaona Payer ID:Not on file Type:Not on file Address: [address] [id number] Medicaid [place] Care Teams Ranch Helper Relationship Specialty Start Date End Date Mau Quispe DO [address] [place] [address] PCP - General Internal Medicine 02/24/22
== END 2025-06-25 13:01 | disposition home or self-care (01) ==
LOC: HO.HOSX 13:00
DX: S52.041A Displaced fracture of coronoid process of right ulna, initial encounter for closed fracture (principal); S52.501A Unspecified fracture of the lower end of right radius, initial encounter for closed fracture; W18.30XA Fall on same level, unspecified, initial encounter; M25.531 Pain in right wrist; M25.521 Pain in right elbow
CPT/HCPCS: 25600; 73080; 73110; 99202

== ENCOUNTER 2025-06-25 13:17 | Outpatient (AMB) | payer MEDICARE, MEDICAID, SELFPAY ==
--- NOTE | 2025-06-25 13:22 | MHC.OFFVIS ---
Vital Signs 06/25/25 13:58 Handedness Left Intake Visit Reasons: FC-Rt wrist fx s/p fall DOI: 06/20/25 Intake Note: Kelly is a 59 year old left hand dominant female who presents today as a new patient for evaluation of a nondisplaced intra-articular fracture of the right distal radius, a nondisplaced right ulnar styloid fracture, and a mildly comminuted, minimally displaced fracture of the coronoid process of the ulna, DOI: 06/19/25. Patient presented to [facility] ED on 06/19/25 stating she fell backwards, off a window sill seat, landing on her outstretched right arm. At the ED she was placed on a posterior splint and a shoulder sling to be worn with ambulation. Splint was removed today in office for updated xrays. Reports she is having continued pain in the right wrist and right elbow at rest and it intensifies with movement. Numbness and tingling in the palm aspect of the right hand that radiates into the wrist. She reports pain and stiffness in the right middle finger. She says her elbow x-rays did make her pain worse. Allergies Sulfa (Sulfonamide Antibiotics) Allergy (Severe, Verified 06/25/25 13:59) Hives environmental allergies Allergy (Unknown, Verified 06/25/25 13:59) Unknown HPI HPI FC-Rt wrist fx s/p fall DOI: 06/20/25: Details: Kelly is a 59 year old left hand dominant female who presents today as a new patient for evaluation of a nondisplaced intra-articular fracture of the right distal radius, a nondisplaced right ulnar styloid fracture, and a mildly comminuted, minimally displaced fracture of the coronoid process of the ulna, DOI: 06/19/25. Patient presented to [facility] ED on 06/19/25 stating she fell backwards, off a window sill seat, landing on her outstretched right arm. At the ED she was placed on a posterior splint and a shoulder sling to be worn with ambulation. Splint was removed today in office for updated xrays. Reports she is having continued pain in the right wrist and right elbow at rest and it intensifies with movement. Numbness and tingling in the palm aspect of the right hand that radiates into the wrist. She reports pain and stiffness in the right middle finger. She says her elbow x-rays did make her pain worse. [facility] Medical History Depression Trigeminal neuralgia Hypertension GERD (gastroesophageal reflux disease) Morbid obesity Eczema Nasal polyposis Asthma-COPD overlap syndrome Chronic allergic rhinitis Pulmonary nodules SIERRA on CPAP Severe persistent asthma Surgical History Status post repair of paraesophageal diaphragmatic hernia Hx of cataract surgery Family History Father Lung cancer Diabetes Heart disease Mother Emphysema of lung Hypertension Bladder cancer TIA (transient ischemic attack) Social History Alcohol intake: current Alcohol intake frequency: a few times a month Patient Tobacco Use Status: Never used Tobacco Review of Systems Const All systems reviewed & are unremarkable except as noted in HPI and below Physical Exam Extrem Other: Patient is alert, oriented, and in no acute distress. Neuro: Normal sensation of the tips of all digits of the right hand at this time Vascular: Cap refill brisk Pain: No tenderness to palpation about right distal radius No tenderness to palpation about right elbow Skin: No lacerations or abrasions. General: Ecchymosis noted of right elbow and forearm No erythema, evidence of infection Psych: Appears grossly normal Affect normal Attitude cooperative Office Procedures AMB Fracture Care Details: Right distal radius fracture Fracture Billing Code: Fracture Billing Code Results Reviewed Results Reviewed: X-rays obtained in the office today and independently reviewed by me, Sreekanth Flores PA-C, demonstrate nondisplaced fracture of right distal radius and minimally displaced coronoid process fracture of right elbow, grade 2. Assessment & Plan Assessment & Plan (1) Fracture of coronoid process of right ulna: Code(s): S52.041A - Displaced fracture of coronoid process of right ulna, initial encounter for closed fracture Category: Medical (2) Fracture of right distal radius: Code(s): S52.501A - Unspecified fracture of the lower end of right radius, initial encounter for closed fracture Category: Medical Plan 1. Right Grade 2 coronoid process fracture 2. Nondisplaced right distal radius fracture Date of injury 06/20/2025 Patient is educated about this injury Patient is educated about the typical recovery course At this time, patient is educated that there is no surgical intervention indicated for her fractures At this time, patient is placed into a long arm cast Patient is educated on proper cast care and precautions Patient is educated she should use the sling with all activities, as the arm will be held in a very awkward angle and likely uncomfortable without Patient understands this in his amenable to this plan Follow-up in 2 weeks with repeat x-rays and cast off, sooner with any acute concerns. Anticipate referral to PT to begin gentle passive range of motion of the right shoulder at that time Orders: Orders XR wrist RT min 3V Today M25.531 - Pain in right wrist XR elbow RT min 3V Today M25.521 - Pain in right elbow Coding Level of Care Code New Pt Level 4 (15803) Diagnoses Fracture of coronoid process of right ulna S52.041A Fracture of right distal radius S52.501A CPT Codes Fracture Care - Fracture Billing Code: Fracture Billing Code ([id number])
== END 2025-06-25 14:56 | disposition home or self-care (01) ==
LOC: HO.HOS 13:18
PROVIDERS: PCP Internal Medicine
DX: S52.041A Displaced fracture of coronoid process of right ulna, initial encounter for closed fracture (principal); S52.501A Unspecified fracture of the lower end of right radius, initial encounter for closed fracture
CPT/HCPCS: 25600; 99204

== ENCOUNTER → 2025-06-25 13:19 | Outpatient (BNV) | payer MEDICARE, MEDICAID, SELFPAY | PROVIDERS: Visit Provider Radiology Diagnostic Radiology | DX: M25.521 Pain in right elbow (principal); M25.531 Pain in right wrist | CPT/HCPCS: 73080; 73110 ==

== ENCOUNTER 2025-06-27 13:27 | Outpatient (AMB) | payer MEDICARE, MEDICAID, SELFPAY ==
--- NOTE | 2025-06-27 13:31 | MHC.OFFVIS ---
Vital Signs 06/27/25 13:35 Height 5 ft 4 in Weight 245 lb 6 oz BMI 42.1 BP 118/86 Blood Pressure Location Lt brachial Position Sitting Pulse 57 Pulse Source Pulse Oximeter Pulse Oximetry (%) 97 Oxygen Delivery Method Room Air Intake Visit Reasons: 6mon follow-up Intake Note: Patient presents follow up Migraine. Labs in chart. Patient fall end broke right arm. Patient states migraines have been good. 1-2 per month. When does get one takes meds and less intensives migraine. but if takes meds and goes to sleep and its gone when she wakes up. Ticket Chopper Assembler Required: No Accompanied by: Self / Same As Patient Allergies Sulfa (Sulfonamide Antibiotics) Allergy (Severe, Verified 06/27/25 13:36) Hives environmental allergies Allergy (Unknown, Verified 06/27/25 13:36) Unknown Medication List - Last Reconciled 06/27/25 by ITA Pulliam albuterol sulfate 90 mcg/actuation 2 puffs PO Q6H PRN amiloride 5 mg PO DAILY arformoterol 2 mL inhalation Q12H baclofen 10 mg PO BEDTIME 30 days benzonatate 200 mg PO BID PRN 30 days budesonide 0.5 mg (2 mL) PO BID cetirizine (Zyrtec) 10 mg PO DAILY PRN codeine-guaifenesin 10-100 mg/5 mL 10 mL PO Q6H PRN 10 days CPAP (CPAP Machine/Device) As directed epinephrine IM PRN fluoxetine 20 mg PO DAILY dqxarntucef-tckeszeof-kxwddibt 200-62.5-25 mcg (Trelegy Ellipta) 1 inh inhalation DAILY 30 days ipratropium bromide 2 sprays intranasal TID PRN ipratropium-albuterol 0.5 mg-3 mg(2.5 mg base)/3 mL 3 mL inhalation QID 30 days levalbuterol tartrate 45 mcg/actuation 2 puffs PO Q4H PRN magnesium oxide 500 mg PO DIRECTED montelukast 10 mg PO BEDTIME nebulizers As directed pantoprazole 40 mg PO BID potassium chloride ER 10 mEq PO DAILY RSVPreF3 antigen-AS01E (PF) 120 mcg/0.5 mL (Arexvy (PF)) 0.5 mL IM ONCE tezepelumab-ekko (Tezspire) 210 mg (1.91 mL) subcut Q4W 12 months tiotropium bromide 2.5 mcg/actuation (Spiriva Respimat) 2 puffs inhalation DAILY 30 days ubrogepant (Ubrelvy) 50 - 100 mg (0.5 - 1 x 100 mg) PO ONCE PRN 30 days HPI Comments Details: Left-handed 59-yr-old female presents for f/u visit for follow-up of migraine, intracranial cephalocel. Interval lab workup was notable for vitamin-D deficiency and mildly elevated vitamin B6 level. Patient was advised to start vitamin-D supplement and hold any vitamin B supplements, which she has done. Pt reports last week, she suffered a fall while trying to catch a fly, and sustained a radial and ulnar and elbow fracture- currently casted- f[place] [facility] [place] She states her migraines had been stable, but noticing more tension headaches since the fall and fracture. If she wakes up at night with trigeminal pain, she will take an extra baclofen with good effect. She has removed the fan from her room, as she heard that wind can trigger TN- and this has reduced breakthrough TN attacks. She may have some ear pressure. Denies tinnitus, vision changes. She states her leg cramps are ok. She continues to see nephrology- Krystyna Warren at [address]-considering switching over to [facility] [place]. Baseline headache characteristics: Trigeminal neuralgia headache- Left ear pressure a/w left stabbing/shooting ear pain and left cervical chain swollen lymph nodes. The pain is usually brief- can be up to seconds of a searing pain. Migraine- Low grade headaches a/w photophobia, phonophobia, susie ear fullness. [facility] Medical History Depression Trigeminal neuralgia Hypertension GERD (gastroesophageal reflux disease) Morbid obesity Eczema Nasal polyposis Asthma-COPD overlap syndrome Chronic allergic rhinitis Pulmonary nodules SIERRA on CPAP Severe persistent asthma Surgical History Status post repair of paraesophageal diaphragmatic hernia Hx of cataract surgery Family History Father Lung cancer Diabetes Heart disease Mother Emphysema of lung Hypertension Bladder cancer TIA (transient ischemic attack) Social History Alcohol intake: current Alcohol intake frequency: a few times a month Patient Tobacco Use Status: Never used Tobacco Physical Exam Vital Signs: Last Vital Signs Pulse 57 06/27/25 13:35 BP 118/86 06/27/25 13:35 Pulse Ox 97 06/27/25 13:35 Oxygen Delivery Method Room Air 06/27/25 13:35 BMI result Body Mass Index 42.1 Const General: cooperative and no acute distress Orientation/consciousness: patient oriented x3 Resp Effort & Inspection: normal respiratory effort and able to speak in complete sentences Neuro Other: Right arm casted and braced. General: patient oriented x3 Cranial nerves: Yes CN's II-XII intact bilaterally Cognition (Neuro): normal cognition Motor exam (neuro): 5/5 motor strength present throughout Psych Appearance: grossly normal Mental Status: mental status grossly normal Speech and movement: Normal speech and movement present Affect: normal affect Attitude: cooperative Assessment & Plan Assessment & Plan (1) Muscle cramps: Code(s): R25.2 - Cramp and spasm Category: Medical (2) Fasciculations of muscle: Code(s): R25.3 - Fasciculation Category: Medical (3) Migraine without aura: Code(s): G43.009 - Migraine without aura, not intractable, without status migrainosus Category: Medical Qualifiers: Status migrainosus presence: without status migrainosus Intractability: not intractable Qualified Code(s): G43.009 - Migraine without aura, not intractable, without status migrainosus (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 LP w/ normal OP (9cmH2O in prone position) w/ normal routine CSF studies. Code(s): Q01.9 - Encephalocele, unspecified Category: Medical (5) Trigeminal neuralgia: Code(s): G50.0 - Trigeminal neuralgia Category: Medical Plan For bilateral lower extremity paresthesia, restlessness, muscle cramps and muscle fasciculations without weakness: Improved We will recheck vitamin B6 and vitamin-D level In the meantime, continue vitamin-D supplement For SIERRA: Continue CPAP and p.r.n. saline rinses For migraine and known intracranial cephalocele: We will arrange for brain/head MRI in early 2025- to monitor cephaloceles. Continue Baclofen 10mg qhs. Continue Ubrogepant (Ubrelvy) 100mg tab, 1/2 - 1 tab (50-100mg) at onset of migraine headache, may repeat in 2 hours. Max of 2 tabs (200mg) per 24 hours. May adjunct with OTC Tylenol 650mg q 4 hours, Ibuprofen 600mg q 6 hours, or Naproxen 440mg q 12 hrs prn. Migraine headache tx contraindications- Triptans d/t cardiac dz- LVH, HTN Previous headache tx: Topiramate- ineffective. Future considerations, Tegretol trial, CGRP MaB trial, head MRA. Will follow-up upon review of above and patient to follow-up in clinic in 6 months or sooner prn. Orders: Orders MR head/brain wo/w con 6 Months G50.0 - Trigeminal neuralgia, Q01.9 - Encephalocele, unspecified Vitamin D 25-OH (D2 and D3) Today E55.9 - Vitamin D deficiency, unspecified Vitamin B6 Today D64.9 - Anemia, unspecified Medications: Refilled ubrogepant (Ubrelvy) take at onset of migraine, may repeat in 2hrs (may take w/ Ibuprofen) 50 - 100 mg (0.5 - 1 x 100 mg) PO ONCE PRN 16 tabs 6RF migraine headache 30 days baclofen 10 mg PO BEDTIME 30 tabs 6RF 30 days Coding Level of Care Code Est Pt Level 4 (78417) Diagnoses Muscle cramps R25.2 Fasciculations of muscle R25.3 Migraine without aura and without status migrainosus, not intractable G43.009 Status migrainosus presence: without status migrainosus Intractability: not intractable Cephalocele Q01.9 Trigeminal neuralgia G50.0
[2025-06-27 13:35] VITALS: BP 118/86; PULSE 57; O2SAT 97; BMI 42.1
--- OUTSIDE RECORDS SUMMARY | 2025-06-27 13:39 | XMS_ITS | Clinical Summary ---
Author Organization [address] [address] Care Team Providers Care Broom Man Name Role Phone Mau Quispe DO Primary Care Provider [phone] Social History Tobacco Use Types Packs/Day Years [...] GENERIC COMMERCIAL GENERIC COMMERCIAL GENERIC Care Teams Broom Man Relationship Specialty Start Date End Date Mau Quispe DO [address] [place] [phone] PCP - General Internal Medicine 02/15/17
--- OUTSIDE RECORDS SUMMARY | 2025-06-27 13:39 | XMS_ITS | Clinical Summary ---
Author Organization [facility] Address [address] [place] [phone] Phone Care Team Providers Care Supervisor Hot Dip Plating Name Role Phone Mau Quispe DO Primary [...] TWICE DAILY 5 Active D3-50 1.25 MG (12333 UT) capsule Take 50,000 Units by mouth [...] Syncope 03/09/2022 Overview (04/06/2022): ER visit to [facility] on 09/24/21 Tricuspid valve regurgitation 03/09/2022 Severe persistent allergic asthma 04/04/2018 Overview (04/05/2022): Added automatically from request for surgery [id number] Ventral hernia 01/19/2018 Eczema 12/21/2017 Depressive disorder 10/11/2017 Body mass index 40+ - severely obese 09/06/2017 Anxiety 08/02/2017 Asthmatic bronchitis 07/04/2017 Overview (04/05/2022): Added automatically from request for surgery [id number] Gastro-esophageal reflux disease without esophag itis 02/28/2017 Multiple nodules of lung 02/28/2017 Overview (04/05/2022): Followed outside of the [facility] system stable from [id number] Obstructive sleep apnea syndrome 02/28/2017 Overview (04/05/2022): CPAP Seasonal allergic rhinitis 02/28/2017 Encounters Date Type Department Care Team Description 06/27/2025 Refill [facility] [address] [phone] Jose EduardoRominaonda 06/17/2025 Refill [facility] [address] [address] Jose Eduardo Chalonda 06/13/2025 Orders Only [facility] [address] [address] Elkin Whitt Hypomagnesemia 05/08/2025 Orders Only [facility] [address] [address] Krystyna Warren ARNP Hypomagnesemia (Primary Dx) 05/08/2025 Orders Only [facility] [address] [address] Krystyna Warren ARNP Hypomagnesemia (Primary Dx) 05/08/2025 Refill [facility] [address] [address] Krystyna Gray from Last 3 Months Immunizations [...] Office Visit [facility] [address] [phone] Krystyna Warren ARNP [address] [phone] Health Maintenance Due Date Last [...] patient's age to complete this topic [place] [address] [place] [address] [place] [address] [place] Care Teams Supervisor Hot Dip Plating Relationship Specialty Start Date End Date Mau Quispe DO [address] [place] [address] PCP - General Internal Medicine 02/24/22
--- OUTSIDE RECORDS SUMMARY | 2025-06-27 13:39 | XMS_ITS | Clinical Summary ---
Author Organization [address] [facility] Address [address] [place] [phone] Phone Care Team Providers Care Stranding Machine Operator Name Role Phone Mau Quispe DO Primary Care Provider [phone] Medical History Medical History Date Comments Depression 10/11/2017 DX:Depression Eczema 12/21/2017 DX:Eczema Morbid obesity with BMI of 4 5.0-49.9, adult ([facility] V24, [facility] V28) 09/06/2017 DX:Morbid obesity with BMI of 45.0-49.9, adult ([facility]) Ventral hernia 01/19/2018 DX:Ventral herni a Obstructive [...] LAB CHEMISTRY METHOD 05/29/2025 12:08 PM EDT [facility] Triglycerides 67 0 - 150 mg/dL LAB CHEMISTRY METHOD 05/29/2025 12:08 PM EDT [facility] HDL 95 >=40 mg/dL LAB CHEMISTRY METHOD 05/29/2025 12:08 PM EDT [facility] LDL Calculated 134(H) 0 - 100 mg/dL LAB CHEMISTRY METHOD 05/29/2025 12:08 PM EDT [facility] VLDL Cholesterol Timi 13.4 mg/dL LAB CHEMISTRY METHOD 05/29/2025 12:08 PM EDT [facility] Non HDL Chol. (LDL+VLDL) 147(H) <145 mg/dL LAB CHEMISTRY METHOD 05/29/2025 12:08 PM EDT [facility] Chol/HDL Ratio 2.5 0.0 - 4.4 LAB CHEMISTRY METHOD 05/29/2025 12:08 PM [facility] Blood Venous blood specimen / Unknown Venipuncture / Unknown 05/29/2025 10:35 AM EDT 05/29/2025 10:35 AM EDT [facility] LAB BLOOD ORDERABLES Final Resul t [facility] [address] [place] [address], * CBC auto differential (05/29/2025 10:35 AM EDT) WBC 5.7 4.8 - 10.8 K/mcL LAB HEMETOLOGY METHOD 05/29/2025 11:17 AM EDT [facility] RBC 4.70 3.80 - 4.80 M/mcL LAB HEMETOLOGY METHOD 05/29/2025 11:17 AM EDT [facility] Hemoglobin 14.3 11.5 - 16.0 g/dL LAB HEMETOLOGY METHOD 05/29/2025 11:17 AM T [facility] Hematocrit 43.3 35.0 - 47.0 % LAB HEMETOLOGY METHOD 05/29/2025 11:17 AM [facility] MCV 91.9 79.0 - 98.0 FL LAB HEMETOLOGY METHOD 05/29/2025 11:17 AM [facility] MCH 30.4 27.0 - 32.0 pcg LAB HEMETOLOGY METHOD 05/29/2025 11:17 AM [facility] MCHC 33.0 32.0 - 37.0 g/dL LAB HEMETOLOGY METHOD 05/29/2025 11:17 AM [facility] RDW 12.6 11.0 - 15.0 % LAB HEMETOLOGY METHOD 05/29/2025 11:17 AM [facility] Platelets 290 130 - 400 K/mcL LAB HEMETOLOGY METHOD 05/29/2025 11:17 AM [facility] MPV 9.9 7.0 - 11.0 FL LAB HEMETOLOGY METHOD 05/29/2025 11:17 AM [facility] NRBC 0.0 <1.0 % LAB HEMETOLOGY METHOD 05/29/2025 11:17 AM [facility] NRBC Absolute 0.00 <0.10 K/mcL LAB HEMETOLOGY METHOD 05/29/2025 11:17 AM [facility] Neutrophils Relative 58.7 % LAB HEMETOLOGY METHOD 05/29/2025 11:17 AM [facility] Lymphocytes Relative 26.7 % LAB HEMETOLOGY METHOD 05/29/2025 11:17 AM [facility] Monocytes Relative 11.6 % LAB HEMETOLOGY METHOD 05/29/2025 11:17 AM [facility] Eosinophils Relative 1.9 % LAB HEMETOLOGY METHOD 05/29/2025 11:17 AM [facility] Basophils Relative 0.7 % LAB HEMETOLOGY METHOD 05/29/2025 11:17 AM EDT [facility] Immature Granulocytes Relative 0.4 % LAB HEMETOLOGY METHOD 05/29/2025 11:17 AM EDT [facility] Neutrophils Absolute 3.34 1.50 - 7.00 K/mcL LAB HEMETOLOGY METHOD 05/29/2025 11:17 AM EDT [facility] Lymphocytes Absolute 1.52 1.00 - 5.00 K/mcL LAB HEMETOLOGY METHOD 05/29/2025 11:17 AM EDT [facility] Monocytes Absolute 0.66 0.20 - 1.00 K/mcL LAB HEMETOLOGY METHOD 05/29/2025 11:17 AM EDT [facility] Eosinophils Absolute 0.11 0.00 - 0.50 K/mcL LAB HEMETOLOGY METHOD 05/29/2025 11:17 AM EDT [facility] Basophils Absolute 0.04 0.00 - 0.20 K/mcL LAB HEMETOLOGY METHOD 05/29/2025 11:17 AM EDT [facility] Immature Granulocytes Absolute 0.02 0.00 - 0.03 K/mcL LAB HEMETOLOGY METHOD 05/29/2025 11:17 AM T [facility] Blood Venous blood specimen / Unknown Venipuncture / Unknown 05/29/2025 10:35 AM EDT 05/29/2025 10:35 AM EDT [facility] LAB BLOOD ORDERABLES Final Resul t [facility] [address] [place] [address], * Thyroid stimulating hormone (05/29/2025 10:35 AM EDT) TSH 2.95 0.40 - 4.00 mcIU/mL LAB CHEMISTRY METHOD 05/29/2025 12:58 PM EDT [facility] Blood Venous blood specimen / Unknown Venipuncture / Unknown 05/29/2025 10:35 AM EDT 05/29/2025 10:35 AM EDT [facility] LAB BLOOD ORDERABLES Final Resul t Performing Organization Address [facility]/ZIP Co de Phone Number [facility] [address] [place] [address], [place] [phone] * Hemoglobin A1c (05/29/2025 10:35 AM EDT) Pathologist [facility] Hemoglobin A1C 5.4 <6.5 % LAB CHEMISTRY METHOD 05/29/2025 1:48 PM EDT [facility] Mean Bld Glu Estim. 108 mg/dL LAB CHEMISTRY METHOD 05/29/2025 1:48 PM EDT [facility] Blood Venous blood specimen / Unknown Venipuncture / Unknown 05/29/2025 10:35 AM EDT 05/29/2025 10:35 AM EDT [facility] LAB BLOOD ORDERABLES Final Resul t Performing Organization Address [facility]/ZIP Co de Phone Number [facility] [address] [place] [address], [place] [phone] * (ABNORMAL) Comprehensive metabolic panel (05/29/2025 10:35 AM EDT) [facility] [address] Sodium 142 133 - 145 mmol/L LAB CHEMISTRY METHOD 05/29/2025 12:08 PM EDT [facility] Potassium 4.0 3.5 - 5.5 mmol/L LAB CHEMISTRY METHOD 05/29/2025 12:08 PM EDT [facility] Chloride 109 96 - 110 mmol/L LAB CHEMISTRY METHOD 05/29/2025 12:08 PM EDT [facility] CO2 28 21 - 32 mmol/L LAB CHEMISTRY METHOD 05/29/2025 12:08 PM EDT [facility] Anion Gap 5 3 - 11 LAB CHEMISTRY METHOD 05/29/2025 12:08 PM [facility] Glucose 96 70 - 100 mg/dL LAB CHEMISTRY METHOD 05/29/2025 12:08 PM [facility] BUN 10 5 - 25 mg/dL LAB CHEMISTRY METHOD 05/29/2025 12:08 PM [facility] Creatinine 0.97 0.50 - 1.10 mg/dL LAB CHEMISTRY METHOD 05/29/2025 12:08 PM [facility] eGFR 67 >=60 mL/min/1. 73m2 LAB CHEMISTRY METHOD 05/29/2025 12:08 PM [facility] Comment:Calculation based on the Chronic Kidney Disease Epidemiology Collaboration (CKD-EPI) equation refit without adjustment for race. BUN/Creatinine Ratio 10.3 LAB CHEMISTRY METHOD 05/29/2025 12:08 PM [facility] Calcium 8.2(L) 8.5 - 10.5 mg/dL LAB CHEMISTRY METHOD 05/29/2025 12:08 PM [facility] AST (SGOT) 16 10 - 42 unit/L LAB CHEMISTRY METHOD 05/29/2025 12:08 [facility] ALT (SGPT) 23 10 - 60 unit/L LAB CHEMISTRY METHOD 05/29/2025 12:08 PM [facility] Alkaline Phosphatase 75 42 - 121 unit/L LAB CHEMISTRY METHOD 05/29/2025 12:08 PM [facility] Total Protein 6.3 6.0 - 8.0 g/dL LAB CHEMISTRY METHOD 05/29/2025 12:08 PM [facility] Albumin 3.5 3.2 - 5.0 g/dL LAB CHEMISTRY METHOD 05/29/2025 12:08 PM [facility] Total Bilirubin 0.4 0.0 - 1.4 mg/dL LAB CHEMISTRY METHOD 05/29/2025 12:08 PM EDT [facility] Blood Venous blood specimen / Unknown Venipuncture / Unknown 05/29/2025 10:35 AM EDT 05/29/2025 10:35 AM EDT [facility] LAB BLOOD ORDERABLES Final Resul t [facility] [address] [place] [address], from Last 3 Months Insurance [facility] Advance Directives Documents on File Type Date Recorded Patient Ballet Company Member Expl anation Health Care Decision (hx) 09/27/2016 AD HIGHTOWER DIRECTIVE Health Care Decision (hx) 09/27/2016 AD HIGHTOWER DIRECTIVE Health Care Decision (hx) 09/27/2016 AD HIGHTOWER DIRECTIVE Care Teams Stranding Machine Operator Relationship Specialty Start Date End Date Mau Quispe DO [address] [place] [phone] PCP - General Internal Medicine 11/08/17
--- OUTSIDE RECORDS SUMMARY | 2025-06-27 13:39 | XMS_ITS | Encounter Summary ---
Author Organization [facility] Address [address] [place] [address] Care Team Providers Care Dry Room Attendant Name Role Phone Mau Quispe MD Primary Care Provider Good Gonzales MD Primary Care Provider Mau Emanuel MD Primary Care Provider Alex Lozano MD Unavailable [phone] Encounter Details Date Type Department Care Team Description 01/11/2018 Puppy Walker Report Medical Records [address] [place] [address] [facility] Surgical [address] [place] [id number] Social History Tobacco Use Types Packs/Day Years Used Date Smoking Tobacco: Never Smokeless Tobacco: Never Sex Assigned at Date Recorded Not on file documented as of this encounter Plan of Treatment Not on file documented as of this encounter Visit Diagnoses Not on filedocumented in this encounter Care Teams Dry Room Attendant Relationship Specialty Start Date End Date Mau Quispe MD PCP - General Internal Medicine 11/08/17 04/05/19 Good Lawrence MD PCP - General Internal Medicine 04/06/19 01/04/22 Mau Quispe MD PCP - General Internal Medicine 01/05/22 Alex Spear MD [address] [place] [address] [address] [place] [address] Specialist Cardiovascular Disease 02/03/22 documented as of this encounter
== END 2025-06-27 14:31 | disposition home or self-care (01) ==
LOC: HO.HSMS 13:28
PROVIDERS: PCP Internal Medicine; Visit Provider Nurse Practitioner Family
DX: R25.2 Cramp and spasm (principal); R25.3 Fasciculation; G43.009 Migraine without aura, not intractable, without status migrainosus; Q01.9 Encephalocele, unspecified; G50.0 Trigeminal neuralgia
CPT/HCPCS: 99214

== ENCOUNTER → 2025-06-27 13:27 | Outpatient (BNVA) | payer MEDICARE, MEDICAID, SELFPAY | PROVIDERS: PCP Internal Medicine; Visit Provider Nurse Practitioner Family | DX: G43.009 Migraine without aura, not intractable, without status migrainosus (principal); Q01.9 Encephalocele, unspecified; G50.0 Trigeminal neuralgia; R25.2 Cramp and spasm; R25.3 Fasciculation | CPT/HCPCS: 99212 ==

== ENCOUNTER 2025-07-08 08:23 | Outpatient (REF) | payer MEDICARE, MEDICAID, SELFPAY ==
--- NOTE | ~2025-07-08 | XR_ITS ---
EXAMINATION: XR WRIST 3 OR MORE VIEWS RIGHT HISTORY: M25.531 - Pain in right wrist COMPARISON: Comparison is made with the prior examination dated 06/25/2025. FINDINGS: Three views of the right wrist are submitted. Osseous mineralization is normal. There has been further healing of the previously seen fracture of the distal radius which is poorly visualized. The joint spaces are preserved. The soft tissues are unremarkable. XR/XR wrist RT min 3V IMPRESSION: Healing fracture of the distal radius. Electronically signed by: Eric Howard MD 07/08/2025 11:37 AM EDT
--- NOTE | ~2025-07-08 | XR_ITS ---
EXAMINATION: XR ELBOW 3 VIEWS RIGHT HISTORY: M25.521 - Pain in right elbow COMPARISON: Comparison is made with the prior examination dated 06/25/2025. FINDINGS: Three views of the right elbow are submitted. Osseous mineralization is normal. Again seen is a comminuted fracture of the coronoid process of the ulna. The fracture lines remain visible. The joint spaces are preserved. There is a persistent joint effusion. XR/XR elbow RT min 3V IMPRESSION: Comminuted fracture of the coronoid process of the ulna without change. Electronically signed by: Eric Howard MD 07/08/2025 11:38 AM EDT
--- OUTSIDE RECORDS SUMMARY | 2025-07-09 08:38 | XMS_ITS | Encounter Summary ---
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 Report Medical Records [address] [place] [address] [facility] [address] [place] [address] Social History Tobacco Use Types Packs/Day Years Used Date Smoking Tobacco: Never Smokeless Tobacco: Never Sex Assigned at Date Recorded Not on file documented as of this encounter Plan of Treatment Not on file documented as of this encounter Visit Diagnoses Not on filedocumented in this encounter Care Teams Classified Advertising Manager Relationship Specialty Start Date End Date Mau Quispe MD PCP - General Internal Medicine 11/08/17 04/05/19 Good Lawrence MD PCP - General Internal Medicine 04/06/19 01/04/22 Mau Quispe MD PCP - General Internal Medicine 01/05/22 Alex Spear MD [address] [place] [address] [address] [place] [address] Specialist Cardiovascular Disease 02/03/22 documented as of this encounter
--- OUTSIDE RECORDS SUMMARY | 2025-07-09 08:38 | XMS_ITS | Clinical Summary ---
Author Organization [address] [address] Care Team Providers Care Pensionholder Information Clerk Name Role Phone Mau Quispe DO Primary Care Provider [phone] Social History Tobacco Use Types Packs/Day Years [...] GENERIC COMMERCIAL GENERIC COMMERCIAL GENERIC Care Teams Pensionholder Information Clerk Relationship Specialty Start Date End Date Mau Quispe DO [address] [place] [phone] PCP - General Internal Medicine 02/15/17
--- OUTSIDE RECORDS SUMMARY | 2025-07-09 08:38 | XMS_ITS | Encounter Summary ---
Author Organization [facility] Address [address] [address] Phone Care Team Providers Care Cooky Packer Name Role Phone Mau Quispe DO Primary Care Provider [phone] Reason for Visit * Reason Onset Date Comments Med Refill 07/01/2025 Encounter Details Date Type Department Care Team (Late st Contact Info) Description 07/01/2025 Refill [facility] [address] [address] Guerline Hughes [address] [address] Hypokalemia; Hypertension Social History Tobacco [...] Visit [facility] [address] [phone] Krystyna Warren ARNP [address] [phone] documented as of this encounter Visit Diagnoses Diagnosis Hypokalemia Hypertension documented in this encounter Care Teams Cooky Packer Relationship Specialty Start Date End Date Mau Quispe DO [address] [place] [address] PCP - General Internal Medicine 02/24/22 documented as of this encounter
--- OUTSIDE RECORDS SUMMARY | 2025-07-09 08:38 | XMS_ITS | Clinical Summary ---
Author Organization [address] [facility] Address [address] [place] [phone] Phone Care Team Providers Care Institutional Research Coordinator Name Role Phone Mau Quispe DO Primary Care Provider [phone] Medical History Medical History Date Comments Depression 10/11/2017 DX:Depression Eczema 12/21/2017 DX:Eczema Morbid obesity with BMI of 4 5.0-49.9, adult ([facility] V24, [facility] V28) 09/06/2017 DX:Morbid obesity with BMI of 45.0-49.9, adult ([facility]) Ventral hernia 01/19/2018 DX:Ventral herni [...] LAB CHEMISTRY METHOD 05/29/2025 12:08 PM EDT [facility] Triglycerides 67 0 - 150 mg/dL LAB CHEMISTRY METHOD 05/29/2025 12:08 PM EDT [facility] HDL 95 >=40 mg/dL LAB CHEMISTRY METHOD 05/29/2025 12:08 PM EDT [facility] LDL Calculated 134(H) 0 - 100 mg/dL LAB CHEMISTRY METHOD 05/29/2025 12:08 PM EDT [facility] VLDL Cholesterol Timi 13.4 mg/dL LAB CHEMISTRY METHOD 05/29/2025 12:08 PM EDT [facility] Non HDL Chol. (LDL+VLDL) 147(H) <145 mg/dL LAB CHEMISTRY METHOD 05/29/2025 12:08 PM EDT [facility] Chol/HDL Ratio 2.5 0.0 - 4.4 LAB CHEMISTRY METHOD 05/29/2025 12:08 PM [facility] Blood Venous blood specimen / Unknown Venipuncture / Unknown 05/29/2025 10:35 AM EDT 05/29/2025 10:35 AM EDT [facility] LAB BLOOD ORDERABLES Final Resul t [facility] [address] [place] [address], * CBC auto differential (05/29/2025 10:35 AM EDT) WBC 5.7 4.8 - 10.8 K/mcL LAB HEMETOLOGY METHOD 05/29/2025 11:17 AM EDT [facility] RBC 4.70 3.80 - 4.80 M/mcL LAB HEMETOLOGY METHOD 05/29/2025 11:17 AM EDT [facility] Hemoglobin 14.3 11.5 - 16.0 g/dL LAB HEMETOLOGY METHOD 05/29/2025 11:17 AM T [facility] Hematocrit 43.3 35.0 - 47.0 % LAB HEMETOLOGY METHOD 05/29/2025 11:17 AM [facility] MCV 91.9 79.0 - 98.0 FL LAB HEMETOLOGY METHOD 05/29/2025 11:17 AM [facility] MCH 30.4 27.0 - 32.0 pcg LAB HEMETOLOGY METHOD 05/29/2025 11:17 AM [facility] MCHC 33.0 32.0 - 37.0 g/dL LAB HEMETOLOGY METHOD 05/29/2025 11:17 AM [facility] RDW 12.6 11.0 - 15.0 % LAB HEMETOLOGY METHOD 05/29/2025 11:17 AM [facility] Platelets 290 130 - 400 K/mcL LAB HEMETOLOGY METHOD 05/29/2025 11:17 AM [facility] MPV 9.9 7.0 - 11.0 FL LAB HEMETOLOGY METHOD 05/29/2025 11:17 AM [facility] NRBC 0.0 <1.0 % LAB HEMETOLOGY METHOD 05/29/2025 11:17 AM [facility] NRBC Absolute 0.00 <0.10 K/mcL LAB HEMETOLOGY METHOD 05/29/2025 11:17 AM [facility] Neutrophils Relative 58.7 % LAB HEMETOLOGY METHOD 05/29/2025 11:17 AM [facility] Lymphocytes Relative 26.7 % LAB HEMETOLOGY METHOD 05/29/2025 11:17 AM [facility] Monocytes Relative 11.6 % LAB HEMETOLOGY METHOD 05/29/2025 11:17 AM [facility] Eosinophils Relative 1.9 % LAB HEMETOLOGY METHOD 05/29/2025 11:17 AM [facility] Basophils Relative 0.7 % LAB HEMETOLOGY METHOD 05/29/2025 11:17 AM EDT [facility] Immature Granulocytes Relative 0.4 % LAB HEMETOLOGY METHOD 05/29/2025 11:17 AM EDT [facility] Neutrophils Absolute 3.34 1.50 - 7.00 K/mcL LAB HEMETOLOGY METHOD 05/29/2025 11:17 AM EDT [facility] Lymphocytes Absolute 1.52 1.00 - 5.00 K/mcL LAB HEMETOLOGY METHOD 05/29/2025 11:17 AM EDT [facility] Monocytes Absolute 0.66 0.20 - 1.00 K/mcL LAB HEMETOLOGY METHOD 05/29/2025 11:17 AM EDT [facility] Eosinophils Absolute 0.11 0.00 - 0.50 K/mcL LAB HEMETOLOGY METHOD 05/29/2025 11:17 AM EDT [facility] Basophils Absolute 0.04 0.00 - 0.20 K/mcL LAB HEMETOLOGY METHOD 05/29/2025 11:17 AM EDT [facility] Immature Granulocytes Absolute 0.02 0.00 - 0.03 K/mcL LAB HEMETOLOGY METHOD 05/29/2025 11:17 AM T [facility] Blood Venous blood specimen / Unknown Venipuncture / Unknown 05/29/2025 10:35 AM EDT 05/29/2025 10:35 AM EDT [facility] LAB BLOOD ORDERABLES Final Resul t [facility] [address] [place] [address], * Thyroid stimulating hormone (05/29/2025 10:35 AM EDT) TSH 2.95 0.40 - 4.00 mcIU/mL LAB CHEMISTRY METHOD 05/29/2025 12:58 PM EDT [facility] Blood Venous blood specimen / Unknown Venipuncture / Unknown 05/29/2025 10:35 AM EDT 05/29/2025 10:35 AM EDT [facility] LAB BLOOD ORDERABLES Final Resul t Performing Organization Address [facility]/ZIP Co de Phone Number [facility] [address] [place] [address], [place] [phone] * Hemoglobin A1c (05/29/2025 10:35 AM EDT) Pathologist [facility] Hemoglobin A1C 5.4 <6.5 % LAB CHEMISTRY METHOD 05/29/2025 1:48 PM EDT [facility] Mean Bld Glu Estim. 108 mg/dL LAB CHEMISTRY METHOD 05/29/2025 1:48 PM EDT [facility] Blood Venous blood specimen / Unknown Venipuncture / Unknown 05/29/2025 10:35 AM EDT 05/29/2025 10:35 AM EDT [facility] LAB BLOOD ORDERABLES Final Resul t Performing Organization Address [facility]/ZIP Co de Phone Number [facility] [address] [place] [address], [place] [phone] * (ABNORMAL) Comprehensive metabolic panel (05/29/2025 10:35 AM EDT) [facility] Sodium 142 133 - 145 mmol/L LAB CHEMISTRY METHOD 05/29/2025 12:08 PM EDT [facility] Potassium 4.0 3.5 - 5.5 mmol/L LAB CHEMISTRY METHOD 05/29/2025 12:08 PM EDT [facility] Chloride 109 96 - 110 mmol/L LAB CHEMISTRY METHOD 05/29/2025 12:08 PM EDT [facility] CO2 28 21 - 32 mmol/L LAB CHEMISTRY METHOD 05/29/2025 12:08 PM EDT [facility] Anion Gap 5 3 - 11 LAB CHEMISTRY METHOD 05/29/2025 12:08 PM [facility] Glucose 96 70 - 100 mg/dL LAB CHEMISTRY METHOD 05/29/2025 12:08 PM [facility] BUN 10 5 - 25 mg/dL LAB CHEMISTRY METHOD 05/29/2025 12:08 PM [facility] Creatinine 0.97 0.50 - 1.10 mg/dL LAB CHEMISTRY METHOD 05/29/2025 12:08 PM [facility] eGFR 67 >=60 mL/min/1. 73m2 LAB CHEMISTRY METHOD 05/29/2025 12:08 PM [facility] Comment:Calculation based on the Chronic Kidney Disease Epidemiology Collaboration (CKD-EPI) equation refit without adjustment for race. BUN/Creatinine Ratio 10.3 LAB CHEMISTRY METHOD 05/29/2025 12:08 PM [facility] Calcium 8.2(L) 8.5 - 10.5 mg/dL LAB CHEMISTRY METHOD 05/29/2025 12:08 PM [facility] AST (SGOT) 16 10 - 42 unit/L LAB CHEMISTRY METHOD 05/29/2025 12:08 [facility] ALT (SGPT) 23 10 - 60 unit/L LAB CHEMISTRY METHOD 05/29/2025 12:08 PM [facility] Alkaline Phosphatase 75 42 - 121 unit/L LAB CHEMISTRY METHOD 05/29/2025 12:08 PM [facility] Total Protein 6.3 6.0 - 8.0 g/dL LAB CHEMISTRY METHOD 05/29/2025 12:08 PM [facility] Albumin 3.5 3.2 - 5.0 g/dL LAB CHEMISTRY METHOD 05/29/2025 12:08 PM [facility] Total Bilirubin 0.4 0.0 - 1.4 mg/dL LAB CHEMISTRY METHOD 05/29/2025 12:08 PM EDT [facility] Blood Venous blood specimen / Unknown Venipuncture / Unknown 05/29/2025 10:35 AM EDT 05/29/2025 10:35 AM EDT [facility] LAB BLOOD ORDERABLES Final Resul t [facility] [address] [place] [address], from Last 3 Months Insurance [facility] Advance Directives Documents on File Type Date Recorded 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
== END 2025-07-08 08:24 | disposition home or self-care (01) ==
LOC: HO.HOSX 08:23
DX: S52.041A Displaced fracture of coronoid process of right ulna, initial encounter for closed fracture (principal); S52.501A Unspecified fracture of the lower end of right radius, initial encounter for closed fracture; M25.521 Pain in right elbow; M25.531 Pain in right wrist; W19.XXXA Unspecified fall, initial encounter
CPT/HCPCS: 73080; 73110; 99212

== ENCOUNTER 2025-07-08 10:41 | Outpatient (AMB) | payer MEDICARE, MEDICAID, SELFPAY ==
[2025-07-08 10:48] VITALS: BMI 42.0
--- NOTE | 2025-07-08 10:48 | A.OFFVIS_ITS ---
Vital Signs 07/08/25 10:48 Height 5 ft 4 in Weight 245 lb BMI 42.0 Intake Visit Reasons: OV-Rt wrist fx s/p fall DOI: 06/20/25-w/xrays Intake Note: Kelly is a 59 year old left hand dominant female who presents today for follow up status post nondisplaced intra-articular fracture of the right distal radius, a nondisplaced right ulnar styloid fracture, and a mildly comminuted, minimally displaced fracture of the coronoid process of the ulna, DOI: 06/19/25. At her last visit, she was placed into a long arm cast and educated she should use the sling with all activities. Today patients reports she continued using sling as instructed, elevating the arm to prevent stiffness. Denies numbness or tingling. She describes the pain as sore and tender to touch. She is taking Tylenol with relief of pain. Patient has some bruising on the lateral aspect of the right forearm and the volar aspect of the right wrist. Cast removed and x-rays updated. Allergies Sulfa (Sulfonamide Antibiotics) Allergy (Severe, Verified 07/08/25 10:48) Hives environmental allergies Allergy (Unknown, Verified 07/08/25 10:48) Unknown HPI HPI OV-Rt wrist fx s/p fall DOI: 06/20/25-w/xrays: Details: Kelly is a 59 year old left hand dominant female who presents today for follow up status post nondisplaced intra-articular fracture of the right distal radius, a nondisplaced right ulnar styloid fracture, and a mildly comminuted, minimally displaced fracture of the coronoid process of the ulna, DOI: 06/19/25. At her last visit, she was placed into a long arm cast and educated she should use the sling with all activities. Today patients reports she continued using sling as instructed, elevating the arm to prevent stiffness. Denies numbness or tingling. She describes the pain as sore and tender to touch. She is taking Tylenol with relief of pain. Patient has some bruising on the lateral aspect of the right forearm and the volar aspect of the right wrist. Cast removed and x-rays updated. [facility] Medical History Depression Trigeminal neuralgia Hypertension GERD (gastroesophageal reflux disease) Morbid obesity Eczema Nasal polyposis Asthma-COPD overlap syndrome Chronic allergic rhinitis Pulmonary nodules SIERRA on CPAP Severe persistent asthma Surgical History Status post repair of paraesophageal diaphragmatic hernia Hx of cataract surgery Family History Father Lung cancer Diabetes Heart disease Mother Emphysema of lung Hypertension Bladder cancer TIA (transient ischemic attack) Social History Alcohol intake: current Alcohol intake frequency: a few times a month Patient Tobacco Use Status: Never used Tobacco Review of Systems Const All systems reviewed & are unremarkable except as noted in HPI and below Physical Exam Vital Signs: BMI result Body Mass Index 42.0 Extrem Other: Patient is alert, oriented, and in no acute distress. Neuro: Normal sensation of the tips of all digits of the right hand at this time Vascular: Cap refill brisk Pain: No tenderness to palpation about right distal radius No tenderness to palpation about right elbow ROM: Patient is able to very gently extend the right elbow to approximately 30 degrees and can flex to approximately 90 degrees Skin: No lacerations or abrasions. General: Ecchymosis noted of right elbow and forearm No erythema, evidence of infection Psych: Appears grossly normal Affect normal Attitude cooperative Results Reviewed Results Reviewed: X-rays obtained in the office today and independently reviewed by me, Sreekanth Flores PA-C, demonstrate nondisplaced fracture of the right distal radius along with minimally displaced grade 2 coronoid process fracture of the right ulna. Assessment & Plan Assessment & Plan (1) Fracture of coronoid process of right ulna: Code(s): S52.041A - Displaced fracture of coronoid process of right ulna, initial encounter for closed fracture Category: Medical (2) Fracture of right distal radius: Code(s): S52.501A - Unspecified fracture of the lower end of right radius, initial encounter for closed fracture Category: Medical Plan 1. Right Grade 2 coronoid process fracture 2. Nondisplaced right distal radius fracture Date of injury 06/20/2025 Patient is educated about this injury Patient is educated about the typical recovery course At this time, patient is educated that there is no surgical intervention indicated for her fractures At this time, patient is placed into a short-arm cast Patient is educated on proper cast care and precautions Patient is educated that she does not require any further immobilization of her coronoid process fracture, and should begin working on gentle active and passive range of motion of the right elbow Patient is educated to avoid any full extension or hyperextension of the right elbow, as this could lead to elbow dislocation, as her fracture pattern leads to increased instability of the right elbow Patient understands this in his amenable to this plan Follow-up in 2 weeks with repeat x-rays and cast off, sooner with any acute concerns. Anticipate referral to PT to begin gentle passive range of motion of the right shoulder at that time Orders: Orders XR elbow RT min 3V Today M25.521 - Pain in right elbow XR wrist RT min 3V Today M25.531 - Pain in right wrist PT Evaluation and Treatment Today S52.041A - Displaced fracture of coronoid process of right ulna, initial encounter for closed fracture, S52.501A - Unspecified fracture of the lower end of right radius, initial encounter for closed fracture Coding Level of Care Code Global (10895) Diagnoses Fracture of coronoid process of right ulna S52.041A Fracture of right distal radius S52.501A
--- OUTSIDE RECORDS SUMMARY | 2025-07-08 11:23 | XMS_ITS | Encounter Summary ---
Author Organization [facility] Address [address] [address] Phone Care Team Providers Care Tape Coater Name Role Phone Mau Quispe DO Primary Care Provider [phone] Reason for Visit * Reason Onset Date Comments Med Refill 07/01/2025 Encounter Details Date Type Department Care Team (Late st Contact Info) Description 07/01/2025 Refill [facility] [address] [address] Guerline Hughes [address] [address] Hypokalemia; Hypertension Social History Tobacco Use Types Packs/Day Years Used Date Smoking Tobacco: Never Smokeless Tobacco: Never Alcohol Use Standard Drinks/Week Comments Yes 0 (1 standard drink = 0.6 oz pur e alcohol) Comments Unknown Sex and Gender Information Value Date Recorded Sex Assigned at Not on file Legal Sex Female 1:30 PM EDT Gender Identity Not on file Sexual Orientation Not on file documented as of this encounter Miscellaneous Notes * Telephone Encounter - Guerline Hughes - 07/04/2025 3:11 PM EDT Spoke to pt and message was given below. Pt states she need Rx for aMiloride 5 MG . Med pended for your review.Please advise.Thank you documented in this encounter Plan of Treatment Upcoming Encounters Date Type Department Care Team (Late st Contact Info) Description 01/28/2026 9:00 AM EST Office Visit [facility] [address] [phone] Krystyna Warren ARNP [address] [address] documented as of this encounter Visit Diagnoses Diagnosis Hypokalemia Hypertension documented in this encounter Care Teams Tape Coater Relationship Specialty Start Date End Date Mau Quispe DO [address] [place] [address] PCP - General Internal Medicine 02/24/22 documented as of this encounter
--- OUTSIDE RECORDS SUMMARY | 2025-07-08 11:24 | XMS_ITS | Clinical Summary ---
Author Organization [address] [address] Care Team Providers Care Lathe Puller Name Role Phone Mau Quispe DO Primary Care Provider [phone] Social History Tobacco Use Types Packs/Day Years [...] GENERIC COMMERCIAL GENERIC COMMERCIAL GENERIC Care Teams Lathe Puller Relationship Specialty Start Date End Date Mau Quispe DO [address] [place] [address] PCP - General Internal Medicine 02/15/17
--- OUTSIDE RECORDS SUMMARY | 2025-07-08 11:24 | XMS_ITS | Continuity of Care Document ---
Author Organization [facility] Address [address] [facility] [address] [place] [address] Insurance Providers Payer Plan Claims Address Claims Phone Policy Number Group Number Relation Employer Guarantor Name Guarantor Guarantor Address Guarantor Phone [employer] 1 [facility] [address], [place] [address] [id number] 1 Self Kelly Gaona [address] [place] [id number] [facility] [place] [address] tel:[phone] Self Kelly Gaona [address] [place] [address] [facility], [address], [place] [address] tel:[phone] Self Kelly Gaona [address] [place] [address] Problems Unknown Problems Results Test Result Date/Time Value / Unit Interp. Refere nce Range Comp. Metabolic Panel (14)[[id number]] Collected: 09/27/2024 04:20 PM Specimen Received: 09/27/2024 05:00 AM Source: [facility] Glucose [[id number]] 09/28/2024 12:16 PM 94 mg/dL 70-99 mg/dL BUN [[id number]] 09/28/2024 12:18 PM 18 mg/dL 8-2 7 mg/dL Creatinine [[id number]] 09/28/2024 12:16 PM 0.97 mg/dL 0.57-1.00 mg/dL eGFR [[id number]] 09/28/2024 12:16 PM 66 mL/min/1.73 >59 mL/min/1.73 BUN/Creatinine Ratio [[id number]] 09/28/2024 12:18 PM 19 12-28 Sodium [051076] 09/28/2024 12:18 PM 142 mmol/L 134-144 mmol/L Potassium [[id number]] 09/28/2024 12:18 PM 4.3 mmol/L 3.5-5.2 mmol/L Chloride [[id number]] 09/28/2024 12:18 PM 105 mmol/L 96-106 mmol/L Carbon Dioxide, Total [808811] 09/28/2024 05:53 PM 16 mmol/L L 20-29 mmol/L Calcium [[id number]] 09/28/2024 12:18 PM 9.9 mg/dL 8.7-10.3 mg/dL Protein, Total [[id number]] 09/28/2024 12:16 PM 6.4 g/dL 6.0-8.5 g/dL Albumin [[id number]] 09/28/2024 12:16 PM 4.4 g/dL 3.9-4.9 g/dL Globulin, Total [[id number]] 09/28/2024 12:16 PM 2.0 g/dL 1.5-4.5 g/dL Bilirubin, Total [[id number]] 09/28/2024 12:18 PM 0.4 mg/dL 0.0-1.2 mg/dL Alkaline Phosphatase [832228] 09/28/2024 12:18 PM 79 IU/L 44-121 IU/L AST (SGOT) [[id number]] 09/28/2024 12:16 PM 24 IU/L 0-40 IU/L ALT (SGPT) [491276] 09/28/2024 12:18 PM 14 IU/L 0-32 IU/L Lipid Panel[[id number]] Collected: 09/27/2024 04:20 PM Specimen Received: 09/27/2024 05:00 AM Source: [facility] Cholesterol, Total [[id number]] 09/28/2024 12:16 PM 249 mg/dL H 100-199 mg/d L Triglycerides [461788] 09/28/2024 04:30 PM 56 mg/dL 0-149 mg/dL HDL Cholesterol [287952] 09/28/2024 12:18 PM 94 mg/dL >39 mg/dL VLDL Cholesterol Timi [[id number]] 09/28/2024 04:30 PM 9 mg/dL 5-40 mg/dL LDL Chol Calc ([facility]) [[id number]] 09/28/2024 04:30 PM 146 mg/dL H 0-99 mg/dL Hemoglobin A1c[[id number]] Collected: 09/27/2024 04:20 PM Specimen Received: 09/27/2024 05:00 AM Source: [facility] Hemoglobin A1c [[id number]] 09/28/2024 06:55 AM 5.5 % 4.8-5.6 % . Prediabetes: 5.7 - 6.4 Kaylin betes: >6.4 Glycemic control for adults with diabetes: 7.0 Allergies, adverse reactions, alerts No known allergies and adverse reactions Medications No administered medications reported Vital Signs No vital signs reported Social History No smoking Hx information available
--- OUTSIDE RECORDS SUMMARY | 2025-07-08 11:24 | XMS_ITS | Continuity of Care Document ---
Author Organization [facility] Address [address] [facility] [address] [place] [address] Insurance Providers Payer Plan Claims Address Claims Phone Policy Number Group Number Relation Employer Guarantor Name Guarantor Guarantor Address Guarantor Phone [employer] 1 [facility] [address], [place] [address] [id number] 1 Self Kelly Gaona [address] [place] [address] [facility] [place] [address] tel:[phone] Self Kelly Gaona [address] [place] [address] [facility], [address], [place] [address] tel:[phone] Self Kelly Gaona [address] [place] [address] Problems Unknown Problems Results Test Result Date/Time Value / Unit Interp. Refere nce Range Comp. Metabolic Panel (14)[[id number]] Collected: 09/27/2024 04:20 PM Specimen Received: 09/27/2024 05:00 AM Source: [facility] Glucose [[id number]] 09/28/2024 12:16 PM 94 mg/dL 70-99 mg/dL BUN [[id number]] 09/28/2024 12:18 PM 18 mg/dL 8-2 7 mg/dL Creatinine [[id number]] 09/28/2024 12:16 PM 0.97 mg/dL 0.57-1.00 mg/dL eGFR [[id number]] 09/28/2024 12:16 PM 66 mL/min/1.73 >59 mL/min/1.73 BUN/Creatinine Ratio [125858] 09/28/2024 12:18 PM 19 12-28 Sodium [538407] 09/28/2024 12:18 PM 142 mmol/L 134-144 mmol/L Potassium [[id number]] 09/28/2024 12:18 PM 4.3 mmol/L 3.5-5.2 mmol/L Chloride [336241] 09/28/2024 12:18 PM 105 mmol/L 96-106 mmol/L Carbon Dioxide, Total [998898] 09/28/2024 05:53 PM 16 mmol/L L 20-29 mmol/L Calcium [947070] 09/28/2024 12:18 PM 9.9 mg/dL 8.7-10.3 mg/dL Protein, Total [287395] 09/28/2024 12:16 PM 6.4 g/dL 6.0-8.5 g/dL Albumin [[id number]] 09/28/2024 12:16 PM 4.4 g/dL 3.9-4.9 g/dL Globulin, Total [[id number]] 09/28/2024 12:16 PM 2.0 g/dL 1.5-4.5 g/dL Bilirubin, Total [[id number]] 09/28/2024 12:18 PM 0.4 mg/dL 0.0-1.2 mg/dL Alkaline Phosphatase [[id number]] 09/28/2024 12:18 PM 79 IU/L 44-121 IU/L AST (SGOT) [[id number]] 09/28/2024 12:16 PM 24 IU/L 0-40 IU/L ALT (SGPT) [[id number]] 09/28/2024 12:18 PM 14 IU/L 0-32 IU/L Lipid Panel[[id number]] Collected: 09/27/2024 04:20 PM Specimen Received: 09/27/2024 05:00 AM Source: [facility] Cholesterol, Total [[id number]] 09/28/2024 12:16 PM 249 mg/dL H 100-199 mg/d L Triglycerides [[id number]] 09/28/2024 04:30 PM 56 mg/dL 0-149 mg/dL HDL Cholesterol [[id number]] 09/28/2024 12:18 PM 94 mg/dL >39 mg/dL VLDL Cholesterol Timi [[id number]] 09/28/2024 04:30 PM 9 mg/dL 5-40 mg/dL LDL Chol Calc ([facility]) [[id number]] 09/28/2024 04:30 PM 146 mg/dL H 0-99 mg/dL Hemoglobin A1c[[id number]] Collected: 09/27/2024 04:20 PM Specimen Received: 09/27/2024 05:00 AM Source: [facility] Hemoglobin A1c [[id number]] 09/28/2024 06:55 AM 5.5 % 4.8-5.6 % . Prediabetes: 5.7 - 6.4 Kaylin betes: >6.4 Glycemic control for adults with diabetes: 7.0 Allergies, adverse reactions, alerts No known allergies and adverse reactions Medications No administered medications reported Vital Signs No vital signs reported Social History No smoking Hx information available
--- OUTSIDE RECORDS SUMMARY | 2025-07-08 11:24 | XMS_ITS | Clinical Summary ---
Author Organization [address] [facility] Address [address] [place] [phone] Phone Care Team Providers Care Launch Steward Name Role Phone Mau Quispe DO Primary Care Provider Medical History Medical History Date Comments Depression 10/11/2017 DX:Depression Eczema 12/21/2017 DX:Eczema Morbid obesity with BMI of 4 5.0-49.9, adult ([facility] V24, [facility] V28) 09/06/2017 DX:Morbid obesity with BMI of 45.0-49.9, adult ([facility]) Ventral hernia 01/19/2018 DX:Ventral herni a Obstructive [...] LAB CHEMISTRY METHOD 05/29/2025 12:[address] [facility] Triglycerides 67 0 - 150 mg/dL LAB CHEMISTRY METHOD 05/29/2025 12:[address] [facility] HDL 95 >=40 mg/dL LAB CHEMISTRY METHOD 05/29/2025 12:[address] [facility] LDL Calculated 134(H) 0 - 100 mg/dL LAB CHEMISTRY METHOD 05/29/2025 12:[address] [facility] VLDL Cholesterol Timi 13.4 mg/dL LAB CHEMISTRY METHOD 05/29/2025 12:[address] [facility] Non HDL Chol. (LDL+VLDL) 147(H) <145 mg/dL LAB CHEMISTRY METHOD 05/29/2025 12:[address] [facility] Chol/HDL Ratio 2.5 0.0 - 4.4 LAB CHEMISTRY METHOD 05/29/2025 12:08 PM [facility] Blood Venous blood specimen / Unknown Venipuncture / Unknown 05/29/2025 10:35 AM EDT 05/29/2025 10:35 AM EDT [facility] LAB BLOOD ORDERABLES Final Resul t [facility] [address] [place] [address], * CBC auto differential (05/29/2025 10:35 AM EDT) WBC 5.7 4.8 - 10.8 K/mcL LAB HEMETOLOGY METHOD 05/29/2025 11:[address] [facility] RBC 4.70 3.80 - 4.80 M/mcL LAB HEMETOLOGY METHOD 05/29/2025 11:[address] [facility] Hemoglobin 14.3 11.5 - 16.0 g/dL LAB HEMETOLOGY METHOD 05/29/2025 11:[address] [facility] Hematocrit 43.3 35.0 - 47.0 % LAB HEMETOLOGY METHOD 05/29/2025 11:17 AM [facility] MCV 91.9 79.0 - 98.0 FL LAB HEMETOLOGY METHOD 05/29/2025 11:17 AM [facility] MCH 30.4 27.0 - 32.0 pcg LAB HEMETOLOGY METHOD 05/29/2025 11:17 AM [facility] MCHC 33.0 32.0 - 37.0 g/dL LAB HEMETOLOGY METHOD 05/29/2025 11:17 AM [facility] RDW 12.6 11.0 - 15.0 % LAB HEMETOLOGY METHOD 05/29/2025 11:17 AM [facility] Platelets 290 130 - 400 K/mcL LAB HEMETOLOGY METHOD 05/29/2025 11:17 AM [facility] MPV 9.9 7.0 - 11.0 FL LAB HEMETOLOGY METHOD 05/29/2025 11:17 AM [facility] NRBC 0.0 <1.0 % LAB HEMETOLOGY METHOD 05/29/2025 11:17 AM [facility] NRBC Absolute 0.00 <0.10 K/mcL LAB HEMETOLOGY METHOD 05/29/2025 11:17 AM [facility] Neutrophils Relative 58.7 % LAB HEMETOLOGY METHOD 05/29/2025 11:17 AM [facility] Lymphocytes Relative 26.7 % LAB HEMETOLOGY METHOD 05/29/2025 11:17 AM [facility] Monocytes Relative 11.6 % LAB HEMETOLOGY METHOD 05/29/2025 11:17 AM [facility] Eosinophils Relative 1.9 % LAB HEMETOLOGY METHOD 05/29/2025 11:17 AM [facility] Basophils Relative 0.7 % LAB HEMETOLOGY METHOD 05/29/2025 11:[address] [facility] Immature Granulocytes Relative 0.4 % LAB HEMETOLOGY METHOD 05/29/2025 11:[address] [facility] Neutrophils Absolute 3.34 1.50 - 7.00 K/mcL LAB HEMETOLOGY METHOD 05/29/2025 11:[address] [facility] Lymphocytes Absolute 1.52 1.00 - 5.00 K/mcL LAB HEMETOLOGY METHOD 05/29/2025 11:[address] [facility] Monocytes Absolute 0.66 0.20 - 1.00 K/mcL LAB HEMETOLOGY METHOD 05/29/2025 11:[address] [facility] Eosinophils Absolute 0.11 0.00 - 0.50 K/mcL LAB HEMETOLOGY METHOD 05/29/2025 11:[address] [facility] Basophils Absolute 0.04 0.00 - 0.20 K/mcL LAB HEMETOLOGY METHOD 05/29/2025 11:[address] [facility] Immature Granulocytes Absolute 0.02 0.00 - 0.03 K/mcL LAB HEMETOLOGY METHOD 05/29/2025 11:[address] [facility] Blood Venous blood specimen / Unknown Venipuncture / Unknown 05/29/2025 10:35 AM EDT 05/29/2025 10:35 AM EDT [facility] LAB BLOOD ORDERABLES Final Resul t [facility] [address] [place] [address], * Thyroid stimulating hormone (05/29/2025 10:35 AM EDT) TSH 2.95 0.40 - 4.00 mcIU/mL LAB CHEMISTRY METHOD 05/29/2025 12:[address] [facility] Blood Venous blood specimen / Unknown Venipuncture / Unknown 05/29/2025 10:35 AM EDT 05/29/2025 10:35 AM EDT [facility] LAB BLOOD ORDERABLES Final Resul t Performing Organization Address [facility]/ZIP Co de Phone Number [facility] [address] [place] [address], [place] [phone] * Hemoglobin A1c (05/29/2025 10:35 AM EDT) Pathologist [facility] Hemoglobin A1C 5.4 <6.5 % LAB CHEMISTRY METHOD 05/29/2025 1:[address] [facility] Mean Bld Glu Estim. 108 mg/dL LAB CHEMISTRY METHOD 05/29/2025 1:[address] [facility] Blood Venous blood specimen / Unknown Venipuncture / Unknown 05/29/2025 10:35 AM EDT 05/29/2025 10:35 AM EDT [facility] LAB BLOOD ORDERABLES Final Resul t Performing Organization Address [facility]/ZIP Co de Phone Number [facility] [address] [place] [address], [place] [phone] * (ABNORMAL) Comprehensive metabolic panel (05/29/2025 10:35 AM EDT) [facility] Sodium 142 133 - 145 mmol/L LAB CHEMISTRY METHOD 05/29/2025 12:[address] [facility] Potassium 4.0 3.5 - 5.5 mmol/L LAB CHEMISTRY METHOD 05/29/2025 12:[address] [facility] Chloride 109 96 - 110 mmol/L LAB CHEMISTRY METHOD 05/29/2025 12:[address] [facility] CO2 28 21 - 32 mmol/L LAB CHEMISTRY METHOD 05/29/2025 12:[address] [facility] Anion Gap 5 3 - 11 LAB CHEMISTRY METHOD 05/29/2025 12:08 PM [facility] Glucose 96 70 - 100 mg/dL LAB CHEMISTRY METHOD 05/29/2025 12:08 PM [facility] BUN 10 5 - 25 mg/dL LAB CHEMISTRY METHOD 05/29/2025 12:08 PM [facility] Creatinine 0.97 0.50 - 1.10 mg/dL LAB CHEMISTRY METHOD 05/29/2025 12:08 PM [facility] eGFR 67 >=60 mL/min/1. 73m2 LAB CHEMISTRY METHOD 05/29/2025 12:08 PM [facility] Comment:Calculation based on the Chronic Kidney Disease Epidemiology Collaboration (CKD-EPI) equation refit without adjustment for race. BUN/Creatinine Ratio 10.3 LAB CHEMISTRY METHOD 05/29/2025 12:08 PM [facility] Calcium 8.2(L) 8.5 - 10.5 mg/dL LAB CHEMISTRY METHOD 05/29/2025 12:08 PM [facility] AST (SGOT) 16 10 - 42 unit/L LAB CHEMISTRY METHOD 05/29/2025 12:08 [facility] ALT (SGPT) 23 10 - 60 unit/L LAB CHEMISTRY METHOD 05/29/2025 12:08 PM [facility] Alkaline Phosphatase 75 42 - 121 unit/L LAB CHEMISTRY METHOD 05/29/2025 12:08 PM [facility] Total Protein 6.3 6.0 - 8.0 g/dL LAB CHEMISTRY METHOD 05/29/2025 12:08 PM [facility] Albumin 3.5 3.2 - 5.0 g/dL LAB CHEMISTRY METHOD 05/29/2025 12:08 PM [facility] Total Bilirubin 0.4 0.0 - 1.4 mg/dL LAB CHEMISTRY METHOD 05/29/2025 12:[address] [facility] Blood Venous blood specimen / Unknown Venipuncture / Unknown 05/29/2025 10:35 AM EDT 05/29/2025 10:35 AM EDT [facility] LAB BLOOD ORDERABLES Final Resul t [facility] [address] [place] [address], from Last 3 Months Insurance [facility] Advance Directives Documents on File Type Date Recorded 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
== END 2025-07-08 11:55 | disposition home or self-care (01) ==
LOC: HO.HOS 10:41
DX: S52.041A Displaced fracture of coronoid process of right ulna, initial encounter for closed fracture (principal); S52.501A Unspecified fracture of the lower end of right radius, initial encounter for closed fracture
CPT/HCPCS: 99024

== ENCOUNTER → 2025-07-08 10:47 | Outpatient (BNV) | payer MEDICARE, MEDICAID, SELFPAY | PROVIDERS: Visit Provider Radiology Diagnostic Radiology | DX: S52.042A Displaced fracture of coronoid process of left ulna, initial encounter for closed fracture (principal); M25.531 Pain in right wrist; S52.591D Other fractures of lower end of right radius, subsequent encounter for closed fracture with routine healing | CPT/HCPCS: 73080; 73110 ==

== ENCOUNTER 2025-07-24 09:10 | Outpatient (REF) | payer MEDICARE, MEDICAID, SELFPAY ==
--- NOTE | ~2025-07-24 | XR_ITS ---
CLINICAL HISTORY: M25.531 - Pain in right wrist --- Additional Notes or Special Instructions: Out of cast Exam: PA, lateral, and oblique views of the right wrist. Comparison: None provided. Findings: Bony alignment is anatomic. No acute fracture. Minimal to mild degenerative change within the carpus extending into the thumb. No erosions. Impression: No fracture. This document has been electronically signed by: Christo Huitron MD on 07/25/2025 09:12:34
--- NOTE | ~2025-07-24 | XR_ITS ---
CLINICAL HISTORY: M25.521 - Pain in right elbow --- Additional Notes or Special Instructions: Please do not fully extend elbow, patient has unstable fracture and this Exam: AP, lateral, and oblique views of the right elbow. Comparison: None provided. Findings: Longitudinal fracture along the far ulnar aspect of the proximal ulna is identified. This is best appreciated on the AP view. There is 2-3 mm of articular surface step-off as well as cortical step-off. No fracture of the radius or humerus is identified. There is a 2 mm calcification adjacent to the lateral epicondyle. No joint effusion. Impression: Fracture of the proximal ulna as above. This document has been electronically signed by: Christo Huitron MD on 07/25/2025 09:12:15
--- OUTSIDE RECORDS SUMMARY | 2025-07-24 09:39 | XMS_ITS | Continuity of Care Document ---
Author Organization [facility] Address [address] [facility] [address] [place] [address] Insurance Providers Payer Plan Claims Address Claims Phone Policy Number Group Number Relation Employer Guarantor Name Guarantor Guarantor Address Guarantor Phone [employer] STANLEY [employer]D 1 [facility] [address] [address] [id number] Self Kelly Gaona [address] [place] [id number] [facility] [place] [address] tel:[phone] Self Kelly Gaona [address] [place] [address] [facility], [address], [place] [address] tel:[phone] Self Kelly Gaona [address] [place] [address] Problems Unknown Problems Results Test Result Date/Time Value / Unit Interp. Refere nce Range Comp. Metabolic Panel (14)[[id number]] Collected: 09/27/2024 04:20 PM Specimen Received: 09/27/2024 05:00 AM Source: [facility] Glucose [[id number]] 09/28/2024 12:16 PM 94 mg/dL 70-99 mg/dL BUN [[id number]] 09/28/2024 12:18 PM 18 mg/dL 8-2 7 mg/dL Creatinine [[id number]] 09/28/2024 12:16 PM 0.97 mg/dL 0.57-1.00 mg/dL eGFR [[id number]] 09/28/2024 12:16 PM 66 mL/min/1.73 >59 mL/min/1.73 BUN/Creatinine Ratio [[id number]] 09/28/2024 12:18 PM 19 12-28 Sodium [[id number]] 09/28/2024 12:18 PM 142 mmol/L 134-144 mmol/L Potassium [[id number]] 09/28/2024 12:18 PM 4.3 mmol/L 3.5-5.2 mmol/L Chloride [[id number]] 09/28/2024 12:18 PM 105 mmol/L 96-106 mmol/L Carbon Dioxide, Total [[id number]] 09/28/2024 05:53 PM 16 mmol/L L 20-29 mmol/L Calcium [[id number]] 09/28/2024 12:18 PM 9.9 mg/dL 8.7-10.3 mg/dL Protein, Total [[id number]] 09/28/2024 12:16 PM 6.4 g/dL 6.0-8.5 g/dL Albumin [337852] 09/28/2024 12:16 PM 4.4 g/dL 3.9-4.9 g/dL Globulin, Total [[id number]] 09/28/2024 12:16 PM 2.0 g/dL 1.5-4.5 g/dL Bilirubin, Total [756060] 09/28/2024 12:18 PM 0.4 mg/dL 0.0-1.2 mg/dL Alkaline Phosphatase [884750] 09/28/2024 12:18 PM 79 IU/L 44-121 IU/L AST (SGOT) [[id number]] 09/28/2024 12:16 PM 24 IU/L 0-40 IU/L ALT (SGPT) [466910] 09/28/2024 12:18 PM 14 IU/L 0-32 IU/L Lipid Panel[[id number]] Collected: 09/27/2024 04:20 PM Specimen Received: 09/27/2024 05:00 AM Source: [facility] Cholesterol, Total [[id number]] 09/28/2024 12:16 PM 249 mg/dL H 100-199 mg/d L Triglycerides [899189] 09/28/2024 04:30 PM 56 mg/dL 0-149 mg/dL HDL Cholesterol [[id number]] 09/28/2024 12:18 PM 94 mg/dL >39 mg/dL VLDL Cholesterol Timi [177550] 09/28/2024 04:30 PM 9 mg/dL 5-40 mg/dL LDL Chol Calc ([facility]) [[id number]] 09/28/2024 04:30 PM 146 mg/dL H 0-99 mg/dL Hemoglobin A1c[[id number]] Collected: 09/27/2024 04:20 PM Specimen Received: 09/27/2024 05:00 AM Source: [facility] Hemoglobin A1c [[id number]] 09/28/2024 06:55 AM 5.5 % 4.8-5.6 % . Prediabetes: 5.7 - 6.4 Kaylin betes: >6.4 Glycemic control for adults with diabetes: 7.0 Allergies, adverse reactions, alerts No known allergies and adverse reactions Medications No administered medications reported Vital Signs No vital signs reported Social History No smoking Hx information available
--- OUTSIDE RECORDS SUMMARY | 2025-07-24 09:39 | XMS_ITS | Encounter Summary ---
Author Organization [facility] Address [address] [place] [phone] Care Team Providers Care Farm Products Shipper Name Role Phone Mau Quispe DO Primary Care Provider [phone] Reason for Referral * Consultation (Routine) - Closed Specialty Diagnoses / Procedures Referred By Carlos cabrera Referred To Contact Pulmonary Disease Diagnoses SOB (shortness of breath) Wheezing Cough Persistent asthma Acute severe exacerbation of asthma (HC CODE) Referral, Self [facility] [address] [place] [address], 2nd floor [facility], [address] [place] [address] Phone: tel: fax: Referral ID Status Reason Start Date Expiration Date Visits Re quested Visits Authorized [id number] Closed 02/22/2017 02/22/2018 1 1 Encounter Details Date Type Department Care Team (Latest Contact Info) Description 02/22/2017 Transcribed Orders Referral Link Providers [address] [place] [id number] Referral, Self SOB (shortness of breath) (Primary [...] Unspecified asthma Acute severe exacerbation of asthma (HC CODE) documented in this encounter Care Teams Farm Products Shipper Relationship Specialty Start Date End Date Mau Quispe DO [address] [place] [phone] PCP - General Internal Medicine 02/15/17 documented as of this encounter
--- OUTSIDE RECORDS SUMMARY | 2025-07-24 09:39 | XMS_ITS | Clinical Summary ---
Author Organization [address] [facility] Address [address] [place] [phone] Phone Care Team Providers Care Senior Administrator Support Name Role Phone Mau Quispe DO Primary Care Provider [phone] Medical History Medical History Date Comments Depression 10/11/2017 DX:Depression Eczema 12/21/2017 DX:Eczema Morbid obesity with BMI of 4 5.0-49.9, adult ([facility] V24, [facility] V28) 09/06/2017 DX:Morbid obesity with BMI of 45.0-49.9, adult ([facility]) Ventral hernia 01/19/2018 DX:Ventral herni a [...] Resul t [facility] [address] [place] [address], * CBC auto differential (05/29/2025 10:35 AM [...] Resul t [facility] [address] [place] [address], * Thyroid stimulating hormone (05/29/2025 10:35 AM EDT) TSH 2.95 0.40 - 4.00 mcIU/mL LAB CHEMISTRY METHOD 05/29/2025 12:58 PM EDT [facility] Blood Venous blood specimen / Unknown Venipuncture / Unknown 05/29/2025 10:35 AM EDT 05/29/2025 10:35 AM EDT [facility] LAB BLOOD ORDERABLES Final Resul t Performing Organization Address [facility]/ZIP Co de Phone Number [facility] [address] [place] [address], [place] [phone] * Hemoglobin A1c (05/29/2025 10:35 AM EDT) Pathologist [facility] Hemoglobin A1C 5.4 <6.5 % LAB CHEMISTRY METHOD 05/29/2025 1:48 PM EDT [facility] Mean Bld Glu Estim. 108 mg/dL LAB CHEMISTRY METHOD 05/29/2025 1:48 PM EDT [facility] Blood Venous blood specimen / Unknown Venipuncture / Unknown 05/29/2025 10:35 AM EDT 05/29/2025 10:35 AM EDT [facility] LAB BLOOD ORDERABLES Final Resul t Performing Organization Address [facility]/ZIP Co de Phone Number [facility] [address] [place] [address], [place] [phone] * (ABNORMAL) Comprehensive metabolic panel (05/29/2025 10:35 AM EDT) [facility] Sodium 142 133 - 145 mmol/L [...] 42 unit/L LAB CHEMISTRY METHOD 05/29/2025 12:08 [facility] ALT (SGPT) 23 10 - 60 [...] AM EDT 05/29/2025 10:35 AM EDT [facility] LAB BLOOD ORDERABLES Final Resul t [facility] [address] [place] [address], from Last 3 Months Insurance [facility] Advance Directives Documents on File Type Date Recorded Patient Method Consultant Expl anation Health Care Decision (hx) 09/27/2016 AD HIGHTOWER DIRECTIVE Health Care Decision (hx) 09/27/2016 AD HIGHTOWER DIRECTIVE Health Care Decision (hx) 09/27/2016 AD HIGHTOWER DIRECTIVE Care Teams Senior Administrator Support Relationship Specialty Start Date End Date Mau Quispe DO [address] [place] [phone] PCP - General Internal Medicine 11/08/17
--- OUTSIDE RECORDS SUMMARY | 2025-07-24 09:39 | XMS_ITS | Clinical Summary ---
Author Organization [facility] Address [address] [place] [phone] Phone Care Team Providers Care Plastics Fabrication Supervisor Name Role Phone Mau Quispe DO Primary Care Provider [phone] Allergies Active Allergy Reactions Criticality Noted Date [...] tablet 11 09/11/202 4 09/11/20 25 Active arformoterol (BROVANA) 15 MCG/2ML nebulizer solution USE 2 ML VIA NEBULIZER EVERY 12 HOURS Active baclofen (LIORESAL) 10 MG tablet Take 10 mg by mouth at bed time 5 Active budesonide (PULMICORT) 0.5 MG/2ML nebulizer solution INHALE 2ML BY MOUTH VIA NEBULIZER TWICE DAILY 5 Active D3-50 1.25 MG (52619 UT) capsule Take 50,000 Units by mouth 1 (one) time per week 5 Active ipratropium-al buterol (DUO-NEB) 0.5-2.5 mg/3 mL nebulizer solution USE [...] Active Magnesium Oxide -Mg Supplement 500 MG tabletIndicati ons:Hypomagnes emia Take 500 mg by mouth 1 (one) time each day 30 tablet 5 5 12/28/19 26 Active aMILoride (MIDAMOR) 5 MG tabletIndicati ons:Hypokalemi a,Hypertension Take 1 tablet (5 mg total) by mouth 1 (one) time each day 90 tablet 3 5 07/04/20 26 Active aMILoride (MIDAMOR) 5 MG tabletIndicati ons:Hypokalemi a,Hypertension Take 1 tablet (5 mg total) by mouth 1 (one) time each day 90 tablet 3 5 07/04/20 25 Discontinu ed(Reorder (does not appear on AVS)) Magnesium Oxide -Mg Supplement 500 MG tablet Take 500 mg by mouth 1 (one) time each day 07/01/20 25 Discontinu ed(Reorder (does not appear on AVS)) Active Problems Problem Noted Date Diagnosed Date [...] for years to be stating back to 2018. This may be either a respiratory or [...] Syncope 03/09/2022 Overview (04/06/2022): ER visit to [facility] on 09/24/21 Tricuspid valve regurgitation 03/09/2022 Severe persistent allergic asthma 04/04/2018 Overview (04/05/2022): Added automatically from request for surgery [id number] Ventral hernia 01/19/2018 Eczema 12/21/2017 Depressive disorder 10/11/2017 Body mass index 40+ - severely obese 09/06/2017 Anxiety 08/02/2017 Asthmatic bronchitis 07/04/2017 Overview (04/05/2022): Added automatically from request for surgery [id number] Gastro-esophageal reflux disease without esophag itis 02/28/2017 Multiple nodules of lung 02/28/2017 Overview (04/05/2022): Followed outside of the [facility] stable from [id number] Obstructive sleep apnea syndrome 02/28/2017 Overview (04/05/2022): CPAP Seasonal allergic rhinitis 02/28/2017 Encounters Date Type Department Care Team Description 07/04/2025 Orders Only [facility] [address] [phone] Krystyna Warren ARNP Hypocalcemia (Primary Dx) 07/01/2025 Orders Only [facility] [address] [phone] Krystyna Warren ARNP Hypomagnesemia (Primary Dx) 07/01/2025 Telephone [facility] [address] [phone] Guerline Hughes 07/01/2025 Refill [facility] [address] [address] Guerline Hughes Hypokalemia; Hypertension 06/27/2025 Refill [facility] [address] [phone] Elkin Whitt 06/17/2025 Refill [facility] [address] [phone] Romina Whittonda 06/13/2025 Orders Only [facility] [address] [phone] Elkin Whitt Hypomagnesemia 05/08/2025 Orders Only [facility] [address] [phone] Krystyna Warren ARNP Hypomagnesemia (Primary Dx) 05/08/2025 Orders Only [facility] [address] [phone] Krystyna Warren ARNP Hypomagnesemia (Primary Dx) 05/08/2025 Refill [facility] [address] [phone] Krystyna Gray from Last 3 Months Immunizations [...] Visit [facility]. [address] [facility] [address] [place] [address] Krystyna Warren ARNP [address] [facility] [address] [place] [phone] Health Maintenance Due Date Last Done Comments Breast Cancer Screening 1965 Colorectal Cancer Screening: Annual FOBT 2012 Colorectal Cancer Screening: Sigmoidoscopy 2012 Pneumococcal Vaccine: 50+ Years (2 of 2 - PCV) 09/18/2015 09/18/2014 Influenza Vaccine (#1) 2025 , 11/25/2022, 10/17/2016 Colorectal Cancer Screening: Colonoscopy 05/06/2032 05/06/2022 Pneumococcal Vaccine: Peds ( 0 to 5 Years) and At-Risk Patients (6 to 49 Years) Discontinued 09/18/2014 Hepatitis B Vaccine Aged Out No longe r eligible based on patient's age to complete this topic Insurance Member Subscriber Plan / Payer (Ef fective 2023-Present) Name:Kelly Gaona Relation to Subscriber:Self Name:Kelly Gaona Payer ID:Not on file Type:Not on file Address: [address] [phone] Medicaid [place] [facility] Member Subscriber Plan / Payer (Ef fective 2023-Present) Name:Kelly Gaona Relation to Subscriber:Self Name:Kelly Gaona Payer ID:Not on file Type:Not on file Address: [address] [phone] Medicaid [place] Care Teams Plastics Fabrication Supervisor Relationship Specialty Start Date End Date Mau Quispe DO [address] [place] [address] PCP - General Internal Medicine 02/24/22
--- OUTSIDE RECORDS SUMMARY | 2025-07-24 09:39 | XMS_ITS | Continuity of Care Document ---
Author Organization [facility] Address [address] [facility] [address] [place] [address] Insurance Providers Payer Plan Claims Address Claims Phone Policy Number Group Number Relation Employer Guarantor Name Guarantor Guarantor Address Guarantor Phone [employer] STANLEY REDD [address] [facility] [address], [place] [address] [id number] Self Kelly Gaona [address] [place] [id number] [facility] [place] [address] tel:[phone] Self Kelly Gaona [address] [place] [address] [facility], [address], [place] [address] tel:[phone] [id number] Self Kelly Gaona [address] [place] [id number] Problems Unknown Problems Results Test Result Date/Time Value / Unit Interp. Refere nce Range Comp. Metabolic Panel (14)[3 [id number]] Collected: 09/27/2024 04:20 PM Specimen Received: 09/27/2024 05:00 AM Source: [facility] Glucose [[id number]] 09/28/2024 12:16 PM 94 mg/dL 70-99 mg/dL BUN [[id number]] 09/28/2024 12:18 PM 18 mg/dL 8-2 7 mg/dL Creatinine [279626] 09/28/2024 12:16 PM 0.97 mg/dL 0.57-1.00 mg/dL eGFR [165214] 09/28/2024 12:16 PM 66 mL/min/1.73 >59 mL/min/1.73 BUN/Creatinine Ratio [[id number]] 09/28/2024 12:18 PM 19 12-28 Sodium [795704] 09/28/2024 12:18 PM 142 mmol/L 134-144 mmol/L Potassium [679676] 09/28/2024 12:18 PM 4.3 mmol/L 3.5-5.2 mmol/L Chloride [069835] 09/28/2024 12:18 PM 105 mmol/L 96-106 mmol/L Carbon Dioxide, Total [117581] 09/28/2024 05:53 PM 16 mmol/L L 20-29 mmol/L Calcium [737811] 09/28/2024 12:18 PM 9.9 mg/dL 8.7-10.3 mg/dL Protein, Total [393144] 09/28/2024 12:16 PM 6.4 g/dL 6.0-8.5 g/dL Albumin [204262] 09/28/2024 12:16 PM 4.4 g/dL 3.9-4.9 g/dL Globulin, Total [604265] 09/28/2024 12:16 PM 2.0 g/dL 1.5-4.5 g/dL Bilirubin, Total [867015] 09/28/2024 12:18 PM 0.4 mg/dL 0.0-1.2 mg/dL Alkaline Phosphatase [358995] 09/28/2024 12:18 PM 79 IU/L 44-121 IU/L AST (SGOT) [580378] 09/28/2024 12:16 PM 24 IU/L 0-40 IU/L ALT (SGPT) [805823] 09/28/2024 12:18 PM 14 IU/L 0-32 IU/L Lipid Panel[[id number]] Collected: 09/27/2024 04:20 PM Specimen Received: 09/27/2024 05:00 AM Source: [facility] Cholesterol, Total [104031] 09/28/2024 12:16 PM 249 mg/dL H 100-199 mg/d L Triglycerides [183933] 09/28/2024 04:30 PM 56 mg/dL 0-149 mg/dL HDL Cholesterol [335449] 09/28/2024 12:18 PM 94 mg/dL >39 mg/dL VLDL Cholesterol Timi [480230] 09/28/2024 04:30 PM 9 mg/dL 5-40 mg/dL LDL Chol Calc ([facility]) [701114] 09/28/2024 04:30 PM 146 mg/dL H 0-99 mg/dL Hemoglobin A1c[578594] Collected: 09/27/2024 04:20 PM Specimen Received: 09/27/2024 05:00 AM Source: [facility] Hemoglobin A1c [332906] 09/28/2024 06:55 AM 5.5 % 4.8-5.6 % . Prediabetes: 5.7 - 6.4 Kaylin betes: >6.4 Glycemic control for adults with diabetes: 7.0 Allergies, adverse reactions, alerts No known allergies and adverse reactions Medications No administered medications reported Vital Signs No vital signs reported Social History No smoking Hx information available
--- OUTSIDE RECORDS SUMMARY | 2025-07-24 09:39 | XMS_ITS | Clinical Summary ---
Author Organization [address] [address] Care Team Providers Care Phlebotomist Medical Lab Assistant Name Role Phone Mau Quispe DO Primary Care Provider [phone] Social History Tobacco Use Types Packs/Day Years [...] Series) 2013 Covid-19 vaccine series ( - season) 2024 Influenza vaccine 07/29/2025 RSV Immunization (1 - 1-dose 75+ series) 2038 Meningococcal B Vaccine Aged Out No l onger eligible based on patient's age to complete this topic Meningococcal Vaccine Aged Out No isabela janie eligible based on patient's age to complete this topic Insurance [employer]CIAL [employer] COMMERCIAL GENERIC COMMERCIAL GENERIC COMMERCIAL GENERIC Care Teams Phlebotomist Medical Lab Assistant Relationship Specialty Start Date End Date Mau Quispe DO [address] [place] [phone] PCP - General Internal Medicine 02/15/17
== END 2025-07-24 09:11 | disposition home or self-care (01) ==
LOC: HO.HOSX 09:10
DX: S52.041D Displaced fracture of coronoid process of right ulna, subsequent encounter for closed fracture with routine healing (principal); S52.501D Unspecified fracture of the lower end of right radius, subsequent encounter for closed fracture with routine healing; W19.XXXD Unspecified fall, subsequent encounter
CPT/HCPCS: 73080; 73110; 99212

== ENCOUNTER 2025-07-24 10:06 | Outpatient (AMB) | payer MEDICARE, MEDICAID, SELFPAY ==
[2025-07-24 10:22] VITALS: BMI 42.0
--- NOTE | 2025-07-24 10:22 | MHC.OFFVIS ---
Vital Signs 07/24/25 10:22 Height 5 ft 4 in Weight 245 lb BMI 42.0 Intake Visit Reasons: OV-Rt wrist fx s/p fall DOI: 06/20/25-w/xrays Intake Note: Kelly is a 60 year old left hand dominant female who presents today for follow up status post Right Distal Radius Fracture, a Right Ulnar Styloid Fracture, & a Fracture of the Coronoid Process of the Ulna, DOI: 06/19/25. At her last visit she was transitioned to a Velcro wrist brace and advised to start gentle ROM. Patient complains of pain on the dorsal, ulnar, aspect of the right wrist. She is taking Aleve and Tylenol with relief. Denies numbness, tingling. Allergies Sulfa (Sulfonamide Antibiotics) Allergy (Severe, Verified 07/24/25 10:29) Hives environmental allergies Allergy (Unknown, Verified 07/24/25 10:29) Unknown HPI HPI OV-Rt wrist fx s/p fall DOI: 06/20/25-w/xrays: Details: Kelly is a 60 year old left hand dominant female who presents today for follow up status post Right Distal Radius Fracture, a Right Ulnar Styloid Fracture, & a Fracture of the Coronoid Process of the Ulna, DOI: 06/19/25. At her last visit she was transitioned to a Velcro wrist brace and advised to start gentle ROM. Patient complains of pain on the dorsal, ulnar, aspect of the right wrist. She is taking Aleve and Tylenol with relief. Patient reports that her range of motion of both the elbow and wrist have improved slightly since previous evaluation. Denies numbness, tingling. COUNTS INCLUDE 234 BEDS AT THE [facility] Medical History Depression Trigeminal neuralgia Hypertension GERD (gastroesophageal reflux disease) Morbid obesity Eczema Nasal polyposis Asthma-COPD overlap syndrome Chronic allergic rhinitis Pulmonary nodules SIERRA on CPAP Severe persistent asthma Surgical History Status post repair of paraesophageal diaphragmatic hernia Hx of cataract surgery Family History Father Lung cancer Diabetes Heart disease Mother Emphysema of lung Hypertension Bladder cancer TIA (transient ischemic attack) Social History Alcohol intake: current Alcohol intake frequency: a few times a month Patient Tobacco Use Status: Never used Tobacco Review of Systems Const All systems reviewed & are unremarkable except as noted in HPI and below Physical Exam Vital Signs: BMI result Body Mass Index 42.0 Extrem Other: Patient is alert, oriented, and in no acute distress. Neuro: Normal sensation of the tips of all digits of the right hand at this time Vascular: Cap refill brisk Pain: No tenderness to palpation about right distal radius No tenderness to palpation about right elbow ROM: Patient is able to very gently extend the right elbow to approximately 20 degrees and can flex to approximately 90 degrees Skin: No lacerations or abrasions. General: Ecchymosis noted of right elbow and forearm, appears to be resolving No erythema, evidence of infection Psych: Appears grossly normal Affect normal Attitude cooperative Results Reviewed Results Reviewed: X-rays obtained in the office today and independently reviewed by me, Sreekanth Flores PA-C, demonstrate nondisplaced fracture of the right distal radius along with minimally displaced grade 2 coronoid process fracture of the right ulna. Assessment & Plan Assessment & Plan (1) Fracture of coronoid process of right ulna: Code(s): S52.041A - Displaced fracture of coronoid process of right ulna, initial encounter for closed fracture Category: Medical (2) Fracture of right distal radius: Code(s): S52.501A - Unspecified fracture of the lower end of right radius, initial encounter for closed fracture Category: Medical Plan 1. Right Grade 2 coronoid process fracture 2. Nondisplaced right distal radius fracture Date of injury 06/20/2025 Patient is educated about this injury Patient is educated about the typical recovery course At this time, patient is educated that there is no surgical intervention indicated for her fractures At this time, patient is placed into a Velcro wrist splint to be worn with daytime activities Patient is educated that if she is at rest, she should be removing the Velcro wrist splint to work on range of motion of the right wrist Patient is educated that she does not require any further immobilization of her coronoid process fracture, and should begin working on gentle active and passive range of motion of the right elbow 1-2 lb weight limit reinforced Patient is educated to avoid any full extension or hyperextension of the right elbow, as this could lead to elbow dislocation, as her fracture pattern leads to increased instability of the right elbow Patient understands this in his amenable to this plan Follow-up in 4 weeks with repeat x-rays and cast off, sooner with any acute concerns. Orders: Orders XR wrist RT min 3V Today M25.531 - Pain in right wrist XR elbow RT min 3V Today M25.521 - Pain in right elbow Coding Level of Care Code Global (04769) Diagnoses Fracture of coronoid process of right ulna S52.041A Fracture of right distal radius S52.501A
== END 2025-07-24 10:41 | disposition home or self-care (01) ==
LOC: HO.HOS 10:07
PROVIDERS: PCP Internal Medicine
DX: S52.041A Displaced fracture of coronoid process of right ulna, initial encounter for closed fracture (principal); S52.501A Unspecified fracture of the lower end of right radius, initial encounter for closed fracture
CPT/HCPCS: 99024

== ENCOUNTER → 2025-07-24 10:11 | Outpatient (BNV) | payer MEDICARE, MEDICAID, SELFPAY | PROVIDERS: Visit Provider Radiology Diagnostic Radiology | DX: M25.531 Pain in right wrist (principal); S52.001A Unspecified fracture of upper end of right ulna, initial encounter for closed fracture | CPT/HCPCS: 73080; 73110 ==

== ENCOUNTER 2025-08-19 14:06 | Outpatient (AMB) | payer MEDICARE, MEDICAID, SELFPAY ==
[2025-08-19 14:14] VITALS: BMI 42.0
--- NOTE | 2025-08-19 14:14 | A.OFFVIS_ITS ---
Vital Signs 08/19/25 14:14 Height 5 ft 4 in Weight 245 lb BMI 42.0 Intake Visit Reasons: OV-Rt wrist fx s/p fall DOI: 06/20/25-w/xrays Intake Note: Kelly is a 60 year old left hand dominant female who presents today for follow up status post Right Distal Radius Fracture, a Right Ulnar Styloid Fracture, & a Fracture of the Coronoid Process of the Ulna, DOI: 06/19/25. At her last visit she was transitioned to a Velcro wrist brace, 2 lb weight limit reinforced. Patient reports today she is doing well, besides some occassional muscle stiffness . She takes Tylenol whenever needed, with relief. She also continues wearing her brace and attending Occupational Therapy. Allergies Sulfa (Sulfonamide Antibiotics) Allergy (Severe, Verified 08/22/25 10:20) Hives environmental allergies Allergy (Unknown, Verified 08/22/25 10:20) Unknown HPI HPI OV-Rt wrist fx s/p fall DOI: 06/20/25-w/xrays: Details: Kelly is a 60 year old left hand dominant female who presents today for follow up status post Right Distal Radius Fracture, a Right Ulnar Styloid Fracture, & a Fracture of the Coronoid Process of the Ulna, DOI: 06/19/25. At her last visit she was transitioned to a Velcro wrist brace, 2 lb weight limit reinforced. Patient reports today she is doing well, besides some occassional muscle stiffness . She takes Tylenol whenever needed, with relief. She also continues wearing her brace and attending Occupational Therapy. ON LICENSE OF [facility] Medical History Depression Trigeminal neuralgia Hypertension GERD (gastroesophageal reflux disease) Morbid obesity Eczema Nasal polyposis Asthma-COPD overlap syndrome Chronic allergic rhinitis Pulmonary nodules SIERRA on CPAP Severe persistent asthma Surgical History Status post repair of paraesophageal diaphragmatic hernia Hx of cataract surgery Family History Father Lung cancer Diabetes Heart disease Mother Emphysema of lung Hypertension Bladder cancer TIA (transient ischemic attack) Social History Alcohol intake: current Alcohol intake frequency: a few times a month Patient Tobacco Use Status: Never used Tobacco Review of Systems Const All systems reviewed & are unremarkable except as noted in HPI and below Physical Exam Vital Signs: BMI result Body Mass Index 42.0 Extrem Other: Patient is alert, oriented, and in no acute distress. Neuro: Normal sensation of the tips of all digits of the right hand at this time Vascular: Cap refill brisk Pain: No tenderness to palpation about right distal radius No tenderness to palpation about right elbow ROM: Patient is able to very gently extend the right elbow to approximately 10 degrees and can flex to approximately 90 degrees Skin: No lacerations or abrasions. General: Ecchymosis noted of right elbow and forearm, appears to be resolving No erythema, evidence of infection Psych: Appears grossly normal Affect normal Attitude cooperative Results Reviewed Results Reviewed: X-rays obtained in the office today and independently reviewed by me, Sreekanth Flores PA-C, demonstrate nondisplaced fracture of the right distal radius along with minimally displaced grade 2 coronoid process fracture of the right ulna with evidence of interval bony healing. Assessment & Plan Assessment & Plan (1) Fracture of coronoid process of right ulna: Code(s): S52.041A - Displaced fracture of coronoid process of right ulna, initial encounter for closed fracture Category: Medical (2) Fracture of right distal radius: Code(s): S52.501A - Unspecified fracture of the lower end of right radius, initial en counter for closed fracture Category: Medical Plan 1. Right Grade 2 coronoid process fracture 2. Nondisplaced right distal radius fracture Date of injury 06/20/2025 Patient is educated about this injury Patient is educated about the typical recovery course At this time, patient is educated that there is no surgical intervention indicated for her fractures At this time, patient is placed into a Velcro wrist splint to be worn with daytime activities Patient is educated that if she is at rest, she should be removing the Velcro wrist splint to work on range of motion of the right wrist Patient is educated that she does not require any further immobilization of her coronoid process fracture, and should begin working on gentle active and passive range of motion of the right elbow May increase to 3-4 pound weight limit in R hand Patient is educated to avoid any forceful extension or hyperextension of the right elbow, as this could lead to elbow dislocation, as her fracture pattern leads to increased instability of the right elbow, but this is now less likely due to time and healing Patient understands this in his amenable to this plan Follow-up in 4 weeks with repeat x-rays sooner with any acute concerns. Orders: Orders XR wrist RT min 3V 08/19/25 M25.531 - Pain in right wrist XR elbow RT min 3V 08/19/25 M25.521 - Pain in right elbow Coding Level of Care Code Global (52338) Diagnoses Fracture of coronoid process of right ulna S52.041A Fracture of right distal radius S52.501A
--- OUTSIDE RECORDS SUMMARY | 2025-08-19 16:41 | XMS_ITS ---
Encounter Summary Created on: August 19, 2025
== END 2025-08-19 14:41 | disposition home or self-care (01) ==
LOC: HO.HOS 14:07
PROVIDERS: PCP Internal Medicine
DX: S52.041A Displaced fracture of coronoid process of right ulna, initial encounter for closed fracture (principal); S52.501A Unspecified fracture of the lower end of right radius, initial encounter for closed fracture
CPT/HCPCS: 99024

== ENCOUNTER 2025-08-19 14:06 | Outpatient (REF) | payer MEDICARE, MEDICAID, SELFPAY ==
--- NOTE | ~2025-08-19 | XR_ITS ---
CLINICAL HISTORY: M25.531 - Pain in right wrist 3 view right wrist Comparison: DX - XR WRIST RT MIN 3V - 07/24/25 10:11 EDT Findings: No fractures or dislocations. Mild degenerative change of the 1st carpometacarpal joint. No radiopaque foreign body. IMPRESSION: 1. No acute findings This document has been electronically signed by: Paz Reynolds MD on 08/20/2025 16:30:07
--- NOTE | ~2025-08-19 | XR_ITS ---
CLINICAL HISTORY: M25.521 - Pain in right elbow 3 view right elbow Comparison: DX - XR ELBOW RT MIN 3V - 07/24/25 10:11 EDT Findings: Fracture of the proximal ulna. Fracture lines are less evident. Unchanged alignment. Unchanged small calcification adjacent to the lateral epicondyle. No significant arthritic change or erosions. No joint effusion. No radiopaque foreign body. IMPRESSION: Healing fracture of the proximal ulna. This document has been electronically signed by: Paz Reynolds MD on 08/20/2025 16:38:31
== END 2025-08-19 14:07 | disposition home or self-care (01) ==
LOC: HO.HOSX 14:06
PROVIDERS: PCP Internal Medicine
DX: S52.501D Unspecified fracture of the lower end of right radius, subsequent encounter for closed fracture with routine healing (principal); S52.041D Displaced fracture of coronoid process of right ulna, subsequent encounter for closed fracture with routine healing; X58.XXXD Exposure to other specified factors, subsequent encounter
CPT/HCPCS: 73080; 73110; 99212

== ENCOUNTER → 2025-08-19 14:16 | Outpatient (BNV) | payer MEDICARE, MEDICAID, SELFPAY | PROVIDERS: PCP Internal Medicine; Visit Provider Nuclear Medicine | DX: M25.531 Pain in right wrist (principal); M25.521 Pain in right elbow | CPT/HCPCS: 73080; 73110 ==

== ENCOUNTER 2025-08-22 10:15 | Outpatient (AMB) | payer MEDICARE, MEDICAID, SELFPAY ==
--- NOTE | 2025-08-22 10:16 | MHC.OFFVIS ---
Vital Signs 08/22/25 10:17 Height 5 ft 4 in Weight 243 lb 9.773 oz BMI 41.8 BP 138/78 Blood Pressure Location Lt brachial Position Sitting Pulse 59 Pulse Source Pulse Oximeter Pulse Oximetry (%) 97 Intake Visit Reasons: Asthma Accompanied by: Self / Same As Patient Allergies Sulfa (Sulfonamide Antibiotics) Allergy (Severe, Verified 08/22/25 10:20) Hives environmental allergies Allergy (Unknown, Verified 08/22/25 10:20) Unknown HPI Comments Details: The patient is a 60-year-old woman with severe persistent asthma in addition to obstructive sleep apnea on CPAP. Her asthma is still an issue still having daytime symptoms. However, she has not required prednisone which is reassuring. She is still using rescue inhaler. She still getting Xolair twice a month. She still having bronchospasms on a regular basis but the fact that she had thermal plasty decreases her significant bronchospasms therefore not needing to be on steroids but still needing frequent bronchodilation. She tried doing some work outside of the home however, her symptoms quickly came back Kristy is concerning that she may not be able to keep a full-time job or to work regularly still with having symptoms. Optimistic that as she is healing from her asthma that hopefully in the fall she we were able to reassess and may be she can go back to [employer] work outside of the home. She continues a very aggressive respiratory regimen. She continues with allergy therapy. The CPAP therapy continues to be affective and beneficial. 02/14/2024 the patient is here for a pulmonary follow-up visit. Seems to be doing a little better on the current aggressive respiratory regimen. Continues with the nebulized therapy twice a day in addition to the Spiriva. She has been tolerating the Tezspire Biologic therapy. In addition to that she is working closely with GI regarding reflux disease. She did increase her Protonix to twice a day and seems to have a little bit better response as far as the cough is concerned. The patient continues to try to exercise. She still is limited because of her asthma symptoms and cough variant asthma. But she is trying. She did complete pulmonary rehabilitation she is doing her own. She is up-to-date with all other vaccines except for her shingles vaccine. The patient follow-up in 6 months. 05/25/2024 the patient is here for sick visit. She has been under the weather now for a couple weeks. She started developing increasing chest tightness and cough. Denies any sick contacts. Although she is noticed more chest congestion. She has been able to expectorate some phlegm. He has yellowish in color. As far as her respiratory medications in biologic therapy they have been working very well for her. She has been tolerating the test far without any adverse reactions that she can tell. She continues on nebulized therapy. At today's visit she is having significant coughing although more congested than usual. She has diminished breath sounds bilaterally. Unlikely with the coughing asthma she has significant bronchospasms that typically present in this fashion. Will go ahead and provide her with antibiotics to treat her for the bronchitis and also prednisone to treat her for the significant bronchospasms. The patient also will need some cough medication. If the patient is no better she will call for an earlier assessment otherwise we just treat her empirically. 08/17/2024 the patient is here for a pulmonary follow-up visit. Overall she is doing better. The patient has asthma is under control this time. She did have a bout of a viral syndrome. Her symptoms not better although left with some sinusitis. She does have some sinus pressure some congestion and some drainage. It is colored yellowish in color. [id number] severity. She is going to continue to monitor. If it worsens she can always start Augmentin. the patient should continue with Sudafed. I also sent a prescription for his 1st generation antihistamine that will also help with the cough. She is still in the nebulized therapy. She also continues on the biologic therapy, test prior. This has been affecting beneficial. When she returns will talk about considering switching over to inhalers. However, this point the nebulized therapy is very effective for her. In addition to that she is using her CPAP. CPAP therapy has been affecting beneficial. She does use a nasal pillow mask. We did talk about different options including the P 30 I. at this point she is using the P 10 she will continue to use it at this time the patient follow-up in 6 months. If she develops any worsening symptoms prior to that she will call for an earlier assessment. 11/06/2024 the patient is here for sick visit. She does. She had called the office we have Center a azithromycin in addition to prednisone. Overall she did feel better initially. But now for the last few days she has been having worsening cough chest tightness and breathing issues. Moderate severity. She has a hard time sleeping because of the coughing and shortness of breath. She has been using codeine cough syrup in addition to Tessalon Perles with some partial improvement. She has been able to wean down the prednisone down to 20 mg daily but she is starting to cough more. On exam she is coughing and she does have bronchospastic cough. She does have diminished breath sounds. Will go ahead and give her Solu-Medrol today to see if we can open things up a little bit further and hopes that she can stay on the 20 mg prednisone. She is going to washings waiting watch for any worsening respiratory symptoms including chest congestion sinusitis symptoms. That case she can always start doxycycline. She continues use her CPAP. She can also uses CPAP during the day as needed in case her breathing becomes labored. The patient should continue using the CPAP at nighttime. The therapy has been affecting beneficial. She does use it for more than 4 hours a night. Will go ahead and continue with the current respiratory regimen she will continue using the nebulizers 3 to 4 times a day and she is going to start using the Acapella valve to remove any mucus clearance. She is also using Mucinex. She can use that to help her expectorate and try to open up the small airways. 08/22/2025 the patient is here for pulmonary follow-up visit. Overall she is doing a lot better. The current respiratory regimen has been very effective in treating her asthma symptoms. The patient has not required any steroids since the last time we spoke. She continues on the azithromycin 3 times a week for chronic macrolide suppression therapy. Seems to be tolerating okay. She will need an EKG to make sure that QT is within normal limits. The test prior has been affecting beneficial. She continues to do that every month. She continues her respiratory inhalers with good response. As far as his CPAP CPAP therapy has been affecting beneficial. She is using a nasal pillow, P 10. His really causing her to have some skin irritation. Therefore will switch her over to a P 30i mask hopefully this is able to not irritate her face as much. In the meantime she her CPAP therapy has been affecting beneficial she does use it for more than 4 hours. She will continue to get supplies from her [employer]. since the patient is doing well and she is stable on the current therapy will try to just follow-up in a year's time. However, she develops any worsening symptoms she can always call for an earlier assessment. REPLACED BY [facility] Medical History Depression Trigeminal neuralgia Hypertension GERD (gastroesophageal reflux disease) Morbid obesity Eczema Nasal polyposis Asthma-COPD overlap syndrome Chronic allergic rhinitis Pulmonary nodules SIERRA on CPAP Severe persistent asthma Surgical History Status post repair of paraesophageal diaphragmatic hernia Hx of cataract surgery Family History Father Lung cancer Diabetes Heart disease Mother Emphysema of lung Hypertension Bladder cancer TIA (transient ischemic attack) Social History Alcohol intake: current Alcohol intake frequency: a few times a month Patient Tobacco Use Status: Never used Tobacco Review of Systems Const Reports difficulty sleeping, Reports fatigue, Reports headache(s) and Denies night sweats ENT Denies change in voice, Reports headache(s), Denies lip swelling, Denies mouth pain, Reports nasal congestion, Reports nasal discharge, Reports nasal obstruction, Reports post nasal drip, Reports sinus pain, Reports sinus pressure and Denies tongue swelling Card Denies chest pain, Denies dyspnea and Reports dyspnea on exertion Resp Reports cough, Denies dyspnea, Reports dyspnea on exertion and Reports wheezing GI Denies abdominal pain and Reports bloating Musc Denies no additional complaints Neuro Denies Neuro-related abnormal movements and Reports headache(s) Psych Denies no additional complaints Endo Reports fatigue Niko/Lymph Denies easy bleeding and Denies lymphadenopathy Aller/Immun Denies lip swelling, Denies tongue swelling and Reports wheezing Physical Exam Vital Signs: Last Vital Signs Pulse 59 08/22/25 10:17 BP 138/78 08/22/25 10:17 Pulse Ox 97 08/22/25 10:17 BMI result Body Mass Index 41.8 Const General: alert Neck Neck: Yes normal visual inspection, Yes full ROM and Yes no lymphadenopathy Chest Chest palpation & inspection: normal inspection of the chest Resp Effort & Inspection: Actively coughing Quality: actively coughing Auscultation: clear to auscultation bilaterally and no wheezes Cardio Rate: regular rate Rhythm: regular rhythm Heart sounds: S1 normal heart sound present and S2 normal heart sound present GI Palpation (GI): Soft to palpation, not firm and nontender Auscultation: normal bowel sounds Skin General skin exam: rashes and/or lesions noted Assessment & Plan Assessment & Plan (1) Severe persistent asthma: Comment: Status post bronchial thermoplasty. Code(s): J45.50 - Severe persistent asthma, uncomplicated Category: Medical Qualifiers: Asthma complication type: with acute exacerbation Qualified Code(s): J45.51 - Severe persistent asthma with (acute) exacerbation (2) Pulmonary nodules: Code(s): R91.8 - Other nonspecific abnormal finding of lung field Category: Medical (3) Chronic allergic rhinitis: Code(s): J30.9 - Allergic rhinitis, unspecified Category: Medical (4) SIERRA on CPAP: Code(s): G47.33 - Obstructive sleep apnea (adult) (pediatric); Z99.89 - Dependence on other enabling machines and devices Category: Medical (5) Nasal polyposis: Code(s): J33.9 - Nasal polyp, unspecified Category: Medical (6) Eczema: Code(s): L30.9 - Dermatitis, unspecified Category: Medical Qualifiers: Eczema type: flexural Qualified Code(s): L20.82 - Flexural eczema Plan Trelegy 200mcg daily continue Azithromycin MWF , check EKG continue Tezspire q4 weeks continue pseudophed as needed chlorpheniramine as needed for cough continue singulair nasal rinsing prior to CPAP CPAP, nasal pillows, adjusted 8-16->8-14 F/U 8-12 months Orders: Orders ECG 12 lead EKG Today J44.9 - Chronic obstructive pulmonary disease, unspecified Medications: Refilled albuterol sulfate 90 mcg/actuation 2 puffs PO Q6H PRN 18 grams 11RF for wheezing Coding Level of Care Code Est Pt Level 4 (61030) Complex EM visit Add On G2211 Diagnoses Severe persistent asthma with acute exacerbation J45.51 Asthma complication type: with acute exacerbation Pulmonary nodules R91.8 Chronic allergic rhinitis J30.9 SIERRA on CPAP G47.33; Z99.89 Nasal polyposis J33.9 Flexural eczema L20.82 Eczema type: flexural Time Spent (min) 17
[2025-08-22 10:17] VITALS: BP 138/78; PULSE 59; O2SAT 97; BMI 41.8
--- OUTSIDE RECORDS SUMMARY | 2025-08-22 12:35 | XMS_ITS | Encounter Summary ---
Author Organization [facility] Address [address] [place] [id number] Care Team Providers Care [employer] Name Role Phone Mau Quispe DO Primary Care Provider [phone] Reason for Referral * Consultation (Routine) - Closed Specialty Diagnoses / Procedures Referred By Carlos cabrera Referred To Contact Pulmonary Disease Diagnoses SOB (shortness of breath) Wheezing Cough Persistent asthma Acute severe exacerbation of asthma (HC CODE) Referral, Self [facility] [address] [place] [address], 2nd floor [facility], [address] [place] [address] Phone: tel: fax: Referral ID Status Reason Start Date Expiration Date Visits Re quested Visits Authorized [id number] Closed 02/22/2017 02/22/2018 1 1 Encounter Details Date Type Department Care Team (Latest Contact Info) Description 02/22/2017 Transcribed Orders Referral Link Providers [address] [place] [id number] Referral, Self SOB (shortness of breath) (Primary [...] CODE) documented in this encounter Care Teams [employer] Relationship Specialty Start Date End Date Mau Quispe DO [address] [place] [phone] PCP - General Internal Medicine 02/15/17 documented as of this encounter
--- OUTSIDE RECORDS SUMMARY | 2025-08-22 12:35 | XMS_ITS | Clinical Summary ---
Author Organization [address] [address] Care Team Providers Care Soapstoner Name Role Phone Mau Quispe DO Primary Care Provider [phone] Social History Tobacco Use Types Packs/Day Years [...] 2 Dose Standard Series) 2013 Influenza vaccine 06/28/2025 Covid-19 vaccine series ( - season) 2025 RSV Immunization (1 - 1-dose 75+ series) 2038 Meningococcal B Vaccine Aged Out No l onger eligible based on patient's age to complete this topic Meningococcal Vaccine Aged Out No isabela janie eligible based on patient's age to complete this topic Insurance COMM[employer]CIAL [employer]IC COMMERCIAL [employer]IC COMMERCIAL [employer]IC COMM[employer]CIAL [employer]IC Care Teams Soapstoner Relationship Specialty Start Date End Date Mau Quispe DO [address] [place] [phone] PCP - General Internal Medicine 02/15/17
--- OUTSIDE RECORDS SUMMARY | 2025-08-22 12:36 | XMS_ITS | Clinical Summary ---
Author Organization [address] [facility] Address [address] [place] [phone] Phone Care Team Providers Care Lna Name Role Phone Mau Quispe DO Primary Care Provider [phone] Medical History Medical History Date Comments Depression 10/11/2017 DX:Depression Eczema 12/21/2017 DX:Eczema Morbid obesity with BMI of 4 5.0-49.9, adult ([facility] V24, [facility] V28) 09/06/2017 DX:Morbid obesity with BMI of 45.0-49.9, adult ([facility]) Ventral hernia 01/19/2018 DX:Ventral herni a Obstructive [...] history exists Hypertension/CHF/CAD Annual BMP Blood Test 08/05/2026 08/05/2025, 05/29/2025, 01/22/2025, Additional history exists Cholesterol Screening (Lipid Panel) [...] Procedure Name Priority Date/Time Associated Diagnosis Comments MAGNESIUM Routine 08/05/2025 3:27 PM EDT Hypocalcemia Hypomagnesemia VITAMIN D 25 HYDROXY Routine 08/05/2025 3:27 PM EDT Hypocalcemia PARATHYROID HORMONE INTACT Routine 08/05/2025 3:27 PM EDT Hypocalcemia BASIC METABOLIC PANEL Routine 08/05/2025 3:27 PM EDT Hypocalcemia CBC WITH AUTO DIFFERENTIAL Routine 05/29/2025 10:35 [...] (hypertension) from Last 3 Months Results * Vitamin D 25 hydroxy (08/05/2025 3:27 PM EDT) Pathologist [facility] Vit D, 25-Hydroxy 38.4 30.0 - 80.0 ng/mL LAB CHEMISTRY METHOD 08/05/2025 8:36 PM EDT [facility] Blood Venous blood specimen / Unknown Venipuncture / Unknown 08/05/2025 3:27 PM EDT 08/05/2025 3:27 PM EDT [facility] LAB BLOOD ORDERABLES Final Resul t Performing Organization Address City/[facility]/ZIP Co de Phone Number [facility] [address] [place] [address], [place] [phone] * Parathyroid hormone intact (08/05/2025 3:27 PM EDT) [facility] PTH 59.7 18.5 - 88.0 pcg/mL LAB CHEMISTRY METHOD 08/05/2025 8:36 PM EDT [facility] Blood Venous blood specimen / Unknown Venipuncture / Unknown 08/05/2025 3:27 PM EDT 08/05/2025 3:27 PM EDT [facility] LAB BLOOD ORDERABLES Final Resul t [facility] [address] [place] [address], [place] [phone] * (ABNORMAL) Magnesium (08/05/2025 3:27 PM EDT) [facility] Magnesium 1.8(L) 1.9 - 2.6 mg/dL LAB CHEMISTRY METHOD 08/06/2025 10:38 AM EDT [facility] Blood Venous blood specimen / Unknown Venipuncture / Unknown 08/05/2025 3:27 PM EDT 08/05/2025 3:27 PM EDT us Krystyna Warren [facility] LAB BLOOD ORDERABLES Final R esult [facility] [address] [place] [address], [place] [phone] * (ABNORMAL) Basic metabolic panel (08/05/2025 3:27 PM EDT) Pathologist [facility] Sodium 137 133 - 145 mmol/L LAB CHEMISTRY METHOD 08/05/2025 8:02 PM [facility] Potassium 4.1 3.5 - 5.5 mmol/L LAB CHEMISTRY METHOD 08/05/2025 8:02 PM [facility] Chloride 104 96 - 110 mmol/L LAB CHEMISTRY METHOD 08/05/2025 8:02 PM [facility] CO2 28 21 - 32 mmol/L LAB CHEMISTRY METHOD 08/05/2025 8:02 PM [facility] Anion Gap 5 3 - 11 LAB CHEMISTRY METHOD 08/05/2025 8:02 PM [facility] Glucose 70 70 - 100 mg/dL LAB CHEMISTRY METHOD 08/05/2025 8:02 PM [facility] BUN 13 5 - 25 mg/dL LAB CHEMISTRY METHOD 08/05/2025 8:02 PM [facility] Creatinine 1.09 0.50 - 1.10 mg/dL LAB CHEMISTRY METHOD 08/05/2025 8:02 PM [facility] eGFR 58(L) >=60 mL/min/1. 73m2 LAB CHEMISTRY METHOD 08/05/2025 8:02 PM [facility] Comment:Calculation based on the Chronic Kidney Disease Epidemiology Collaboration (CKD-EPI) equation refit without adjustment for race. BUN/Creatinine Ratio 11.9 LAB CHEMISTRY METHOD 08/05/2025 8:02 PM [facility] Calcium 9.2 8.5 - 10.5 mg/dL LAB CHEMISTRY METHOD 08/05/2025 8:02 PM EDT [facility] Blood Venous blood specimen / Unknown Venipuncture / Unknown 08/05/2025 3:27 PM EDT 08/05/2025 3:27 PM EDT [facility] LAB BLOOD ORDERABLES Final Resul t [facility] [address] [place] [address], [place] [phone] * (ABNORMAL) Lipid panel with reflex to direct LDL (05/29/2025 10:35 AM EDT) Cholesterol 242(H) 0 - 200 mg/dL LAB CHEMISTRY METHOD 05/29/2025 12:08 PM EDT [facility] Triglycerides 67 0 - 150 mg/dL LAB CHEMISTRY METHOD 05/29/2025 12:08 PM [facility] HDL 95 >=40 mg/dL LAB CHEMISTRY METHOD 05/29/2025 12:08 PM T [facility] LDL Calculated 134(H) 0 - 100 mg/dL LAB CHEMISTRY METHOD 05/29/2025 12:08 PM [facility] VLDL Cholesterol Timi 13.4 mg/dL LAB CHEMISTRY METHOD 05/29/2025 12:08 PM [facility] Non HDL Chol. (LDL+VLDL) 147(H) <145 mg/dL LAB CHEMISTRY METHOD 05/29/2025 12:08 PM [facility] Chol/HDL Ratio 2.5 0.0 - 4.4 LAB CHEMISTRY METHOD 05/29/2025 12:08 PM [facility] Blood Venous blood specimen / Unknown Venipuncture / Unknown 05/29/2025 10:35 AM EDT 05/29/2025 10:35 AM EDT [facility] LAB BLOOD ORDERABLES Final Resul t [facility] [address] [place] [address], * CBC auto differential (05/29/2025 10:35 AM EDT) WBC 5.7 4.8 - 10.8 K/mcL LAB HEMETOLOGY METHOD 05/29/2025 11:17 AM EDT [facility] RBC 4.70 3.80 - 4.80 M/mcL LAB HEMETOLOGY METHOD 05/29/2025 11:17 AM EDT [facility] Hemoglobin 14.3 11.5 - 16.0 g/dL LAB HEMETOLOGY METHOD 05/29/2025 11:[facility] Hematocrit 43.3 35.0 - 47.0 % LAB HEMETOLOGY METHOD 05/29/2025 11:17 [facility] MCV 91.9 79.0 - 98.0 FL LAB HEMETOLOGY METHOD 05/29/2025 11:17 [facility] MCH 30.4 27.0 - 32.0 pcg LAB HEMETOLOGY METHOD 05/29/2025 11:17 AM [facility] MCHC 33.0 32.0 - 37.0 g/dL LAB HEMETOLOGY METHOD 05/29/2025 11:17 AM EDT [facility] RDW 12.6 11.0 - 15.0 % LAB HEMETOLOGY METHOD 05/29/2025 11:17 AM EDT [facility] Platelets 290 130 - 400 K/mcL LAB HEMETOLOGY METHOD 05/29/2025 11:17 [facility] MPV 9.9 7.0 - [...] 05/29/2025 11:17 AM [facility] Immature Granulocytes Relative 0.4 % LAB HEMETOLOGY METHOD 05/29/2025 11:17 AM [facility] Neutrophils Absolute 3.34 1.50 - 7.00 K/mcL LAB HEMETOLOGY METHOD 05/29/2025 11:17 AM [facility] Lymphocytes Absolute 1.52 1.00 - 5.00 K/mcL LAB HEMETOLOGY METHOD 05/29/2025 11:17 AM [facility] Monocytes Absolute 0.66 0.20 - 1.00 K/mcL LAB HEMETOLOGY METHOD 05/29/2025 11:17 AM [facility] Eosinophils Absolute 0.11 0.00 - 0.50 K/mcL LAB HEMETOLOGY METHOD 05/29/2025 11:17 AM [facility] Basophils Absolute 0.04 0.00 - 0.20 K/mcL LAB HEMETOLOGY METHOD 05/29/2025 11:17 AM EDT [facility] Immature Granulocytes Absolute 0.02 0.00 - 0.03 K/mcL LAB HEMETOLOGY METHOD 05/29/2025 11:17 AM EDT [facility] Blood Venous blood specimen / Unknown Venipuncture / Unknown 05/29/2025 10:35 AM EDT 05/29/2025 10:35 AM EDT [facility] LAB BLOOD ORDERABLES Final Resul t Performing Organization Address City/[facility]/ZIP Co de Phone Number [facility] [address] [place] [address], [place] [phone] * Thyroid stimulating hormone (05/29/2025 10:35 AM EDT) TSH 2.95 0.40 - 4.00 mcIU/mL LAB CHEMISTRY METHOD 05/29/2025 12:58 PM EDT [facility] Blood Venous blood specimen / Unknown Venipuncture / Unknown 05/29/2025 10:35 AM EDT 05/29/2025 10:35 AM EDT [facility] LAB BLOOD ORDERABLES Final Resul t Performing Organization Address City/[facility]/ZIP Co de Phone Number [facility] [address] [place] [address], [place] [phone] * Hemoglobin A1c (05/29/2025 10:35 AM EDT) Hemoglobin A1C 5.4 <6.5 % LAB CHEMISTRY METHOD 05/29/2025 1:48 PM EDT [facility] Mean Bld Glu Estim. 108 mg/dL LAB CHEMISTRY METHOD 05/29/2025 1:48 PM EDT [facility] Blood Venous blood specimen / Unknown Venipuncture / Unknown 05/29/2025 10:35 AM EDT 05/29/2025 10:35 AM EDT [facility] BLOOD ORDERABLES Final Resul t [facility] [address] [place] [address], [place] [phone] * (ABNORMAL) Comprehensive metabolic panel (05/29/2025 10:35 AM EDT) Sodium 142 133 - 145 mmol/L LAB CHEMISTRY METHOD 05/29/2025 12:08 PM [facility] Potassium 4.0 3.5 - 5.5 mmol/L LAB CHEMISTRY METHOD 05/29/2025 12:08 PM [facility] Chloride 109 96 - 110 mmol/L LAB CHEMISTRY METHOD 05/29/2025 12:08 PM [facility] CO2 28 21 - 32 mmol/L LAB CHEMISTRY METHOD 05/29/2025 12:08 PM [facility] Anion Gap 5 3 - [...] 42 unit/L LAB CHEMISTRY METHOD 05/29/2025 12:08 PM [facility] ALT (SGPT) 23 10 - 60 unit/L LAB CHEMISTRY METHOD 05/29/2025 12:08 PM [facility] Alkaline Phosphatase 75 42 - 121 unit/L LAB CHEMISTRY METHOD 05/29/2025 12:08 PM T [facility] Total Protein 6.3 6.0 - [...] 10:35 AM EDT 05/29/2025 10:35 AM EDT [facility] BLOOD ORDERABLES Final Resul t [facility] [address] [place] [address], from Last 3 Months Insurance [facility] MEDICAID - [place] Advance Directives Documents on File Type Date Recorded Patient Radiology Technician Expl anation Health Care Decision (hx) 09/27/2016 AD HIGHTOWER DIRECTIVE Health Care Decision (hx) 09/27/2016 AD HIGHTOWER DIRECTIVE Health Care Decision (hx) 09/27/2016 AD HIGHTOWER DIRECTIVE Care Teams Lna Relationship Specialty Start Date End Date Mau Quispe DO [address] [place] [phone] PCP - General Internal Medicine 11/08/17
== END 2025-08-22 10:52 | disposition home or self-care (01) ==
PROVIDERS: PCP Internal Medicine; Visit Provider Hospitalist
DX: J45.51 Severe persistent asthma with (acute) exacerbation (principal); R91.8 Other nonspecific abnormal finding of lung field; J30.9 Allergic rhinitis, unspecified; G47.33 Obstructive sleep apnea (adult) (pediatric); Z99.89 Dependence on other enabling machines and devices; J33.9 Nasal polyp, unspecified; L20.82 Flexural eczema
CPT/HCPCS: 99214; G2211

== ENCOUNTER → 2025-08-22 10:15 | Outpatient (REF) | payer MEDICARE, MEDICAID, SELFPAY ==
--- NOTE | 2025-08-22 10:56 | ECG_ITS ---
Test Reason : copd Blood Pressure : */* mmHG Vent. Rate : 51 BPM Atrial Rate : 51 BPM P-R Int : 174 ms QRS Dur : 90 ms QT Int : 404 ms P-R-T Axes : 43 6 37 degrees QTcB Int : 372 ms Sinus bradycardia Otherwise normal ECG When compared with ECG of 06-Sep-2023 12:15, No significant change was found Referred By: Antoine Farmer Electronically Signed By: Johnathan Connolly
--- OUTSIDE RECORDS SUMMARY | 2025-08-22 14:54 | XMS_ITS | Clinical Summary ---
Author Organization [facility] Address [address] [place] [phone] Phone Care Team Providers Care Geospatial Specialist Name Role Phone Mau Quispe DO Primary Care Provider [phone] Allergies Active Allergy Reactions Criticality Noted Date [...] Do not crush, chew, or split.. Active arformoterol (BROVANA) 15 MCG/2ML nebulizer solution USE 2 ML VIA NEBULIZER EVERY 12 HOURS Active baclofen (LIORESAL) 10 MG tablet Take 10 mg by mouth at bed time 5 Active budesonide (PULMICORT) 0.5 MG/2ML nebulizer solution INHALE 2ML BY MOUTH VIA NEBULIZER TWICE DAILY 5 Active D3-50 1.25 MG (31061 UT) capsule Take 50,000 Units by mouth [...] inhale 2 puffs by mouth daily Active aMILoride (MIDAMOR) 5 MG tabletIndicati ons:Hypokalemi a,Hypertension Take 1 tablet (5 mg total) by mouth 1 (one) time each day 90 tablet 3 5 07/04/20 26 Active Magnesium Oxide -Mg Supplement 500 MG tabletIndicati ons:Hypomagnes emia Take 500 mg by mouth 1 (one) time each day 30 tablet 5 5 02/11/20 26 Active potassium chloride 10 MEQ CR tablet Take 1 tablet (10 mEq total) by mouth 1 (one) time each day Do not crush, chew, or split. 90 tablet 3 5 Active potassium chloride 10 MEQ CR tablet Take 1 tablet (10 mEq total) by mouth 1 (one) time each day Do not crush, chew, or split. 30 tablet 11 4 08/08/20 25 Magnesium Oxide -Mg Supplement 500 MG tabletIndicati ons:Hypomagnes emia Take 500 mg by mouth 1 (one) time each day 30 tablet 5 5 08/14/20 25 Discontinu ed(Reorder (does not appear on AVS)) potassium chloride 10 MEQ CR tablet Take 10 mEq by mouth 1 (one) time each day Do not crush, chew, or split. 08/16/20 25 Discontinu ed(Reorder (does not appear on [...] Syncope 03/09/2022 Overview (04/06/2022): ER visit to [facility] on 09/24/21 Tricuspid valve regurgitation 03/09/2022 Severe persistent allergic asthma 04/04/2018 Overview (04/05/2022): Added automatically from request for surgery [id number] Ventral hernia 01/19/2018 Eczema 12/21/2017 Depressive disorder 10/11/2017 Body mass index 40+ - severely obese 09/06/2017 Anxiety 08/02/2017 Asthmatic bronchitis 07/04/2017 Overview (04/05/2022): Added automatically from request for surgery [id number] Gastro-esophageal reflux disease without esophag itis 02/28/2017 Multiple nodules of lung 02/28/2017 Overview (04/05/2022): Followed outside of the [facility] system stable from [id number] Obstructive sleep apnea syndrome 02/28/2017 Overview (04/05/2022): CPAP Seasonal allergic rhinitis 02/28/2017 Encounters Date Type Department Care Team Description 08/16/2025 Refill [facility] [address] [phone] Emmie Marquez [place] 08/16/2025 Refill [facility] [address] [phone] Emmie Marquez [place] 08/14/2025 Refill [facility] [address] [phone] Yissel Mendoza Hypomagnesemia 08/14/2025 Refill [facility] [address] [phone] Sangita Reilly MA 08/06/2025 Documentation Only [facility] [address] [phone] Emmie Marquez MA 07/04/2025 Orders Only [facility] [address] [phone] Krystyna Warren ARNP Hypocalcemia (Primary Dx) 07/01/2025 Orders Only [facility] [address] [address] Krystyna Warren ARNP Hypomagnesemia (Primary Dx) 07/01/2025 Telephone [facility] [address] [phone] Kurashard Guerline 07/01/2025 Refill [facility] [address] [address] Saul, Guerline Hypokalemia; Hypertension 06/27/2025 Refill [facility] [address] [address] Jose Eduardo Chalonda 06/17/2025 Refill [facility] [address] [phone] Jose Eduardo, Chalonda 06/13/2025 Orders Only [facility] [address] [phone] Jose EduardoElkin Hypomagnesemia from Last 3 Months Immunizations Immunization Administration [...] Office Visit [facility] [address] [phone] Krystyna Warren ARNP [address] [phone] Health Maintenance Due Date Last Done Comments [...] Comments MAGNESIUM Routine 08/05/2025 3:27 PM EDT Hypomagnesemia from Last 3 Months Results * (ABNORMAL) Magnesium (08/05/2025 3:27 PM EDT) Magnesium 1.8(L) 1.9 - 2.6 mg/dL [facility] Blood Venous blood / Unknown 08/05/2025 3:27 PM EDT 08/05/2025 7:38 PM EDT us Isai Pulido MD LAB BLOOD ORDERABLES Final Resu lt [facility] ([facility] [address] [place] [address] from Last 3 Months Insurance Medicaid [place] [address] Medicaid [place] Care Teams Geospatial Specialist Relationship Specialty Start Date End Date Mau Quispe DO [address] [place] [address] PCP - General Internal Medicine 02/24/22
--- OUTSIDE RECORDS SUMMARY | 2025-08-22 14:54 | XMS_ITS | Encounter Summary ---
Author Organization [facility] Address [address] [facility] [address] [place] [address] Phone Care Team Providers Care Plaster Whittler Name Role Phone Mau Quispe DO Primary Care Provider [phone] Reason for Visit * Reason Onset Date Comments Med Refill 08/16/2025 Encounter Details Date Type Department Care Team (Late st Contact Info) Description 08/16/2025 Refill [facility] [address] [phone] Emmie Marquez MA [address] [facility] [address] [place] [address] Social History Tobacco Use Types Packs/Day Years [...] as of this encounter Plan of Treatment Upcoming Encounters Date Type Department Care Team (Late st Contact Info) Description 01/28/2026 9:00 AM EST Office Visit [facility] [address] [facility] [address] [place] [address] Krystyna Warren ARNP [address] [facility] [address] [place] [address] documented as of this encounter Visit Diagnoses Not on filedocumented in this encounter Care Teams Plaster Whittler Relationship Specialty Start Date End Date Mau Quispe DO [address] [place] [address] PCP - General Internal Medicine 02/24/22 documented as of this encounter
== END ==
LOC: HO.CARD 10:15
PROVIDERS: PCP Internal Medicine; Visit Provider Hospitalist
DX: J45.51 Severe persistent asthma with (acute) exacerbation (principal); G47.33 Obstructive sleep apnea (adult) (pediatric); J44.9 Chronic obstructive pulmonary disease, unspecified; K21.9 Gastro-esophageal reflux disease without esophagitis; J33.9 Nasal polyp, unspecified; J30.9 Allergic rhinitis, unspecified; L20.82 Flexural eczema; R91.8 Other nonspecific abnormal finding of lung field; Z79.2 Long term (current) use of antibiotics; Z79.620 Long term (current) use of immunosuppressive biologic; Z79.899 Other long term (current) drug therapy; Z99.89 Dependence on other enabling machines and devices
CPT/HCPCS: 93005; 99212

== ENCOUNTER → 2025-08-22 10:56 | Outpatient (BNV) | payer MEDICARE, MEDICAID, SELFPAY | PROVIDERS: PCP Internal Medicine; Visit Provider Internal Medicine Cardiovascular Disease | DX: R00.1 Bradycardia, unspecified (principal) | CPT/HCPCS: 93010 ==

== ENCOUNTER 2025-09-19 15:16 | Outpatient (RCR) | payer MEDICARE, MEDICAID, SELFPAY ==
--- NOTE | 2025-07-17 12:01 | MHC.OT.EP ---
[facility] Office [address] [phone] F: [phone] F: [phone] Occupational Therapy Plan of Care Patient Name: Kelly Gaona Date of Evaluation: 07/17/25 Diagnosis: Right coronoid, distal radius and ulnar styloid fxs Pain Location: Mild discomfort in wrist Pain free in elbow Pain Score: 3 Pain Scale Used: Numeric (0 - 10) Aggravating Factors: Elbow movement (avoiding full extension) Alleviating Factors: Ice 2x/day, Tylenol or Advil Assessment: 60 yo female was standing on bench, fell backwards onto right hand and into doorway. She was seen in ED, and x-rays shows right grade 2 coronoid fx, ulnar styloid and distal radius fractures. She was placed in cast for two weeks and then given sling and prefab wrist orthosis. She has been seen by ortho and referred to OT for conservative treatment. On assessment today, she presents w/ sling and wrist orthosis, has had good carry over w/ wear and protection. She is limited in wrist, forearm and elbow range - elbow extension tested to submaximal range and we will continue conservative early motion to protection from dislocation at elbow. She is very motivated and I anticipate she will progress well through course of therapy. Frequency and Duration: The patient will be seen 2x/wk for 6 weeks Short Term Goals: Elbow ext to 30 Elbow flex to 130 Forearm sup to 30 Wrist flex to 50 Wrist ext to 50 Assess gross grasp Ind w/ home exercise program Ind w/ self STM Pt to initiate light bimanual IADL tasks (folding light clothes) Town Manager Goals: Elbow ext to 10 degrees Elbow flex to 140 degrees Forearm sup to 70 Wrist flex to 60 Wrist ext to 60 Gross grasp >40lb Ind w/ progression of strengthening Pt to report ease w/ moderate home care tasks (laundry, vacuuming) Treatment Plan: Therapeutic Exercise Therapeutic Activity Home Exercise Program Splinting Patient Education Edema Control ADL Training Fluidotherapy MHP Cold Packs Joint Mobilization Soft Tissue Mobilization Kinesiotaping Electronically Signed By: Erna Bustamante OTR/L CHT Please Sign and return to therapist. Thank you once again for your referral.
--- NOTE | 2025-08-15 15:29 | MHC.OT.OP ---
[facility] Office [address] [phone] F: [phone] F: [phone] Occupational Therapy Progress Note Patient Name: Kelly Gaona Diagnosis: Right coronoid, distal radius and ulnar styloid fxs Date of Surgery: 07/24/25 Date of Evaluation: 07/17/25 Treatments to Date: 8 Subjective: I find myself using it more and not even thinking about it Pain Score: 2 Pain Location: right elbow, wrist Objective Measures: Wrist 60/45 Forearm 80/50 Elbow 40/120 -> 30 degrees ext after heat and massage GG R 20lb L 52lb Status: Progressing Assessment: 8 weeks s/p injury, progressing w/ range bur still limited, especially elbow flex and ext, but still making gains and working within protected elbow range. Gross grasp 20lb at this time, but will continue to progress w/ strengthening. Removing splint at most times for light activity. Still w/ some nighttime pain and difficulty sleeping at times. Short Term Goals: Elbow ext to 30 (met) Elbow flex to 130 Forearm sup to 30 (met) Wrist flex to 50 Wrist ext to 50 (met) Assess gross grasp Ind w/ home exercise program Ind w/ self STM Pt to initiate light bimanual IADL tasks (folding light clothes) Door Glass Installer Goals: Elbow ext to 10 degrees Elbow flex to 140 degrees Forearm sup to 70 Wrist flex to 60 Wrist ext to 60 Gross grasp >40lb Ind w/ progression of strengthening Pt to report ease w/ moderate home care tasks (laundry, vacuuming) Frequency and Duration: The patient will be seen 2x/wk for 2 weeks then 1x/wk x 2 weeks Treatment Plan: Therapeutic Exercise Therapeutic Activity Home Exercise Program Patient Education Edema Control ADL Training Ultrasound NMES Paraffin Fluidotherapy MHP Cold Packs Joint Mobilization Soft Tissue Mobilization Kinesiotaping Electronically Signed By: Erna Bustamante OTR/Jolie CHT Reviewed/agree with student documentation: Therapist:
--- NOTE | 2025-11-13 13:29 | MHC.OT.DC ---
[facility] Office [address] [phone] F: [phone] F: [phone] Occupational Therapy Discharge Note Patient Name: Kelly Gaona Provider: Sreekanth Flores PA-C Diagnosis: Right coronoid, distal radius and ulnar styloid fxs Date of Surgery: 07/24/25 Date of Evaluation: 07/17/25 Date of Discharge: 11/13/25 Treatments to Date: 11 Discharge Status: Independent with HEP Patient Elected to Stop Discharge Summary: Kelly was referred to OT s/p right grade 2 coronoid fx, ulnar styloid and distal radius fractures. She has been progressing w/ course of OT w/ range and strength, still not obtaining full end range in elbow flexion or extension. She has been given home program, but not followed up for further visits in almost two months. Electronically Signed By: SALVATORE Thacker/Jolie CHT Reviewed/agree with student documentation: Therapist: Please Sign and return to therapist, thank you for your referral.
== END 2025-11-13 13:30 | disposition home or self-care (01) ==
LOC: HO.OT 15:16
PROVIDERS: PCP Internal Medicine
DX: S52.041D Displaced fracture of coronoid process of right ulna, subsequent encounter for closed fracture with routine healing (principal); S52.501D Unspecified fracture of the lower end of right radius, subsequent encounter for closed fracture with routine healing
CPT/HCPCS: 97035; 97110; 97140; 97166; 97530

== ENCOUNTER 2025-09-24 14:29 | Outpatient (REF) | payer MEDICARE, MEDICAID, SELFPAY ==
--- NOTE | ~2025-09-24 | XR_ITS ---
EXAMINATION: XR WRIST, RIGHT CLINICAL INFORMATION: M79.641 - Pain in right hand COMPARISON: 08/19/2025 and 07/24/2025 and June 19, 2025 TECHNIQUE: PA, lateral, oblique, and scaphoid views of the right wrist. FINDINGS: Vague osteopenia is noted in the foveal region of the distal ulna where there was previously a fracture. Fracture involving the distal articular surface of the radius is no longer evident. XR/XR wrist RT w scaphoid IMPRESSION: Healed or nearly healed fractures of the distal right radius and ulna. Electronically signed by: Chad Johnson MD 09/24/2025 03:23 PM EDT
--- NOTE | ~2025-09-24 | XR_ITS ---
EXAMINATION: XR ELBOW, RIGHT CLINICAL INFORMATION: M25.521 - Pain in right elbow COMPARISON: August 19 and July 24, 2025 TECHNIQUE: AP, lateral, and oblique views of the right elbow. FINDINGS: Intrahepatic is visible but no grossly displaced. Posterior fat pad is normal and visualized. There is osteopenia involving the medial region of ulnar coronoid. Fracture lines remains minimally visible. XR/XR elbow RT min 3V IMPRESSION: Continued healing of medial ulnar coronoid fracture. Electronically signed by: Chad Johnson MD 09/24/2025 03:20 PM EDT
--- OUTSIDE RECORDS SUMMARY | 2025-09-24 18:55 | XMS_ITS | Encounter Summary ---
Author Organization [facility] Address [address] [place] [phone] Care Team Providers Care Dye Blender Name Role Phone Mau Quispe DO Primary Care Provider [phone] Reason for Referral * Consultation (Routine) - Closed Specialty Diagnoses / Procedures Referred By Carlos cabrera Referred To Contact Pulmonary Disease Diagnoses SOB (shortness of breath) Wheezing Cough Persistent asthma Acute severe exacerbation of asthma Referral, Self [facility] [address] [place] [address], [address]nd floor [facility], [address] [place] [address] Phone: tel: fax: Referral ID Status Reason Start Date Expiration Date Visits Re quested Visits Authorized [id number] Closed 02/22/2017 02/22/2018 1 1 Encounter Details Date Type Department Care Team (Latest Contact Info) Description 02/22/2017 Transcribed Orders Referral Link Providers [address] [place] [address] Referral, Self SOB (shortness of breath) (Primary [...] asthma documented in this encounter Care Teams Dye Blender Relationship Specialty Start Date End Date Mau Quispe DO [address] [place] [phone] PCP - General Internal Medicine 02/15/17 documented as of this encounter
--- OUTSIDE RECORDS SUMMARY | 2025-09-24 18:55 | XMS_ITS | Clinical Summary ---
Author Organization [address] [facility] Address [address] [place] [phone] Phone Care Team Providers Care Instructor Psychiatric Aide Name Role Phone Mau Quispe DO Primary Care Provider [phone] Medical History Medical History Date Comments Depression 10/11/2017 DX:Depression Eczema 12/21/2017 DX:Eczema Morbid obesity with BMI of 4 5.0-49.9, adult ([facility] V24, [facility] V28) 09/06/2017 DX:Morbid obesity with BMI of 45.0-49.9, adult ([facility]) Ventral hernia 01/19/2018 DX:Ventral herni [...] Breast Cancer Screening 1965 Colorectal Cancer Screening: Colonoscopy 1965 Hepatitis A Vaccines (1 of 2 - Risk 2-dose series) 1982 Cervical Cancer Screening: Pap Smear 1984 HIV Screening 10/30/2022 Hepatitis C Screening 10/30/2022 Social Influencers of Health Screening 10/30/2022 Hepatitis B Vaccines (1 of 3 - Risk 3-dose series) 2023 Depression Screening 11/28/2024 Influenza Vaccine (#1) 2025 , 08/23/2024, 08/30/2023, Additional history exists Hypertension/CHF/CAD Annual BMP Blood Test 08/05/2026 09/24/2025, 08/05/2025, 05/29/2025, Additional history exists Cholesterol Screening (Lipid Panel) 05/29/2030 05/29/2025 DTaP,Tdap,and Td Vaccines (2 - Td or Tdap) 04/13/2035 08/30/2025, 04/13/2025 Zoster Vaccines Completed 05/10/2024, 01/27, 10/22/2018 COVID-19 Vaccine Completed 08/30/2025, , 08/30/2023, Additional history exists MMR Vaccines Aged Out [...] Procedure Name Priority Date/Time Associated Diagnosis Comments BILIRUBIN DUPLICATE PROCEDURE TO ORDER Routine 09/24/2025 7:29 AM EDT Epigastric pain Periumbilical abdominal pain Bloated abdomen Loose stools CBC WITH AUTO DIFFERENTIAL Routine 09/24/2025 7:29 AM EDT Epigastric pain Periumbilical abdominal pain Bloated abdomen Loose stools AMYLASE Routine 09/24/2025 7:29 AM EDT Epigastric pain Periumbilical abdominal pain Bloated abdomen Loose stools C-REACTIVE PROTEIN Routine 09/24/2025 7: 29 AM EDT Epigastric pain Periumbilical abdominal pain Bloated abdomen Loose stools SEDIMENTATION RATE Routine 09/24/2025 7: 29 AM EDT Epigastric pain Periumbilical abdominal pain Bloated abdomen Loose stools COMPREHENSIVE METABOLIC PANEL Routine 09/24/2025 7:29 AM EDT Epigastric pain Periumbilical abdominal pain Bloated abdomen Loose stools CBC AND DIFFERENTIAL Routine 09/24/2025 7:29 AM EDT Epigastric pain Periumbilical abdominal pain Bloated abdomen Loose stools MAGNESIUM Routine 08/05/2025 3:27 PM EDT Hypocalcemia Hypomagnesemia VITAMIN D 25 HYDROXY Routine 08/05/2025 3:27 PM EDT Hypocalcemia PARATHYROID HORMONE INTACT Routine 08/05/2025 3:27 PM EDT Hypocalcemia BASIC METABOLIC PANEL Routine 08/05/2025 3:27 PM EDT Hypocalcemia LIPID PANEL WITH REFLEX TO DIRECT LDL Routine 05/29/2025 10:35 AM EDT Routine physical examination HLD (hyperlipidemia) CKD (chronic kidney disease) GERD (gastroesophageal reflux disease) HTN (hypertension) from Last 3 Months or Most Recently Relevant to Health Maintenance Results * Bilirubin duplicate procedure to order (09/24/2025 7:29 AM EDT) Total Bilirubin 0.5 0.0 - 1.4 mg/dL LAB CHEMISTRY METHOD 09/24/2025 12:03 PM EDT [facility] Bilirubin, Direct 0.1 0.0 - 0.3 mg/dL LAB CHEMISTRY METHOD 09/24/2025 12:03 PM EDT [facility] Bilirubin, Indirect 0.4 0.0 - 1.1 mg/dL LAB CHEMISTRY METHOD 09/24/2025 12:03 PM EDT [facility] Blood Venous blood specimen / Unknown Venipuncture / Unknown 09/24/2025 7:29 AM EDT 09/24/2025 7:29 AM EDT us Machado Garnica DINING SERVICE INSPECTOR LAB BLOOD ORDERABLES Final Resul t [facility] [address] [place] [address], [place] [phone] * CBC auto differential (09/24/2025 7:29 AM EDT) Pathologist [facility] [place] WBC 6.2 4.8 - 10.8 K/mcL LAB HEMETOLOGY METHOD 09/24/2025 11:06 AM EDT [facility] RBC 4.20 3.80 - 4.80 M/mcL LAB HEMETOLOGY METHOD 09/24/2025 11:06 AM EDT [facility] Hemoglobin 12.4 11.5 - 16.0 g/dL LAB HEMETOLOGY METHOD 09/24/2025 11:06 AM EDT [facility] Hematocrit 37.9 35.0 - 47.0 % LAB HEMETOLOGY METHOD 09/24/2025 11:06 AM [facility] MCV 90.7 79.0 - 98.0 FL LAB HEMETOLOGY METHOD 09/24/2025 11:06 AM [facility] MCH 29.7 27.0 - 32.0 pcg LAB HEMETOLOGY METHOD 09/24/2025 11:06 AM [facility] MCHC 32.7 32.0 - 37.0 g/dL LAB HEMETOLOGY METHOD 09/24/2025 11:06 AM [facility] RDW 12.8 11.0 - 15.0 % LAB HEMETOLOGY METHOD 09/24/2025 11:06 AM [facility] Platelets 280 130 - 400 K/mcL LAB HEMETOLOGY METHOD 09/24/2025 11:06 AM [facility] MPV 10.5 7.0 - 11.0 FL LAB HEMETOLOGY METHOD 09/24/2025 11:06 AM [facility] NRBC 0.0 <1.0 % LAB HEMETOLOGY METHOD 09/24/2025 11:06 AM [facility] NRBC Absolute 0.00 <0.10 K/mcL LAB HEMETOLOGY METHOD 09/24/2025 11:06 AM [facility] Neutrophils Relative 65.2 % LAB HEMETOLOGY METHOD 09/24/2025 11:06 AM [facility] Lymphocytes Relative 23.1 % LAB HEMETOLOGY METHOD 09/24/2025 11:06 AM [facility] Monocytes Relative 9.5 % LAB HEMETOLOGY METHOD 09/24/2025 11:06 AM [facility] Eosinophils Relative 1.3 % LAB HEMETOLOGY METHOD 09/24/2025 11:06 AM EDT [facility] Basophils Relative 0.6 % LAB HEMETOLOGY METHOD 09/24/2025 11:06 AM EDT [facility] Immature Granulocytes Relative 0.3 % LAB HEMETOLOGY METHOD 09/24/2025 11:06 AM EDT [facility] Neutrophils Absolute 4.06 1.50 - 7.00 K/mcL LAB HEMETOLOGY METHOD 09/24/2025 11:06 AM EDT [facility] Lymphocytes Absolute 1.44 1.00 - 5.00 K/mcL LAB HEMETOLOGY METHOD 09/24/2025 11:06 AM EDT [facility] Monocytes Absolute 0.59 0.20 - 1.00 K/mcL LAB HEMETOLOGY METHOD 09/24/2025 11:06 AM [facility] Eosinophils Absolute 0.08 0.00 - 0.50 K/mcL LAB HEMETOLOGY METHOD 09/24/2025 11:06 AM EDT [facility] Basophils Absolute 0.04 0.00 - 0.20 K/mcL LAB HEMETOLOGY METHOD 09/24[facility]2025 [facility] Immature Granulocytes Absolute 0.02 0.00 - 0.03 K/mcL LAB HEMETOLOGY METHOD 09/24/2025 11:06 AM [facility] Blood Venous blood specimen / Unknown Venipuncture / Unknown 09/24/2025 7:29 AM EDT 09/24/2025 7:29 AM EDT us Machado Garnica DINING SERVICE INSPECTOR LAB BLOOD ORDERABLES Final Resul t [facility] [address] [place] [address], * Sedimentation rate (09/24/2025 7:29 AM EDT) Sed Rate 25 0 - 30 mm/hr LAB HEMETOLOGY METHOD 09/24/2025 11:21 AM EDT [facility] Blood Venous blood specimen / Unknown Venipuncture / Unknown 09/24/2025 7:29 AM EDT 09/24/2025 7:29 AM EDT us Machado Garnica DINING SERVICE INSPECTOR LAB BLOOD ORDERABLES Final Resul t Performing Organization Address City/[facility] Co de Phone Number [facility] [address] [place] [address], [place] [phone] * (ABNORMAL) C-reactive protein (09/24/2025 7:29 AM EDT) [facility] C-Reactive Protein 0.73(H) <=0.50 mg/dL LAB CHEMISTRY METHOD 09/24/2025 11:46 AM EDT [facility] Blood Venous blood specimen / Unknown Venipuncture / Unknown 09/24/2025 7:29 AM EDT 09/24/2025 7:29 AM EDT us Machado Garnica DINING SERVICE INSPECTOR LAB BLOOD ORDERABLES Final Resul t Performing Organization Address [facility] de Phone Number [facility] [address] [place] [address], [place] [phone] * Amylase (09/24/2025 7:29 AM EDT) [facility] Amylase 29 25 - 115 unit/L LAB CHEMISTRY METHOD 09/24/2025 11:46 AM EDT [facility] Blood Venous blood specimen / Unknown Venipuncture / Unknown 09/24/2025 7:29 AM EDT 09/24/2025 7:29 AM EDT us Machado Garnica DINING SERVICE INSPECTOR LAB BLOOD ORDERABLES Final Resul t Performing Organization Address City/[facility] Co de Phone Number [facility] [address] [place] [address], [place] [phone] * (ABNORMAL) Comprehensive metabolic panel (09/24/2025 7:29 AM EDT) Sodium 140 133 - 145 mmol/L LAB CHEMISTRY METHOD 09/24/2025 12:03 PM [facility] Potassium 3.7 3.5 - 5.5 mmol/L LAB CHEMISTRY METHOD 09/24/2025 12:03 PM [facility] Chloride 109 96 - 110 mmol/L LAB CHEMISTRY METHOD 09/24/2025 12:03 PM [facility] CO2 24 21 - 32 mmol/L LAB CHEMISTRY METHOD 09/24/2025 12:03 PM [facility] Anion Gap 7 3 - 11 LAB CHEMISTRY METHOD 09/24/2025 12:03 PM [facility] Glucose 106(H) 70 - 100 mg/dL LAB CHEMISTRY METHOD 09/24/2025 12:03 PM [facility] BUN 13 5 - 25 mg/dL LAB CHEMISTRY METHOD 09/24/2025 12:03 PM [facility] Creatinine 0.98 0.50 - 1.10 mg/dL LAB CHEMISTRY METHOD 09/24/2025 12:03 PM [facility] eGFR 65 >=60 mL/min/1. 73m2 LAB CHEMISTRY METHOD 09/24/2025 12:03 PM [facility] Comment:Calculation based on the Chronic Kidney Disease Epidemiology Collaboration (CKD-EPI) equation refit without adjustment for race. BUN/Creatinine Ratio 13.3 LAB CHEMISTRY METHOD 09/24/2025 12:03 PM [facility] Calcium 9.1 8.5 - 10.5 mg/dL LAB CHEMISTRY METHOD 09/24/2025 12:03 PM [facility] AST (SGOT) 18 10 - 42 unit/L LAB CHEMISTRY METHOD 09/24/2025 12:03 PM [facility] ALT (SGPT) 23 10 - 60 unit/L LAB CHEMISTRY METHOD 09/24/2025 12:03 PM EDT [facility] Alkaline Phosphatase 64 42 - 121 unit/L LAB CHEMISTRY METHOD 09/24/2025 12:03 PM EDT [facility] Total Protein 5.9(L) 6.0 - 8.0 g/dL LAB CHEMISTRY METHOD 09/24/2025 12:03 PM EDT [facility] Albumin 3.4 3.2 - 5.0 g/dL LAB CHEMISTRY METHOD 09/24/2025 12:03 PM EDT [facility] Total Bilirubin 0.5 0.0 - 1.4 mg/dL LAB CHEMISTRY METHOD 09/24/2025 12:03 PM EDT [facility] Blood Venous blood specimen / Unknown Venipuncture / Unknown 09/24/2025 7:29 AM EDT 09/24/2025 7:29 AM EDT Jeannette Garnica DINING SERVICE INSPECTOR LAB BLOOD ORDERABLES Final Resul t Performing Organization Address City/[facility]/ZIP Co de Phone Number [facility] [address] [place] [address], [place] [phone] * Vitamin D 25 hydroxy (08/05/2025 3:27 PM EDT) Vit D, 25-Hydroxy 38.4 30.0 - 80.0 ng/mL LAB CHEMISTRY METHOD 08/05/2025 8:36 PM EDT [facility] Blood Venous blood specimen / Unknown Venipuncture / Unknown 08/05/2025 3:27 PM EDT 08/05/2025 3:27 PM EDT Germania Veraam LAB BLOOD ORDERABLES Final Resul t Performing Organization Address City/[facility]/ZIP Co de Phone Number [facility] [address] [place] [address], [place] [phone] * Parathyroid hormone intact (08/05/2025 3:27 PM EDT) PTH 59.7 18.5 - 88.0 pcg/mL LAB CHEMISTRY METHOD 08/05/2025 8:36 PM EDT [facility] Blood Venous blood specimen / Unknown Venipuncture / Unknown 08/05/2025 3:27 PM EDT 08/05/2025 3:27 PM EDT [facility] LAB BLOOD ORDERABLES Final Resul t Performing Organization Address City/[facility]/ZIP Co de Phone Number [facility] [address] [place] [address], [place] [phone] * (ABNORMAL) Magnesium (08/05/2025 3:27 PM EDT) Pathologist [facility] [place] Magnesium 1.8(L) 1.9 - 2.6 mg/dL LAB CHEMISTRY METHOD 08/06/2025 10:38 AM EDT [facility] Blood Venous blood specimen / Unknown Venipuncture / Unknown 08/05/2025 3:27 PM EDT 08/05/2025 3:27 PM EDT Krystyna Warren [facility] BLOOD ORDERABLES Final R esult Performing Organization Address City/[facility]/ZIP Co de Phone Number [facility] [address] [place] [address], [place] [phone] * (ABNORMAL) Basic metabolic panel (08/05/2025 3:27 PM EDT) Sodium 137 133 - 145 mmol/L LAB CHEMISTRY METHOD 08/05/2025 8:02 PM EDT [facility] Potassium 4.1 3.5 - 5.5 mmol/L LAB CHEMISTRY METHOD 08/05/2025 8:02 PM EDT [facility] Chloride 104 96 - 110 mmol/L LAB CHEMISTRY METHOD 08/05/2025 8:02 PM [facility] CO2 28 21 - 32 mmol/L LAB CHEMISTRY METHOD 08/05/2025 8:02 PM [facility] Anion Gap 5 3 - 11 LAB CHEMISTRY METHOD 08/05/2025 8:02 PM [facility] Glucose 70 70 - 100 mg/dL LAB CHEMISTRY METHOD 08/05/2025 8:02 PM [facility] BUN 13 5 - 25 mg/dL LAB CHEMISTRY METHOD 08/05/2025 8:02 PM [facility] Creatinine 1.09 0.50 - 1.10 mg/dL LAB CHEMISTRY METHOD 08/05/2025 8:02 PM [facility] eGFR 58(L) >=60 mL/min/1. 73m2 LAB CHEMISTRY METHOD 08/05/2025 8:02 PM [facility] Comment:Calculation based on the Chronic Kidney Disease Epidemiology Collaboration (CKD-EPI) equation refit without adjustment for race. BUN/Creatinine Ratio 11.9 LAB CHEMISTRY METHOD 08/05/2025 8:02 PM [facility] Calcium 9.2 8.5 - 10.5 mg/dL LAB CHEMISTRY METHOD 08/05/2025 8:02 PM [facility] Blood Venous blood specimen / Unknown Venipuncture / Unknown 08/05/2025 3:27 PM EDT 08/05/2025 3:27 PM EDT [facility] LAB BLOOD ORDERABLES Final Resul t [facility] [address] [place] [address], * (ABNORMAL) Lipid panel with reflex to direct LDL (05/29/2025 10:35 AM EDT) Cholesterol 242(H) 0 - 200 mg/dL LAB CHEMISTRY METHOD 05/29/2025 12:08 PM EDT [facility] Triglycerides 67 0 - 150 mg/dL LAB CHEMISTRY METHOD 05/29/2025 12:08 PM EDT [facility] HDL 95 >=40 mg/dL LAB CHEMISTRY METHOD 05/29/2025 12:08 PM EDT [facility] LDL Calculated 134(H) 0 - 100 mg/dL LAB CHEMISTRY METHOD 05/29/2025 12:08 PM EDT [facility] VLDL Cholesterol Timi 13.4 mg/dL LAB CHEMISTRY METHOD 05/29/2025 12:08 PM EDT [facility] Non HDL Chol. (LDL+VLDL) 147(H) <145 mg/dL LAB CHEMISTRY METHOD 05/29/2025 12:08 PM EDT [facility] Chol/HDL Ratio 2.5 0.0 - 4.4 LAB CHEMISTRY METHOD 05/29/2025 12:08 PM EDT [facility] Blood Venous blood specimen / Unknown Venipuncture / Unknown 05/29/2025 10:35 AM EDT 05/29/2025 10:35 AM EDT [facility] LAB BLOOD ORDERABLES Final Resul t [facility] [address] [place] [address], from Last 3 Months or Most Recently Relevant to Health Maintenance Insurance [facility] MEDICAID - [place] Advance Directives Documents on File Type Date Recorded Patient Salesperson Flowers Expl anation Health Care Decision (hx) 09/27/2016 AD HIGHTOWER DIRECTIVE Health Care Decision (hx) 09/27/2016 AD HIGHTOWER DIRECTIVE Health Care Decision (hx) 09/27/2016 AD HIGHTOWER DIRECTIVE Care Teams Instructor Psychiatric Aide Relationship Specialty Start Date End Date Mau Quispe DO [address] [place] [phone] PCP - General Internal Medicine 11/08/17
--- OUTSIDE RECORDS SUMMARY | 2025-09-24 18:55 | XMS_ITS | Clinical Summary ---
Author Organization [facility] Address [address] [place] [phone] Phone Care Team Providers Care Federal Judge Name Role Phone Mau Quispe DO Primary Care Provider [phone] Allergies Active Allergy Reactions Criticality Noted Date [...] TWICE DAILY 5 Active D3-50 1.25 MG (86731 UT) capsule Take 50,000 Units by mouth [...] mouth daily Active aMILoride (MIDAMOR) 5 MG tabletIndicatio ns:Hypokalemia, Hypertension Take 1 tablet (5 mg total) by mouth 1 (one) time each day 90 tablet 3 5 07/04/20 26 Active Magnesium Oxide -Mg Supplement 500 MG tabletIndicatio ns:Hypomagnesem ia Take 500 mg by mouth 1 (one) time each day 30 tablet 5 5 02/11/20 26 Active potassium chloride 10 MEQ CR tablet Take 1 tablet (10 mEq total) by mouth 1 (one) time each day Do not crush, chew, or split. 90 tablet 3 5 Active Active Problems Problem Noted Date Diagnosed Date Stage 3a chronic kidney disease 01/28/2025 Hypo-osmolality and hyponatremia 01/28/2025 Hypertension 01/28/2025 Hypomagnesemia 01/28/2025 Hyperaldosteronism, not otherwise specified 01/2025 Gitelman syndrome 01/19/2023 Hypokalemia 01/19/2023 Irritable bowel syndrome 05/24/2022 Steatotic liver disease 05/24/2022 Lightheadedness 03/09/2022 Palpitations 03/09/2022 Overview (04/06/2022): [...] 03/09/2022 Overview (04/06/2022): [facility] on 09/24/21 Tricuspid valve regurgitation 03/09/2022 Severe persistent allergic asthma 04/04/2018 Overview (04/05/2022): Added automatically from request for surgery [id number] Ventral hernia 01/19/2018 Eczema 12/21/2017 Depressive disorder 10/11/2017 Body mass index 40+ - severely obese 09/06/2017 Anxiety 08/02/2017 Asthmatic bronchitis 07/04/2017 Overview (04/05/2022): Added automatically from request for surgery [id number] Gastro-esophageal reflux disease without esophag itis 02/28/2017 Multiple nodules of lung 02/28/2017 Overview (04/05/2022): Followed outside of the [facility] system stable from [id number] Obstructive sleep apnea syndrome 02/28/2017 Overview (04/05/2022): CPAP Seasonal allergic rhinitis 02/28/2017 Encounters Date Type Department Care Team Description 08/16/2025 Refill [facility] [address] [phone] Emmie Marquez MA 08/16/2025 Refill [facility] [address] [phone] Emmie Marquez MA 08/14/2025 Refill [facility] [address] [phone] Yissel Mendoza Hypomagnesemia 08/14/2025 Refill [facility] [address] [address] Sangita Reilly MA 08/06/2025 Documentation Only [facility] [address] [phone] Emmie Marquez MA 07/04/2025 Orders Only [facility] [address] [phone] Krystyna Warren ARNP Hypocalcemia (Primary Dx) 07/01/2025 Orders Only [facility] [address] [phone] Krystyna Warren ARNP Hypomagnesemia (Primary Dx) 07/01/2025 Telephone [facility] [address] [phone] Guerline Hughes 07/01/2025 Refill [facility] [address] [place] [phone] Guerline Hughes Hypokalemia; Hypertension 06/27/2025 Refill [facility] [address] [place] [phone] Elkin Whitt from Last 3 Months Immunizations Immunization Administration [...] Office Visit [facility] [address] [place] [phone] Krystyna Warren ARNP [address] [phone] Health Maintenance Due Date Last [...] EDT) Magnesium 1.8(L) 1.9 - 2.6 mg/dL [facility] Blood Venous blood / Unknown 08/05/2025 3:27 PM EDT 08/05/2025 7:38 PM EDT us Isai Pulido MD LAB BLOOD ORDERABLES Final Resu lt [facility] [address] [place] [address] from Last 3 Months Insurance [facility] [id number] [place] [address] Medicaid [place] Care Teams Federal Judge Relationship Specialty Start Date End Date Mau Quispe DO [address] [place] [address] PCP - General Internal Medicine 02/24/22
--- OUTSIDE RECORDS SUMMARY | 2025-09-24 18:55 | XMS_ITS | Clinical Summary ---
Author Organization [address] [address] Care Team Providers Care Leather Production Machine Operator Name Role Phone Mau Quispe DO Primary Care Provider [phone] Social History Tobacco Use Types Packs/Day Years [...] vaccine 06/28/2025 Covid-19 vaccine series ( - 2024-26 season) 2025 RSV Immunization (1 - 1-dose 75+ series) 2038 Meningococcal B Vaccine Aged Out No l onger eligible based on patient's age to complete this topic Meningococcal Vaccine Aged Out No isabela janie eligible based on patient's age to complete this topic Insurance COMMERCIAL GENERIC COMMERCIAL GENERIC COMMERCIAL GENERIC COMMERCIAL GENERIC Care Teams Leather Production Machine Operator Relationship Specialty Start Date End Date Mau Quispe DO [address] [place] [phone] PCP - General Internal Medicine 02/15/17
== END 2025-09-24 14:30 | disposition home or self-care (01) ==
LOC: HO.HOSX 14:29
DX: S52.041D Displaced fracture of coronoid process of right ulna, subsequent encounter for closed fracture with routine healing (principal); S52.501D Unspecified fracture of the lower end of right radius, subsequent encounter for closed fracture with routine healing; M25.521 Pain in right elbow; M79.641 Pain in right hand; W19.XXXD Unspecified fall, subsequent encounter
CPT/HCPCS: 73080; 73110; 99212

== ENCOUNTER 2025-09-24 15:02 | Outpatient (AMB) | payer MEDICARE, MEDICAID, SELFPAY ==
--- NOTE | 2025-09-24 15:09 | MHC.OFFVIS ---
Vital Signs 09/24/25 15:12 Height 5 ft 4 in Weight 243 lb BMI 41.7 Intake Visit Reasons: OV-Rt wrist fx s/p fall DOI: 06/20/25-w/xrays Intake Note: Kelly is a 60 year old left hand dominant female who presents today for follow up status post Right Distal Radius Fracture, a Right Ulnar Styloid Fracture, & a Fracture of the Coronoid Process of the Ulna, DOI: 06/19/25. At her last visit, she was transitioned to a Velcro wrist brace to be worn with daytime activities. She was notified she no longer needs immobilization of her coronoid process fracture and should begin gentle & passive ROM of the elbow. She was educated to avoid any forceful extension or hyperextension of the right elbow. Weight restriction increased to 3-4 lbs. Patient reports today she contines going to PT with noticeable improvement. She is no longer taking pain medications. She denies any pain today. Allergies Sulfa (Sulfonamide Antibiotics) Allergy (Severe, Verified 09/24/25 15:10) Hives environmental allergies Allergy (Unknown, Verified 09/24/25 15:10) Unknown HPI HPI OV-Rt wrist fx s/p fall DOI: 06/20/25-w/xrays: Details: Kelly is a 60 year old left hand dominant female who presents today for follow up status post Right Distal Radius Fracture, a Right Ulnar Styloid Fracture, & a Fracture of the Coronoid Process of the Ulna, DOI: 06/19/25. At her last visit, she was transitioned to a Velcro wrist brace to be worn with daytime activities. She was notified she no longer needs immobilization of her coronoid process fracture and should begin gentle & passive ROM of the elbow. She was educated to avoid any forceful extension or hyperextension of the right elbow. Weight restriction increased to 3-4 lbs. Patient reports today she contines going to PT with noticeable improvement. She is no longer taking pain medications. She denies any pain today. [facility] Medical History Depression Trigeminal neuralgia Hypertension GERD (gastroesophageal reflux disease) Morbid obesity Eczema Nasal polyposis Asthma-COPD overlap syndrome Chronic allergic rhinitis Pulmonary nodules SIERRA on CPAP Severe persistent asthma Surgical History Status post repair of paraesophageal diaphragmatic hernia Hx of cataract surgery Family History Father Lung cancer Diabetes Heart disease Mother Emphysema of lung Hypertension Bladder cancer TIA (transient ischemic attack) Social History Alcohol intake: current Alcohol intake frequency: a few times a month Patient Tobacco Use Status: Never used Tobacco Review of Systems Const All systems reviewed & are unremarkable except as noted in HPI and below Physical Exam Vital Signs: BMI result Body Mass Index 41.7 Extrem Other: Patient is alert, oriented, and in no acute distress. Neuro: Normal sensation of the tips of all digits of the right hand at this time Vascular: Cap refill brisk Pain: No tenderness to palpation about right distal radius No tenderness to palpation about right elbow ROM: Patient is able to very gently extend the right elbow to approximately 10 degrees and can flex to approximately 90 degrees Skin: No lacerations or abrasions. General: No further Ecchymosis noted of right elbow and forearm No erythema, evidence of infection Psych: Appears grossly normal Affect normal Attitude cooperative Results Reviewed Results Reviewed: X-rays obtained in the office today and independently reviewed by me, Sreekanth Flores PA-C, demonstrate nondisplaced fracture of the right distal radius along with minimally displaced grade 2 coronoid process fracture of the right ulna with evidence of interval bony healing. Assessment & Plan Assessment & Plan (1) Fracture of coronoid process of right ulna: Code(s): S52.041A - Displaced fracture of coronoid process of right ulna, initial encounter for closed fracture Category: Medical (2) Fracture of right distal radius: Code(s): S52.501A - Unspecified fracture of the lower end of right radius, initial encounter for closed fracture Category: Medical Plan 1. Right Grade 2 coronoid process fracture 2. Nondisplaced right distal radius fracture Date of injury 06/20/2025 Patient is educated about this injury Patient is educated about the typical recovery course At this time, patient is educated that there is no surgical intervention indicated for her fractures At this time, patient is placed into a Velcro wrist splint to be worn with daytime activities Patient is educated that if she is at rest, she should be removing the Velcro wrist splint to work on range of motion of the right wrist Patient is educated that she does not require any further immobilization of her coronoid process fracture, and should begin working on gentle active and passive range of motion of the right elbow May increase to 10 pound weight limit in R hand Patient understands this in his amenable to this plan Follow-up in 6 weeks for reassessment, no x-rays necessary unless patient begins experiencing pain, with any acute concerns. Orders: Orders XR wrist RT w scaphoid Today M79.641 - Pain in right hand XR elbow RT min 3V Today M25.521 - Pain in right elbow Coding Level of Care Code Global (27812) Diagnoses Fracture of coronoid process of right ulna S52.041A Fracture of right distal radius S52.501A
[2025-09-24 15:12] VITALS: BMI 41.7
--- OUTSIDE RECORDS SUMMARY | 2025-09-24 19:26 | XMS_ITS | Encounter Summary ---
Author Organization [facility] Address [address] [place] [address] Care Team Providers Care Mac Artist Name Role Phone Community, Pcp Primary Care Provider Mau Emanuel MD Primary Care Provider Good Gonzales MD Primary Care Provider Mau Emanuel MD Primary Care Provider Mau Castro MD Primary Care Provider Alex Lozano MD Unavailable Encounter Details Date Type Department Care Team Description 12/05/2014 [facility] [address] [place] [address] Alex To MD Social History Tobacco Use Types Packs/Day Years Used Date Smoking Tobacco: Never Assessed Sex Assigned at Date Recorded Not on file documented as of this encounter Plan of Treatment Not on file documented as of this encounter Procedures Procedure Name Priority Date/Time Associated Diagnosis Comments OUTSIDE ECHO Routine 12/05/2014 documented in this encounter Results * OUTSIDE ECHO (12/05/2014) Provider Abstract CARDIOLOGY documented in this encounter Visit Diagnoses Not on filedocumented in this encounter Care Teams Mac Artist Relationship Specialty Start Date End Date Community, Pcp PCP - General Internal Medicine 11/02/17 11/07/17 Mau Quispe MD PCP - General Internal Medicine 11/08/17 04/05/19 Good Lawrence MD PCP - General Internal Medicine 04/06/19 01/04/22 Mau Quispe MD PCP - General 12/05/14 11/01/17 Mau Quispe MD PCP - General Internal Medicine 01/05/22 Alex Spear MD [address] [place] [address] [address] [place] [address] Specialist Cardiovascular Disease 02/03/22 documented as of this encounter
--- OUTSIDE RECORDS SUMMARY | 2025-09-24 19:26 | XMS_ITS | Encounter Summary ---
Author Organization [facility] Address [address] [place] [address] Care Team Providers Care Buttermaker Helper Name Role Phone Mau Quispe MD Primary Care Provider Good Gonzales MD Primary Care Provider Mau Emanuel MD Primary Care Provider Alex Lozano MD Unavailable [phone] Encounter Details Date Type Department Care Team Description 01/20/2018 [facility] Medical Records [address] [place] [id number] Kathryn Vaughan MD Social History Tobacco Use Types Packs/Day Years Used Date Smoking Tobacco: Never Smokeless Tobacco: Never Alcohol Use Standard Drinks/Week Comments Not Currently 0 (1 standard drink = 0.6 oz pur e alcohol) occ Sex Assigned at Date Recorded Not on file documented as of this encounter Plan of Treatment Not on file documented as of this encounter Visit Diagnoses Not on filedocumented in this encounter Care Teams Buttermaker Helper Relationship Specialty Start Date End Date Mau Quispe MD PCP - General Internal Medicine 11/08/17 04/05/19 Good Lawrence MD PCP - General Internal Medicine 04/06/19 01/04/22 Mau Quispe MD PCP - General Internal Medicine 01/05/22 Alex Spear MD [address] [place] [address] [address] [place] [address] Specialist Cardiovascular Disease 02/03/22 documented as of this encounter
--- OUTSIDE RECORDS SUMMARY | 2025-09-24 19:26 | XMS_ITS | Encounter Summary ---
Author Organization [facility] Address [address] [place] [address] Care Team Providers Care Manager Travel Name Role Phone Mau Quispe MD Primary Care Provider Good Gonzales MD Primary Care Provider Mau Emanuel MD Primary Care Provider Alex Lozano MD Unavailable [phone] Reason for Visit * Reason Comments E-prescribe Rx Request Encounter Details Date Type Department Care Team Description 01/02/2019 Refill Pulmonology - [address] [place] [id number] Antoine Farmer MD E-prescribe Rx Request Social History Tobacco Use Types Packs/Day Years Used Date Smoking Tobacco: Never Smokeless Tobacco: Never Alcohol Use Standard Drinks/Week Comments No 0 (1 standard drink = 0.6 oz pur e alcohol) Sex Assigned at Date Recorded Not on file documented as of this encounter Miscellaneous Notes * Telephone Encounter - Marisel Aragon - 01/03/2019 8:36 AM EST Patient would like script to be: E-PRESCRIBED/FAXED TO PHARMACY WHEN WAS THE PATIENT'S LAST APPOINTMENT WITH THE PRESCRIBING PROVIDER? 09/26/18 Does patient have an upcoming appointment? Yes 01/11/19 (THE MEDICATION REQUESTED IS ON THE MED LIST ABOVE) All of the medications requested were on the CURRENT MEDS list Did you check the Pharmacy information above?: YES Patient wants: 90 -day supply Is this a mail order prescription request ? NO Patients current insurance carrier is: [place] / Plan[place] [facility] W/NO MCO / Product Type: MEDICAID [id number] documented in this encounter Plan of Treatment Not on file documented as of this encounter Visit Diagnoses Not on filedocumented in this encounter Care Teams Manager Travel Relationship Specialty Start Date End Date Mau Quispe MD PCP - General Internal Medicine 11/08/17 04/05/19 Good Lawrence MD PCP - General Internal Medicine 04/06/19 01/04/22 Mau Quispe MD PCP - General Internal Medicine 01/05/22 Alex Spear MD [address] [place] [address] [address] [place] [address] Specialist Cardiovascular Disease 02/03/22 documented as of this encounter
--- OUTSIDE RECORDS SUMMARY | 2025-09-24 19:26 | XMS_ITS | Encounter Summary ---
Author Organization [facility] Address [address] [place] [address] Care Team Providers Care Branch Services Manager Name Role Phone Community, Pcp Primary Care Provider Mau Emanuel MD Primary Care Provider Good Gonzales MD Primary Care Provider Mau Emanuel MD Primary Care Provider Mau Castro MD Primary Care Provider Alex Lozano MD Unavailable [phone] Encounter Details Date Type Department Care Team Description 02/24/2017 Hospital Medical Records [address] [place], [place] [id number] [place] [address] Social History Tobacco Use Types Packs/Day Years [...] on filedocumented in this encounter Care Teams Branch Services Manager Relationship Specialty Start Date End Date Community, Pcp PCP - General Internal Medicine 11/02/17 11/07/17 Mau Quispe MD PCP - General Internal Medicine 11/08/17 04/05/19 Good Lawrence MD PCP - General Internal Medicine 04/06/19 01/04/22 Mau Quispe MD PCP - General 12/05/14 11/01/17 Mau Quispe MD PCP - General Internal Medicine 01/05/22 Alex Spear MD [address] [place] [address] [address] [place] [address] Specialist Cardiovascular Disease 02/03/22 documented as of this encounter
--- OUTSIDE RECORDS SUMMARY | 2025-09-24 19:26 | XMS_ITS | Encounter Summary ---
Author Organization [facility] Address [address] [place] [address] Care Team Providers Care Silk Crepe Machine Operator Name Role Phone Community, Pcp Primary Care Provider Mau Emanuel MD Primary Care Provider Good Gonzales MD Primary Care Provider Mau Emanuel MD Primary Care Provider Mau Castro MD Primary Care Provider Alex Lozano MD Unavailable [phone] Encounter Details Date Type Department Care Team Description 06/14/2016 SCAN Medical Records [address] [place] [address] Star Armendariz MD Social History Tobacco Use Types Packs/Day Years Used Date Smoking Tobacco: Never Assessed Sex Assigned at Date Recorded Not on file documented as of this encounter Plan of Treatment Not on file documented as of this encounter Procedures Procedure Name Priority Date/Time Associated Diagnosis Comments OUTSIDE ECHO Routine 06/14/2016 documented in this encounter Results * OUTSIDE ECHO (06/14/2016) Provider Default CARDIOLOGY documented in this encounter Visit Diagnoses Not on filedocumented in this encounter Care Teams Silk Crepe Machine Operator Relationship Specialty Start Date End Date Community, Pcp PCP - General Internal Medicine 11/02/17 11/07/17 Mau Quispe MD PCP - General Internal Medicine 11/08/17 04/05/19 Good Lawrence MD PCP - General Internal Medicine 04/06/19 01/04/22 Mau Quispe MD PCP - General 12/05/14 11/01/17 Mau Quispe MD PCP - General Internal Medicine 01/05/22 Alex Spaer MD [address] [place] [address] [address] [place] [address] Specialist Cardiovascular Disease 02/03/22 documented as of this encounter
--- OUTSIDE RECORDS SUMMARY | 2025-09-24 19:26 | XMS_ITS | Encounter Summary ---
Author Organization [facility] Address [address] [place] [address] Care Team Providers Care Emergency Services Professional Name Role Phone Community, Pcp Primary Care Provider Mau Emanuel MD Primary Care Provider Good Gonzales MD Primary Care Provider Mau Emanuel MD Primary Care Provider Mau Castro MD Primary Care Provider Alex Lozano MD Unavailable [phone] Encounter Details Date Type Department Care Team Description 10/01/2016 SCAN Medical Records [address] [place] [address] Capri Fitzgerald PA-C Social History Tobacco Use Types Packs/Day Years Used Date Smoking Tobacco: Never Assessed Sex Assigned at Date Recorded Not on file documented as of this encounter Plan of Treatment Not on file documented as of this encounter Procedures Procedure Name Priority Date/Time Associated Diagnosis Comments OUTSIDE VASCULAR STUDY Routine 10/01/2016 documented in this encounter Results * OUTSIDE VASCULAR STUDY (10/01/2016) Provider Abstract CARDIOLOGY documented in this encounter Visit Diagnoses Not on filedocumented in this encounter Care Teams Emergency Services Professional Relationship Specialty Start Date End Date Community, Pcp PCP - General Internal Medicine 11/02/17 11/07/17 Mau Quispe MD PCP - General Internal Medicine 11/08/17 04/05/19 Good Lawrence MD PCP - General Internal Medicine 04/06/19 01/04/22 Mau Quispe MD PCP - General 12/05/14 11/01/17 Mau Quispe MD PCP - General Internal Medicine 01/05/22 Alex Spear MD [address] [place] [address] [address] [place] [address] Specialist Cardiovascular Disease 02/03/22 documented as of this encounter
--- OUTSIDE RECORDS SUMMARY | 2025-09-24 19:26 | XMS_ITS | Encounter Summary ---
Author Organization [facility] Address [address] [place] [address] Care Team Providers Care Accounting Office Manager Name Role Phone Mau Quispe MD Primary Care Provider Good Gonzales MD Primary Care Provider Mau Emanuel MD Primary Care Provider Alex Lozano MD Unavailable Reason for Visit * Reason Onset Date Comments Medication 12/05/2017 Encounter Details Date Type Department Care Team Description 12/05/2017 Telephone Pulmonology - [address] [place] [phone] Antoine Farmer MD Medication Social History Tobacco Use Types Packs/Day Years Used Date Smoking Tobacco: Never Smokeless Tobacco: Never Sex Assigned at Date Recorded Not on file documented as of this encounter Miscellaneous Notes * Telephone Encounter - Antoine Farmer MD - 12/08/2017 5:24 PM EST Called. Sick with a flare. May comein at 845am tomorrow if no better FYI * Telephone Encounter - Korina Mercado - 12/05/2017 9:10 AM EST Who is calling? The patient Name of the medication Atrovent What is the specific problem or interaction? Has 2 days left - can't be filled til 12/10 please advise. If the patient is having a problem with taking the med - how long has the problem been going on? N/A documented in this encounter Plan of Treatment Not on file documented as of this encounter Visit Diagnoses Not on filedocumented in this encounter Care Teams Accounting Office Manager Relationship Specialty Start Date End Date Mau Quispe MD PCP - General Internal Medicine 11/08/17 04/05/19 Good Lawrence MD PCP - General Internal Medicine 04/06/19 01/04/22 Mau Quispe MD PCP - General Internal Medicine 01/05/22 Alex Spear MD [address] [place] [address] Specialist Cardiovascular Disease 02/03/22 documented as of this encounter
--- OUTSIDE RECORDS SUMMARY | 2025-09-24 19:26 | XMS_ITS | Encounter Summary ---
Author Organization [facility] Address [address] [place] [address] Care Team Providers Care Manager Oracle Name Role Phone Community, Pcp Primary Care Provider Mau Emanuel MD Primary Care Provider Good Gonzales MD Primary Care Provider Mau Emanuel MD Primary Care Provider Mau Castro MD Primary Care Provider Alex Lozano MD Unavailable [phone] Encounter Details Date Type Department Care Team Description 10/05/2017 Transfer Records Medical Records [address] [place] [address] Abstract, Provider Social History Tobacco Use Types Packs/Day Years Used Date Smoking Tobacco: Never Assessed Sex Assigned at Date Recorded Not on file documented as of this encounter Plan of Treatment Not on file documented as of this encounter Visit Diagnoses Not on filedocumented in this encounter Care Teams Manager Oracle Relationship Specialty Start Date End Date [facility], Pcp PCP - General Internal Medicine 11/02/17 11/07/17 Mau Quispe MD PCP - General Internal Medicine 11/08/17 04/05/19 Good Lawrence MD PCP - General Internal Medicine 04/06/19 01/04/22 Mau Quispe MD PCP - General 12/05/14 11/01/17 Mau Quispe MD PCP - General Internal Medicine 01/05/22 Alex Spear MD [address] [place] [address] [address] [place] [address] Specialist Cardiovascular Disease 02/03/22 documented as of this encounter
--- OUTSIDE RECORDS SUMMARY | 2025-09-24 19:26 | XMS_ITS | Encounter Summary ---
Author Organization [facility] Address [address] [place] [address] Care Team Providers Care Third Rail Installer Name Role Phone Community, Pcp Primary Care Provider Mau Emanuel MD Primary Care Provider Good Gonzales MD Primary Care Provider Mau Emanuel MD Primary Care Provider Mau Castro MD Primary Care Provider Alex Lozano MD Unavailable Encounter Details Date Type Department Care Team Description 07/10/2013 SCAN Medical Records [address] [place] [address] Mau Quispe MD Social History Tobacco Use Types Packs/Day Years Used Date Smoking Tobacco: Never Assessed Sex Assigned at Date Recorded Not on file documented as of this encounter Plan of Treatment Not on file documented as of this encounter Procedures Procedure Name Priority Date/Time Associated Diagnosis Comments OUTSIDE CT Routine 07/10/2013 documented in this encounter Results * OUTSIDE CT (07/10/2013) Provider Abstract RADIOLOGY documented in this encounter Visit Diagnoses Not on filedocumented in this encounter Care Teams Third Rail Installer Relationship Specialty Start Date End Date Community, Pcp PCP - General Internal Medicine 11/02/17 11/07/17 Mau Quispe MD PCP - General Internal Medicine 11/08/17 04/05/19 Good Lawrence MD PCP - General Internal Medicine 04/06/19 01/04/22 Mau Quispe MD PCP - General 12/05/14 11/01/17 Mau Quispe MD PCP - General Internal Medicine 01/05/22 Alex Spear MD [address] [place] [address] [address] [place] [address] Specialist Cardiovascular Disease 02/03/22 documented as of this encounter
--- OUTSIDE RECORDS SUMMARY | 2025-09-24 19:26 | XMS_ITS | Encounter Summary ---
Author Organization [facility] Address [address] [place] [address] Care Team Providers Care Sterile Processing Tech Name Role Phone Mau Quispe MD Primary Care Provider Good Gonzales MD Primary Care Provider Mau Emanuel MD Primary Care Provider Alex Lozano MD Unavailable [phone] Reason for Visit * Reason Onset Date Comments Form 04/03/2019 Encounter Details Date Type Department Care Team Description 04/03/2019 Telephone Pulmonology - [address] [place] [phone] Antoine Farmer MD Form Social History Tobacco Use Types Packs/Day Years Used Date Smoking Tobacco: Never Smokeless Tobacco: Never Alcohol Use Standard Drinks/Week Comments No 0 (1 standard drink = 0.6 oz pur e alcohol) Sex Assigned at Date Recorded Not on file documented as of this encounter Miscellaneous Notes * Telephone Encounter - Andreia Smith - 04/03/2019 11:46 AM EDT If patient presents with the one of the forms directly below the direct patient with their forms toMedical Records to be completed [facility]. All [facility] disability forms ONLY All Fire Sprinkler Fitter requests for Worker's Compensation Motor vehicle accident [facility] Physical forms for long-term housing Life insurance FORMS TO BE COMPLETED IN THE PRACTICE: Type of form: Insurance forms Release of information form ( all sections) has been completed and Signed.YES If this form is for the Registry of Motor Vechicles for a handicap placard or plate is the patient go to be: N/A -not a Registry form Is the patient still driving? N\A For what medical problem does the patient need this form completed? Patient Active Problem List Diagnosis Code ??? Allergic rhinitis J30.9 ??? Anxiety F41.9 ??? Asthma J45.909 ??? Obstructive sleep apnea syndrome G47.33 ??? Morbid obesity with BMI of 45.0-49.9, adult (HCC) E66.01, Z68.42 ??? Gastroesophageal reflux disease K21.9 ??? Depression F32.9 ??? Eczema L30.9 ??? Ventral hernia K43.9 Is patients name on the form? YES Is the patients portion (demographics) of the form completed? NO Did the patient sign the form? NO Which provider is form to be completed by? Dr. Farmer Patient requesting the form be: Mail to another office/MD at: [address] [address] [place] [address] If form is not to be picked up by patient has patient been informed that RELEASE OF INFO form must be signed by them for alternate person to berry picker form? YES Patient has been informed that completion will be in 7-10 business days: YES documented in this encounter Plan of Treatment Not on file documented as of this encounter Visit Diagnoses Not on filedocumented in this encounter Care Teams Sterile Processing Tech Relationship Specialty Start Date End Date Mau Quispe MD PCP - General Internal Medicine 11/08/17 04/05/19 Good Lawrence MD PCP - General Internal Medicine 04/06/19 01/04/22 Mau Quispe MD PCP - General Internal Medicine 01/05/22 Alex Spear MD [address] [place] [address] [address] [place] [address] Specialist Cardiovascular Disease 02/03/22 documented as of this encounter
--- OUTSIDE RECORDS SUMMARY | 2025-09-24 19:26 | XMS_ITS | Encounter Summary ---
Author Organization [facility] Address [address] [place] [address] Care Team Providers Care Research Animal Attendant Name Role Phone Community, Pcp Primary Care Provider Mau Emanuel MD Primary Care Provider Good Gonzales MD Primary Care Provider Mau Emanuel MD Primary Care Provider Mau Castro MD Primary Care Provider Alex Lozano MD Unavailable [phone] Encounter Details Date Type Department Care Team Description 04/18/2013 SCAN Medical Records [address] [place] [address] Nilesh Rosales Social History Tobacco Use Types Packs/Day Years Used Date Smoking Tobacco: Never Assessed Sex Assigned at Date Recorded Not on file documented as of this encounter Plan of Treatment Not on file documented as of this encounter Procedures Procedure Name Priority Date/Time Associated Diagnosis Comments OUTSIDE SLEEP STUDY Routine 04/18/2013 documented in this encounter Results * OUTSIDE SLEEP STUDY (04/18/2013) Provider Abstract PULMONOLOGY documented in this encounter Visit Diagnoses Not on filedocumented in this encounter Care Teams Research Animal Attendant Relationship Specialty Start Date End Date Community, Pcp PCP - General Internal Medicine 11/02/17 11/07/17 Mau Quispe MD PCP - General Internal Medicine 11/08/17 04/05/19 Good Lawrence MD PCP - General Internal Medicine 04/06/19 01/04/22 Mau Quispe MD PCP - General 12/05/14 11/01/17 Mau Quispe MD PCP - General Internal Medicine 01/05/22 Alex Spear MD [address] [place] [address] [address] [place] [address] Specialist Cardiovascular Disease 02/03/22 documented as of this encounter
--- OUTSIDE RECORDS SUMMARY | 2025-09-24 19:26 | XMS_ITS | Encounter Summary ---
Author Organization [facility] Address [address] [place] [address] Care Team Providers Care Tear Down Matcher Name Role Phone Community, Pcp Primary Care Provider Mau Emanuel MD Primary Care Provider Good Gonzales MD Primary Care Provider Mau Emanuel MD Primary Care Provider Mau Castro MD Primary Care Provider Alex Lozano MD Unavailable [phone] Encounter Details Date Type Department Care Team Description 09/13/2006 SCAN Medical Records [address] [place] [address] Abstract, Provider Social History Tobacco Use Types Packs/Day Years Used Date Smoking Tobacco: Never Assessed Sex Assigned at Date Recorded Not on file documented as of this encounter Plan of Treatment Not on file documented as of this encounter Procedures Procedure Name Priority Date/Time Associated Diagnosis Comments OUTSIDE VASCULAR STUDY Routine 09/13/2006 documented in this encounter Results * OUTSIDE VASCULAR STUDY (09/13/2006) Provider Abstract CARDIOLOGY documented in this encounter Visit Diagnoses Not on filedocumented in this encounter Care Teams Tear Down Matcher Relationship Specialty Start Date End Date Community, Pcp PCP - General Internal Medicine 11/02/17 11/07/17 Mau Quispe MD PCP - General Internal Medicine 11/08/17 04/05/19 Good Lawrence MD PCP - General Internal Medicine 04/06/19 01/04/22 Mau Quispe MD PCP - General 12/05/14 11/01/17 Mau Quispe MD PCP - General Internal Medicine 01/05/22 Alex Spear MD [address] [place] [address] [address] [place] [address] Specialist Cardiovascular Disease 02/03/22 documented as of this encounter
--- OUTSIDE RECORDS SUMMARY | 2025-09-24 19:26 | XMS_ITS | Encounter Summary ---
Author Organization [facility] Address [address] [place] [address] Care Team Providers Care Bench Assembler Operator Name Role Phone Mau Quispe MD Primary Care Provider Good Gonzales MD Primary Care Provider Mau Emanuel MD Primary Care Provider Alex Lozano MD Unavailable [phone] Encounter Details Date Type Department Care Team Description 02/13/2019 Release of Information Medical Records [address] [place] [address] Abstract, Provider Social History Tobacco Use Types [...] on filedocumented in this encounter Care Teams Bench Assembler Operator Relationship Specialty Start Date End Date Mau Quispe MD PCP - General Internal Medicine 11/08/17 04/05/19 Good Lawrence MD PCP - General Internal Medicine 04/06/19 01/04/22 Mau Quispe MD PCP - General Internal Medicine 01/05/22 Alex Spear MD [address] [place] [address] [address] [place] [address] Specialist Cardiovascular Disease 02/03/22 documented as of this encounter
--- OUTSIDE RECORDS SUMMARY | 2025-09-24 19:27 | XMS_ITS | Encounter Summary ---
Author Organization [facility] Address [address] [place] [address] Care Team Providers Care Hris Developer Name Role Phone Good Lawrence MD Primary Care Provider Mau Emanuel MD Primary Care Provider Alex Lozano MD Unavailable [phone] Encounter Details Date Type Department Care Team Description 01/01/2022 SCAN Medical Records [address] [place] [address] Mau Quispe MD Social History Tobacco Use [...] Name Priority Date/Time Associated Diagnosis Comments OUTSIDE HOLTER MONITOR Routine 01/01/2022 documented in this encounter Results * OUTSIDE HOLTER MONITOR (01/01/2022) Provider Default CARDIOLOGY documented in this encounter Visit Diagnoses Not on filedocumented in this encounter Care Teams Hris Developer Relationship Specialty Start Date End Date Good Lawrence MD PCP - General Internal Medicine 04/06/19 01/04/22 Mau Quispe MD PCP - General Internal Medicine 01/05/22 Alex Spear MD [address] [place] [address] [address] [place] [address] Specialist Cardiovascular Disease 02/03/22 documented as of this encounter
--- OUTSIDE RECORDS SUMMARY | 2025-09-24 19:27 | XMS_ITS | Encounter Summary ---
Author Organization [facility] Address [address] [place] [address] Care Team Providers Care Cheerleading Coach Name Role Phone Mau Quispe MD Primary Care Provider Good Gonzales MD Primary Care Provider Mau Emanuel MD Primary Care Provider Alex Lozano MD Unavailable [phone] Encounter Details Date Type Department Care Team Description 11/01/2018 Access Clinician Report Medical Records [address] [place] [address] Yung Alexis MD Social History Tobacco Use Types Packs/Day [...] on filedocumented in this encounter Care Teams Cheerleading Coach Relationship Specialty Start Date End Date Mau Quispe MD PCP - General Internal Medicine 11/08/17 04/05/19 Good Lawrence MD PCP - General Internal Medicine 04/06/19 01/04/22 Mau Quispe MD PCP - General Internal Medicine 01/05/22 Alex Spear MD [address] [place] [address] [address] [place] [address] Specialist Cardiovascular Disease 02/03/22 documented as of this encounter
--- OUTSIDE RECORDS SUMMARY | 2025-09-24 19:27 | XMS_ITS | Encounter Summary ---
Author Organization [facility] Address [address] [place] [address] Care Team Providers Care Mental Health Program Manager Name Role Phone Mau Quispe MD Primary Care Provider Good Gonzales MD Primary Care Provider Mau Emanuel MD Primary Care Provider Alex Lozano MD Unavailable [phone] Reason for Visit * Reason Comments E-prescribe Rx Request Encounter Details Date Type Department Care Team Description 04/21/2018 Refill Pulmonology - [address] [phone] Antoine Farmer MD E-prescribe Rx Request Social History Tobacco Use Types Packs/Day Years Used Date Smoking Tobacco: Never Smokeless Tobacco: Never Sex Assigned at Date Recorded Not on file documented as of this encounter Miscellaneous Notes * Telephone Encounter - Sera ZehraDaphneynancy - 04/21/2018 2:42 PM EDT Patient would like script to be: E-PRESCRIBED/FAXED TO PHARMACY WHEN WAS THE PATIENT'S LAST APPOINTMENT WITH THE PRESCRIBING PROVIDER? 03/03/18 Does patient have an upcoming appointment? Yes (THE MEDICATION REQUESTED IS ON THE MED LIST ABOVE) All of the medications requested were on the CURRENT MEDS list Did you check the Pharmacy information above?: YES Patient wants: 90 -day supply Is this a mail order prescription request ? NO Patients current insurance carrier is: Payor: [employer] [place] / Plan: [facility] TYPE III $15/$22 / Product Type: HMO [id number] documented in this encounter Plan of Treatment Not on file documented as of this encounter Visit Diagnoses Not on filedocumented in this encounter Care Teams Mental Health Program Manager Relationship Specialty Start Date End Date Mau Quispe MD PCP - General Internal Medicine 11/08/17 04/05/19 Good Lawrence MD PCP - General Internal Medicine 04/06/19 01/04/22 Mau Quispe MD PCP - General Internal Medicine 01/05/22 Alex Spear MD [address] [place] [address] [place] [address] Specialist Cardiovascular Disease 02/03/22 documented as of this encounter
--- OUTSIDE RECORDS SUMMARY | 2025-09-24 19:27 | XMS_ITS | Encounter Summary ---
Author Organization [facility] Address [address] [place] [address] Care Team Providers Care Drug Safety Scientist Name Role Phone Mau Quispe MD Primary Care Provider Good Gonzales MD Primary Care Provider Mau Emanuel MD Primary Care Provider Alex Lozano MD Unavailable [phone] Reason for Visit * Reason Comments E-prescribe Rx Request Encounter Details Date Type Department Care Team Description 05/28/2018 Refill Pulmonology - [address] [place] [address] Candice Allen NP E-prescribe Rx Request Social History Tobacco Use Types Packs/Day Years Used Date Smoking Tobacco: Never Smokeless Tobacco: Never Alcohol Use Standard Drinks/Week Comments No 0 (1 standard drink = 0.6 oz pur e alcohol) Sex Assigned at Date Recorded Not on file documented as of this encounter Miscellaneous Notes * Telephone Encounter - Brooke Gallegos M.A. - 06/01/2018 2:36 PM EDT Patient has seen you in the past. Please review. vf * Telephone Encounter - Sera Holm - 05/29/2018 8:28 AM EDT Patient would like script to be: E-PRESCRIBED/FAXED TO PHARMACY WHEN WAS THE PATIENT'S LAST APPOINTMENT WITH THE PRESCRIBING PROVIDER? Does patient have an upcoming appointment? Yes (THE MEDICATION REQUESTED IS ON THE MED LIST ABOVE) All of the medications requested were on the CURRENT MEDS list Did you check the Pharmacy information above?: YES Patient wants: 90 -day supply Is this a mail order prescription request ? NO Patients current insurance carrier is: Payor: [employer] / Plan: [facility] TYPE III $15/$22 / Product Type: LocaiO [id number] documented in this encounter Plan of Treatment Not on file documented as of this encounter Visit Diagnoses Not on filedocumented in this encounter Care Teams Drug Safety Scientist Relationship Specialty Start Date End Date Mau Quispe MD PCP - General Internal Medicine 11/08/17 04/05/19 Good Lawrence MD PCP - General Internal Medicine 04/06/19 01/04/22 Mau Quispe MD PCP - General Internal Medicine 01/05/22 Alex Spear MD [address] [place] [address] [place] [address] Specialist Cardiovascular Disease 02/03/22 documented as of this encounter
--- OUTSIDE RECORDS SUMMARY | 2025-09-24 19:27 | XMS_ITS | Encounter Summary ---
Author Organization [facility] Address [address] [place] [address] Care Team Providers Care Spring Tester Name Role Phone Good Lawrence MD Primary Care Provider Mau Emanuel MD Primary Care Provider Alex Lozano MD Unavailable [phone] Encounter Details Date Type Department Care Team Description 11/05/2019 Release of Information Medical Records [address] [place] [id number] Abstract, Provider Social History Tobacco Use Types [...] on filedocumented in this encounter Care Teams Spring Tester Relationship Specialty Start Date End Date Good Lawrence MD PCP - General Internal Medicine 04/06/19 01/04/22 Mau Quispe MD PCP - General Internal Medicine 01/05/22 Alex Spear MD [address] [place] [address] [address] [place] [address] Specialist Cardiovascular Disease 02/03/22 documented as of this encounter
--- OUTSIDE RECORDS SUMMARY | 2025-09-24 19:27 | XMS_ITS | Encounter Summary ---
Author Organization [facility] Address [address] [place] [address] Care Team Providers Care Fender Mechanic Name Role Phone Mau Quispe MD Primary Care Provider Good Gonzales MD Primary Care Provider Mau Emanuel MD Primary Care Provider Alex Lozano MD Unavailable [phone] Reason for Visit * Reason Comments E-prescribe Rx Request Encounter Details Date Type Department Care Team Description 06/28/2018 Refill Pulmonology - [address] [place] [id number] Antoine Farmer MD E-prescribe Rx Request Social History Tobacco Use Types Packs/Day Years Used Date Smoking Tobacco: Never Smokeless Tobacco: Never Alcohol Use Standard Drinks/Week Comments No 0 (1 standard drink = 0.6 oz pur e alcohol) Sex Assigned at Date Recorded Not on file documented as of this encounter Miscellaneous Notes * Telephone Encounter - Sera Holm - 06/29/2018 8:53 AM EDT Patient would like script to be: E-PRESCRIBED/FAXED TO PHARMACY WHEN WAS THE PATIENT'S LAST APPOINTMENT WITH THE PRESCRIBING PROVIDER? 05/23/18 Does patient have an upcoming appointment? Yes (THE MEDICATION REQUESTED IS ON THE MED LIST ABOVE) All of the medications requested were on the CURRENT MEDS list Did you check the Pharmacy information above?: YES Patient wants: 90 -day supply Is this a mail order prescription request ? NO Patients current insurance carrier is: Payor: [employer] [place] / Plan: [facility] TYPE III $15/$22 / Product Type: HMO [id number] documented in this encounter Plan of Treatment Not on file documented as of this encounter Visit Diagnoses Not on filedocumented in this encounter Care Teams Fender Mechanic Relationship Specialty Start Date End Date Mau Quispe MD PCP - General Internal Medicine 11/08/17 04/05/19 Good Lawrence MD PCP - General Internal Medicine 04/06/19 01/04/22 Mau Quispe MD PCP - General Internal Medicine 01/05/22 Alex Spear MD [address] [place] [address] [place] [address] Specialist Cardiovascular Disease 02/03/22 documented as of this encounter
--- OUTSIDE RECORDS SUMMARY | 2025-09-24 19:27 | XMS_ITS | Encounter Summary ---
Author Organization [facility] Address [address] [place] [address] Care Team Providers Care Dinkey Engine Firer Name Role Phone Mau Quispe MD Primary Care Provider Alex Lozano MD Unavailable [phone] Encounter Details Date Type Department Care Team Description 03/11/2022 Release of Information Medical Records [address] [place] [address] [facility] Social History Tobacco Use Types Packs/Day Years Used Date Smoking Tobacco: Never Smokeless Tobacco: Never Alcohol Use Standard Drinks/Week Comments Not Currently 0 (1 standard drink = 0.6 oz pur e alcohol) occ Sex Assigned at Date Recorded Not on file COVID-19 Exposure Response Date Recorded In the last 10 days, have yo u been in contact with someone who was confirmed or suspected to have Coronavirus/COVID-19? No / Unsure 03/11/2022 8:53 AM EDT documented as of this encounter Plan of Treatment Not on file documented as of this encounter Visit Diagnoses Not on filedocumented in this encounter Care Teams Dinkey Engine Firer Relationship Specialty Start Date End Date Mau Quispe MD PCP - General Internal Medicine 01/05/22 Alex Spear MD [address] [place] [address] [address] [place] [address] Specialist Cardiovascular Disease 02/03/22 documented as of this encounter
--- OUTSIDE RECORDS SUMMARY | 2025-09-24 19:27 | XMS_ITS | Encounter Summary ---
Author Organization [facility] Address [address] [place] [address] Care Team Providers Care Fabric Separator Operator Name Role Phone Mau Quispe MD Primary Care Provider Good Gonzales MD Primary Care Provider Mau Emanuel MD Primary Care Provider Alex Lozano MD Unavailable Reason for Visit * Reason Comments E-prescribe Rx Request Encounter Details Date Type Department Care Team Description 06/01/2018 Refill Pulmonology - [address] [place] [phone] Antoine Farmer MD E-prescribe Rx Request Social History Tobacco Use Types Packs/Day Years Used Date Smoking Tobacco: Never Smokeless Tobacco: Never Alcohol Use Standard Drinks/Week Comments No 0 (1 standard drink = 0.6 oz pur e alcohol) Sex Assigned at Date Recorded Not on file documented as of this encounter Miscellaneous Notes * Telephone Encounter - Sera Holm - 06/02/2018 8:25 AM EDT Patient would like script to [...] NO Patients current insurance carrier is: Payor: [employer] [place] / Plan: [facility] TYPE III $15/$22 / Product Type: HMO [id number] documented in this encounter Plan of Treatment Not on file documented as of this encounter Visit Diagnoses Not on filedocumented in this encounter Care Teams Fabric Separator Operator Relationship Specialty Start Date End Date Mau Quispe MD PCP - General Internal Medicine 11/08/17 04/05/19 Good Lawrence MD PCP - General Internal Medicine 04/06/19 01/04/22 Mau Quispe MD PCP - General Internal Medicine 01/05/22 Alex Spear MD [address] [place] [address] [place] [address] Specialist Cardiovascular Disease 02/03/22 documented as of this encounter
--- OUTSIDE RECORDS SUMMARY | 2025-09-24 19:27 | XMS_ITS | Encounter Summary ---
Author Organization [facility] Address [address] [place] [address] Care Team Providers Care Freight Broker Agent Name Role Phone Good Lawrence MD Primary Care Provider Mau Emanuel MD Primary Care Provider Alex Lozano MD Unavailable [phone] Encounter Details Date Type Department Care Team Description 12/29/2021 Morning Show Producer Report Medical Records [address] [place] [id number] Chikis Mejia Social History Tobacco Use Types Packs/Day Years [...] on filedocumented in this encounter Care Teams Freight Broker Agent Relationship Specialty Start Date End Date Good Lawrence MD PCP - General Internal Medicine 04/06/19 01/04/22 Mau Quispe MD PCP - General Internal Medicine 01/05/22 Alex Spear MD [address] [place] [address] [address] [place] [address] Specialist Cardiovascular Disease 02/03/22 documented as of this encounter
--- OUTSIDE RECORDS SUMMARY | 2025-09-24 19:27 | XMS_ITS | Encounter Summary ---
Author Organization [facility] Address [address] [place] [address] Care Team Providers Care Centrifugal Extractor Operator Name Role Phone Mau Quispe MD Primary Care Provider Good Gonzales MD Primary Care Provider Mau Emanuel MD Primary Care Provider Alex Lozano MD Unavailable [phone] Encounter Details Date Type Department Care Team Description 11/10/2018 Orders Only Pulmonology - [place] [address] [facility] [address] [place] [phone] Sly Herron PA-C [address] [facility] [address] [place] [address] Severe persistent asthma with acute exacerbation; Morbid obesity with BMI of 45.0-49.9, adult (HCC); Bronchitis with asthma, acute Social History Tobacco Use Types Packs/Day Years Used Date Smoking Tobacco: Never Smokeless Tobacco: Never Alcohol Use Standard Drinks/Week Comments No 0 (1 standard drink = 0.6 oz pur e alcohol) Sex Assigned at Date Recorded Not on file documented as of this encounter Plan of Treatment Not on file documented as of this encounter Procedures Procedure Name Priority Date/Time Associated Diagnosis Comments G RADIOLOGIC EXAM CHEST 2 VIEWS Routine 09/26/2018 Severe persistent asthma with acute exacerbation Morbid obesity with BMI of 45.0-49.9, adult (HCC) Bronchitis with asthma, acute documented in this encounter Results * RADIOLOGIC EXAM CHEST 2 VIEWS (09/26/2018) Christopher Gopal PA-C RADIOLOGY documented in this encounter Visit Diagnoses Diagnosis Severe persistent asthma with acute exacerbation Unspecified asthma, with exacerbation Morbid obesity with BMI of 45.0-49.9, adult (HCC) Bronchitis with asthma, acute Unspecified asthma, with exacerbation documented in this encounter Care Teams Centrifugal Extractor Operator Relationship Specialty Start Date End Date Mau Quispe MD PCP - General Internal Medicine 11/08/17 04/05/19 Good Lawrence MD PCP - General Internal Medicine 04/06/19 01/04/22 Mau Quispe MD PCP - General Internal Medicine 01/05/22 Alex Spear MD [address] [place] [address] [place] [address] Specialist Cardiovascular Disease 02/03/22 documented as of this encounter
== END 2025-09-24 15:22 | disposition home or self-care (01) ==
LOC: HO.HOS 15:02
PROVIDERS: PCP Internal Medicine
DX: S52.041A Displaced fracture of coronoid process of right ulna, initial encounter for closed fracture (principal); S52.501A Unspecified fracture of the lower end of right radius, initial encounter for closed fracture
CPT/HCPCS: 99213

== ENCOUNTER → 2025-09-24 15:04 | Outpatient (BNV) | payer MEDICARE, MEDICAID, SELFPAY | PROVIDERS: Visit Provider Radiology Diagnostic Radiology | DX: M25.521 Pain in right elbow (principal); M79.641 Pain in right hand | CPT/HCPCS: 73080; 73110 ==

== ENCOUNTER 2025-10-22 15:51 | Outpatient (AMB) | payer MEDICARE, MEDICAID, SELFPAY ==
--- NOTE | 2025-10-22 15:32 | A.OFFVIS_ITS ---
Intake Visit Reasons: Follow up Intake Note: Patient presents follow up Migraine. Labs in chart. Patient fall end broke right arm. Patient states migraines have been good. 1-2 per month. When does get one takes meds and less intensives migraine. but if takes meds and goes to sleep and its gone when she wakes up. General Claims Agent Required: No Accompanied by: Self / Same As Patient Allergies Sulfa (Sulfonamide Antibiotics) Allergy (Severe, Verified 09/24/25 15:10) Hives environmental allergies Allergy (Unknown, Verified 09/24/25 15:10) Unknown Medication List - Last Reconciled 10/22/25 by Gena Lopez, ITA albuterol sulfate 90 mcg/actuation 2 puffs PO Q6H PRN amiloride 5 mg PO DAILY azithromycin PO 3XW baclofen 10 mg PO BEDTIME 30 days benzonatate 200 mg PO BID PRN 30 days cetirizine (Zyrtec) 10 mg PO DAILY PRN CPAP (CPAP Machine/Device) As directed epinephrine IM PRN fluoxetine 20 mg PO DAILY hlgufbewfzp-hbhyynepu-qrerogfa 200-62.5-25 mcg (Trelegy Ellipta) 1 inh inhalation DAILY 30 days ipratropium bromide 2 sprays intranasal TID PRN ipratropium-albuterol 0.5 mg-3 mg(2.5 mg base)/3 mL 3 mL inhalation QID 30 days levalbuterol tartrate 45 mcg/actuation 2 puffs PO Q4H PRN magnesium oxide 500 mg PO DIRECTED montelukast 10 mg PO BEDTIME nebulizers As directed pantoprazole 40 mg PO BID potassium chloride ER 10 mEq PO DAILY tezepelumab-ekko (Tezspire) 210 mg (1.91 mL) subcut Q4W 12 months ubrogepant (Ubrelvy) 50 - 100 mg (0.5 - 1 x 100 mg) PO ONCE PRN 30 days HPI Comments Details: Left-handed 60-yr-old female presents for urgent televideo visit for worsening passing out episodes, in the setting of migraine, intracranial cephalocel. She has been having increased unwitnessed episodes of passing out , which started 4 years ago without known precipitating causes. This had been occurring about twice a year. Then last month without a clear precipitating factors, the unwitnessed episodes started increasing to about once a week. In terms of the more recent increase in these episodes: * She notes she did have the fall earlier this year, in May, and hit her head at that time. 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 * In the past 6 months, she endorses increased, but still episodic word/name finding difficulties, she can see the person's face, but can not recall their name. Denies recent vision changes, vertigo, dizziness, balance issues, additional falls. Denies worsening tinnitus. Denies any changes or new meds, supplements, diet. Denies recent fever, infections, travel. This begins as a feeling of a surge of an almost intense happiness/euphoria, t hen feels like she is about to fall asleep and feels that something is not making sense (and will think that the experience is similar to another activity that she has done, but may never have actually done- such as falling from a horse), then she has LOC x's possibly 30 seconds (has never fallen to the floor, tends to sit down once the euphoric feeling comes on), then she comes to- feels aware of what happened, but is lethargic, irritable, and these symptoms resolves after going to bed for the night and sleeping through the night. This has never occurred while driving, as it has always occurred at home. 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 This past Tuesday, she had a typical episode where she also came to having vomited during the LOC aspect of the episode- which had never occurred before These episodes have always occurred in the evening at home. The episodes may occur (but not always) the day after a migraine attack, but the migraine itself has resolved prior to the episode itself. She denies intraictal tongue biting or urinary incontinence. She does not believe any of these episodes have ever been witnessed. however more recently Denies any other seizure like activity. She reports normal gestational, delivery, and early development history. Her brother developed severe seizures in his 40s- retractable temporal lobe epilepsy w/ secondary generalization- on keppra, lamotrigine, zonisamide, ONFI (clobazam) Her mother has 2 known brain aneurysms, w/ h/o ruptured intracranial aneurysms. 06/27/2025, HPI: Interval lab workup was notable for vitamin-D deficiency and mildly elevated vitamin B6 level. Patient was advised to start vitamin-D supplement and hold any vitamin B supplements, which she has done. Pt reports last week, she suffered a fall while trying to catch a fly, and sustained a radial and ulnar and elbow fracture- currently casted- f[place] [facility] [place]. She states her migraines had been stable, but noticing more tension headaches since the fall and fracture. If she wakes up at night with trigeminal pain, she will take an extra baclofen with good effect. She has removed the fan from her room, as she heard that wind can trigger TN- and this has reduced breakthrough TN attacks. She may have some ear pressure. Denies tinnitus, vision changes. She states her leg cramps are ok. She continues to see nephrology- Krystyna Warren at [address]-considering switching over to [facility]. Baseline headache characteristics: Trigeminal neuralgia headache- Left ear pressure a/w left stabbing/shooting ear pain and left cervical chain swollen lymph nodes. The pain is usually brief- can be up to seconds of a searing pain. Migraine- Low grade headaches a/w photophobia, phonophobia, susie ear fullness. [facility] Medical History Depression Trigeminal neuralgia Hypertension GERD (gastroesophageal reflux disease) Morbid obesity Eczema Nasal polyposis Asthma-COPD overlap syndrome Chronic allergic rhinitis Pulmonary nodules SIERRA on CPAP Severe persistent asthma Surgical History Status post repair of paraesophageal diaphragmatic hernia Hx of cataract surgery Family History Father Lung cancer Diabetes Heart disease Mother Emphysema of lung Hypertension Bladder cancer TIA (transient ischemic attack) Social History Alcohol intake: current Alcohol intake frequency: a few times a month Patient Tobacco Use Status: Never used Tobacco Physical Exam Const General: cooperative and no acute distress Orientation/consciousness: patient oriented x3 Resp Effort & Inspection: normal respiratory effort and able to speak in complete sentences Neuro General: patient oriented x3 and moves all extremities Cranial nerves: Yes Normal facial strength present, Yes Ability to bilaterally rotate head present and Yes Ability to bilaterally elevate shoulders present Cognition (Neuro): normal cognition Psych Appearance: grossly normal Mental Status: mental status grossly normal Speech and movement: Clear speech present Affect: normal affect Attitude: cooperative Telehealth Telehealth Telehealth Platform: [facility] Location of provider rendering services: practice address Location of patient: address on file Patient Identification confirmed using: Name, : Yes Telehealth method: video Patient verbally consented to treatment: Yes Patient verbally consented to billing insurance company: Yes Patient informed of any privacy concerns related to visit: Yes Minutes spent on Phone/Video with Pt.: 52 Assessment & Plan Assessment & Plan (1) Seizure-like activity: Code(s): R29.818 - Other symptoms and signs involving the nervous system Category: Medical (2) Muscle cramps: Code(s): R25.2 - Cramp and spasm Category: Medical (3) Fasciculations of muscle: Code(s): R25.3 - Fasciculation Category: Medical (4) Migraine without aura: Code(s): G43.009 - Migraine without aura, not intractable, without status migrainosus Category: Medical Qualifiers: Status migrainosus presence: without status migrainosus Intractability: not intractable Qualified Code(s): G43.009 - Migraine without aura, not intractable, without status migrainosus (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 LP w/ normal OP (9cmH2O in prone position) w/ normal routine CSF studies. Code(s): Q01.9 - Encephalocele, unspecified Category: Medical (6) Trigeminal neuralgia: Code(s): G50.0 - Trigeminal neuralgia Category: Medical Plan For worsening episodes of episodes of seizure-like activity, in the setting of known cephalocele, migraine, brother with intractable seizure disorder, and mother with a ruptured and unruptured intracranial aneurysm: She is advised to undergo comprehensive neurological workup, including urgent MRI brain seizure protocol- with and without, MRA brain, EEG baseline, labs, as follows: * MRI brain with and without contrast, with seizure protocol to assess for temporal lobe process * MRA brain without contrast to assess for vascular etiology * Baseline EEG * CBC, CMP, ESR, CRP She is advised to not drive, for engage in high-risk activities, including but not limited to operating heavy machinery, so low water activities or tub bathing, climbing ladders. Upon review of the above, we will consider trial of oxcarbazepine/carbamazepine. In the meantime, continue as below: For bilateral lower extremity paresthesia, restlessness, muscle cramps and muscle fasciculations without weakness: Improved We will recheck vitamin B6 and vitamin-D level Continue vitamin-D supplement For SIERRA: Continue CPAP and p.r.n. saline rinses For migraine and known intracranial cephalocele: Continue Baclofen 10mg qhs. Continue Ubrogepant (Ubrelvy) 100mg tab, 1/2 - 1 tab (50-100mg) at onset of migraine headache, may repeat in 2 hours. Max of 2 tabs (200mg) per 24 hours. Ma y adjunct with OTC Tylenol 650mg q 4 hours, Ibuprofen 600mg q 6 hours, or Naproxen 440mg q 12 hrs prn. Migraine headache tx contraindications- Triptans d/t cardiac dz- LVH, HTN Previous headache tx: Topiramate- ineffective. Future considerations, Tegretol trial, CGRP MaB trial, head MRA. Will follow-up upon review of above and patient to follow-up in clinic in 6 months or sooner prn. Orders: Orders MR angio head wo con Today R29.818 - Other symptoms and signs involving the nervous system, Z82.49 - Family history of ischemic heart disease and other diseases of the circulatory system Erythrocyte Sedimentation Rate Today G43.009 - Migraine without aura, not intractable, without status migrainosus, R29.818 - Other symptoms and signs involving the nervous system EEG Routine Today G43.009 - Migraine without aura, not intractable, without status migrainosus, Q01.9 - Encephalocele, unspecified, R29.818 - Other symptoms and signs involving the nervous system Complete Blood Count Auto Diff Today G43.009 - Migraine without aura, not intractable, without status migrainosus, R29.818 - Other symptoms and signs involving the nervous system Comprehensive Met. Panel Today G43.009 - Migraine without aura, not intractable, without status migrainosus, R29.818 - Other symptoms and signs involving the nervous system C Reactive Protein Today G43.009 - Migraine without aura, not intractable, without status migrainosus, R29.818 - Other symptoms and signs involving the nervous system Coding Level of Care Code Tele Est Pt Level 5 (20490) Diagnoses Seizure-like activity R29.818 Muscle cramps R25.2 Fasciculations of muscle R25.3 Migraine without aura and without status migrainosus, not intractable G43.009 Status migrainosus presence: without status migrainosus Intractability: not intractable Cephalocele Q01.9 Trigeminal neuralgia G50.0 Comment 53 min spent directly w/ pt, plus 10 minutes spent in chart review, coordination of care
--- OUTSIDE RECORDS SUMMARY | 2025-10-22 19:19 | XMS_ITS | Clinical Summary ---
Author Organization [facility] Address [address] [place] [address] Phone Care Team Providers Care Bleach Liquor Maker Name Role Phone Mau Quispe Primary Care Provider [phone] Encounters Date Type Department Care Team Description 09/26/2025 7:40 AM EDT Lab Draw Station - [address] [address] Epigastric pain; Periumbilical abdominal pain; Bloated abdomen; Loose stools from Last 3 Months Medical History Medical History Date Comments Depression 10/11/2017 DX:Depression Eczema 12/21/2017 DX:Eczema Morbid obesity with BMI of 4 5.0-49.9, adult ([facility] V24, [facility] V28) 09/06/2017 DX:Morbid obesity with BMI of 45.0-49.9, adult ([facility]) Ventral hernia 01/19/2018 DX:Ventral herni a Obstructive [...] Risk 3-dose series) 2023 Depression Screening 11/28/2024 Hypertension/CHF/CAD Annual BMP Blood Test 09/24/2026 09/24/2025, 08/05/2025, 05/29/2025, Additional history exists Cholesterol Screening (Lipid Panel) 05/29/2030 05/29/2025 DTaP,Tdap,and Td Vaccines (3 - Td or Tdap) 08/30/2035 08/30/2025, 04/13/2025 Zoster Vaccines Completed 05/10/2024, 01/27, 10/22/2018 MMR Vaccines Aged Out 02/08/2025 No longer eligi ble based on patient's age to complete this topic Pneumococcal Vaccine: 50+ Years Completed 04/13/2025, 09/18/2014 RSV Immunization Adult Patients Completed 04/13/2025 COVID-19 Vaccine Completed 08/30/2025, , 08/30/2023, Additional history exists Influenza Vaccine Completed 08/30/2025, , 08/30/2023, Additional history exists HIB Vaccines Aged Out [...] Procedure Name Priority Date/Time Associated Diagnosis Comments OVA AND PARASITE EXAMINATION Routine 09/26/2025 7:38 AM EDT Epigastric pain Periumbilical abdominal pain Bloated abdomen Loose stools GASTROINTESTINAL PATHOGENS BY PCR Routine 09/26/2025 7:38 AM EDT Epigastric pain Periumbilical abdominal pain Bloated abdomen Loose stools BILIRUBIN DUPLICATE PROCEDURE TO ORDER Routine 09/24/2025 [...] Recently Relevant to Health Maintenance Results * Gastrointestinal pathogens molecular study (09/26/2025 7:38 AM EDT) Campylobacter Detection by PCR Not Detected Not Detected LAB MICROBIOLOGY METHOD 5 12:35 PM EDT [facility] Plesiomonas shigelloides Detection by PCR Not Detected Not Detected LAB MICROBIOLOGY METHOD 5 12:35 PM EDT [facility] Salmonella Detection by PCR Not Detected Not Detected LAB MICROBIOLOGY METHOD 5 12:35 PM EDT [facility] Vibrio Detection by PCR Not Detected Not Detected LAB MICROBIOLOGY METHOD 5 12:35 PM EDT [facility] Vibrio cholerae Detection by PCR Not Detected Not Detected LAB MICROBIOLOGY METHOD 5 12:35 PM EDT [facility] Yersinia enterocolitica Detection by PCR Not Detected Not Detected LAB MICROBIOLOGY METHOD 5 12:35 PM EDT [facility] Enteroaggregative E coli EAEC Detection by PCR Not Detected Not Detected LAB MICROBIOLOGY METHOD 5 12:35 PM EDT [facility] Enteropathogenic E coli EPEC Detection Not Detected Not Detected LAB MICROBIOLOGY METHOD 5 12:35 PM EDT [facility] Enterotoxigenic E coli ETEC LTST Detection Not Detected Not Detected LAB MICROBIOLOGY METHOD 5 12:35 PM EDT [facility] Shiga-like toxin producing E coli STEC STX1 STX2 Det Not Detected Not Detected LAB MICROBIOLOGY METHOD 5 12:35 PM EDT [facility] Shigella Enteroinvasive E coli EIEC Detection Not Detected Not Detected LAB MICROBIOLOGY METHOD 5 12:35 PM EDT [facility] Cryptosporidium Detection by PCR Not Detected Not Detected LAB MICROBIOLOGY METHOD 5 12:35 PM [facility] Cyclospora cayetanensis Detection by PCR Not Detected Not Detected [facility] Entamoeba histolytica Detection by PCR Not Detected Not Detected LAB MICROBIOLOGY METHOD 5 12:35 PM EDT [facility] Giardia lamblia Detection by PCR Not Detected Not Detected LAB MICROBIOLOGY METHOD 5 12:35 PM [facility] Adenovirus F 40 41 Detection by PCR Not Detected Not Detected LAB MICROBIOLOGY METHOD 5 12:35 PM [facility] Astrovirus Detection by PCR Not Detected Not Detected LAB MICROBIOLOGY METHOD 5 12:35 PM EDT [facility] Norovirus GI GII Detection by PCR Not Detected Not Detected [facility] 12[facility] Sapovirus Detection by PCR Not Detected Not Detected LAB MICROBIOLOGY METHOD 5 12:35 PM [facility] Rotavirus A Detection by PCR Not Detected Not Detected LAB MICROBIOLOGY METHOD 5 12:35 PM [facility] Stool Rectum structure / Unknown Non-blood Collection / Unknown 09/26/2025 7:38 AM EDT 09/26/2025 7:[address] [facility] - 09/26/2025 12:35 PM EDT PCR testing is much more sensitive than traditional techniques and allows for the detection of low numbers of stool pathogens. The clinical correlation of PCR results with the need for treatment and clinical outcomes has not been established. Therefore the results of PCR testing for stool pathogens must be taken into clinical context when making treatment decisions. This is a diagnostic test only, repeat testing for cure is not advised. You may consider infectious disease consult for additional guidance. Testing Performed by [employer] us Jeannette Garnica STUCCO APPLICATOR LAB MICROBIOLOGY - GENERAL ORDER MARYLIN Final Result Performing Organization Address [facility]/ZIP Co de Phone Number [facility] [address] [place] [address], [place] [phone] * Ova and parasite examination (09/26/2025 7:38 AM EDT) Ova and Parasite No Ova or Parasite seen. 10/07/2025 10:37 AM EST [facility] Stool Stool / Unknown Non-blood Collection / Unknown 09/26/2025 7:38 AM EDT 09/26/2025 7:[address] [facility] - 10/07/2025 10:37 AM EST Special test request required for Coccidia and Microsporidia. us Machado Garnica STUCCO APPLICATOR LAB MICROBIOLOGY - GENERAL ORDER MARYLIN Final Result Performing Organization Address City/[facility]/ZIP Co de Phone Number [facility] [address] [place] [address], [place] [phone] * Bilirubin duplicate procedure to order (09/24/2025 7:29 AM EDT) Total Bilirubin 0.5 0.0 - 1.4 mg/dL LAB CHEMISTRY METHOD 09/24/2025 12:03 PM EDT [facility] Bilirubin, Direct 0.1 0.0 - 0.3 mg/dL LAB CHEMISTRY METHOD 09/24/2025 12:03 PM EDT [facility] Bilirubin, Indirect 0.4 0.0 - 1.1 mg/dL LAB CHEMISTRY METHOD 09/24/2025 12:03 PM EDT [facility] Blood Venous blood specimen / Unknown Venipuncture / Unknown 09/24/2025 7:29 AM EDT 09/24/2025 7:29 AM EDT us Machado Garnica STUCCO APPLICATOR LAB BLOOD ORDERABLES Final Resul t [facility] [address] [place] [address], [place] [phone] * CBC auto differential (09/24/2025 7:29 AM EDT) WBC 6.2 4.8 - 10.8 K/mcL LAB HEMETOLOGY METHOD 09/24/2025 11:06 AM [facility] RBC 4.20 3.80 - 4.80 M/mcL LAB HEMETOLOGY METHOD 09/24/2025 11:06 AM [facility] Hemoglobin 12.4 11.5 - 16.0 g/dL LAB HEMETOLOGY METHOD 09/24/2025 11:06 AM [facility] Hematocrit 37.9 35.0 - 47.0 % LAB HEMETOLOGY METHOD 09/24/2025 11:06 AM [facility] MCV 90.7 79.0 - 98.0 FL LAB HEMETOLOGY METHOD 09/24/2025 11:06 AM [facility] MCH 29.7 27.0 - 32.0 pcg LAB HEMETOLOGY METHOD 09/24/2025 11:06 AM [facility] MCHC 32.7 32.0 - 37.0 g/dL LAB HEMETOLOGY METHOD 09/24/2025 11:06 AM [facility] RDW 12.8 11.0 - 15.0 % LAB HEMETOLOGY METHOD 09/24/2025 11:06 AM [facility] Platelets 280 130 - 400 K/mcL LAB HEMETOLOGY METHOD 09/24/2025 11:06 AM [facility] MPV 10.5 7.0 - 11.0 FL LAB HEMETOLOGY METHOD 09/24/2025 11:06 AM [facility] NRBC 0.0 <1.0 % LAB HEMETOLOGY METHOD 09/24/2025 11:06 AM [facility] NRBC Absolute 0.00 <0.10 K/mcL LAB HEMETOLOGY METHOD 09/24/2025 11:06 AM [facility] Neutrophils Relative 65.2 % LAB HEMETOLOGY METHOD 09/24/2025 11:06 AM [facility] Lymphocytes Relative 23.1 % LAB HEMETOLOGY METHOD 09/24/2025 11:06 AM [facility] Monocytes Relative 9.5 % LAB HEMETOLOGY METHOD 09/24/2025 11:06 AM [facility] Eosinophils Relative 1.3 % LAB HEMETOLOGY METHOD 09/24/2025 11:06 AM [facility] Basophils Relative 0.6 % LAB HEMETOLOGY METHOD 09/24/2025 11:06 AM [facility] Immature Granulocytes Relative 0.3 % LAB HEMETOLOGY METHOD 09/24/2025 11:06 AM [facility] Neutrophils Absolute 4.06 1.50 - 7.00 K/mcL LAB HEMETOLOGY METHOD 09/24/2025 11:06 AM [facility] Lymphocytes Absolute 1.44 1.00 - 5.00 K/mcL LAB HEMETOLOGY METHOD 09/24/2025 11:06 AM EDT [facility] Monocytes Absolute 0.59 0.20 - 1.00 K/[facility] LAB HEMETOLOGY METHOD 09/24/2025 11:06 AM EDT [facility] Eosinophils Absolute 0.08 0.00 - 0.50 K/[facility] LAB HEMETOLOGY METHOD 09/24/2025 11:06 AM EDT [facility] Basophils Absolute 0.04 0.00 - 0.20 K/[facility] LAB HEMETOLOGY METHOD 09/24/2025 11:06 AM EDT [facility] Immature Granulocytes Absolute 0.02 0.00 - 0.03 K/[facility] LAB HEMETOLOGY METHOD 09/24/2025 11:06 AM EDT [facility] Blood Venous blood specimen / Unknown Venipuncture / Unknown 09/24/2025 7:29 AM EDT 09/24/2025 7:29 AM EDT us Machado Garnica STUCCO APPLICATOR LAB BLOOD ORDERABLES Final Resul t Performing Organization Address City/[facility]/ZIP Co de Phone Number [facility] [address] [place] [address], [place] [phone] * Sedimentation rate (09/24/2025 7:29 AM EDT) Sed Rate 25 0 - 30 mm/hr LAB HEMETOLOGY METHOD 09/24/2025 11:21 AM EDT [facility] Blood Venous blood specimen / Unknown Venipuncture / Unknown 09/24/2025 7:29 AM EDT 09/24/2025 7:29 AM EDT us Machado Garnica STUCCO APPLICATOR LAB BLOOD ORDERABLES Final Resul t Performing Organization Address City/[facility]/ZIP Co de Phone Number [facility] [address] [place] [address], [place] [phone] * (ABNORMAL) C-reactive protein (09/24/2025 7:29 AM EDT) Pathologist [facility] C-Reactive Protein 0.73(H) <=0.50 mg/dL LAB CHEMISTRY METHOD 09/24/2025 11:46 AM EDT [facility] Blood Venous blood specimen / Unknown Venipuncture / Unknown 09/24/2025 7:29 AM EDT 09/24/2025 7:29 AM EDT us Machado Garnica STUCCO APPLICATOR LAB BLOOD ORDERABLES Final Resul t Performing Organization Address City/[facility]/ZIP Co de Phone Number [facility] [address] [place] [address], [place] [phone] * Amylase (09/24/2025 7:29 AM EDT) Pathologist [facility] Amylase 29 25 - 115 unit/L LAB CHEMISTRY METHOD 09/24/2025 11:46 AM EDT [facility] Blood Venous blood specimen / Unknown Venipuncture / Unknown 09/24/2025 7:29 AM EDT 09/24/2025 7:29 AM EDT us Jeannette Garnica STUCCO APPLICATOR LAB BLOOD ORDERABLES Final Resul t Performing Organization Address City/[facility]/ZIP Co de Phone Number [facility] [address] [place] [address], [place] [phone] * (ABNORMAL) Comprehensive metabolic panel (09/24/2025 7:29 AM EDT) [facility] Sodium 140 133 - 145 mmol/L LAB CHEMISTRY METHOD 09/24/2025 12:03 PM EDT [facility] Potassium 3.7 3.5 - 5.5 mmol/L LAB CHEMISTRY METHOD 09/24/2025 12:03 PM EDT [facility] Chloride 109 96 - 110 mmol/L LAB CHEMISTRY METHOD 09/24/2025 12:03 PM EDT [facility] CO2 24 21 - 32 mmol/L LAB CHEMISTRY METHOD 09/24/2025 12:03 PM [facility] Anion Gap 7 3 - 11 LAB CHEMISTRY METHOD 09/24/2025 12:03 PM [facility] Glucose 106(H) 70 - 100 mg/dL LAB CHEMISTRY METHOD 09/24/2025 12:03 PM [facility] BUN 13 5 - 25 mg/dL LAB CHEMISTRY METHOD 09/24/2025 12:03 PM [facility] Creatinine 0.98 0.50 - 1.10 mg/dL LAB CHEMISTRY METHOD 09/24/2025 12:03 PM [facility] eGFR 65 >=60 mL/min/1. 73m2 LAB CHEMISTRY METHOD 09/24/2025 12:03 PM [facility] Comment:Calculation based on the Chronic Kidney Disease Epidemiology Collaboration (CKD-EPI) equation refit without adjustment for race. BUN/Creatinine Ratio 13.3 LAB CHEMISTRY METHOD 09/24/2025 12:03 PM [facility] Calcium 9.1 8.5 - 10.5 mg/dL LAB CHEMISTRY METHOD 09/24/2025 12:03 [facility] AST (SGOT) 18 10 - 42 unit/L LAB CHEMISTRY METHOD 09/24/2025 12:03 PM [facility] ALT (SGPT) 23 10 - 60 unit/L LAB CHEMISTRY METHOD 09/24/2025 12:03 PM [facility] Alkaline Phosphatase 64 42 - 121 unit/L LAB CHEMISTRY METHOD 09/24/2025 12:03 PM [facility] Total Protein 5.9(L) 6.0 - 8.0 g/dL LAB CHEMISTRY METHOD 09/24/2025 12:03 PM [facility] Albumin 3.4 3.2 - 5.0 g/dL LAB CHEMISTRY METHOD 09/24/2025 12:03 PM EDT [facility] Total Bilirubin 0.5 0.0 - 1.4 mg/dL LAB CHEMISTRY METHOD 09/24/2025 12:03 PM EDT [facility] Blood Venous blood specimen / Unknown Venipuncture / Unknown 09/24/2025 7:29 AM EDT 09/24/2025 7:29 AM EDT [facility] LAB BLOOD ORDERABLES Final Resul t Performing Organization Address [facility] Co de Phone Number [facility] [address] [place] [address], * Vitamin D 25 hydroxy (08/05/2025 3:27 PM EDT) Vit D, 25-Hydroxy 38.4 30.0 - 80.0 ng/mL LAB CHEMISTRY METHOD 08/05/2025 8:36 PM EDT [facility] Blood Venous blood specimen / Unknown Venipuncture / Unknown 08/05/2025 3:27 PM EDT 08/05/2025 3:27 PM EDT [facility] LAB BLOOD ORDERABLES Final Resul t Performing Organization Address [facility] Co de Phone Number [facility] [address] [place] [address], * Parathyroid hormone intact (08/05/2025 3:27 PM EDT) PTH 59.7 18.5 - 88.0 pcg/mL LAB CHEMISTRY METHOD 08/05/2025 8:36 PM EDT [facility] Blood Venous blood specimen / Unknown Venipuncture / Unknown 08/05/2025 3:27 PM EDT 08/05/2025 3:27 PM EDT [facility] BLOOD ORDERABLES Final Resul t Performing Organization Address City/[facility]/ZIP Co de Phone Number [facility] [address] [place] [address], [place] [phone] * (ABNORMAL) Magnesium (08/05/2025 3:27 PM EDT) Pathologist [facility] Magnesium 1.8(L) 1.9 - 2.6 mg/dL LAB CHEMISTRY METHOD 08/06/2025 10:38 AM EDT [facility] Blood Venous blood specimen / Unknown Venipuncture / Unknown 08/05/2025 3:27 PM EDT 08/05/2025 3:27 PM EDT Krystyna Warren [facility] LAB BLOOD ORDERABLES Final R esult Performing Organization Address [facility]/ZIP Co de Phone Number [facility] [address] [place] [address], * (ABNORMAL) Basic metabolic panel (08/05/2025 3:27 PM EDT) [facility] Sodium 137 133 - 145 mmol/L LAB CHEMISTRY METHOD 08/05/2025 8:02 PM [facility] Potassium 4.1 3.5 - 5.5 mmol/L LAB CHEMISTRY METHOD 08/05/2025 8:02 PM [facility] Chloride 104 96 - 110 mmol/L LAB CHEMISTRY METHOD 08/05/2025 8:02 PM [facility] CO2 28 21 - 32 mmol/L LAB CHEMISTRY METHOD 08/05/2025 8:02 PM [facility] Anion Gap 5 3 - 11 LAB CHEMISTRY METHOD 08/05/2025 8:02 PM [facility] Glucose 70 70 - 100 mg/dL LAB CHEMISTRY METHOD 08/05/2025 8:02 PM [facility] BUN 13 5 - 25 mg/dL LAB CHEMISTRY METHOD 08/05/2025 8:02 PM EDT [facility] Creatinine 1.09 0.50 - 1.10 mg/dL LAB CHEMISTRY METHOD 08/05/2025 8:02 PM EDT [facility] eGFR 58(L) >=60 mL/min/1. 73m2 LAB CHEMISTRY METHOD 08/05/2025 8:02 PM [facility] Comment:Calculation based on the Chronic Kidney Disease Epidemiology Collaboration (CKD-EPI) equation refit without adjustment for race. BUN/Creatinine Ratio 11.9 LAB CHEMISTRY METHOD 08/05/2025 8:02 PM [facility] Calcium 9.2 8.5 - 10.5 mg/dL LAB CHEMISTRY METHOD 08/05/2025 8:02 PM [facility] Blood Venous blood specimen / Unknown Venipuncture / Unknown 08/05/2025 3:27 PM EDT 08/05/2025 3:27 PM EDT [facility] BLOOD ORDERABLES Final Resul t [facility] [address] [place] [address], * (ABNORMAL) Lipid panel with reflex to direct LDL (05/29/2025 10:35 AM EDT) Cholesterol 242(H) 0 - 200 mg/dL LAB CHEMISTRY METHOD 05/29/2025 12:08 PM [facility] Triglycerides 67 0 - 150 mg/dL LAB CHEMISTRY METHOD 05/29/2025 12:08 PM [facility] HDL 95 >=40 mg/dL LAB CHEMISTRY METHOD 05/29/2025 12:08 PM [facility] LDL Calculated 134(H) 0 - 100 mg/dL LAB CHEMISTRY METHOD 05/29/2025 12:08 PM [facility] VLDL Cholesterol Timi 13.4 mg/dL LAB CHEMISTRY METHOD 05/29/2025 12:08 PM EDT [facility] Non HDL Chol. (LDL+VLDL) 147(H) <145 mg/dL LAB CHEMISTRY METHOD 05/29/2025 12:08 PM EDT [facility] Chol/HDL Ratio 2.5 0.0 - 4.4 LAB CHEMISTRY METHOD 05/29/2025 12:08 PM EDT [facility] Blood Venous blood specimen / Unknown Venipuncture / Unknown 05/29/2025 10:35 AM EDT 05/29/2025 10:35 AM EDT [facility] BLOOD ORDERABLES Final Resul t [facility] [address] [place] [address], from Last 3 Months or Most Recently Relevant to Health Maintenance Insurance [facility] [place] - [place] Advance Directives Documents on File Type Date Recorded 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
--- OUTSIDE RECORDS SUMMARY | 2025-10-22 19:19 | XMS_ITS | Encounter Summary ---
Author Organization [facility] Address [address] [place] [phone] Care Team Providers Care Cnc Wood Lathe Operator Name Role Phone Mau Quispe DO Primary Care Provider [phone] Reason for Referral * Consultation (Routine) - Closed Specialty Diagnoses / Procedures Referred By Carlos cabrera Referred To Contact Pulmonary Disease Diagnoses SOB (shortness of breath) Wheezing Cough Persistent asthma Acute severe exacerbation of asthma Referral, Self [facility] [address] [place] [address], 2nd floor [facility], [address] [place] [address] Phone: tel: fax: Referral ID Status Reason Start Date Expiration Date Visits Re quested Visits Authorized [id number] Closed 02/22/2017 02/22/2018 1 1 Encounter Details Date Type Department Care Team (Latest Contact Info) Description 02/22/2017 Transcribed Orders Referral Link Providers [address] [place] [address] Referral, Self SOB (shortness of breath) (Primary [...] asthma documented in this encounter Care Teams Cnc Wood Lathe Operator Relationship Specialty Start Date End Date Mau Quispe DO [address] [place] [phone] PCP - General Internal Medicine 02/15/17 documented as of this encounter
--- OUTSIDE RECORDS SUMMARY | 2025-10-22 19:19 | XMS_ITS | Clinical Summary ---
Author Organization [address] [address] Care Team Providers Care Pipe Out Worker Name Role Phone Mau Quispe DO Primary Care Provider [phone] Social History Tobacco Use Types Packs/Day Years [...] GENERIC COMMERCIAL GENERIC COMMERCIAL GENERIC Care Teams Pipe Out Worker Relationship Specialty Start Date End Date Mau Quispe DO [address] [place] [phone] PCP - General Internal Medicine 02/15/17
== END 2025-10-28 13:42 | disposition home or self-care (01) ==
LOC: HO.HSMS 15:51
PROVIDERS: PCP Internal Medicine; Visit Provider Nurse Practitioner Family
DX: R29.818 Other symptoms and signs involving the nervous system (principal); R25.2 Cramp and spasm; R25.3 Fasciculation; G43.009 Migraine without aura, not intractable, without status migrainosus; Q01.9 Encephalocele, unspecified; G50.0 Trigeminal neuralgia
CPT/HCPCS: 99215

== ENCOUNTER 2025-11-05 15:09 | Outpatient (AMB) | payer MEDICARE, MEDICAID, SELFPAY ==
[2025-11-05 15:17] VITALS: BMI 41.7
--- NOTE | 2025-11-05 15:17 | MHC.OFFVIS ---
Vital Signs 11/05/25 15:17 Height 5 ft 4 in Weight 243 lb BMI 41.7 Intake Visit Reasons: OV-RT Dis Rad Fx, Coronoid Proc Fx, DOI: 06/19/25 Intake Note: Kelly is a 60 year old left hand dominant female who presents today for follow up status post Right Distal Radius Fracture & a Right Grade 2 Coronoid Process Fracture, DOI: 06/19/25. Patient reports she has discontinued her Velcro wrist brace but continues her 10 lb weight limit. She complains of intermittent swelling of her hand and forearm. She continues having pain around the wrist, with what she describes as a bony protrusion on the ulnar aspect of the wrist. Allergies Sulfa (Sulfonamide Antibiotics) Allergy (Severe, Verified 11/05/25 15:24) Hives environmental allergies Allergy (Unknown, Verified 11/05/25 15:24) Unknown HPI HPI OV-RT Dis Rad Fx, Coronoid Proc Fx, DOI: 06/19/25: Details: Kelly is a 60 year old left hand dominant female who presents today for follow up status post Right Distal Radius Fracture & a Right Grade 2 Coronoid Process Fracture, DOI: 06/19/25. Patient reports she has discontinued her Velcro wrist brace but continues her 10 lb weight limit. She complains of intermittent swelling of her hand and forearm. She continues having mild pain around the wrist, with what she describes as a bony protrusion on the ulnar aspect of the wrist. Patient does state that overall, she is feeling much better than she was at previous evaluation, and that her range of motion is back to baseline. [facility] Medical History Depression Trigeminal neuralgia Hypertension GERD (gastroesophageal reflux disease) Morbid obesity Eczema Nasal polyposis Asthma-COPD overlap syndrome Chronic allergic rhinitis Pulmonary nodules SIERRA on CPAP Severe persistent asthma Surgical History Status post repair of paraesophageal diaphragmatic hernia Hx of cataract surgery Family History Father Lung cancer Diabetes Heart disease Mother Emphysema of lung Hypertension Bladder cancer TIA (transient ischemic attack) Social History Alcohol intake: current Alcohol intake frequency: a few times a month Patient Tobacco Use Status: Never used Tobacco Physical Exam Vital Signs: BMI result Body Mass Index 41.7 Extrem Other: Patient is alert, oriented, and in no acute distress. Neuro: Normal sensation of the tips of all digits of the right hand at this time Vascular: Cap refill brisk Pain: No tenderness to palpation about right distal radius No tenderness to palpation about right elbow ROM: Patient is able to very gently extend the right elbow to approximately 10 degrees and can flex to approximately 110 0 degrees Skin: No lacerations or abrasions. General: No further Ecchymosis noted of right elbow and forearm No erythema, evidence of infection Psych: Appears grossly normal Affect normal Attitude cooperative Results Reviewed Results Reviewed: X-rays obtained in the office today and independently reviewed by me, Sreekanth Flores PA-C, demonstrate nondisplaced fracture of the right distal radius along with minimally displaced grade 2 coronoid process fracture of the right ulna with evidence of interval bony healing. Assessment & Plan Assessment & Plan (1) Fracture of coronoid process of right ulna: Code(s): S52.041A - Displaced fracture of coronoid process of right ulna, initial encounter for closed fracture Category: Medical (2) Fracture of right distal radius: Code(s): S52.501A - Unspecified fracture of the lower end of right radius, initial encounter for closed fracture Category: Medical Plan 1. Right Grade 2 coronoid process fracture 2. Nondisplaced right distal radius fracture Date of injury 06/20/2025 Patient is educated about this injury Patient is educated about the typical recovery course At this time, patient is educated that there is no surgical intervention indicated for her fractures No further splinting indicated at this time Patient may continue working on range of motion of the right wrist and elbow, as I feel that slight stiffness is what is contributing to her remaining discomfort If patient continues to experience pain in approximately 4-6 weeks, she should call us to make appointment for reassessment and discussion of potential further imaging of the right wrist she determine if there are any soft tissue injuries lingering in the ulnar aspect Over the next 4-6 weeks, patient may resume full normal lifting Patient understands this in his amenable to this plan Follow-up as needed with any acute concerns. Orders: Orders XR elbow RT min 3V Today M25.521 - Pain in right elbow XR wrist RT w scaphoid Today M79.641 - Pain in right hand Coding Level of Care Code Est Pt Level 3 (39195) Diagnoses Fracture of coronoid process of right ulna S52.041A Fracture of right distal radius S52.501A
--- OUTSIDE RECORDS SUMMARY | 2025-11-05 21:32 | XMS_ITS | Clinical Summary ---
Author Organization [address] [address] Care Team Providers Care Delivery Of [employer]pping [employer] Name Role Phone Mau Quispe DO Primary Care Provider [phone] Social History Tobacco Use Types Packs/Day Years [...] GENERIC COMMERCIAL GENERIC COMMERCIAL GENERIC Care Teams Delivery Of Shopping News Relationship Specialty Start Date End Date Mau Quispe DO [address] [place] [phone] PCP - General Internal Medicine 02/15/17
--- OUTSIDE RECORDS SUMMARY | 2025-11-05 21:32 | XMS_ITS | Clinical Summary ---
Author Organization [facility] Address [address] [place] [phone] Phone Care Team Providers Care Online Education Manager Name Role Phone Mau Quispe DO Primary Care Provider [phone] Allergies Active Allergy Reactions Criticality Noted Date [...] TWICE DAILY 5 Active D3-50 1.25 MG (62292 UT) capsule Take 50,000 Units by mouth [...] Syncope 03/09/2022 Overview (04/06/2022): ER visit to [facility] on 09/24/21 Tricuspid valve regurgitation 03/09/2022 Severe persistent allergic asthma 04/04/2018 Overview (04/05/2022): Added automatically from request for surgery [id number] Ventral hernia 01/19/2018 Eczema 12/21/2017 Depressive disorder 10/11/2017 Body mass index 40+ - severely obese 09/06/2017 Anxiety 08/02/2017 Asthmatic bronchitis 07/04/2017 Overview (04/05/2022): Added automatically from request for surgery [id number] Gastro-esophageal reflux disease without esophag itis 02/28/2017 Multiple nodules of lung 02/28/2017 Overview (04/05/2022): Followed outside of the [facility] system stable from [id number] Obstructive sleep apnea syndrome 02/28/2017 Overview (04/05/2022): CPAP Seasonal allergic rhinitis 02/28/2017 Encounters Date Type Department Care Team Description 08/16/2025 Refill [facility] [address] [phone] Emmie Marquez MA 08/16/2025 Refill [facility] [address] [address] Emmie Marquez MA 08/14/2025 Refill [facility] [address] [address] Adrienne Mendozaxilavelle Hypomagnesemia 08/14/2025 Refill [facility] [address] [address] Sangita Reilly MA 08/06/2025 Documentation Only [facility] [address] [address] Emmie Marquez MA from Last 3 Months Immunizations Immunization Administration [...] Office Visit [facility] [address] [phone] Krystyna Warren ARNP [address] [phone] Health Maintenance Due Date Last [...] patient's age to complete this [place] [address] [place] [address] [place] [address] Medicaid [place] Care Teams Online Education Manager Relationship Specialty Start Date End Date Mau Quispe DO [address] [place] [address] PCP - General Internal Medicine 02/24/22
--- OUTSIDE RECORDS SUMMARY | 2025-11-05 21:32 | XMS_ITS | Encounter Summary ---
Author Organization [facility] Address [address] [place] [phone] Care Team Providers Care [facility] Attendant Name Role Phone Mau Quispe DO Primary Care Provider [phone] Reason for Referral * Consultation (Routine) - Closed Specialty Diagnoses / Procedures Referred By Carlos cabrera Referred To Contact Pulmonary Disease Diagnoses SOB (shortness of breath) Wheezing Cough Persistent asthma Acute severe exacerbation of asthma Referral, Self [facility] [address] [place] [address], 2nd floor [facility], [address] [place] [address] Phone: tel: fax: Referral ID Status Reason Start Date Expiration Date Visits Re quested Visits Authorized [id number] Closed 02/22/2017 02/22/2018 1 1 Encounter Details Date Type Department Care Team (Latest Contact Info) Description 02/22/2017 Transcribed Orders Referral Link Providers [address] [place] [address] Referral, Self SOB (shortness of breath) (Primary [...] asthma documented in this encounter Care Teams [facility] Attendant Relationship Specialty Start Date End Date Mau Quispe DO [address] [place] [phone] PCP - General Internal Medicine 02/15/17 documented as of this encounter
--- OUTSIDE RECORDS SUMMARY | 2025-11-05 21:32 | XMS_ITS | Clinical Summary ---
Author Organization [facility] Address [address] [place] [address] Phone Care Team Providers Care Driver License Agent Name Role Phone Mau Quispe Primary Care Provider [phone] Encounters Date Type Department Care Team Description 09/26/2025 7:40 AM EDT Lab Draw Station - [address] [address] Epigastric pain; Periumbilical abdominal pain; Bloated abdomen; Loose stools from Last 3 Months Medical History Medical History Date Comments Depression 10/11/2017 DX:Depression Eczema 12/21/2017 DX:Eczema Morbid obesity with BMI of 4 5.0-49.9, adult ([facility] V24, [facility] V28) 09/06/2017 DX:Morbid obesity with BMI of 45.0-49.9, adult ([facility]) Ventral hernia 01/19/2018 DX:Ventral herni a [...] Periumbilical abdominal pain Bloated abdomen Loose stools LIPID PANEL WITH REFLEX TO DIRECT LDL Routine 05/29/2025 10:35 AM EDT Routine physical examination HLD (hyperlipidemia) CKD (chronic kidney disease) GERD (gastroesophageal reflux disease) HTN (hypertension) from Last 3 Months or Most Recently Relevant to Health Maintenance Results * Gastrointestinal pathogens molecular study (09/26/2025 7:38 AM EDT) Campylobacter Detection by PCR Not Detected Not Detected LAB MICROBIOLOGY METHOD 5 12:35 PM EDT [facility] Plesiomonas shigelloides Detection by PCR Not Detected Not Detected LAB MICROBIOLOGY METHOD 5 12:35 PM EDT [facility] Salmonella Detection by PCR Not Detected Not Detected LAB MICROBIOLOGY METHOD 5 12:35 PM [facility] Vibrio Detection by PCR Not Detected Not Detected LAB MICROBIOLOGY METHOD 5 12:35 PM EDT [facility] Vibrio cholerae Detection by PCR Not Detected Not Detected LAB MICROBIOLOGY METHOD 5 12:35 PM EDT [facility] Yersinia enterocolitica Detection by PCR Not Detected Not Detected LAB MICROBIOLOGY METHOD 5 12:35 PM EDT [facility] Enteroaggregative E coli EAEC Detection by PCR Not Detected Not Detected LAB MICROBIOLOGY METHOD 5 12:35 PM EDT [facility] Enteropathogenic E coli EPEC Detection Not Detected Not Detected LAB MICROBIOLOGY METHOD 5 12:35 PM EDT [facility] Enterotoxigenic E coli ETEC LTST Detection Not Detected Not Detected [facility] 12[facility] Shiga-like toxin producing E coli STEC STX1 STX2 Det Not Detected Not Detected LAB MICROBIOLOGY METHOD 5 12:35 PM EDT [facility] Shigella Enteroinvasive E coli EIEC Detection Not Detected Not Detected LAB MICROBIOLOGY METHOD 5 12:35 PM EDT [facility] Cryptosporidium Detection by PCR Not Detected Not Detected LAB MICROBIOLOGY METHOD 5 12:35 PM EDT [facility] Cyclospora cayetanensis Detection by PCR Not Detected Not Detected LAB MICROBIOLOGY METHOD 5 12:35 PM EDT [facility] Entamoeba histolytica Detection by PCR Not Detected Not Detected LAB MICROBIOLOGY METHOD 5 12:35 PM EDT [facility] Giardia lamblia Detection by PCR Not Detected Not Detected LAB MICROBIOLOGY METHOD 5 12:35 PM EDT [facility] Adenovirus F 40 41 Detection by PCR Not Detected Not Detected LAB MICROBIOLOGY METHOD 5 12:35 PM EDT [facility] Astrovirus Detection by PCR Not Detected Not Detected LAB MICROBIOLOGY METHOD 5 12:35 PM EDT [facility] Norovirus GI GII Detection by PCR Not Detected Not Detected LAB MICROBIOLOGY METHOD 5 12:35 PM EDT [facility] Sapovirus Detection by PCR Not Detected Not Detected LAB MICROBIOLOGY METHOD 5 12:35 PM [facility] Rotavirus A Detection by PCR Not Detected Not Detected LAB MICROBIOLOGY METHOD 5 12:35 PM T [facility] Stool Rectum structure / Unknown Non-blood Collection / Unknown 09/26/2025 7:38 AM EDT 09/26/2025 7:38 AM EDT [facility] - 09/26/2025 12:35 PM EDT [...] guidance. Testing Performed by MULTIPLEXED PCR us Machado Garnica POWDER NIPPER LAB MICROBIOLOGY - GENERAL ORDER MARYLIN Final Result Performing Organization Address City/[facility]/ZIP Co de Phone Number [facility] [address] [place] [address], [place] [phone] * Ova and parasite examination (09/26/2025 7:38 AM EDT) Ova and Parasite No Ova or Parasite seen. 10/07/2025 10:37 AM EST [facility] Stool Stool / Unknown Non-blood Collection / Unknown 09/26/2025 7:38 AM EDT 09/26/2025 7:38 AM EDT Narrative [facility] - 10/07/2025 10:37 AM EST Special test request required for Coccidia and Microsporidia. us Machado Garnica POWDER NIPPER LAB MICROBIOLOGY - GENERAL ORDER MARYLIN Final Result Performing Organization Address City/[facility]/ZIP Co de Phone Number [facility] [address] [place] [address], [place] [phone] * Bilirubin duplicate procedure to order (09/24/2025 7:29 AM EDT) Total Bilirubin 0.5 0.0 - 1.4 mg/dL LAB CHEMISTRY METHOD 09/24/2025 12:03 PM EDT [facility] Bilirubin, Direct 0.1 0.0 - 0.3 mg/dL LAB CHEMISTRY METHOD 09/24/2025 12:03 PM EDT [facility] Bilirubin, Indirect 0.4 0.0 - 1.1 mg/dL LAB CHEMISTRY METHOD 09/24/2025 12:03 PM EDT [facility] Blood Venous blood specimen / Unknown Venipuncture / Unknown 09/24/2025 7:29 AM EDT 09/24/2025 7:29 AM EDT us Machado Garnica POWDER NIPPER LAB BLOOD ORDERABLES Final Resul t [facility] [address] [place] [address], * CBC auto differential (09/24/2025 7:29 AM EDT) WBC 6.2 4.8 - 10.8 K/mcL LAB HEMETOLOGY METHOD 09/24/2025 11:06 AM EDT [facility] RBC 4.20 3.80 - 4.80 M/mcL LAB HEMETOLOGY METHOD 09/24/2025 11:06 AM EDT [facility] Hemoglobin 12.4 11.5 - 16.0 g/dL LAB HEMETOLOGY METHOD 09/24/2025 11:06 AM T [facility] Hematocrit 37.9 35.0 - 47.0 % LAB HEMETOLOGY METHOD 09/24/2025 11:06 AM EDT [facility] MCV 90.7 79.0 - 98.0 FL LAB HEMETOLOGY METHOD 09/24/2025 11:06 AM EDT [facility] MCH 29.7 27.0 - 32.0 pcg LAB HEMETOLOGY METHOD 09/24/2025 11:06 AM EDT [facility] MCHC 32.7 32.0 - 37.0 g/dL LAB HEMETOLOGY METHOD 09/24/2025 11:06 AM EDT [facility] RDW 12.8 11.0 - 15.0 % LAB HEMETOLOGY METHOD 09/24/2025 11:06 AM [facility] Platelets 280 130 - 400 K/mcL LAB [facility]EMETOLOGY [facility] 09/24[facility]2025 11:[facility] MPV 10.5 7.0 - 11.0 FL LAB HEMETOLOGY METHOD 09/24/2025 11:06 AM [facility] NRBC 0.0 <1.0 % LAB HEMETOLOGY METHOD 09/24/2025 11:06 AM [facility] NRBC Absolute 0.00 <0.10 K/mcL LAB HEMETOLOGY METHOD 09/24/2025 11:06 AM [facility] Neutrophils Relative 65.2 % LAB HEMETOLOGY METHOD 09/24/2025 11:06 AM [facility] Lymphocytes Relative 23.1 % LAB HEMETOLOGY METHOD 09/24/2025 11:06 AM [facility] Monocytes Relative 9.5 % LAB HEMETOLOGY METHOD 09/24/2025 11:06 AM [facility] Eosinophils Relative 1.3 % LAB HEMETOLOGY METHOD 09/24/2025 11:06 AM [facility] Basophils Relative 0.6 % LAB HEMETOLOGY METHOD 09/24/2025 11:06 AM [facility] Immature Granulocytes Relative 0.3 % LAB HEMETOLOGY METHOD 09/24/2025 11:06 AM [facility] Neutrophils Absolute 4.06 1.50 - 7.00 K/mcL LAB HEMETOLOGY METHOD 09/24/2025 11:06 AM [facility] Lymphocytes Absolute 1.44 1.00 - 5.00 K/mcL LAB HEMETOLOGY METHOD 09/24/2025 11:06 AM [facility] Monocytes Absolute 0.59 0.20 - 1.00 K/mcL LAB HEMETOLOGY METHOD 09/24/2025 11:06 AM [facility] Eosinophils Absolute 0.08 0.00 - 0.50 K/mcL LAB HEMETOLOGY METHOD 09/24/2025 11:06 AM [facility] Basophils Absolute 0.04 0.00 - 0.20 K/[facility] LAB HEMETOLOGY METHOD 09/24/2025 11:06 AM EDT [facility] Immature Granulocytes Absolute 0.02 0.00 - 0.03 /[facility] LAB HEMETOLOGY METHOD 09/24/2025 11:06 AM EDT [facility] Blood Venous blood specimen / Unknown Venipuncture / Unknown 09/24/2025 7:29 AM EDT 09/24/2025 7:29 AM EDT [facility] POWDER NIPPER LAB BLOOD ORDERABLES Final Resul t [facility] [address] [place] [address], [place] [phone] * Sedimentation rate (09/24/2025 7:29 AM EDT) Sed Rate 25 0 - 30 mm/hr LAB HEMETOLOGY METHOD 09/24/2025 11:21 AM EDT [facility] Blood Venous blood specimen / Unknown Venipuncture / Unknown 09/24/2025 7:29 AM EDT 09/24/2025 7:29 AM EDT [facility] Garnica POWDER NIPPER LAB BLOOD ORDERABLES Final Resul t [facility] [address] [place] [address], [place] [phone] * (ABNORMAL) C-reactive protein (09/24/2025 7:29 AM EDT) C-Reactive Protein 0.73(H) <=0.50 mg/dL LAB CHEMISTRY METHOD 09/24/2025 11:46 AM EDT [facility] Blood Venous blood specimen / Unknown Venipuncture / Unknown 09/24/2025 7:29 AM EDT 09/24/2025 7:29 AM EDT us Jeannette Garnica POWDER NIPPER LAB BLOOD ORDERABLES Final Resul t Performing Organization Address City/[facility]/ZIP Co de Phone Number [facility] [address] [place] [address], [place] [phone] * Amylase (09/24/2025 7:29 AM EDT) Amylase 29 25 - 115 unit/L LAB CHEMISTRY METHOD 09/24/2025 11:46 AM EDT [facility] Blood Venous blood specimen / Unknown Venipuncture / Unknown 09/24/2025 7:29 AM EDT 09/24/2025 7:29 AM EDT us Machado [facility] LAB BLOOD ORDERABLES Final Resul t Performing Organization Address [facility] de Phone Number [facility] [address] [place] [address], [place] [phone] * (ABNORMAL) Comprehensive metabolic panel (09/24/2025 7:29 AM EDT) Sodium 140 133 - 145 mmol/L LAB CHEMISTRY METHOD 09/24/2025 12:03 PM [facility] Potassium 3.7 3.5 - 5.5 mmol/L LAB CHEMISTRY METHOD 09/24/2025 12:03 PM [facility] Chloride 109 96 - 110 mmol/L LAB CHEMISTRY METHOD 09/24/2025 12:03 PM [facility] CO2 24 21 - 32 mmol/L LAB CHEMISTRY METHOD 09/24/2025 12:03 PM [facility] Anion Gap 7 3 - 11 LAB CHEMISTRY METHOD 09/24/2025 12:03 PM [facility] Glucose 106(H) 70 - 100 mg/dL LAB CHEMISTRY METHOD 09/24/2025 12:03 PM [facility] BUN 13 5 - 25 mg/dL LAB CHEMISTRY METHOD 09/24/2025 12:03 PM [facility] Creatinine 0.98 0.50 - 1.10 mg/dL LAB CHEMISTRY METHOD 09/24/2025 12:03 PM [facility] eGFR 65 >=60 mL/min/1. 73m2 LAB CHEMISTRY METHOD 09/24/2025 12:03 PM [facility] Comment:Calculation based on the Chronic Kidney Disease Epidemiology Collaboration (CKD-EPI) equation refit without adjustment for race. BUN/Creatinine Ratio 13.3 LAB CHEMISTRY METHOD 09/24/2025 12:03 PM [facility] Calcium 9.1 8.5 - 10.5 mg/dL LAB CHEMISTRY METHOD 09/24/2025 12:03 PM [facility] AST (SGOT) 18 10 - 42 unit/L LAB CHEMISTRY METHOD 09/24/2025 12:03 PM [facility] ALT (SGPT) 23 10 - 60 unit/L LAB CHEMISTRY METHOD 09/24/2025 12:03 PM [facility] Alkaline Phosphatase 64 42 - 121 unit/L LAB CHEMISTRY METHOD 09/24/2025 12:03 PM [facility] Total Protein 5.9(L) 6.0 - 8.0 g/dL LAB CHEMISTRY METHOD 09/24/2025 12:03 PM [facility] Albumin 3.4 3.2 - 5.0 g/dL LAB CHEMISTRY METHOD 09/24/2025 12:03 PM [facility] Total Bilirubin 0.5 0.0 - 1.4 mg/dL LAB CHEMISTRY METHOD 09/24/2025 12:03 PM [facility] Blood Venous blood specimen / Unknown Venipuncture / Unknown 09/24/2025 7:29 AM EDT 09/24/2025 7:29 AM EDT us Machado Garnica POW[employer]IP[employer] LAB BLOOD ORDERABLES Final Resul t Performing Organization Address City/[facility]/ZIP Co de Phone Number [facility] [address] [place] [address], [place] [phone] * (ABNORMAL) Lipid panel with reflex to direct LDL (05/29/2025 10:35 AM EDT) Cholesterol 242(H) 0 - 200 mg/dL LAB CHEMISTRY METHOD 05/29/2025 12:08 PM EDT [facility] Triglycerides 67 0 - 150 mg/dL LAB CHEMISTRY METHOD 05/29/2025 12:08 PM EDT [facility] HDL 95 >=40 mg/dL LAB CHEMISTRY METHOD 05/29/2025 12:08 PM EDT [facility] LDL Calculated 134(H) 0 - 100 mg/dL LAB CHEMISTRY METHOD 05/29/2025 12:08 PM EDT [facility] VLDL Cholesterol Timi 13.4 mg/dL LAB CHEMISTRY METHOD 05/29/2025 12:08 PM EDT [facility] Non HDL Chol. (LDL+VLDL) 147(H) <145 mg/dL LAB CHEMISTRY METHOD 05/29/2025 12:08 PM EDT [facility] Chol/HDL Ratio 2.5 0.0 - 4.4 LAB CHEMISTRY METHOD 05/29/2025 12:08 PM EDT [facility] Blood Venous blood specimen / Unknown Venipuncture / Unknown 05/29/2025 10:35 AM EDT 05/29/2025 10:35 AM EDT [facility] LAB BLOOD ORDERABLES Final Resul t [facility] [address] [place] [address], [place] [phone] from Last 3 Months or Most Recently Relevant to Health Maintenance Insurance [facility] [address] [place] [address] MEDICA[place] Advance Directives Documents on File Type Date Recorded Patient 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
== END 2025-11-05 15:40 | disposition home or self-care (01) ==
LOC: HO.HOS 15:10
PROVIDERS: PCP Internal Medicine
DX: S52.041A Displaced fracture of coronoid process of right ulna, initial encounter for closed fracture (principal); S52.501A Unspecified fracture of the lower end of right radius, initial encounter for closed fracture
CPT/HCPCS: 99213

== ENCOUNTER 2025-11-05 15:22 | Outpatient (REF) | payer MEDICARE, MEDICAID, SELFPAY ==
--- NOTE | ~2025-11-05 | XR_ITS ---
EXAMINATION: XR WRIST, RIGHT CLINICAL INFORMATION: M79.641 - Pain in right hand COMPARISON: 09/16/2025, 08/19/2025. Exams dating back to 06/19/2025. TECHNIQUE: PA, lateral, oblique, and scaphoid views of the right wrist. FINDINGS: Previously seen fractures of the distal radius and fovea of the distal ulna are no longer visualized. Fracture lines are healed. There is normal alignment. There is no current fracture, dislocation, or suspicious bone lesion. There is normal alignment. Joint spaces are preserved. There is no soft tissue abnormality. XR/XR wrist RT w scaphoid IMPRESSION: Healed fractures of the distal radius and distal. No acute finding. Electronically signed by: Dong Mann MD 11/05/2025 03:34 PM DANIEL WHEELER
== END 2025-11-05 15:23 | disposition home or self-care (01) ==
LOC: HO.HOSX 15:22
DX: S52.041D Displaced fracture of coronoid process of right ulna, subsequent encounter for closed fracture with routine healing (principal); S52.501D Unspecified fracture of the lower end of right radius, subsequent encounter for closed fracture with routine healing
CPT/HCPCS: 73080; 73110

== ENCOUNTER → 2025-11-05 15:23 | Outpatient (BNV) | payer MEDICARE, MEDICAID, SELFPAY | PROVIDERS: Visit Provider Radiology Diagnostic Radiology | DX: S52.501D Unspecified fracture of the lower end of right radius, subsequent encounter for closed fracture with routine healing (principal) | CPT/HCPCS: 73110 ==